=== PATIENT | male | born 1965 | race Caucasian/White ===

== ENCOUNTER 2017-02-02 11:46 | Inpatient (IN) | payer BC, OTHER ==
[~2017-02-02] VITALS: Ht 190.5 cm; Wt 84.3 kg
[2017-02-02] VITALS (7 sets, daily range): BP systolic 79–123; BP diastolic 61–79; PULSE 102–126; RESP 15–20; TEMP 99.3–100; O2SAT 92–99
[~2017-02-02 11:46] MED LIST: CYCL-36 PO; DICL75 PO; Z.0.NO CURRENT MEDS
[2017-02-02] MEDS ORDERED: ASPIRIN 325 MG TAB ONE (12:06)
[2017-02-02] MEDS ORDERED: SODIUM CHLOR 0.9% 1000 ML INJ 1,000 ML IV ONE (12:11)
[2017-02-02] MEDS ORDERED: HEPARIN SODIUM - IV 10,000 UNITS/10 ML VIAL IV STA (12:11)
[2017-02-02] MEDS ORDERED: NITROGLYCERIN 0.4 MG SL 25 TABS/BTL SL STA (12:11)
[2017-02-02] MEDS ORDERED: NITROGLYCERIN-DEXTROSE INJ 250 ML IV SCH (12:15)
[2017-02-02] MEDS ORDERED: SODIUM CHLORIDE 0.9% FLUSH 10 ML FLUSH IVF PRN (12:15)
--- NOTE | 2017-02-02 12:23 | PD ---
HPI Chief Complaint: STEMI Alert Time Seen by Provider: 11:50 Travel History International Travel<30 days: No Contact w/Intl Traveler<30days: No Traveled to known affect area: No History of Present Illness HPI This is a 51-year-old gentleman with a history of hyperlipidemia and diabetes mellitus that his gone untreated, who presents today with complaints of chest pain and chest pressure on and off 2 weeks. Patient was also reported shortness of breath for that timeframe. The patient reports that at 1:00 this morning he woke up with severe pain. He rates the pain as a 3 out of 10 on the pain scale. It is substernal with no radiation to his shoulder. The patient reports shortness of breath that is worse when lying flat. He states when he leans forward it is much improved. The patient does not take aspirin or occasions for his cholesterol or blood sugar. PFSH Past Medical History Arthritis: Yes Asthma: No Autoimmune Disease: No Blood Disorders: No Anxiety: No Depression: No Heart Rhythm Problems: No Cancer: No Cardiovascular Problems: No High Cholesterol: No Chemotherapy: No Chest Pain: No Congestive Heart Failure: No COPD: No Cerebrovascular Accident: No Diabetes: No Diminished Hearing: No Endocrine: No GERD: Yes Glaucoma: No Genitourinary: No Headaches: Yes Hepatitis: No Hiatal Hernia: No Hypertension: No Immune Disorder: No Kidney Stones: No Musculoskeletal: Yes Neurologic: Yes Psychiatric: No Reproductive: No Respiratory: No Migraines: No Myocardial Infarction: Yes Radiation Therapy: No Renal Failure: No Seizures: No Sickle Cell Disease: No Sleep Apnea: No Thyroid Disease: No Ulcer: No ?: Not Past Surgical History AICD: No Appendectomy: No Arteriovenous Shunt: No Cholecystectomy: No Insulin Pump: No Joint Replacement: No Oral Surgery: Yes (LEFT ELBOW) Pacemaker: No Other Surgery: Yes (STENTS) Social History Alcohol Use: Yes (OCCASSIONAL) Tobacco Use: Yes (1 PPD) Substance Use: No Allergies-Medications (Allergen,Severity, Reaction): Coded Allergies: Archiedec (Verified Allergy, Severe, UNKNOWN, 01/30/13) Reported Meds & Prescriptions Reported Meds & Active Scripts Active Diclofenac Sodium 75 Mg Tab 75 Mg PO BID 10 Days Flexeril (Cyclobenzaprine HCl) 10 Mg Tab 10 Mg PO Q8HPRN Reported No Current Meds (Miscellaneous Medication) Misc Review of Systems Except as stated in HPI: all other systems reviewed are Neg General / Constitutional: No: Fever, Chills HENT: No: Headaches, Lightheadedness Cardiovascular: Positive: Chest Pain or Discomfort, No: Palpitations, Irregular Rhythm Respiratory: Positive: Shortness of Breath, No: Cough Gastrointestinal: Positive: Nausea, No: Vomiting, Abdominal Pain Musculoskeletal: No: Myalgias, Edema, Pain Neurologic: No: Weakness, Dizziness, Syncope Physical Exam Narrative GENERAL: Well-developed well-nourished male in mild respiratory distress. SKIN: Focused skin assessment warm/dry. HEAD: Atraumatic. Normocephalic. EYES: No scleral icterus. No injection or drainage. ENT: No nasal bleeding or discharge. Mucous membranes pink and moist. NECK: Trachea midline. No JVD. Supple CARDIOVASCULAR: Tachycardic rate in the 120s. No murmurs appreciated. RESPIRATORY: No accessory muscle use. Fine Rales heard at the bilateral bases. GASTROINTESTINAL: Abdomen soft, non-tender, nondistended. MUSCULOSKELETAL: No obvious deformities. No clubbing. No cyanosis. No edema. NEUROLOGICAL: Awake and alert. No obvious cranial nerve deficits. Motor grossly within normal limits. Normal speech. Data Data Last Documented VS Vital Signs Date Time Temp Pulse Resp B/P Pulse Ox O2 Delivery O2 Flow Rate FiO2 02/02/17 12:13 126 20 112/61 96 Orders Aspirin (Aspirin) (02/02/17 12:06) Troponin I (02/02/17 12:11) Ckmb (Isoenzyme) Profile (02/02/17 12:11) Complete Blood Count With Diff (02/02/17 12:11) I-Stat Profile (02/02/17 12:11) I-Stat Creatinine (02/02/17 12:11) Calcium (02/02/17 12:11) Magnesium (Mg) (02/02/17 12:11) Prothrombin Time / Inr (Pt) (02/02/17 12:11) Act Partial Throm Time (Ptt) (02/02/17 12:11) B-Type Natriuretic Peptide (02/02/17 12:11) Chest, Single Ap (02/02/17 12:11) Electrocardiogram (02/02/17 12:11) Oxygen Administration (02/02/17 12:11) Iv Access Insert/Monitor (02/02/17 12:11) Oximetry (02/02/17 12:11) Sodium Chlor 0.9% 1000 Ml Inj (Ns 1000 M (02/02/17 12:11) Sodium Chloride 0.9% Flush (Ns Flush) (02/02/17 12:15) Nitroglycerin Sl (Nitrostat Sl) (02/02/17 12:11) Nitroglycerin-Dextrose Inj (Nitroglyceri (02/02/17 12:15) Heparin Inj (Heparin Inj) (02/02/17 12:11) MDM Medical Decision Making Medical Screen Exam Complete: Yes Emergency Medical Condition: Yes Differential Diagnosis ACS versus CHF versus musculoskeletal pain Narrative Course 51-year-old male history of hyperlipidemia, hyperglycemia, who presents with two -week history of intermittent chest pain. The patient woke up this morning at 1 AM with chest pain. He reports that as a 3 out of 10 on the pain scale. EKG shows ST elevations in the anterior septal leads. The previous EKG that did not show the anterior elevation that is markedly today. Case was discussed with Dr. August Pozo as the patient was made a STEMI alert. He will take the patient emergently to the [facility]. Cardiac enzymes are pending at this time. He has been given an aspirin. Orders for STEMI alert initiated including heparin. Diagnosis Primary Impression: Acute ST elevation myocardial infarction Additional Impressions: History of hyperlipidemia History of hyperglycemia Admitting Information Admitting Physician Requests: Admit José Luis Hernandez MD Feb 02, 2017 12:23
[2017-02-02 12:27] LABS: AUTOMATED NEUTROPHIL # 16.2 TH/MM3 (1.8-7.7); BASOPHIL # 0.1 TH/MM3 (0-0.2); BASOPHIL % 0.5 % (0.0-2.0); EOSINOPHIL % 0.2 % (0.0-4.0); HEMATOCRIT 37.2 % (39.0-51.0); HEMO FLAGS DIFF FINAL; LYMPH % 6.8 % (9.0-44.0); LYMPHOCYTE # 1.3 TH/MM3 (1.0-4.8); MEAN CELL VOLUME 82.3 FL (80.0-100.0); MEAN CORPUSCULAR HEMOGLOBIN 28.6 PG (27.0-34.0); MEAN CORPUSCULAR HGB CONC 34.7 % (32.0-36.0); MONO % 6.5 % (0.0-8.0); PLATELET COUNT 326 TH/MM3 (150-450); RED BLOOD COUNT 4.52 MIL/MM3 (4.50-5.90); RED CELL DISTRIBUTION WIDTH 13.7 % (11.6-17.2); WHITE BLOOD COUNT 18.8 TH/MM3 (4.0-11.0)
[2017-02-02] MEDS ORDERED: IOHEXOL 350 MG/ML 50 ML BTL (for Cath Lab) OTHER ONE (12:30)
[2017-02-02] MEDS ORDERED: IOHEXOL 350 MG/ML 100 ML BTL (for Cath Lab) OTHER ONE (12:30)
[2017-02-02 12:31] LABS: I-STAT POTASSIUM 4.2 MMOL/L (3.5-4.9)
--- NOTE | 2017-02-02 12:33 | RADRPT ---
EXAM DATE/TIME: 02/02/2017 12:08 [facility] COMPARISON: No previous studies available for comparison. INDICATIONS : Stemi alert. MEDICAL HISTORY : None. SURGICAL HISTORY : None. ENCOUNTER: Initial ACUITY: 1 day PAIN SCORE: 10/10 LOCATION: Left upper chest FINDINGS: The right A/C joint is by 2.4 cm. Slight bibasilar atelectasis and/or infiltrate is seen. T here is slight cardiomegaly and perivascular pulmonary edema. Focal consolidation is not seen. CONCLUSION: 1. Slight CHF and bibasilar atelectasis and/or infiltrate. 2. Grade III A/C joint separation on the right. Renea Chacko MD on February 02, 2017 at 12:30 Board Certified Radiologist. This report was verified electronically.
[2017-02-02 12:37] LABS: APTT (PATIENT) 28.6 SEC (24.3-30.1); INTERNATIONAL NORMALIZED RATIO 1.1 RATIO; PROTHROMBIN TIME - PATIENT 11.8 SEC (9.8-11.6)
[2017-02-02] MEDS ORDERED: HEPARIN-NS/PF INJ 500 ML ONE (12:39)
[2017-02-02] MEDS ORDERED: HEPARIN SODIUM - IV 10,000 UNITS/10 ML VIAL ONE (12:39)
[2017-02-02] MEDS ORDERED: TIROFIBAN INFUSION INJ 250 ML IV ONE (12:40)
[2017-02-02] MEDS ORDERED: NITROGLYCERIN INJ 5 ML ONE (12:43)
[2017-02-02] MEDS ORDERED: MIDAZOLAM HCL 2 MG/2 ML VIAL ONE (12:43)
[2017-02-02 12:46] LABS: MAGNESIUM 1.8 MG/DL (1.5-2.5)
[2017-02-02] MEDS ORDERED: HEPARIN-D5W INJ 250 ML ONE (13:02)
[2017-02-02] MEDS ORDERED: MORPHINE SULFATE 8 MG/ML INJ ONE (13:03)
[2017-02-02] MEDS: SODIUM CHLOR 0.9% 1000 ML INJ 1,000 ML IV SCH ×2 (13:13→23:13)
[2017-02-02] MEDS ORDERED: SODIUM CHLORIDE 0.9% FLUSH 5 ML FLUSH IVF PRN (13:15)
--- NOTE | 2017-02-02 13:18 | MB ---
cc: SUZAN MIKE M.D. DATE OF CONSULTATION: 02/02/2017 DATE OF : 1965 REASON FOR CONSULTATION: Acute ST-elevation myocardial infarction. HISTORY OF PRESENT ILLNESS The patient is a 51-year-old white male with a history of diabetes, coronary artery disease status post stent x2 (Cypher) of the proximal LAD by Dr. Sue Oliver 2007, who was in his usual state of health up until about 2 weeks ago when he began to experience intermittent episodes of substernal chest discomfort associated with shortness of breath and occasionally slight nausea. Usually the chest discomfort, described as "sharp," would last a few minutes. However, he awoke this morning at 01:00 a.m. with severe substernal chest pain which has persisted until now (11 hours later). He denies pleurisy, dizziness, syncope, near-syncope, palpitations, pedal edema, paroxysmal nocturnal dyspnea. The patient has been noncompliant with followup. PAST MEDICAL HISTORY 1. Diabetes. 2. Coronary artery disease, status post stent x2 of the the proximal LAD . CARDIAC MEDICATIONS AT HOME: None. ALLERGIES RONDE FAMILY HISTORY Noncontributory. SOCIAL HISTORY The patient smokes about a pack of cigarettes per day. He denies alcohol abuse. REVIEW OF SYSTEMS As in the history of present illness otherwise negative or noncontributory. He also denies headache, abdominal pain, melena, dyspepsia, bright red blood per rectum, fevers. PHYSICAL EXAMINATION: VITAL SIGNS: On physical examination his blood pressure 112/60 with a pulse of 120, respirations 20. IN GENERAL: He is a well-developed, well-nourished white male in no acute distress. HEAD, EYES, EARS, NOSE, AND THROAT: Jugular venous pressure is 10 cm of water. Carotid pulses are 2+ bilaterally and without bruits. CHEST: Examination of the chest reveals few bibasilar crackles CARDIOVASCULAR SYSTEM: On cardiac examination he has a tachycardiac regular rhythm without definite S3- S4 or murmur. ABDOMEN: On abdominal examination he has a soft, nontender abdomen. Bowel sounds are present. There is no definite hepatosplenomegaly. EXTREMITIES: Examination of the extremities reveals no clubbing, cyanosis or edema. Peripheral pulses are normal throughout. LABORATORY DATA: Laboratory data pending. RADIOLOGIC: EKG shows sinus tachycardia, anterior and anteroseptal ST elevation, consider acute injury pattern. IMPRESSION: Probable anterior ST elevation myocardial infarction, congestive heart failure in this 51-year-old white male with a history of diabetes, coronary artery disease status post percutaneous coronary intervention of the LAD 8 years ago. At this time he continues to have ongoing chest pains. His EKG does show new ST-segment elevation in the anteroseptal leads. Because of the instability of his symptoms and the abnormal EKG he has been recommended emergency cardiac catheterization with possible percutaneous coronary intervention, the risks of which have explained him including but not limited to , myocardial infarction, stroke, arrhythmia, bleeding, infection, renal failure. He agrees to proceed. RECOMMENDATIONS: 1. Emergency cardiac catheterization. 2. Eventually start beta yadira and KEISHA inhibitor therapy as blood pressures tolerate. 3. Check a fasting lipid profile and initiate statin therapy. MD DEWAYNE Bryant/clementine /12:24 PM /12:44 PM GEOVANNA
[2017-02-02] MEDS ORDERED: FUROSEMIDE 40 MG/4 ML VIAL IV PUSH ONE (13:30)
--- NOTE | 2017-02-02 13:42 | MA ---
cc: SUZAN MIKE M.D. DATE 02/02/17 PROCEDURE Emergency left heart catheterization, selective coronary angiography, left ventriculography, intra-aortic balloon pump placement. PROCEDURE NOTE The patient was brought to the cardiac catheterization laboratory in a fasting state after having signed informed consent. The right groin was prepped and draped as per policy and anesthetized with 1% lidocaine. Arterial access was obtained via the right femoral artery and a 6-Beninese sheath placed. Coronary arteriography was performed using 6-Beninese Sen, left 4.0 and right progressive catheters. Left ventriculography was done using an angled pigtail catheter. Intraaortic balloon pump placement was done as described below. There were no apparent immediate complications. HEMODYNAMIC RESULTS Left ventricle 92 with an end-diastolic pressure of 30. Aorta 92/60 with a mean of 73. There was no significant transvalvular aortic gradient on pullback of the pigtail catheter. CORONARY ARTERIOGRAPHY The left main is a very large vessel with diffuse disease. Most evident on the GUATEMALAN cranial view the distal left main has up to 30% stenosis. The left anterior descending demonstrates two overlapping stents proximally. There is severe diffuse re-stenosis of the stents resulting in up to 99% severity. There is DAVID grade 1 flow in this vessel. The LAD appears to gives rise to a very small branching diagonal which is subtotally occluded at its origin. There is a large ramus intermedius which has diffuse ostial to proximal disease resulting in up to 40% stenosis. The left circumflex is totally occluded in its midportion. Faint late filling is seen of the distal left circumflex and of a relatively small caliber obtuse marginal which has minimal luminal irregularities. The right coronary artery is also diffusely diseased. There is up to 80% stenosis in the distal third of the proximal portion and then total occlusion of the vessel distally. No definite [id number] collaterals are seen. What functionally serves as the posterior descending artery arises from the mid right coronary and this vessel overall appears to have mild diffuse luminal irregularities with up to 20% stenosis near its origin. LEFT VENTRICULOGRAPHY Contrast injection of the left ventricle reveals a large area of mid to distal anterior and apical akinesis. The apex may also be slightly dyskinetic. Estimated ejection fraction is 25%. INTRA-AORTIC BALLOON PUMP PLACEMENT: Due to the patient's ongoing chest discomforts, his severe coronary artery disease, the DAVID grade 1 flow in the LAD, it was decided to place an intra-aortic balloon pump. The proximal LAD disease does not appear to be readily amendable to percutaneous intervention. The 6-Beninese sheath was exchanged for a balloon pump sheath. Through this sheath a Datascope intraaortic balloon pump was introduced and its tip positioned in the aortic knob where good diastolic augmentation was demonstrated. The balloon pump was secured into place using 2-0 silk ties down to the thigh skin tissue. CONCLUSION 1. Severe three-vessel coronary artery disease. 2. Right dominant system. 3. Severely reduced left ventricular systolic function with ejection fraction estimated at 25%. 4. Status post placement of an intra-aortic balloon pump. DISCUSSION The patient will be referred for bypass surgery. Bypass grafts could be placed to the LAD, posterior descending artery, possibly an obtuse marginal. Suzan Mike MD GHOc/ISI /1:09 PM /1:26 PM MTDD
[2017-02-02] MEDS ORDERED: ACETAMINOPHEN 325 MG TAB PO PRN (14:45)
[2017-02-02] MEDS ORDERED: MISCELLANEOUS NURSING INFORMATION XX SCH (14:45)
[2017-02-02] MEDS ORDERED: DEXTROSE 50% IN WATER 50 ML VIAL(D50) IV PUSH PRN (14:45)
[2017-02-02] MEDS ORDERED: GLUCAGON 1 MG/ML VIAL OTHER PRN (14:45)
[2017-02-02] MEDS ORDERED: CHLORHEXIDINE GLUCONATE 2 % 1 PACK (2 CLOTHS) TOP PRN (14:45)
[2017-02-02] MEDS ORDERED: SENNOSIDES 8.6 MG TAB PO PRN (14:45)
[2017-02-02] MEDS ORDERED: SODIUM CHLORIDE 0.9% FLUSH 10 ML FLUSH IV FLUSH PRN (14:45)
[2017-02-02] MEDS ORDERED: RESP: ALBUTEROL 2.5 MG/IPRATROPIUM 0.5 MG NEB (PRN) INH (14:45)
[2017-02-02] MEDS ORDERED: ONDANSETRON HCL 4 MG/2 ML VIAL IV PRN (14:45)
[2017-02-02] MEDS ORDERED: MORPHINE SULFATE 4 MG/ML INJ IV PRN (14:45)
--- NOTE | 2017-02-02 14:45 | HHI.HP ---
[facility] Service Critical Care Medicine Primary Care Physician No Primary Care Physician Admission Diagnosis Acute STEMI, hyperlipidemia, hyperglycemia Diagnosis: (1) Acute ST elevation myocardial infarction Diagnosis: Principal (2) History of hyperlipidemia Diagnosis: Principal (3) Hyperglycemia Diagnosis: Principal (4) Coronary artery disease Diagnosis: Principal (5) Leukocytosis Diagnosis: Principal (6) Anemia Diagnosis: Principal (7) Elevated troponin Diagnosis: Principal (8) Hyponatremia Diagnosis: Principal Chief Complaint: Chest pain Travel History International Travel<30 Days: No Contact w/Intl Traveler <30 Da: No Traveled to Known Affected Are: No History of Present Illness 51-year-old male. Date of admission . We are asked to admit by cardiology for chest pain. He has a past medical history including hyperlipidemia and diabetes mellitus 1 year currently on no medication. He has known history of coronary disease with's stents 2 placed in the LAD by Dr. Perea in 2007. He presented to [place] ED with complaints of chest pain and chest pressure on and off 2 weeks. Associated with shortness of breath/ excursion. At 1 AM this morning he awoke up with severe nonradiating pain. with orthopnea. Upon presentation ED, patient was noted to have ST elevation in the anterior/lateral leads. He was given aspirin 325 mg by mouth 1 started heparin drip and nitroglycerin. Today patient back to heart catheter lab results have three-vessel coronary disease. Left main 30%. LAD re in-stent stenosis 99%, 40% ostial stenosis. RCA 80% stenosis of the distal third and the left circumflex 100% occlusion. Ejection fraction was 25%. An intra-aortic pump was placed 1:1 augmentation around 100. Agent appears intact. CT surgery is been consulted. Chest pain currently 1 out of 10. Review of Systems Constitutional: COMPLAINS OF: Fatigue, DENIES: Fever, Weight gain, Weight loss Endocrine: DENIES: Polyuria, Polyphagia Eyes: DENIES: Blurred vision, Double Vision Ears, nose, mouth, throat: DENIES: Tinnitus, Odynophagia Respiratory: DENIES: Apneas Cardiovascular: COMPLAINS OF: Chest pain, Orthopnea, DENIES: Lower Extremity Edema, Claudication Gastrointestinal: DENIES: Abdominal pain, Nausea, Vomiting Genitourinary: DENIES: Urgency Musculoskeletal: DENIES: Joint pain, Back pain Integumentary: DENIES: Abnormal pigmentation Hematologic/lymphatic: DENIES: Bruising Immunologic/allergic: DENIES: Eczema Neurologic: DENIES: Abnormal gait Psychiatric: DENIES: Anxiety, Confusion Past Family Social History Allergies: Coded Allergies: Rondec (Verified Allergy, Severe, UNKNOWN, 02/02/17) Past Medical History Coronary artery disease - three-vessel currently. Prior LAD stent 2 Osteoarthritis Diabetes mellitus Dyslipidemia Osteoarthritis Ongoing tobaccoism Past Surgical History Left elbow Reported Medications None Active Ordered Medications Reviewed in EMR Family History Noncontributory Social History 1 pack per day tobacco. No significant EtOH or IV drug use Physical Exam Vital Signs Vital Signs Date Time Temp Pulse Resp B/P Pulse Ox O2 Delivery O2 Flow Rate FiO2 02/02/17 12:37 126 18 112/61 99 Nasal Cannula 2 02/02/17 12:17 99 Nasal Cannula 2 02/02/17 12:17 124 20 99 Nasal Cannula 2 02/02/17 12:13 126 20 112/61 96 Physical Exam GENERAL: 51 year old male, currently resting in bed on nasal cannula SKIN: Warm and dry. No rash HEAD: Atraumatic. Normocephalic. EYES: Pupils equal and round. No scleral icterus. No injection or drainage. ENT: No nasal bleeding or discharge. Mucous membranes pink and moist. NECK: Trachea midline. No JVD. CARDIOVASCULAR: Distant. Pulsation of intra-aortic balloon pump appreciated. RESPIRATORY: Few crackles patient bases bilateral. No wheezing. Breath sounds equal bilaterally. GASTROINTESTINAL: Abdomen soft, non-tender, nondistended. Hepatic and splenic margins not palpable. MUSCULOSKELETAL: Extremities without significant peripheral edema. No obvious deformities. NEUROLOGICAL: Awake and alert. No obvious cranial nerve deficits. Motor grossly within normal limits. Five out of 5 muscle strength in the arms and legs. Normal speech. PSYCHIATRIC: Appropriate mood and affect; insight and judgment normal. Laboratory Laboratory Tests Test 02/02/17 11:20 White Blood Count 18.8 Red Blood Count 4.52 Hemoglobin 12.9 Bedside Hemoglobin 12.9 Hematocrit 37.2 Bedside Hematocrit 38.0 Mean Corpuscular Volume 82.3 Mean Corpuscular Hemoglobin 28.6 Mean Corpuscular Hemoglobin 34.7 Concent Red Cell Distribution Width 13.7 Platelet Count 326 Mean Platelet Volume 7.5 Neutrophils (%) (Auto) 86.0 Lymphocytes (%) (Auto) 6.8 Monocytes (%) (Auto) 6.5 Eosinophils (%) (Auto) 0.2 Basophils (%) (Auto) 0.5 Neutrophils # (Auto) 16.2 Lymphocytes # (Auto) 1.3 Monocytes # (Auto) 1.2 Eosinophils # (Auto) 0.0 Basophils # (Auto) 0.1 CBC Comment DIFF FINAL Differential Comment Prothrombin Time 11.8 Prothromb Time International 1.1 Ratio Activated Partial 28.6 Thromboplast Time Bedside Sodium 136 Bedside Potassium 4.2 Bedside Chloride 100 Bedside Blood Urea Nitrogen 15 Bedside Creatinine 0.8 Bedside Glucose 314 Calcium Level 9.1 Magnesium Level 1.8 Total Creatine Kinase 92 Troponin I 1.16 B-Type Natriuretic Peptide 329 Result Diagram: 02/02/17 1120 Imaging Last Impressions Chest X-Ray 02/02/17 1211 Signed Impressions: Service Date/Time: Saturday, February 02, 2017 12:08 - CONCLUSION: 1. Slight CHF and bibasilar atelectasis and/or infiltrate. 2. Grade III A/C joint separation on the right. Renea Chacko MD Assessment and Plan Assessment and Plan Neuro/Psych: Acetaminophen for fever [place]/morphine for pain management CV: STEMI Three-vessel coronary disease History of LAD stenting [address] Perea Hypertension Dyslipidemia EKG admission revealed ST elevation anterior/lateral leads Heart catheterization - left main 30%, LAD with re in stent stenosis 98%, ostial 40%, RCA 80% distal, left circumflex 100% percent occlusion. EF 25% Echocardiogram 2007 revealed EF 50%. Mild apical hypokinesis Currently in aspirin 325 daily, Lipitor 40 mg daily and heparin drip @ 1000 units an hour. Cardiothoracic surgery evaluation pending for possible CABG Resp: Ongoing tobaccoism Nasal cannula to maintain saturations greater than equal to 92% Incentive spirometry while awake As needed bronchodilator therapy every 2 hours Tobacco sensation will be encouraged GI: Gastroesophageal reflux disease Currently on ADA diet Protonix for GI prophylaxis Colace/as needed Senokot for bowel regimen : Patel will be placed for accurate I's and O's in a critically ill patient Endo: Diabetes mellitus Check hemoglobin A1c/lipid panel KEISHA inhibitor when indicated Sliding-scale insulin with Accu-Cheks to maintain euglycemia/low regimen Renal: Accurate I's and O's Monitor urine output Creatinine currently within normal limits. Repeat BMP in a.m. Heme: Leukocytosis Normocytic anemia Monitor CBC daily. Follow trends. ID: Monitor for infection MSK: Right grade 3 AC joint separation OT evaluate and treat FEN: Hyponatremia Follow BMP in a.m. Access - Utilize peripheral IV. Central line if indicated Prophylaxis - GI - Protonix - DVT - heparin drip Critical Care: The total critical care time was 65 minutes. Time to perform other separately billable procedures was not included in the critical care time. Code Status Full code Discussed Condition With Patient. RN. Care plan discussed and all questions answered. Problem Qualifiers (1) Acute ST elevation myocardial infarction: Qualified Code: I21.3 - Acute ST elevation myocardial infarction (STEMI), unspecified artery (2) Coronary artery disease: Qualified Code: I25.110 - Coronary artery disease involving [place] coronary artery of [place] heart with unstable angina pectoris (3) Leukocytosis: Qualified Code: D72.829 - Leukocytosis, unspecified type (4) Anemia: Qualified Code: D64.9 - Anemia, unspecified type Michael Clancy MD Feb 02, 2017 14:45
--- NOTE | 2017-02-02 14:51 | PD.CONS ---
History of Present Illness Service CT Surgery Consult Requested By Dr. Goncalves Reason for Consult STEMI, multivessel CAD Primary Care Physician No Primary Care Physician Diagnoses: (1) Acute ST elevation myocardial infarction (2) Coronary artery disease Review of Systems Constitutional: COMPLAINS OF: Diaphoretic episodes, Fatigue, DENIES: Fever, Weight gain, Weight loss, Chills, Dizziness, Change in appetite, Night Sweats Endocrine: DENIES: Heat/cold intolerance, Polydipsia, Polyuria, Polyphagia Eyes: DENIES: Blurred vision, Diplopia, Eye inflammation, Eye pain, Vision loss , Photosensitivity, Double Vision Ears, nose, mouth, throat: DENIES: Tinnitus, Hearing loss, Vertigo, Nasal discharge, Oral lesions, Throat pain, Hoarseness, Ear Pain, Running Nose, Epistaxis, Sinus Pain, Toothache, Odynophagia Respiratory: DENIES: Apneas, Cough, Snoring, Wheezing, Hemoptysis, Sputum production, Shortness of breath Cardiovascular: COMPLAINS OF: Chest pain, DENIES: Palpitations, Syncope, Dyspnea on Exertion, PND, Lower Extremity Edema, Orthopnea, Claudication Gastrointestinal: DENIES: Abdominal pain, Black stools, Bloody stools, Constipation, Diarrhea, Nausea, Vomiting, Difficulty Swallowing, Anorexia Genitourinary: DENIES: Sexual dysfunction, Urinary frequency, Urinary incontinence, Urgency, Hematuria, Dysuria, Nocturia, Penile Discharge, Testicular Pain, Testicular Swelling Musculoskeletal: DENIES: Joint pain, Muscle aches, Stiffness, Joint Swelling, Back pain, Neck pain Integumentary: DENIES: Abnormal pigmentation, Nail changes, Pruritus, Rash Hematologic/lymphatic: DENIES: Bruising, Lymphadenopathy Immunologic/allergic: DENIES: Eczema, Urticaria Neurologic: DENIES: Abnormal gait, Headache, Localized weakness, Paresthesias, Seizures, Speech Problems, Tremor, Poor Balance Psychiatric: COMPLAINS OF: Anxiety, DENIES: Confusion, Mood changes, Depression, Hallucinations, Agitation, Suicidal Ideation, Homicidal Ideation, Delusions Except as stated in HPI: all other systems reviewed are Neg Past Family Social History Allergies: Coded Allergies: Rondec (Verified Allergy, Severe, UNKNOWN, 02/02/17) Past Medical History Diabetes Mellitus HTN Hyperlipidemia Ongoing tobacco abuse s/p PCI stent placement 2007 Reported Medications none Active Ordered Medications Current Medications Medications (Trade) Dose Ordered Sig/Leif Route Start Time Stop Time Status Last Admin Nitroglycerin/ Dextrose 250 ml @ 0 mls/hr TITRATE IV 02/02/17 12:15 (NS 1000 ml Inj) 1,000 ml @ 100 mls/hr Q10H IV 02/02/17 13:13 02/03/17 01:12 (Restoril) 15 mg HS PRN PO 02/02/17 13:15 (Aspirin) 325 mg DAILY PO 02/03/17 09:00 (Lipitor) 40 mg HS PO 02/02/17 21:00 (Heparin Inj) 5,000 units UNSCH PRN IV 02/02/17 19:15 Heparin Sodium (Porcine) 2500 units 2,500 units UNSCH PRN IV 02/02/17 19:15 (Heparin-D5W Inj) 250 ml @ 0 mls/hr TITRATE IV 02/02/17 13:15 (NS Flush) 2 ml UNSCH PRN IV FLUSH 02/02/17 14:45 (NS Flush) 2 ml BID IV FLUSH 02/02/17 21:00 UNV (Tylenol) 650 mg Q6H PRN PO 02/02/17 14:45 UNV ([place] 5-325 Mg) 1 tab Q4H PRN PO 02/02/17 14:45 UNV (Morphine Inj) 2 mg Q2H PRN IV 02/02/17 14:45 UNV (Protonix Inj) 40 mg DAILY IV 02/03/17 09:00 UNV (Zofran Inj) 4 mg Q6H PRN IV 02/02/17 14:45 UNV (Colace) 100 mg BID PO 02/02/17 21:00 UNV (Senokot) 17.2 mg Q12H PRN PO 02/02/17 14:45 UNV Miscellaneous Information 1 Q361D XX 02/02/17 14:45 UNV (Chlorhexidine 2% Cloth) 3 pack Taper DAILY@04 TOP 02/03/17 04:00 01/30/18 03:59 UNV (Chlorhexidine 2% Cloth) 3 pack UNSCH PRN TOP 02/02/17 14:45 UNV (D50w (Vial) Inj) 25 ml UNSCH PRN IV PUSH 02/02/17 14:45 UNV (Glucagon Inj) 1 mg UNSCH PRN OTHER 4/15/17 14:45 UNV Family History Denies heart disease Social History 1 ppd cigarettes for ~35 yrs Denies ETOH Physical Exam Vital Signs Vital Signs Date Time Temp Pulse Resp B/P Pulse Ox O2 Delivery O2 Flow Rate FiO2 02/02/17 12:37 126 18 112/61 99 Nasal Cannula 2 02/02/17 12:17 99 Nasal Cannula 2 02/02/17 12:17 124 20 99 Nasal Cannula 2 02/02/17 12:13 126 20 112/61 96 Physical Exam GENERAL: This is a well-nourished, well-developed patient, in no apparent distress. SKIN: No rashes, ecchymoses or lesions. Cool and dry. HEAD: Atraumatic. Normocephalic. No temporal or scalp tenderness. EYES: Pupils equal round and reactive. Extraocular motions intact. No scleral icterus. No injection or drainage. ENT: Nose without bleeding, purulent drainage or septal hematoma. Throat without erythema, tonsillar hypertrophy or exudate. Uvula midline. Airway patent. NECK: Trachea midline. No JVD or lymphadenopathy. Supple, nontender, no meningeal signs. CARDIOVASCULAR: Regular rate and rhythm without murmurs, gallops, or rubs. RESPIRATORY: Clear to auscultation. Breath sounds equal bilaterally. No wheezes , rales, or rhonchi. GASTROINTESTINAL: Abdomen soft, non-tender, nondistended. No hepato-splenomegaly , or palpable masses. No guarding. MUSCULOSKELETAL: Extremities without clubbing, cyanosis, or edema. No joint tenderness, effusion, or edema noted. No calf tenderness. Negative Homans sign bilaterally. NEUROLOGICAL: Awake and alert. Cranial nerves II through XII intact. Motor and sensory grossly within normal limits. Five out of 5 muscle strength in all muscle groups. Normal speech. Laboratory Laboratory Tests Test 02/02/17 11:20 White Blood Count 18.8 Red Blood Count 4.52 Hemoglobin 12.9 Bedside Hemoglobin 12.9 Hematocrit 37.2 Bedside Hematocrit 38.0 Mean Corpuscular Volume 82.3 Mean Corpuscular Hemoglobin 28.6 Mean Corpuscular Hemoglobin 34.7 Concent Red Cell Distribution Width 13.7 Platelet Count 326 Mean Platelet Volume 7.5 Neutrophils (%) (Auto) 86.0 Lymphocytes (%) (Auto) 6.8 Monocytes (%) (Auto) 6.5 Eosinophils (%) (Auto) 0.2 Basophils (%) (Auto) 0.5 Neutrophils # (Auto) 16.2 Lymphocytes # (Auto) 1.3 Monocytes # (Auto) 1.2 Eosinophils # (Auto) 0.0 Basophils # (Auto) 0.1 CBC Comment DIFF FINAL Differential Comment Prothrombin Time 11.8 Prothromb Time International 1.1 Ratio Activated Partial 28.6 Thromboplast Time Bedside Sodium 136 Bedside Potassium 4.2 Bedside Chloride 100 Bedside Blood Urea Nitrogen 15 Bedside Creatinine 0.8 Bedside Glucose 314 Calcium Level 9.1 Magnesium Level 1.8 Total Creatine Kinase 92 Troponin I 1.16 B-Type Natriuretic Peptide 329 Result Diagram: 02/02/17 1120 Imaging Last Impressions Chest X-Ray 02/02/17 1211 Signed Impressions: Service Date/Time: Thursday, February 02, 2017 12:08 - CONCLUSION: 1. Slight CHF and bibasilar atelectasis and/or infiltrate. 2. Grade III A/C joint separation on the right. KRory Chacko MD Course STEMI alert patient s/p emergent LHC and IABP placement. EF ~25% on V gram with LVEDP ~30mmHg Assessment and Plan Problem List: (1) Acute ST elevation myocardial infarction Status: Acute (2) Coronary artery disease Status: Acute (3) Combined systolic and diastolic heart failure, acute Status: Acute Assessment and Plan 51y/o male presents with STEMI and acute systolic and diastolic heart failure. He has numerous risk factors for CAD and continues to use tobacco. He has multivessel CAD and would benefit from CABG. Risk of surgery is very high emergently. Recommend: ECHO stat. Hopefully, he will stabilize with anticoagulation, IV NTG, and the IABP support. He had chest pain for 11 hours prior to presenting to the ED and would not likely benefit from immediate revascularization. Will follow and determine timing for CABG based on his clinical status. Problem Qualifiers (1) Acute ST elevation myocardial infarction: Qualified Code: I21.3 - Acute ST elevation myocardial infarction (STEMI), unspecified artery (2) Coronary artery disease: Qualified Code: I25.110 - Coronary artery disease involving telida coronary artery of telida heart with unstable angina pectoris Lexy Quintero MD Feb 02, 2017 14:51
--- NOTE | 2017-02-02 16:33 | EC ---
Study Study Date:02/02/2017 STUDY CONCLUSIONS SUMMARY - Left ventricle: The cavity size was mildly dilated. Wall thickness was normal. Systolic function was severely reduced. The estimated ejection fraction was in the range of 20% to 25%. Diffuse hypokinesis. Akinesis of the apical myocardium. - Aortic valve: Valve area: 3.31cm^2(VTI). Valve area: 3.08cm^2 (Vmax). - Mitral valve: Moderate regurgitation. - Pulmonary arteries: Systolic pressure was mildly increased. PA peak pressure: 48mm Hg (S). If LV function is below 40, please consider prescribing an ACEI or ARB or document rationale for non-use. PROCEDURE DATA STUDY STATUS: Elective. Procedure: Transthoracic echocardiography. Image quality was good. Scanning was performed from the parasternal, apical, and subcostal acoustic windows. Study completion: The patient tolerated the procedure well. Transthoracic echocardiography. M-mode, complete 2D, complete spectral Doppler, and color Doppler. Height: Height: 75in. Weight: Weight: 195.6lb. Body mass index: BMI: 24.5kg/m^2. Body surface area: BSA: 2.18m^2. Patient status: Inpatient. CARDIAC ANATOMY LEFT VENTRICLE: The cavity size was mildly dilated. Wall thickness was normal. Systolic function was severely reduced. The estimated ejection fraction was in the range of 20% to 25%. Diffuse hypokinesis. Regional wall motion abnormalities: Akinesis of the apical myocardium. AORTIC VALVE: Trileaflet; normal thickness leaflets. Doppler: Transvalvular velocity was within the normal range. There was no stenosis. No regurgitation. Valve area: 3.31cm^2(VTI). Indexed valve area: 1.52cm^2/m^2 (VTI). Valve area: 3.08cm^2 (Vmax). Indexed valve area: 1.41cm^2/m^2 (Vmax). Mean gradient: 3mm Hg (S). AORTA: Aortic root: The aortic root was normal in size. MITRAL VALVE: Structurally normal valve. Doppler: Transvalvular velocity was within the normal range. There was no evidence for stenosis. Moderate regurgitation. Peak gradient: 2mm Hg (D). LEFT ATRIUM: The atrium was normal in size. RIGHT VENTRICLE: The cavity size was normal. Wall thickness was normal. PULMONIC VALVE: Doppler: Transvalvular velocity was within the normal range. There was no evidence for stenosis. No regurgitation. TRICUSPID VALVE: Structurally normal valve. Doppler: Transvalvular velocity was within the normal range. Trace regurgitation. PULMONARY ARTERY: The main pulmonary artery was normal-sized. Systolic pressure was mildly increased. RIGHT ATRIUM: The atrium was normal in size. PERICARDIUM: There was no pericardial effusion. SYSTEMIC VEINS: Inferior vena cava: The vessel was normal in size. Patient weight: 195.6lb _Ejection fraction:_ 65-75% _Fractional shortening:_ 32% up to 5Kg 5-11.5Kg 11.6-22.9Kg 23-45Kg 45-57Kg Aortic Root 7-13 <17 13-22 17-27 17-27 LA diam 6-13 <23 24-38 33-47 37-40 RVID 10-17 7-15 7-15 7-18 8-17 LVIDd 12-22 <32 24-38 33-47 37-40 LVPW 2-4 3-6 5-7 6-8 7-8 IVS 2-4 3-6 5-7 6-8 7-8 BASIC MEASUREMENTS ADULT NORMAL Left ventricle LV internal dimension, ED, chordal *64.4 mm 43-52 level, PLAX LV internal dimension, ES, chordal *60.9 mm 23-38 level, PLAX Fractional shortening, chordal level, *5 % >29 PLAX LV posterior wall thickness, ED 8.85 mm IVS/LVPW ratio, ED 0.94 <1.3 Ventricular septum Septal thickness, ED 8.3 mm Aortic valve Leaflet separation 20 mm 15-26 Aorta Root diameter, ED 30 mm BASIC MEASUREMENTS ADULT NORMAL Aortic valve Leaflet separation 20 mm 15-26 DOPPLER MEASUREMENTS ADULT NORMAL Main pulmonary artery Pressure, S *48 mm Hg =30 Aortic valve Peak velocity, S 110 cm/s Mean velocity, S 72.1 cm/s VTI, S 11.9 cm Mean gradient, S 3 mm Hg Valve area, VTI 3.31 cm^2 Valve area index, VTI 1.52 cm^2/m^2 Valve area, Vmax 3.08 cm^2 Valve area index, Vmax 1.41 cm^2/m^2 Mitral valve Peak E-wave velocity 74.5 cm/s Peak A-wave velocity 99.2 cm/s Deceleration time *53 ms 150-230 Peak gradient, D 2 mm Hg Peak E/A ratio 0.8 Tricuspid valve Regurgitant peak velocity 292 cm/s Peak RV-RA gradient, S 34 mm Hg Maximal regurgitant velocity 292 cm/s Right ventricle RV pressure, S *49 mm Hg <30 Pulmonic valve Peak velocity, S 51.1 cm/s LEGEND: Mean values are shown as u=mean value. Asterisk (*) veras values outside specified normal range. Prepared and signed by Phil Nice [id number]
[2017-02-02] MEDS: INSULIN NovoLIN REGULAR SUPPLEMENTAL SCALE SQ SCH ×2 (17:09→20:08)
[2017-02-02] MEDS ORDERED: HEPARIN SODIUM - IV 10,000 UNITS/10 ML VIAL IV PRN (19:15)
[2017-02-02] MEDS: SODIUM CHLORIDE 0.9% FLUSH 10 ML FLUSH IV FLUSH SCH (20:08)
[2017-02-02] MEDS: HEPARIN SODIUM - IV 10,000 UNITS/10 ML VIAL IV PRN (20:08)
[2017-02-02] MEDS: DOCUSATE SODIUM 100 MG CAP PO SCH (20:08)
[2017-02-02] MEDS ORDERED: ATORVASTATIN 40 MG TAB PO SCH (21:00)
[2017-02-02] MEDS ORDERED: SODIUM CHLORIDE 0.9% FLUSH 5 ML FLUSH IVF SCH (21:00)
[2017-02-03] VITALS (12 sets, daily range): BP systolic 87–138; BP diastolic 59–86; PULSE 89–103; RESP 15–18; TEMP 98.2–99.8; O2SAT 90–97
[2017-02-03 03:00] LABS: AUTOMATED NEUTROPHIL # 12.7 TH/MM3 (1.8-7.7); BASOPHIL # 0.1 TH/MM3 (0-0.2); BASOPHIL % 0.4 % (0.0-2.0); EOSINOPHIL # 0.1 TH/MM3 (0-0.4); EOSINOPHIL % 0.4 % (0.0-4.0); HEMATOCRIT 35.3 % (39.0-51.0); HEMO FLAGS DIFF FINAL; LYMPH % 14.7 % (9.0-44.0); LYMPHOCYTE # 2.5 TH/MM3 (1.0-4.8); MEAN CELL VOLUME 83.4 FL (80.0-100.0); MEAN CORPUSCULAR HEMOGLOBIN 27.9 PG (27.0-34.0); MEAN CORPUSCULAR HGB CONC 33.4 % (32.0-36.0); MONO % 8.8 % (0.0-8.0); NEUT % 75.7 % (16.0-70.0); PLATELET COUNT 226 TH/MM3 (150-450); RED BLOOD COUNT 4.23 MIL/MM3 (4.50-5.90); RED CELL DISTRIBUTION WIDTH 13.5 % (11.6-17.2); WHITE BLOOD COUNT 16.8 TH/MM3 (4.0-11.0)
[2017-02-03 03:04] LABS: APTT (PATIENT) 32.5 SEC (24.3-30.1)
[2017-02-03] MEDS: HEPARIN SODIUM - IV 10,000 UNITS/10 ML VIAL IV PRN ×2 (03:10→20:17)
[2017-02-03 03:13] LABS: ANION GAP 9 MEQ/L (5-15); BICARBONATE 25.4 MEQ/L (21.0-32.0); BLOOD UREA NITROGEN 17 MG/DL (7-18); CHLORIDE 102 MEQ/L (98-107); GLOMERULAR FILTRATION RATE 73 ML/MIN (>89); MAGNESIUM 1.7 MG/DL (1.5-2.5); POTASSIUM 3.7 MEQ/L (3.5-5.1); SODIUM (NA) 136 MEQ/L (136-145)
[2017-02-03 03:23] LABS: CREATINE KINASE 53 U/L (39-308); HDL CHOLESTEROL 34.7 MG/DL (40.0-60.0); LDL CHOLESTEROL 166 MG/DL (0-99)
[2017-02-03] MEDS: CHLORHEXIDINE GLUCONATE 2 % 1 PACK (2 CLOTHS) TOP SCH (04:00)
[2017-02-03] MEDS: INSULIN NovoLIN REGULAR SUPPLEMENTAL SCALE SQ SCH ×4 (05:57→20:16)
[2017-02-03] MEDS ORDERED: POTASSIUM CHLORIDE 20 MEQ CONTROLLED RELEASE TAB PO ONE (06:30)
--- NOTE | 2017-02-03 06:38 | HHI.CCPN ---
Subjective Remarks/Hospital Course 51-year-old male. Date of admission . We are asked to admit by cardiology for chest pain. He has a past medical history including hyperlipidemia and diabetes mellitus 1 year currently on no medication. He has known history of coronary disease with's stents 2 placed in the LAD by Dr. Perea in 2007. He presented to [facility] ED with complaints of chest pain and chest pressure on and off 2 weeks. Associated with shortness of breath/ excursion. At 1 AM this morning he awoke up with severe nonradiating pain. 3/ 10 with orthopnea. Upon presentation ED, patient was noted to have ST elevation in the anterior/lateral leads. He was given aspirin 325 mg by mouth 1 started heparin drip and nitroglycerin. Today patient back to heart catheter lab results have three-vessel coronary disease. Left main 30%. LAD re in-stent stenosis 99%, 40% ostial stenosis. RCA 80% stenosis of the distal third and the left circumflex 100% occlusion. Ejection fraction was 25%. An intra-aortic pump was placed 1:1 augmentation around 100. Agent appears intact. CT surgery is been consulted. Chest pain currently 1 out of 10. Subjective 02/03: Oxygen requirements currently elevated overnight currently a nonrebreather. Complains of chest pain only with deep inspiration is less pruritic. Afebrile. No bowel movement. Objective Vital Signs Date Time Temp Pulse Resp B/P Pulse Ox O2 Delivery O2 Flow Rate FiO2 02/03/17 06:13 92/61 02/03/17 04:00 95 Non-Rebreather 02/03/17 03:04 101 02/03/17 03:04 99.0 15 02/02/17 23:00 8.00 Result Diagram: 02/03/17 0243 02/03/17 0243 Imaging Last Impressions Chest X-Ray 02/02/17 1211 Signed Impressions: Service Date/Time: Thursday, February 02, 2017 12:08 - CONCLUSION: 1. Slight CHF and bibasilar atelectasis and/or infiltrate. 2. Grade III A/C joint separation on the right. Renea Chacko MD Objective Remarks GENERAL: 51-year-old male currently resting in bed in no acute distress SKIN: Warm and dry. No rash HEAD: Atraumatic. Normocephalic. EYES: Pupils equal and round. No scleral icterus. No injection or drainage. ENT: No nasal bleeding or discharge. Mucous membranes pink and moist. NECK: Trachea midline. No JVD. CARDIOVASCULAR: Counter pulsation of intracerebral pump appreciated RESPIRATORY: Crackles bilaterally. Breath sounds equal bilaterally. GASTROINTESTINAL: Abdomen soft, non-tender, nondistended. MUSCULOSKELETAL: Extremities without clubbing, cyanosis, or edema. No obvious deformities. NEUROLOGICAL: Awake and alert. No obvious cranial nerve deficits. Motor grossly within normal limits. Five out of 5 muscle strength in the arms and legs. Normal speech. A/P Assessment and Plan Neuro/Psych: Acetaminophen for fever [place]/morphine for pain management Restoril 15 mill grams at night when necessary for insomnia CV: STEMI Three-vessel coronary disease History of LAD stenting [address] Perea Hypertension Dyslipidemia EKG admission revealed ST elevation anterior/lateral leads Heart catheterization - left main 30%, LAD with re in stent stenosis 98%, ostial 40%, RCA 80% distal, left circumflex 100% percent occlusion. EF 25% Echocardiogram 2007 revealed EF 50%. Mild apical hypokinesis Echocardiogram revealed EF 20=25%. Akinesis of the apical myocardium. Moderate MR. JOSSE 48 mmHg Currently in aspirin 325 daily, Lipitor 40 mg daily and heparin drip @ 1200 units an hour. Nitroglycerin drip currently off Cardiothoracic surgery evaluation with Dr. Quintero for possible CABG Recommending medical management with IV nitroglycerin/heparin and intraaortic balloon pump with possible CABG early next week Noted cholesterol 221. LDL elevated 166. HDL low at 34. Resp: Ongoing tobaccoism Nasal cannula to maintain saturations greater than equal to 92% Currently a nonrebreather Incentive spirometry while awake Scheduled bronchodilator therapies every 4 hours with every 2 hours subdural for breakthrough Tobacco sensation will be encouraged Heme chest x-ray/ABG pending GI: Gastroesophageal reflux disease Currently on ADA diet Protonix for GI prophylaxis Colace/as needed Senokot for bowel regimen : Patel will be placed for accurate I's and O's in a critically ill patient Endo: Diabetes mellitus Check hemoglobin A1c pending KEISHA inhibitor when indicated Sliding-scale insulin with Accu-Cheks to maintain euglycemia/low regimen. 9 units sliding scale past 24 hours Renal: Accurate I's and O's Monitor urine output Creatinine currently within normal limits. Repeat BMP in a.m. Heme: Leukocytosis Normocytic anemia Monitor CBC daily. Follow trends. ID: Monitor for infection MSK: Right grade 3 AC joint separation OT evaluate and treat FEN: Hyponatremia Follow BMP in a.m. Received 2 g mag sulfate IV and 20 mEq potassium chloride by mouth 1 now. Recheck labs in a.m. Access - Utilize peripheral IV. Central line if indicated Prophylaxis - GI - Protonix - DVT - heparin drip Critical Care: The total critical care time was 35 minutes. Time to perform other separately billable procedures was not included in the critical care time. Michael Clancy MD Feb 03, 2017 06:38
[2017-02-03] MEDS ORDERED: RESP: ALBUTEROL 2.5 MG/3 ML NEB (PRN) NEB (06:45)
[2017-02-03 06:58] LABS: BLOOD GAS BASE EXCESS -1.4 mmol/L (-2-2); BLOOD GAS HCO3 22 mmol/L (22-26); BLOOD GAS METHEMOGLOBIN 1.1 % (0-2); BLOOD GAS O2 HGB SATURATION 90 % (90-100); BLOOD GAS OXYGEN CONTENT 15.2 Vol % (12.0-20.0); BLOOD GAS PCO2 31 mmHg (38-42); BLOOD GAS PO2 64 mmHg (61-120); CRITICAL VALUE NO; TEMP CORR TO 98.6
[2017-02-03 06:59] LABS: DRAW SITE RT RADIAL; FIO2 100 %; LITER FLOW 15 L/M; NUMBER OF ARTERIAL PUNCTURES 1; STAT NO; ULNAR PULSE PRESENT
[2017-02-03] MEDS ORDERED: FUROSEMIDE 20 MG/2 ML VIAL IV PUSH ONE ×2 (07:00→07:15)
--- NOTE | 2017-02-03 07:11 | RADRPT ---
EXAM DATE/TIME: 02/03/2017 06:43 [facility] COMPARISON: CHEST SINGLE AP, February 02, 2017, 12:08. INDICATIONS : Shortness of breath; Evaluate for congestive heart failure. MEDICAL HISTORY : None. SURGICAL HISTORY : None. ENCOUNTER: Subsequent ACUITY: 2 days PAIN SCORE: 0/10 LOCATION: Bilateral chest FINDINGS: There is worsening pulmonary edema since the prior examination. Pneumonia is difficult to exclude par ticularly in the lung bases. CONCLUSION: Worsening pulmonary edema. Renea Chacko MD on February 03, 2017 at 7:09 Board Certified Radiologist. This report was verified electronically.
[2017-02-03] MEDS ORDERED: POTASSIUM CHLORIDE 25 MEQ EFFERVESCENT TAB PO PRN (07:15)
[2017-02-03] MEDS ORDERED: POTASSIUM PHOSPHATE MONOBASIC 500 MG TAB PO/TUBE PRN (07:15)
[2017-02-03] MEDS ORDERED: MAGNESIUM OXIDE 400 MG TAB PO PRN (07:15)
[2017-02-03] MEDS ORDERED: SODIUM PHOSPHATE INJ 30 MMOL in SODIUM CHLOR 0.9% 250 ML INJ 240 ML IV PRN (07:15)
[2017-02-03] MEDS ORDERED: POTASSIUM PHOSPHATE INJ 30 MMOL in SODIUM CHLOR 0.9% 250 ML INJ 250 ML IV PRN (07:15)
[2017-02-03] MEDS ORDERED: POTASSIUM CHLOR 20 MEQ PREMIX 100 ML IV PRN ×2 (07:15)
[2017-02-03] MEDS ORDERED: MAGNESIUM SULFATE INJ 4 GM in SODIUM CHLORIDE 0.9% INJ 92 ML IV PRN (07:15)
[2017-02-03] MEDS ORDERED: POTASSIUM CHLOR 40 MEQ PREMIX 100 ML IV PRN ×2 (07:15)
[2017-02-03] MEDS ORDERED: MAGNESIUM SULFATE INJ 2 GM in SODIUM CHLORIDE 0.9% INJ 96 ML IV PRN (07:15)
[2017-02-03] MEDS ORDERED: POTASSIUM PHOSPHATE MONOBASIC 500 MG TAB PO PRN (07:15)
[2017-02-03] MEDS: MAGNESIUM SULFATE 1 GM PREMIX 100 ML IV SCH ×2 (07:32→07:33)
[2017-02-03] MEDS: RESP: ALBUTEROL 2.5 MG/IPRATROPIUM 0.5 MG NEB (SCH) INH ×4 (08:29→19:54)
[2017-02-03] MEDS: ASPIRIN 325 MG TAB PO SCH (09:15)
[2017-02-03] MEDS: SODIUM CHLORIDE 0.9% FLUSH 10 ML FLUSH IV FLUSH SCH ×2 (09:15→20:16)
[2017-02-03] MEDS: PANTOPRAZOLE SODIUM 40 MG VIAL IV SCH (09:15)
[2017-02-03] MEDS: DOCUSATE SODIUM 100 MG CAP PO SCH ×2 (09:15→20:16)
--- NOTE | 2017-02-03 09:31 | PD.CAR.PN ---
CVT Progress Note Subjective/Hospital Course: Denies chest pain. hemodynamically stable with IABP 1:1 Objective: Vital Signs Date Time Temp Pulse Resp B/P Pulse Ox O2 Delivery O2 Flow Rate FiO2 02/03/17 09:13 97/68 02/03/17 08:15 94 High Flow Nasal Cannula 40.00 100 02/03/17 08:00 92 Non-Rebreather 15.00 100 02/03/17 08:00 90/61 02/03/17 07:00 93 100 02/03/17 07:00 97/65 02/03/17 07:00 102 02/03/17 07:00 99.7 102 18 136/86 95 97/65 02/03/17 06:13 92/61 02/03/17 05:02 94 Non-Rebreather 15.00 100 02/03/17 05:00 90/66 02/03/17 04:00 89/63 02/03/17 04:00 95 Non-Rebreather 02/03/17 03:04 101 02/03/17 03:04 99.0 98 15 127/80 92 87/59 02/03/17 03:04 87/59 02/03/17 02:00 83/58 02/03/17 01:00 80/57 02/03/17 00:00 83/62 02/02/17 23:14 99.3 102 15 96/63 92 82/63 02/02/17 23:14 102 02/02/17 23:00 82/63 02/02/17 23:00 93 Simple Mask 8.00 02/02/17 22:00 84/61 02/02/17 21:46 92 Nasal Cannula 6.00 02/02/17 21:00 82/63 02/02/17 20:00 80/60 02/02/17 19:15 100.0 105 16 116/77 93 79/62 Arterial Line 02/02/17 19:00 93 Nasal Cannula 5.00 02/02/17 19:00 103 02/02/17 19:00 79/62 02/02/17 16:00 86/66 02/02/17 16:00 112 02/02/17 16:00 99.8 112 16 123/79 98 02/02/17 12:37 126 18 112/61 99 Nasal Cannula 2 02/02/17 12:17 99 Nasal Cannula 2 02/02/17 12:17 124 20 99 Nasal Cannula 2 02/02/17 12:13 126 20 112/61 96 Labs: Laboratory Tests Test 02/03/17 02/03/17 02:43 06:48 White Blood Count 16.8 TH/MM3 (4.0-11.0) Red Blood Count 4.23 MIL/MM3 (4.50-5.90) Hemoglobin 11.8 GM/DL (13.0-17.0) Hematocrit 35.3 % (39.0-51.0) Mean Corpuscular Volume 83.4 FL (80.0-100.0) Mean Corpuscular Hemoglobin 27.9 PG (27.0-34.0) Mean Corpuscular Hemoglobin 33.4 % Concent (32.0-36.0) Red Cell Distribution Width 13.5 % (11.6-17.2) Platelet Count 226 TH/MM3 (150-450) Mean Platelet Volume 7.5 FL (7.0-11.0) Neutrophils (%) (Auto) 75.7 % (16.0-70.0) Lymphocytes (%) (Auto) 14.7 % (9.0-44.0) Monocytes (%) (Auto) 8.8 % (0.0-8.0) Eosinophils (%) (Auto) 0.4 % (0.0-4.0) Basophils (%) (Auto) 0.4 % (0.0-2.0) Neutrophils # (Auto) 12.7 TH/MM3 (1.8-7.7) Lymphocytes # (Auto) 2.5 TH/MM3 (1.0-4.8) Monocytes # (Auto) 1.5 TH/MM3 (0-0.9) Eosinophils # (Auto) 0.1 TH/MM3 (0-0.4) Basophils # (Auto) 0.1 TH/MM3 (0-0.2) CBC Comment DIFF FINAL Differential Comment Activated Partial 32.5 SEC Thromboplast Time (24.3-30.1) Sodium Level 136 MEQ/L (136-145) Potassium Level 3.7 MEQ/L (3.5-5.1) Chloride Level 102 MEQ/L (98-107) Carbon Dioxide Level 25.4 MEQ/L (21.0-32.0) Anion Gap 9 MEQ/L (5-15) Blood Urea Nitrogen 17 MG/DL (7-18) Creatinine 1.07 MG/DL (0.60-1.30) Estimat Glomerular Filtration 73 ML/MIN (>89) Rate Random Glucose 196 MG/DL (74-106) Calcium Level 8.3 MG/DL (8.5-10.1) Phosphorus Level 3.1 MG/DL (2.5-4.9) Magnesium Level 1.7 MG/DL (1.5-2.5) Total Creatine Kinase 53 U/L (39-308) Triglycerides Level 101 MG/DL (42-150) Cholesterol Level 221 MG/DL (120-200) LDL Cholesterol 166 MG/DL (0-99) HDL Cholesterol 34.7 MG/DL (40.0-60.0) Cholesterol/HDL Ratio 6.36 RATIO Thyroid Stimulating Hormone 2.150 uIU/ML 3rd Gen (0.358-3.740) Blood Gas Puncture Site RT RADIAL Blood Gas Patient Temperature 98.6 Blood Gas HCO3 22 mmol/L (22-26) Blood Gas Base Excess -1.4 mmol/L (-2-2) Blood Gas Oxygen Saturation 90 % (90-100) Arterial Blood pH 7.46 (7.380-7.420) Arterial Blood Partial 31 mmHg (38-42) Pressure CO2 Arterial Blood Partial 64 mmHg Pressure O2 (61-120) Arterial Blood Oxygen Content 15.2 Vol % (12.0-20.0) Arterial Blood 2.0 % (0-4) Carboxyhemoglobin Arterial Blood Methemoglobin 1.1 % (0-2) Blood Gas Hemoglobin 12.0 G/DL (12.0-16.0) Oxygen Delivery Device Non-Rebreathing Mask Blood Gas Liter Flow 15 L/M Blood Gas Inspired Oxygen 100 % Result Diagram: 02/03/17 0243 02/03/17 0243 EKG: Acute anteroseptal HI Imaging: Last Impressions Chest X-Ray 02/03/17 0000 Signed Impressions: Service Date/Time: Friday, February 03, 2017 06:43 - CONCLUSION: Worsening pulmonary edema. Renea Chacko MD Cardiovascular: RRR, tachy Telemetry: ST Pulmonary: bilat crackles GI/: NABS, NT Plan: ECHO reviewed. EF ~20-25%, moderate MR, apical akinesis. Will order preop studies, but he remains in pulmonary edema with high oxygen requirements. Plan CABG as soon as this week. Lexy Quintero MD Feb 03, 2017 09:31
[2017-02-03] MEDS ORDERED: PAPAVERINE INJ 60 MG, NITROGLYCERIN INJ 100 MCG, DILTIAZEM INJ 100 MG in SODIUM CHLORID... IRRIGATION SCH (09:45)
[2017-02-03] MEDS ORDERED: CEFAZOLIN INJ 500 MG in SODIUM CHLORIDE 0.9% IRR BTL 500 ML IRRIGATION SCH (09:45)
[2017-02-03] MEDS ORDERED: INSULIN REGULAR (IV INFUSION) 100 UNITS in SODIUM CHLORIDE 0.9% INJ 100 ML IV SCH (09:45)
[2017-02-03] MEDS ORDERED: ceFAZolin 2 GM PREMIX 50 ML IV SCH (09:45)
[2017-02-03] MEDS ORDERED: CHLORHEXIDINE GLUCONATE 4% SOLN 120 ML BTL TOPICAL SCH (09:45)
--- NOTE | 2017-02-03 09:58 | PD.CARD.PN ---
Subjective Subjective Remarks Very minimal CP and only with deep inspiration. Dyspneic. No dizziness, palpitations, PND. Slept sporadically. Objective Medications Item Value Date Time Aspirin 325 mg 02/03/17 0900 (Aspirin) DAILY/PO 02/03/1715 Atorvastatin 40 mg 02/02/17 2100 Calcium HS/PO 02/02/172007 (Lipitor) Heparin Sodium/ 250 ml @ 0 mls/hr 02/02/17 1315 Dextrose TITRATE/IV Nitroglycerin/ 250 ml @ 0 mls/hr 02/02/17 1215 Dextrose TITRATE/IV Vital Signs / I&O Vital Signs Date Time Temp Pulse Resp B/P Pulse Ox O2 Delivery O2 Flow Rate FiO2 02/03/17 09:13 97/68 02/03/17 08:15 94 High Flow Nasal Cannula 40.00 100 02/03/17 08:00 92 Non-Rebreather 15.00 100 02/03/17 08:00 90/61 02/03/17 07:00 93 100 02/03/17 07:00 97/65 02/03/17 07:00 102 02/03/17 07:00 99.7 102 18 136/86 95 97/65 02/03/17 06:13 92/61 02/03/17 05:02 94 Non-Rebreather 15.00 100 02/03/17 05:00 90/66 02/03/17 04:00 89/63 02/03/17 04:00 95 Non-Rebreather 02/03/17 03:04 101 02/03/17 03:04 99.0 98 15 127/80 92 87/59 02/03/17 03:04 87/59 02/03/17 02:00 83/58 02/03/17 01:00 80/57 02/03/17 00:00 83/62 02/02/17 23:14 99.3 102 15 96/63 92 82/63 02/02/17 23:14 102 02/02/17 23:00 82/63 02/02/17 23:00 93 Simple Mask 8.00 02/02/17 22:00 84/61 02/02/17 21:46 92 Nasal Cannula 6.00 02/02/17 21:00 82/63 02/02/17 20:00 80/60 02/02/17 19:15 100.0 105 16 116/77 93 79/62 Arterial Line 02/02/17 19:00 93 Nasal Cannula 5.00 02/02/17 19:00 103 02/02/17 19:00 79/62 02/02/17 16:00 86/66 02/02/17 16:00 112 02/02/17 16:00 99.8 112 16 123/79 98 02/02/17 12:37 126 18 112/61 99 Nasal Cannula 2 02/02/17 12:17 99 Nasal Cannula 2 02/02/17 12:17 124 20 99 Nasal Cannula 2 02/02/17 12:13 126 20 112/61 96 I/O 02/02/17 02/02/17 02/02/17 02/03/17 02/03/17 02/03/17 07:00 15:00 23:00 07:00 15:00 23:00 Intake Total 1652 ml Output Total 1500 ml Balance 152 ml Intake Oral 480 ml IV Total 1172 ml Output Urine Total 1500 ml # Bowel Movements 0 Physical Exam GENERAL: Well developed, well nourished. No acute distress. HEENT: Jugular venous pressure is normal. CHEST: Lungs clear to auscultation anteriorly. CARDIAC: Regular rate and rhythm without S3, S4, or murmur. ABDOMEN: Soft, nontender, no hepatosplenomegaly. Bowel sounds present. EXTREMITIES: No clubbing, cyanosis, or edema. Right groin nontender, no hematoma. Good distal pulses. Laboratory Laboratory Tests Test 02/02/17 02/02/17 02/03/17 02/03/17 11:20 19:08 02:43 06:48 White Blood Count 18.8 TH/MM3 16.8 TH/MM3 Red Blood Count 4.52 MIL/MM3 4.23 MIL/MM3 Hemoglobin 12.9 GM/DL 11.8 GM/DL Bedside Hemoglobin 12.9 G/DL Hematocrit 37.2 % 35.3 % Bedside Hematocrit 38.0 % Mean Corpuscular Volume 82.3 FL 83.4 FL Mean Corpuscular Hemoglobin 28.6 PG 27.9 PG Mean Corpuscular Hemoglobin 34.7 % 33.4 % Concent Red Cell Distribution Width 13.7 % 13.5 % Platelet Count 326 TH/MM3 226 TH/MM3 Mean Platelet Volume 7.5 FL 7.5 FL Neutrophils (%) (Auto) 86.0 % 75.7 % Lymphocytes (%) (Auto) 6.8 % 14.7 % Monocytes (%) (Auto) 6.5 % 8.8 % Eosinophils (%) (Auto) 0.2 % 0.4 % Basophils (%) (Auto) 0.5 % 0.4 % Neutrophils # (Auto) 16.2 TH/MM3 12.7 TH/MM3 Lymphocytes # (Auto) 1.3 TH/MM3 2.5 TH/MM3 Monocytes # (Auto) 1.2 TH/MM3 1.5 TH/MM3 Eosinophils # (Auto) 0.0 TH/MM3 0.1 TH/MM3 Basophils # (Auto) 0.1 TH/MM3 0.1 TH/MM3 CBC Comment DIFF FINAL DIFF FINAL Differential Comment Prothrombin Time 11.8 SEC Prothromb Time International 1.1 RATIO Ratio Activated Partial 28.6 SEC 35.0 SEC 32.5 SEC Thromboplast Time Bedside Sodium 136 MMOL/L Bedside Potassium 4.2 MMOL/L Bedside Chloride 100 MMOL/L Bedside Blood Urea Nitrogen 15 MG/DL Bedside Creatinine 0.8 MG/DL Bedside Glucose 314 MG/DL Calcium Level 9.1 MG/DL 8.3 MG/DL Magnesium Level 1.8 MG/DL 1.7 MG/DL Total Creatine Kinase 92 U/L 53 U/L Troponin I 1.16 NG/ML B-Type Natriuretic Peptide 329 PG/ML Sodium Level 136 MEQ/L Potassium Level 3.7 MEQ/L Chloride Level 102 MEQ/L Carbon Dioxide Level 25.4 MEQ/L Anion Gap 9 MEQ/L Blood Urea Nitrogen 17 MG/DL Creatinine 1.07 MG/DL Estimat Glomerular Filtration 73 ML/MIN Rate Random Glucose 196 MG/DL Phosphorus Level 3.1 MG/DL Triglycerides Level 101 MG/DL Cholesterol Level 221 MG/DL LDL Cholesterol 166 MG/DL HDL Cholesterol 34.7 MG/DL Cholesterol/HDL Ratio 6.36 RATIO Thyroid Stimulating Hormone 2.150 uIU/ML 3rd Gen Blood Gas Puncture Site RT RADIAL Blood Gas Patient Temperature 98.6 Blood Gas HCO3 22 mmol/L Blood Gas Base Excess -1.4 mmol/L Blood Gas Oxygen Saturation 90 % Arterial Blood pH 7.46 Arterial Blood Partial 31 mmHg Pressure CO2 Arterial Blood Partial 64 mmHg Pressure O2 Arterial Blood Oxygen Content 15.2 Vol % Arterial Blood 2.0 % Carboxyhemoglobin Arterial Blood Methemoglobin 1.1 % Blood Gas Hemoglobin 12.0 G/DL Oxygen Delivery Device Non-Rebreathing Mask Blood Gas Liter Flow 15 L/M Blood Gas Inspired Oxygen 100 % Imaging Last 48 hours Impressions Chest X-Ray 02/03/17 0000 Signed Impressions: Service Date/Time: Friday, February 03, 2017 06:43 - CONCLUSION: Worsening pulmonary edema. Renea Chacko MD Chest X-Ray 02/02/17 1211 Signed Impressions: Service Date/Time: Thursday, February 02, 2017 12:08 - CONCLUSION: 1. Slight CHF and bibasilar atelectasis and/or infiltrate. 2. Grade III A/C joint separation on the right. Renea Chacko MD Assessment and Plan Problem List: (1) Coronary artery disease Assessment and Plan: Clinically, hemodynamically stable overnight. Remains on IABP support at 1:1 assist. Groin stable. No further angina. Await CABG later this week. BP's too low for beta yadira, KEISHA-I. Cont daily aspirin. (2) Congestive heart failure (CHF) Assessment and Plan: Worsening CXR findings. Increasing dyspnea. EF also 20- 25% by echo. Large area of apical akinesis. Rec intensify diuresis management. BP too low for KEISHA-I, beta yadira. (3) Hyperlipidemia Assessment and Plan: Very suboptimal lipid profile. Rec increase atorvastatin to 80 mg qd. Code Status full code Discussed Condition With patient and Problem Qualifiers (1) Coronary artery disease: Qualified Code: I25.110 - Coronary artery disease involving [place] coronary artery of [place] heart with unstable angina pectoris (2) Hyperlipidemia: Qualified Code: E78.2 - Mixed hyperlipidemia August Goncalves MD Feb 03, 2017 09:58
[2017-02-03] MEDS: MUPIROCIN 2% OINT 1 APPLIC/GM SYR EACH NARE SCH ×2 (10:34→20:16)
[2017-02-03 10:49] LABS: HEMOGLOBIN A1b 2.2 %; HEMOGLOBIN P3 4.6 %
[2017-02-03 11:28] LABS: APTT (PATIENT) 38.3 SEC (24.3-30.1)
[2017-02-03 13:03] LABS: HEMOGLOBIN A1a 2.2 %; HEMOGLOBIN Ao 78.3 %; HEMOGLOBIN LA1C 2.3 %
[2017-02-03] MEDS: ACETAMINOPHEN/HYDROcodone 325 MG/5 MG TAB PO PRN (14:26)
--- NOTE | 2017-02-03 15:31 | OTSOAPIP ---
TIME SESSION COMPLETED: 1500 TREATMENT TIME: 5 MINS. CHART REVIEWED. S: PAIN: NO COMPLAINTS OF PAIN. RN REPORTS OCCUPATIONAL THERAPY REQUESTED TO REVIEWED CARDIAC PRECAUTIONS PRIOR TO SURGERY. O: PATIENT HAS COMPANY IN ROOM. HE PLEASANTLY ASKED IF OCCUPATIONAL THERAPY COULD RETURN TOMORROW. A: PATIENT RESPONSE TO TREATMENT: ASSESSMENT NOT COMPLETED P: WILL REATTEMPT 02/04/17. RN REPORTS CORONARY ARTERY BYPASS GRAFT POSSIBLY SATURDAY OR SATURDAY. _X_ PT WAS INSTRUCTED TO NOT GET OUT OF BED OR CHAIR WITHOUT ASSISTANCE. CALL REYNOSO WAS LEFT WITHIN REACH. Therapist: Kristina Morin OTR/L Signature on file
--- NOTE | 2017-02-03 16:28 | EKG ---
Date Performed: 02/02/2017 Time Performed: 11:59:45 PTAGE: 51 years EKG: SINUS TACHYCARDIA ANTEROSEPTAL MYOCARDIAL INFARCTION-indeterminate age ACUTE NM Atria l abnormality. When compared to PREVIOUS TRACING , the previously seen slight ST Elevation in leads I and AVL with T wave invertion has resolved. The patient demonstrated anteroseptal myocardial infarction on The previous tracing and no acute changes can be discerned from This tracing when compared to previous, however t here is some General ST elevation in lead V1 through V3, which may be related To the previous myocard ial infarction. Clinical coorolation is suggested. PREVIOUS TRACIN04/26/2008 05.25 DOCTOR: Paddy Ramirez Interpretating Date/Time 02/03/2017 16:27:03
[2017-02-03 17:08] LABS: BLOOD, URINE NEG (NEG); COMMENT (UR) CULT NOT INDICATED; CULTURE IF INDICATED CULT NOT INDICATED; GLUCOSE,URINE 70 mg/dL (NEG); HYALINE CAST, URINE 1 /lpf (RARE); KETONE, URINE NEG (NEG); MUCUS URINE FEW /lpf (OCC); NITRITE,URINE NEG (NEG); PH, URINE 5.5 (5.0-8.5); URINE COLOR YELLOW (YELLW/STRAW)
[2017-02-03] MEDS ORDERED: FUROSEMIDE 40 MG/4 ML VIAL IV PUSH SCH (18:00)
[2017-02-03 19:43] LABS: APTT (PATIENT) 30.1 SEC (24.3-30.1)
[2017-02-03 19:47] LABS: BICARBONATE 23.2 MEQ/L (21.0-32.0); MAGNESIUM 2.3 MG/DL (1.5-2.5); POTASSIUM 3.7 MEQ/L (3.5-5.1)
[2017-02-03] MEDS: ATORVASTATIN 80 MG TAB PO SCH (20:16)
--- NOTE | 2017-02-03 21:55 | RADRPT ---
EXAM DATE/TIME: 02/03/2017 16:01 [facility] COMPARISON: No previous studies available for comparison. INDICATIONS : Preop cardiac surgery. MEDICAL HISTORY : Gastroesophageal reflux disease. Myocardial infarction. Hyperlipidemia. Diabetic. Coronary artery di sease. SURGICAL HISTORY : Coronary artery stent. ENCOUNTER: Initial ACUITY: 1 day PAIN SCORE: 6/10 LOCATION: Bilateral leg. TECHNIQUE: Venous ultrasound of the left and right leg was performed from the inguinal ligament to the proximal calf. Real-time, color Doppler and spectral tracing, compression and augmentation techniques were us ed. FINDINGS: RIGHT LEG: There is normal compressibility of the deep venous system from the inguinal region to the proximal ca lf. No echogenic clot is seen in the lumen of the common femoral, femoral, popliteal, and posterior tibial veins. There is a normal response of the venous system to proximal and distal augmentation an d respiration. LEFT LEG: There is normal compressibility of the deep venous system from the inguinal region to the proximal ca lf. No echogenic clot is seen in the lumen of the common femoral, femoral, popliteal, and posterior tibial veins. There is a normal response of the venous system to proximal and distal augmentation an d respiration. CONCLUSION: 1. Negative for deep venous thrombosis. Ramon Vences MD on February 03, 2017 at 21:52 Board Certified Radiologist. This report was verified electronically.
--- NOTE | 2017-02-03 21:56 | RADRPT ---
EXAM DATE/TIME: 02/03/2017 16:24 [facility] COMPARISON: No previous studies available for comparison. INDICATIONS : Preop cardiac surgery. MEDICAL HISTORY : Gastroesophageal reflux disease. Myocardial infarction. Hyperlipidemia. Diabetic. Coronary artery d isease. SURGICAL HISTORY : Coronary artery stent. ENCOUNTER: Initial ACUITY: 1 day PAIN SCORE: 6/10 LOCATION: Bilateral leg. GREATER SAPHENOUS VEIN THIGH: PROXIMAL: Right 2 mm Left 3 mm MID: Right 2 mm Left 2 mm DISTAL: Right 2 mm Left 1 mm CALF: PROXIMAL: Right 1 mm Left 1 mm MID: Right Non-visualized Left 1 mm DISTAL: Right Non-visualized Left Non-visualized FINDINGS: The venous system of the lower extremities are patent by color Doppler imaging. Measurements of the leg veins (in mm) are listed above. CONCLUSION: 1. Measurements of the lower extremity veins as above. Ramon Vences MD on February 03, 2017 at 21:54 Board Certified Radiologist. This report was verified electronically.
--- NOTE | 2017-02-03 21:59 | RADRPT ---
EXAM DATE/TIME: 02/03/2017 17:01 [facility] COMPARISON: No previous studies available for comparison. INDICATIONS : Preop cardiac surgery. MEDICAL HISTORY : Gastroesophageal reflux disease. Myocardial infarction. Hyperlipidemia. Diabetic. Coronary artery disease. SURGICAL HISTORY : Coronary artery stent. ENCOUNTER: Initial ACUITY: 1 day PAIN SCORE: 6/10 LOCATION: Bilateral neck PEAK SYSTOLIC VELOCITIES (cm/sec): ICA/CCA RATIO: Right: 1.0 Left: 1.4 ICA: Right: 68 Left: 91 CCA: Right: 71 Left: 65 ECA: Right: 168 Left: 62 VERTEBRAL: Right: 46 antegrade Left: 59 antegrade Elevated flow velocities and ICA/CCA ratios have been found to correlate with increased degrees of vessel stenosis, calculated as percentage of diameter relative to a normal segment of distal ICA/CCA FINDINGS: RIGHT CAROTID: No significant stenosis is visualized. The waveforms are within normal limits. LEFT CAROTID: No significant stenosis is visualized. The waveforms are within normal limits. VERTEBRAL ARTERIES: Antegrade flow is seen in both vertebral arteries. MISCELLANEOUS: None. CONCLUSION: 1. Mild visible plaque present predominantly around carotid bifurcations without hemodynamically sign ificant stenosis. Vertebral artery flow antegrade. Ramon Vences MD on February 03, 2017 at 21:55 Board Certified Radiologist. This report was verified electronically.
[2017-02-04] VITALS (12 sets, daily range): BP systolic 88–149; BP diastolic 57–93; PULSE 81–101; RESP 15–20; TEMP 98.1–98.6; O2SAT 93–98
[2017-02-04] MEDS: RESP: ALBUTEROL 2.5 MG/IPRATROPIUM 0.5 MG NEB (SCH) INH ×6 (00:22→22:05)
[2017-02-04] MEDS: HEPARIN-D5W INJ 250 ML IV SCH ×2 (01:40→15:00)
[2017-02-04 02:27] LABS: BASOPHIL # 0.1 TH/MM3 (0-0.2); BASOPHIL % 0.9 % (0.0-2.0); EOSINOPHIL # 0.1 TH/MM3 (0-0.4); EOSINOPHIL % 0.3 % (0.0-4.0); HEMATOCRIT 34.4 % (39.0-51.0); HEMO FLAGS DIFF FINAL; LYMPH % 13.3 % (9.0-44.0); MEAN CELL VOLUME 82.3 FL (80.0-100.0); MEAN CORPUSCULAR HEMOGLOBIN 28.1 PG (27.0-34.0); MEAN CORPUSCULAR HGB CONC 34.1 % (32.0-36.0); MONO % 7.3 % (0.0-8.0); NEUT % 78.2 % (16.0-70.0); PLATELET COUNT 188 TH/MM3 (150-450); RED BLOOD COUNT 4.17 MIL/MM3 (4.50-5.90); RED CELL DISTRIBUTION WIDTH 12.9 % (11.6-17.2); WHITE BLOOD COUNT 15.4 TH/MM3 (4.0-11.0)
[2017-02-04 02:42] LABS: APTT (PATIENT) 39.2 SEC (24.3-30.1)
[2017-02-04 02:48] LABS: ALT (GPT) 14 U/L (12-78); ANION GAP 13 MEQ/L (5-15); AST (GOT) 12 U/L (15-37); BICARBONATE 22.2 MEQ/L (21.0-32.0); BLOOD UREA NITROGEN 21 MG/DL (7-18); CHLORIDE 99 MEQ/L (98-107); GLOMERULAR FILTRATION RATE 67 ML/MIN (>89); MAGNESIUM 2.1 MG/DL (1.5-2.5); POTASSIUM 3.4 MEQ/L (3.5-5.1); SODIUM (NA) 134 MEQ/L (136-145)
[2017-02-04 02:50] LABS: ALKALINE PHOSPHATASE 111 U/L (45-117)
[2017-02-04] MEDS: HEPARIN SODIUM - IV 10,000 UNITS/10 ML VIAL IV PRN ×2 (02:54→20:14)
[2017-02-04] MEDS ORDERED: FUROSEMIDE 40 MG/4 ML VIAL IV PUSH ONE (03:00)
[2017-02-04] MEDS: CHLORHEXIDINE GLUCONATE 2 % 1 PACK (2 CLOTHS) TOP SCH (04:00)
[2017-02-04] MEDS: INSULIN NovoLIN REGULAR SUPPLEMENTAL SCALE SQ SCH ×5 (06:15→20:13)
[2017-02-04] MEDS: ACETAMINOPHEN/HYDROcodone 325 MG/5 MG TAB PO PRN ×3 (06:19→21:59)
--- NOTE | 2017-02-04 06:46 | RADRPT ---
EXAM DATE/TIME: 02/04/2017 04:27 [facility] COMPARISON: CHEST SINGLE AP, February 03, 2017, 6:43. INDICATIONS : Shortness of breath. possible pulmonary disease. MEDICAL HISTORY : None. SURGICAL HISTORY : None. ENCOUNTER: Subsequent ACUITY: 3 days PAIN SCORE: 0/10 LOCATION: Bilateral chest FINDINGS: A single view of the chest demonstrates stable bilateral perihilar vascular congestion with slight ca rdiomegaly. Better aeration at the left lung base than previously seen. Osseous structures are int act. CONCLUSION: Persistent pulmonary hilar vascular congestion with better aeration of the left lung base. Zachariah Guardado MD on February 04, 2017 at 6:44 Board Certified Radiologist. This report was verified electronically.
--- NOTE | 2017-02-04 06:53 | HHI.CCPN ---
Subjective Remarks/Hospital Course 51-year-old male. Date of admission . We are asked to admit by cardiology for chest pain. He has a past medical history including hyperlipidemia and diabetes mellitus 1 year currently on no medication. He has known history of coronary disease with's stents 2 placed in the LAD by Dr. Perea in 2007. He presented to [place] [facility] with complaints of chest pain and chest pressure on and off 2 weeks. Associated with shortness of breath/ excursion. At 1 AM this morning he awoke up with severe nonradiating pain. 10 with orthopnea. Upon presentation ED, patient was noted to have ST elevation in the anterior/lateral leads. He was given aspirin 325 mg by mouth 1 started heparin drip and nitroglycerin. Today patient back to heart catheter lab results have three-vessel coronary disease. Left main 30%. LAD re in-stent stenosis 99%, 40% ostial stenosis. RCA 80% stenosis of the distal third and the left circumflex 100% occlusion. Ejection fraction was 25%. An intra-aortic pump was placed 1:1 augmentation around 100. Agent appears intact. CT surgery is been consulted. Chest pain currently 1 out of 10. 02/03: Oxygen requirements currently elevated overnight currently a nonrebreather. Complains of chest pain only with deep inspiration is less pruritic. Afebrile. No bowel movement. Subjective 02/04: Afebrile. Diuresing with Lasix. Currently on high flow nasal cannula 40 L at 90%. Received additional 40 mg IV Lasix overnight. Appears comfortable. Objective Vital Signs Date Time Temp Pulse Resp B/P Pulse Ox O2 Delivery O2 Flow Rate FiO2 02/04/17 06:33 92/63 02/04/17 03:22 81 02/04/17 03:22 98.2 15 98 02/04/17 03:22 90 02/04/17 02:30 High Flow Nasal Cannula 40.00 Intake and Output 02/03/17 02/03/17 02/04/17 08:00 16:00 00:00 Intake Total 1652 ml 1140 ml Output Total 1500 ml 1450 ml Balance 152 ml -310 ml Result Diagram: 02/04/17 0217 02/04/17 0217 Imaging Last Impressions Lower Extremity Ultrasound 02/03/17 0000 Signed Impressions: Service Date/Time: Friday, February 03, 2017 16:24 - CONCLUSION: 1. Measurements of the lower extremity veins as above. Ramon Vences MD Chest X-Ray 02/03/17 0000 Signed Impressions: Service Date/Time: Friday, February 03, 2017 06:43 - CONCLUSION: Worsening pulmonary edema. Renea Chacko MD Carotid Artery Ultrasound 02/03/17 0000 Signed Impressions: Service Date/Time: Friday, February 03, 2017 17:01 - CONCLUSION: 1. Mild visible plaque present predominantly around carotid bifurcations without hemodynamically significant stenosis. Vertebral artery flow antegrade. Ramon Vences MD Objective Remarks GENERAL: 51 year old male, currently resting in bed on high flow nasal cannula SKIN: Warm and dry. No rash HEAD: Atraumatic. Normocephalic. EYES: Pupils equal and round. No scleral icterus. No injection or drainage. ENT: No nasal bleeding or discharge. Mucous membranes pink and moist. NECK: Trachea midline. No JVD. CARDIOVASCULAR: Distant. Pulsation of intra-aortic balloon pump appreciated. RESPIRATORY: Crackles appreciated throughout bilateral lung azul. No wheezing. Breath sounds equal bilaterally with symmetrical excursion. GASTROINTESTINAL: Abdomen soft, non-tender, nondistended. Hepatic and splenic margins not palpable. MUSCULOSKELETAL: Extremities with trace lower extremity edema. No obvious deformities. NEUROLOGICAL: Awake and alert. No obvious cranial nerve deficits. Motor grossly within normal limits. Five out of 5 muscle strength in the arms and legs. Normal speech. PSYCHIATRIC: Appropriate mood and affect; insight and judgment normal. A/P Assessment and Plan Neuro/Psych: Acetaminophen for fever [place]/morphine for pain management Restoril 15 milligrams at night when necessary for insomnia CV: STEMI Three-vessel coronary disease History of LAD stenting [address] Perea Hypertension Dyslipidemia EKG admission revealed ST elevation anterior/lateral leads Heart catheterization - left main 30%, LAD with re in stent stenosis 98%, ostial 40%, RCA 80% distal, left circumflex 100% percent occlusion. EF 25% Echocardiogram 2007 revealed EF 50%. Mild apical hypokinesis Echocardiogram revealed EF 20=25%. Akinesis of the apical myocardium. Moderate MR. JOSSE 48 mmHg Currently in aspirin 325 daily, Lipitor 80 mg daily and heparin drip On Lasix 60 mg IV twice a day for pulmonary edema Nitroglycerin drip currently off Cardiothoracic surgery evaluation with Dr. Quintero for possible CABG Recommended medical management with IV nitroglycerin/heparin and intraaortic balloon pump with possible CABG early next week Carotid Doppler showed no hemodynamically significant stenosis. Lower Dopplers negative Noted cholesterol 221. LDL elevated 166. HDL low at 34. Resp: Acute respiratory failure secondary to pulmonary edema Ongoing tobaccoism Nasal cannula to maintain saturations greater than equal to 92% Currently on high flow nasal cannula 40L at 90% Incentive spirometry while awake Scheduled bronchodilator therapies every 4 hours with every 2 hours albuterol for breakthrough Tobacco sensation will be encouraged Chest x-ray this a.m. reveals pulmonary edema GI: Gastroesophageal reflux disease Currently on ADA diet Protonix for GI prophylaxis Colace/as needed Senokot for bowel regimen : Patel will be placed for accurate I's and O's in a critically ill patient Endo: Diabetes mellitus Hemoglobin A1c 10.2 KEISHA inhibitor when indicated Sliding-scale insulin with Accu-Cheks to maintain euglycemia/moderate regimen. 10 units sliding scale past 24 hours Renal: Accurate I's and O's Monitor urine output Creatinine currently within normal limits. Repeat BMP in a.m. Heme: Leukocytosis Normocytic anemia Monitor CBC daily. Follow trends. ID: Monitor for infection MSK: Right grade 3 AC joint separation OT evaluate and treat FEN: Hypokalemia Follow BMP in a.m. Received 40 mEq potassium chloride by mouth 1 now. Recheck labs in a.m. and at 1800 today Access - Utilize peripheral IV. Central line if indicated Prophylaxis - GI - Protonix - DVT - heparin drip Critical Care: The total critical care time was 35 minutes. Time to perform other separately billable procedures was not included in the critical care time. Michael Clancy MD Feb 04, 2017 06:53
[2017-02-04] MEDS ORDERED: GLUCAGON 1 MG/ML VIAL OTHER PRN (07:00)
[2017-02-04] MEDS ORDERED: DEXTROSE 50% IN WATER 50 ML VIAL(D50) IV PUSH PRN (07:00)
[2017-02-04] MEDS: SODIUM CHLORIDE 0.9% FLUSH 10 ML FLUSH IV FLUSH SCH ×2 (08:52→20:14)
[2017-02-04] MEDS: POTASSIUM CHLORIDE 20 MEQ CONTROLLED RELEASE TAB PO SCH ×2 (08:53→20:13)
[2017-02-04] MEDS: DOCUSATE SODIUM 100 MG CAP PO SCH ×2 (08:53→20:13)
[2017-02-04] MEDS: ASPIRIN 325 MG TAB PO SCH (08:53)
[2017-02-04] MEDS: PANTOPRAZOLE SODIUM 40 MG VIAL IV SCH (08:53)
[2017-02-04] MEDS: FUROSEMIDE 40 MG/4 ML VIAL IV PUSH SCH ×2 (08:53→17:51)
[2017-02-04] MEDS: MUPIROCIN 2% OINT 1 APPLIC/GM SYR EACH NARE SCH ×2 (08:53→20:13)
--- NOTE | 2017-02-04 09:47 | PD.CARD.PN ---
Subjective Subjective Remarks Denies angina, dyspnea, dizziness, palpitations, groin pain. Objective Medications Item Value Date Time Furosemide 60 mg 02/04/17 0900 (Lasix Inj) BID@09,18/IV PUSH 02/04/17 0853 Potassium Chloride 20 meq 02/04/17 0900 (KCl) Q12HR/PO 02/04/17 0853 Atorvastatin 80 mg 02/03/17 2100 Calcium HS/PO 02/03/172015 (Lipitor) Aspirin 325 mg 02/03/17 0900 (Aspirin) DAILY/PO 02/04/17 0853 Atorvastatin 40 mg 02/02/17 2100 Calcium HS/PO 02/02/172007 (Lipitor) Heparin Sodium/ 250 ml @ 0 mls/hr 02/02/17 1315 Dextrose TITRATE/IV 02/04/17 0140 Vital Signs / I&O Vital Signs Date Time Temp Pulse Resp B/P Pulse Ox O2 Delivery O2 Flow Rate FiO2 02/04/17 09:01 02/04/17 08:39 02/04/17 07:42 98.2 99 20 110/72 96 90/62 02/04/17 07:39 90 02/04/17 07:38 96 76 02/04/17 07:32 02/04/17 07:14 97 High Flow Nasal Cannula 40.00 76 02/04/17 06:33 92/63 02/04/17 05:32 93/64 02/04/17 04:15 92/61 02/04/17 03:22 81 02/04/17 03:22 98.2 98 15 122/76 98 90/63 02/04/17 03:22 98 90 02/04/17 03:22 90/63 02/04/17 02:30 94 High Flow Nasal Cannula 40.00 90 02/04/17 02:00 95/64 02/04/17 01:00 93/65 02/04/17 00:00 89/58 02/03/17 23:04 95 70 02/03/17 23:04 96/68 02/03/17 23:04 95 02/03/17 23:04 98.2 96 15 129/81 95 96/68 02/03/17 22:03 94/62 02/03/17 21:00 103/67 02/03/17 20:00 99/63 02/03/17 19:54 94 High Flow Nasal Cannula 40.00 70 02/03/17 19:35 93 70 02/03/17 19:21 98.3 103 17 138/85 90 98/67 02/03/17 19:21 90 60 02/03/17 19:00 98/67 02/03/17 19:00 101 02/03/17 17:48 92/65 02/03/17 16:00 88/58 02/03/17 15:00 90/61 02/03/17 15:00 99.1 89 16 137/78 97 90/61 02/03/17 15:00 89 02/03/17 15:00 95 70 02/03/17 14:09 89/67 02/03/17 13:43 97 High Flow Nasal Cannula 40.00 70 02/03/17 13:00 93/60 02/03/17 12:00 90/58 02/03/17 11:00 99.8 98 15 119/74 97 87/02/03/17 11:00 95 70 02/03/17 11:00 87/66 02/03/17 11:00 97 02/03/17 10:00 84/58 I/O 02/03/17 02/03/17 02/03/17 02/04/17 02/04/17 02/04/17 07:00 15:00 23:00 07:00 15:00 23:00 Intake Total 1652 ml 1140 ml 854 ml Output Total 1500 ml 1450 ml 1800 ml Balance 152 ml -310 ml -946 ml Intake Oral 480 ml 850 ml 480 ml IV Total 1172 ml 374 ml TPN/PPN 290 ml Output Urine Total 1500 ml 1450 ml 1800 ml Stool Total 0 ml # Bowel Movements 0 0 Physical Exam GENERAL: Well developed, well nourished. No acute distress. HEENT: Jugular venous pressure is normal. CHEST: Lungs clear to auscultation anteriorly. CARDIAC: Regular rate and rhythm without S3, S4. II/ systolic murmur LLSB and apex. ABDOMEN: Soft, nontender, no hepatosplenomegaly. Bowel sounds present. EXTREMITIES: No clubbing, cyanosis, or edema. Good distal pulses. Laboratory Laboratory Tests Test 4/16/17 4/16/17 4/16/17 4/16/17 10:00 11:06 13:30 19:12 Nasal Screen MRSA (PCR) POSITIVE Activated Partial 38.3 SEC 30.1 SEC Thromboplast Time Urine Color YELLOW Urine Turbidity CLEAR Urine pH 5.5 Urine Specific Dickinson 1.011 Urine Protein NEG mg/dL Urine Glucose (UA) 70 mg/dL Urine Ketones NEG mg/dL Urine Occult Blood NEG Urine Nitrite NEG Urine Bilirubin NEG Urine Urobilinogen LESS THAN 2.0 MG/DL Urine Leukocyte Esterase NEG Urine RBC 1 /hpf Urine WBC 1 /hpf Urine Hyaline Casts 1 /lpf Urine Mucus FEW /lpf Microscopic Urinalysis Comment CULT NOT INDICATED Sodium Level 133 MEQ/L Potassium Level 3.7 MEQ/L Chloride Level 99 MEQ/L Carbon Dioxide Level 23.2 MEQ/L Anion Gap 11 MEQ/L Blood Urea Nitrogen 21 MG/DL Creatinine 1.36 MG/DL Estimat Glomerular Filtration 55 ML/MIN Rate Random Glucose 181 MG/DL Calcium Level 9.1 MG/DL Magnesium Level 2.3 MG/DL Test 02/04/17 02:17 White Blood Count 15.4 TH/MM3 Red Blood Count 4.17 MIL/MM3 Hemoglobin 11.7 GM/DL Hematocrit 34.4 % Mean Corpuscular Volume 82.3 FL Mean Corpuscular Hemoglobin 28.1 PG Mean Corpuscular Hemoglobin 34.1 % Concent Red Cell Distribution Width 12.9 % Platelet Count 188 TH/MM3 Mean Platelet Volume 7.4 FL Neutrophils (%) (Auto) 78.2 % Lymphocytes (%) (Auto) 13.3 % Monocytes (%) (Auto) 7.3 % Eosinophils (%) (Auto) 0.3 % Basophils (%) (Auto) 0.9 % Neutrophils # (Auto) 12.0 TH/MM3 Lymphocytes # (Auto) 2.0 TH/MM3 Monocytes # (Auto) 1.1 TH/MM3 Eosinophils # (Auto) 0.1 TH/MM3 Basophils # (Auto) 0.1 TH/MM3 CBC Comment DIFF FINAL Differential Comment Activated Partial 39.2 SEC Thromboplast Time Sodium Level 134 MEQ/L Potassium Level 3.4 MEQ/L Chloride Level 99 MEQ/L Carbon Dioxide Level 22.2 MEQ/L Anion Gap 13 MEQ/L Blood Urea Nitrogen 21 MG/DL Creatinine 1.15 MG/DL Estimat Glomerular Filtration 67 ML/MIN Rate Random Glucose 200 MG/DL Calcium Level 8.6 MG/DL Phosphorus Level 3.1 MG/DL Magnesium Level 2.1 MG/DL Total Bilirubin 1.0 MG/DL Aspartate Amino Transf 12 U/L (AST/SGOT) Alanine Aminotransferase 14 U/L (ALT/SGPT) Alkaline Phosphatase 111 U/L Total Protein 6.9 GM/DL Albumin 2.9 GM/DL Imaging Last 48 hours Impressions Chest X-Ray 02/04/17 0600 Signed Impressions: Service Date/Time: Saturday, February 04, 2017 04:27 - CONCLUSION: Persistent pulmonary hilar vascular congestion with better aeration of the left lung base. Zachariah Guardado MD Lower Extremity Ultrasound 02/03/17 0000 Signed Impressions: Service Date/Time: Friday, February 03, 2017 16:24 - CONCLUSION: 1. Measurements of the lower extremity veins as above. Ramon Vences MD Lower Extremity Ultrasound 02/03/17 0000 Signed Impressions: Service Date/Time: Friday, February 03, 2017 16:01 - CONCLUSION: 1. Negative for deep venous thrombosis. Ramon Vences MD Chest X-Ray 02/03/17 0000 Signed Impressions: Service Date/Time: Friday, February 03, 2017 06:43 - CONCLUSION: Worsening pulmonary edema. Renea Chacko MD Carotid Artery Ultrasound 02/03/17 0000 Signed Impressions: Service Date/Time: Friday, February 03, 2017 17:01 - CONCLUSION: 1. Mild visible plaque present predominantly around carotid bifurcations without hemodynamically significant stenosis. Vertebral artery flow antegrade. Ramon Vences MD Chest X-Ray 02/02/17 1211 Signed Impressions: Service Date/Time: Thursday, February 02, 2017 12:08 - CONCLUSION: 1. Slight CHF and bibasilar atelectasis and/or infiltrate. 2. Grade III A/C joint separation on the right. Renea Chacko MD Assessment and Plan Problem List: (1) Coronary artery disease Assessment and Plan: Clinically, hemodynamically stable overnight. Remains on IABP support at 1:1 assist. Groin stable. No further angina. Await CABG later this week. BP's still too low for beta yadira, KEISHA-I. Cont daily aspirin. (2) Congestive heart failure (CHF) Assessment and Plan: CXR today improved. EF also 20-25% by echo. Continue diuresis. BP still too low for KEISHA-I, beta yadira. (3) Hyperlipidemia Assessment and Plan: Very suboptimal lipid profile. Continue atorvastatin 80 mg qd. Code Status full code Discussed Condition With patient Problem Qualifiers (1) Coronary artery disease: Qualified Code: I25.110 - Coronary artery disease involving [place] coronary artery of [place] heart with unstable angina pectoris (2) Congestive heart failure (CHF): Qualified Code: I50.21 - Acute systolic congestive heart failure (3) Hyperlipidemia: Qualified Code: E78.2 - Mixed hyperlipidemia August Goncalves MD Feb 04, 2017 09:47
--- NOTE | 2017-02-04 11:51 | PD.CAR.PN ---
CVT Progress Note Subjective/Hospital Course: 51-year-old male. He presented to [facility] ED with complaints of chest pain and chest pressure on and off 2 weeks. Associated with shortness of breath/excursion. Presented with nonradiating pain. , patient was noted to have ST elevation in the anterior/lateral leads. He was given aspirin 325 mg by mouth 1 started heparin drip and nitroglycerin. Cath revealed : three-vessel coronary disease. Left main 30%. LAD re in- stent stenosis 99%, 40% ostial stenosis. RCA 80% stenosis of the distal third and the left circumflex 100% occlusion. Ejection fraction was 25%. An intra-aortic pump was placed 1:1 augmentation around 100. PMH : hyperlipidemia and diabetes mellitus 1 year currently on no medication., CAD known history of coronary disease with's stents 2 placed in the LAD by Dr. Perea in 2007. 02/04 pt remains on IABP 1:1 / 5&6 ICS Left sternal border on CXR + right DP, PT on 76% F102, 40liters 02 / down from 100% CXR still showing evidence of pulm edema, but some improvement pain free, on Heparin gtt Objective: GENERAL: SKIN: Warm and dry. HEAD: Normocephalic. EYES: No scleral icterus. No injection or drainage. NECK: Supple, trachea midline. No JVD or lymphadenopathy. CARDIOVASCULAR: Regular rate and rhythm without murmurs, gallops, or rubs. IABP right groin 1:1 augmentation RESPIRATORY: few crackles in bases Breath sounds equal bilaterally. No accessory muscle use. GASTROINTESTINAL: Abdomen soft, non-tender, nondistended. MUSCULOSKELETAL: No cyanosis, or edema. BACK: Nontender without obvious deformity. No CVA tenderness. Vital Signs Date Time Temp Pulse Resp B/P Pulse Ox O2 Delivery O2 Flow Rate FiO2 02/04/17 11:03 98.1 94 17 96 90/57 02/04/17 11:02 02/04/17 11:02 94 02/04/17 11:01 96 Nasal Cannula 65 02/04/17 10:36 02/04/17 09:01 02/04/17 08:39 02/04/17 07:42 98.2 99 20 110/72 96 90/62 02/04/17 07:39 90 02/04/17 07:38 96 76 02/04/17 07:32 02/04/17 07:14 97 High Flow Nasal Cannula 40.00 76 02/04/17 06:33 92/63 02/04/17 05:32 93/64 02/04/17 04:15 92/61 02/04/17 03:22 81 02/04/17 03:22 98.2 98 15 122/76 98 90/63 02/04/17 03:22 98 90 02/04/17 03:22 90/63 02/04/17 02:30 94 High Flow Nasal Cannula 40.00 90 02/04/17 02:00 95/64 02/04/17 01:00 93/65 02/04/17 00:00 89/58 02/03/17 23:04 95 70 02/03/17 23:04 96/68 02/03/17 23:04 95 02/03/17 23:04 98.2 96 15 129/81 95 96/68 02/03/17 22:03 94/62 02/03/17 21:00 103/67 02/03/17 20:00 99/63 02/03/17 19:54 94 High Flow Nasal Cannula 40.00 70 02/03/17 19:35 93 70 02/03/17 19:21 98.3 103 17 138/85 90 98/67 02/03/17 19:21 90 60 02/03/17 19:00 98/67 02/03/17 19:00 101 02/03/17 17:48 92/65 02/03/17 16:00 88/58 02/03/17 15:00 90/02/03/17 15:00 99.1 89 16 137/78 97 90/61 02/03/17 15:00 89 02/03/17 15:00 95 70 02/03/17 14:09 89/67 02/03/17 13:43 97 High Flow Nasal Cannula 40.00 70 02/03/17 13:00 93/60 02/03/17 12:00 90/58 Labs: Laboratory Tests Test 02/04/17 02/04/17 02:17 11:03 White Blood Count 15.4 TH/MM3 (4.0-11.0) Red Blood Count 4.17 MIL/MM3 (4.50-5.90) Hemoglobin 11.7 GM/DL (13.0-17.0) Hematocrit 34.4 % (39.0-51.0) Mean Corpuscular Volume 82.3 FL (80.0-100.0) Mean Corpuscular Hemoglobin 28.1 PG (27.0-34.0) Mean Corpuscular Hemoglobin 34.1 % Concent (32.0-36.0) Red Cell Distribution Width 12.9 % (11.6-17.2) Platelet Count 188 TH/MM3 (150-450) Mean Platelet Volume 7.4 FL (7.0-11.0) Neutrophils (%) (Auto) 78.2 % (16.0-70.0) Lymphocytes (%) (Auto) 13.3 % (9.0-44.0) Monocytes (%) (Auto) 7.3 % (0.0-8.0) Eosinophils (%) (Auto) 0.3 % (0.0-4.0) Basophils (%) (Auto) 0.9 % (0.0-2.0) Neutrophils # (Auto) 12.0 TH/MM3 (1.8-7.7) Lymphocytes # (Auto) 2.0 TH/MM3 (1.0-4.8) Monocytes # (Auto) 1.1 TH/MM3 (0-0.9) Eosinophils # (Auto) 0.1 TH/MM3 (0-0.4) Basophils # (Auto) 0.1 TH/MM3 (0-0.2) CBC Comment DIFF FINAL Differential Comment Activated Partial 39.2 SEC 35.0 SEC Thromboplast Time (24.3-30.1) (24.3-30.1) Sodium Level 134 MEQ/L (136-145) Potassium Level 3.4 MEQ/L (3.5-5.1) Chloride Level 99 MEQ/L (98-107) Carbon Dioxide Level 22.2 MEQ/L (21.0-32.0) Anion Gap 13 MEQ/L (5-15) Blood Urea Nitrogen 21 MG/DL (7-18) Creatinine 1.15 MG/DL (0.60-1.30) Estimat Glomerular Filtration 67 ML/MIN (>89) Rate Random Glucose 200 MG/DL (74-106) Calcium Level 8.6 MG/DL (8.5-10.1) Phosphorus Level 3.1 MG/DL (2.5-4.9) Magnesium Level 2.1 MG/DL (1.5-2.5) Total Bilirubin 1.0 MG/DL (0.2-1.0) Aspartate Amino Transf 12 U/L (15-37) (AST/SGOT) Alanine Aminotransferase 14 U/L (12-78) (ALT/SGPT) Alkaline Phosphatase 111 U/L (45-117) Total Protein 6.9 GM/DL (6.4-8.2) Albumin 2.9 GM/DL (3.4-5.0) Result Diagram: 02/04/1721602/04/17216 (1) Coronary artery disease Plan: Clinically, hemodynamically stable overnight. Remains on IABP support at 1:1 assist. Groin stable. No further angina. EVAL for CABG SAT vs Saturday depending on 02 requirement BP's still too low for beta yadira, KEISHA-I. Cont daily aspirin., on Heparin gtt (2) Congestive heart failure (CHF) Plan: CXR today improved EF also 20-25% by echo. Continue diuresis. BP still too low for KEISHA-I, beta yadira. (3) Hyperlipidemia Plan: Very suboptimal lipid profile. Continue atorvastatin 80 mg qd. Problem Qualifiers (1) Coronary artery disease: Qualified Code: I25.110 - Coronary artery disease involving [place] coronary artery of [place] heart with unstable angina pectoris (2) Congestive heart failure (CHF): Qualified Code: I50.21 - Acute systolic congestive heart failure (3) Hyperlipidemia: Qualified Code: E78.2 - Mixed hyperlipidemia Clemencia Rizo Feb 04, 2017 11:51
[2017-02-04 19:14] LABS: APTT (PATIENT) 34.7 SEC (24.3-30.1)
[2017-02-04 19:21] LABS: BICARBONATE 29.7 MEQ/L (21.0-32.0); POTASSIUM 4.1 MEQ/L (3.5-5.1)
[2017-02-04] MEDS: ATORVASTATIN 80 MG TAB PO SCH (20:13)
[2017-02-04] MEDS: TEMAZEPAM 15 MG CAP PO PRN (21:58)
[2017-02-05] VITALS (13 sets, daily range): BP systolic 90–145; BP diastolic 55–94; PULSE 80–97; RESP 15–20; TEMP 98–99.3; O2SAT 94–98
[2017-02-05] MEDS: RESP: ALBUTEROL 2.5 MG/IPRATROPIUM 0.5 MG NEB (SCH) INH ×6 (00:48→22:04)
[2017-02-05 01:41] LABS: HEMATOCRIT 35.5 % (39.0-51.0); MEAN CELL VOLUME 81.9 FL (80.0-100.0); MEAN CORPUSCULAR HGB CONC 34.2 % (32.0-36.0); PLATELET COUNT 189 TH/MM3 (150-450); RED BLOOD COUNT 4.33 MIL/MM3 (4.50-5.90); RED CELL DISTRIBUTION WIDTH 13.3 % (11.6-17.2); REVIEW FLAG FINAL; WHITE BLOOD COUNT 13.3 TH/MM3 (4.0-11.0)
[2017-02-05 02:01] LABS: BICARBONATE 28.5 MEQ/L (21.0-32.0); MAGNESIUM 2.1 MG/DL (1.5-2.5); POTASSIUM 3.7 MEQ/L (3.5-5.1)
[2017-02-05] MEDS: HEPARIN SODIUM - IV 10,000 UNITS/10 ML VIAL IV PRN ×2 (03:13→19:02)
[2017-02-05] MEDS: CHLORHEXIDINE GLUCONATE 2 % 1 PACK (2 CLOTHS) TOP SCH (04:00)
[2017-02-05] MEDS: HEPARIN-D5W INJ 250 ML IV SCH ×2 (04:04→22:02)
[2017-02-05] MEDS: INSULIN NovoLIN REGULAR SUPPLEMENTAL SCALE SQ SCH ×4 (05:46→20:26)
--- NOTE | 2017-02-05 06:08 | RADRPT ---
EXAM DATE/TIME: 02/05/2017 04:45 [facility] COMPARISON: CHEST SINGLE AP, February 04, 2017, 4:27. INDICATIONS : Shortness of breath. MEDICAL HISTORY : None. SURGICAL HISTORY : None. ENCOUNTER: Subsequent ACUITY: 4 - 6 days PAIN SCORE: Non-responsive. LOCATION: Bilateral chest FINDINGS: A single view of the chest demonstrates bilateral perihilar vascular congestion with pleural effusion s left greater than right. The cardiomediastinal contours are unremarkable. Osseous structures are i ntact. CONCLUSION: Persistent pulmonary vascular congestion with pleural effusions left greater than right Zachariah Guardado MD on February 05, 2017 at 6:06 Board Certified Radiologist. This report was verified electronically.
--- NOTE | 2017-02-05 08:08 | PD.CARD.PN ---
Subjective Subjective Remarks Denies dyspnea, angina, palpitations, dizziness. Minimal groin pain with cough. No leg, back pain. Objective Medications Item Value Date Time Furosemide 60 mg 02/04/17 0900 (Lasix Inj) BID@,18/IV PUSH 02/04/17 1751 Potassium Chloride 20 meq 02/04/17 0900 (KCl) Q12HR/PO 02/04/172012 Atorvastatin 80 mg 02/03/17 2100 Calcium HS/PO 02/04/172012 (Lipitor) Aspirin 325 mg 02/03/17 0900 (Aspirin) DAILY/PO 02/04/17 0853 Heparin Sodium/ 250 ml @ 0 mls/hr 02/02/17 1315 Dextrose TITRATE/IV 02/05/17 0404 Vital Signs / I&O Vital Signs Date Time Temp Pulse Resp B/P Pulse Ox O2 Delivery O2 Flow Rate FiO2 02/05/17 07:55 02/05/17 07:54 97 Nasal Cannula 6.00 02/05/17 07:47 94 Simple Mask 10.00 02/05/17 07:47 99.3 91 18 127/55 94 02/05/17 07:23 94 High Flow Nasal Cannula 40.00 40 02/05/17 07:14 91 02/05/17 06:04 90/62 02/05/17 05:11 95/67 02/05/17 04:00 93/60 02/05/17 03:19 98.6 88 15 136/83 97 90/61 02/05/17 03:19 80 02/05/17 03:19 97 45 02/05/17 03:00 90/61 02/05/17 02:00 92/65 02/05/17 01:00 88/64 02/05/17 00:00 88/65 02/04/17 23:19 88/62 02/04/17 23:19 86 02/04/17 23:19 93 50 02/04/17 23:19 98.2 88 15 88/62 93 02/04/17 22:17 94/65 02/04/17 21:20 96 High Flow Nasal Cannula 40.00 50 02/04/17 21:00 104/66 02/04/17 20:00 98/62 02/04/17 19:15 94 50 02/04/17 19:15 98.6 89 17 149/93 94 96/58 02/04/17 19:00 96/58 02/04/17 19:00 101 02/04/17 18:05 02/04/17 17:03 02/04/17 17:01 02/04/17 16:01 02/04/17 15:05 89 02/04/17 15:05 98.5 90 17 96 100/69 02/04/17 15:04 96 Nasal Cannula 50 02/04/17 15:02 02/04/17 14:01 02/04/17 13:18 02/04/17 12:02 02/04/17 11:03 98.1 94 17 96 90/57 02/04/17 11:02 02/04/17 11:02 94 02/04/17 11:01 96 Nasal Cannula 65 02/04/17 10:36 02/04/17 09:01 02/04/17 08:39 I/O 02/04/17 02/04/17 02/04/17 02/05/17 02/05/17 02/05/17 07:00 15:00 23:00 07:00 15:00 23:00 Intake Total 854 ml 1175 ml 688 ml Output Total 1800 ml 2200 ml 800 ml Balance -946 ml -1025 ml -112 ml Intake Oral 480 ml 1000 ml 480 ml IV Total 374 ml 175 ml 208 ml Output Urine Total 1800 ml 2200 ml 800 ml # Voids 3 # Bowel Movements 0 0 8 Physical Exam GENERAL: Well developed, well nourished. No acute distress. HEENT: Jugular venous pressure is normal. CHEST: Lungs clear to auscultation anteriorly. CARDIAC: Regular rate and rhythm without S3, S4. I/ systolic murmur LLSB and apex. ABDOMEN: Soft, nontender, no hepatosplenomegaly. Bowel sounds present. EXTREMITIES: No clubbing, cyanosis, or edema. Good distal pulses. Laboratory Laboratory Tests Test 02/04/17 02/04/17 02/05/17 11:03 18:10 01:20 Activated Partial 35.0 SEC 34.7 SEC 38.0 SEC Thromboplast Time Sodium Level 132 MEQ/L 135 MEQ/L Potassium Level 4.1 MEQ/L 3.7 MEQ/L Chloride Level 95 MEQ/L 98 MEQ/L Carbon Dioxide Level 29.7 MEQ/L 28.5 MEQ/L Anion Gap 7 MEQ/L 9 MEQ/L Blood Urea Nitrogen 27 MG/DL 24 MG/DL Creatinine 1.30 MG/DL 1.29 MG/DL Estimat Glomerular Filtration 58 ML/MIN 59 ML/MIN Rate Random Glucose 275 MG/DL 206 MG/DL Calcium Level 9.1 MG/DL 8.8 MG/DL White Blood Count 13.3 TH/MM3 Red Blood Count 4.33 MIL/MM3 Hemoglobin 12.1 GM/DL Hematocrit 35.5 % Mean Corpuscular Volume 81.9 FL Mean Corpuscular Hemoglobin 28.0 PG Mean Corpuscular Hemoglobin 34.2 % Concent Red Cell Distribution Width 13.3 % Platelet Count 189 TH/MM3 Mean Platelet Volume 7.7 FL Phosphorus Level 3.6 MG/DL Magnesium Level 2.1 MG/DL Assessment and Plan Problem List: (1) Coronary artery disease Assessment and Plan: Doing well. Asymptomatic. Remains on IABP support at 1: 1 assist. Await CABG, possibly tomorrow. Will f/u PRN. (2) Congestive heart failure (CHF) Assessment and Plan: CXR largely unchanged from yesterday. EF 20-25% by echo. Continue diuresis. BP's overall still too low for KEISHA-I, beta yadira. (3) Hyperlipidemia Assessment and Plan: Very suboptimal lipid profile. Continue atorvastatin 80 mg qd. Code Status full code Discussed Condition With patient Problem Qualifiers (1) Coronary artery disease: Qualified Code: I25.110 - Coronary artery disease involving [place] coronary artery of [place] heart with unstable angina pectoris (2) Congestive heart failure (CHF): Qualified Code: I50.21 - Acute systolic congestive heart failure (3) Hyperlipidemia: Qualified Code: E78.2 - Mixed hyperlipidemia August Goncalves MD Feb 05, 2017 08:08
[2017-02-05] MEDS: POTASSIUM CHLORIDE 20 MEQ CONTROLLED RELEASE TAB PO SCH ×2 (08:38→20:25)
[2017-02-05] MEDS: DOCUSATE SODIUM 100 MG CAP PO SCH ×2 (08:38→20:25)
[2017-02-05] MEDS: FUROSEMIDE 40 MG/4 ML VIAL IV PUSH SCH ×2 (08:38→19:03)
[2017-02-05] MEDS: SODIUM CHLORIDE 0.9% FLUSH 10 ML FLUSH IV FLUSH SCH ×2 (08:39→20:25)
[2017-02-05] MEDS: ASPIRIN 325 MG TAB PO SCH (08:39)
[2017-02-05] MEDS: MUPIROCIN 2% OINT 1 APPLIC/GM SYR EACH NARE SCH ×4 (08:39→20:25)
[2017-02-05] MEDS: PANTOPRAZOLE SODIUM 40 MG VIAL IV SCH (08:39)
[2017-02-05] MEDS ORDERED: POTASSIUM CHLORIDE 10 MEQ CONTROLLED RELEASE TAB PO ONE (09:00)
--- NOTE | 2017-02-05 09:03 | HHI.CCPN ---
Subjective Remarks/Hospital Course 51-year-old male. Date of admission . We are asked to admit by cardiology for chest pain. He has a past medical history including hyperlipidemia and diabetes mellitus 1 year currently on no medication. He has known history of coronary disease with's stents 2 placed in the LAD by Dr. Perea in 2007. He presented to [place] ED with complaints of chest pain and chest pressure on and off 2 weeks. Associated with shortness of breath/ excursion. At 1 AM this morning he awoke up with severe nonradiating pain. 10 with orthopnea. Upon presentation ED, patient was noted to have ST elevation in the anterior/lateral leads. He was given aspirin 325 mg by mouth 1 started heparin drip and nitroglycerin. Today patient back to heart catheter lab results have three-vessel coronary disease. Left main 30%. LAD re in-stent stenosis 99%, 40% ostial stenosis. RCA 80% stenosis of the distal third and the left circumflex 100% occlusion. Ejection fraction was 25%. An intra-aortic pump was placed 1:1 augmentation around 100. Agent appears intact. CT surgery is been consulted. Chest pain currently 1 out of 10. 02/03: Oxygen requirements currently elevated overnight currently a nonrebreather. Complains of chest pain only with deep inspiration is less pruritic. Afebrile. No bowel movement. 02/04: Afebrile. Diuresing with Lasix. Currently on high flow nasal cannula 40 L at 90%. Received additional 40 mg IV Lasix overnight. Appears comfortable. Subjective 02/05: Tmax 99.3. Diuresing adequately with Lasix. FiO2 down to 45%. Appears comfortable. No excessive muscle use. Positive BM. Objective Vital Signs Date Time Temp Pulse Resp B/P Pulse Ox O2 Delivery O2 Flow Rate FiO2 02/05/17 08:13 02/05/17 07:54 97 Nasal Cannula 6.00 02/05/17 07:47 99.3 91 18 02/05/17 07:23 40 Intake and Output 02/04/17 02/04/17 02/05/17 08:00 16:00 00:00 Intake Total 854 ml 1175 ml Output Total 1800 ml 2200 ml Balance -946 ml -1025 ml Result Diagram: 02/05/17 0120 02/05/17 0120 Imaging Last Impressions Chest X-Ray 02/05/17 0600 Signed Impressions: Service Date/Time: Sunday, February 05, 2017 04:45 - CONCLUSION: Persistent pulmonary vascular congestion with pleural effusions left greater than right Zachariah Guardado MD Lower Extremity Ultrasound 02/03/17 0000 Signed Impressions: Service Date/Time: Friday, February 03, 2017 16:24 - CONCLUSION: 1. Measurements of the lower extremity veins as above. Ramon Vences MD Carotid Artery Ultrasound 02/03/17 0000 Signed Impressions: Service Date/Time: Friday, February 03, 2017 17:01 - CONCLUSION: 1. Mild visible plaque present predominantly around carotid bifurcations without hemodynamically significant stenosis. Vertebral artery flow antegrade. Ramon Vences MD Objective Remarks GENERAL: 51 year old male, currently resting in bed on high flow nasal cannula SKIN: Warm and dry. No rash HEAD: Atraumatic. Normocephalic. EYES: Pupils equal and round. No scleral icterus. No injection or drainage. ENT: No nasal bleeding or discharge. Mucous membranes pink and moist. NECK: Trachea midline. No JVD. CARDIOVASCULAR: Distant. Pulsation of intra-aortic balloon pump appreciated. Noted femoral sheaths from IABP right groin clean and dry and intact RESPIRATORY: Crackles appreciated throughout bilateral lung azul. No wheezing. Breath sounds equal bilaterally with symmetrical excursion. GASTROINTESTINAL: Abdomen soft, non-tender, nondistended. Hepatic and splenic margins not palpable. MUSCULOSKELETAL: Extremities with trace lower extremity edema. No obvious deformities. NEUROLOGICAL: Awake and alert. No obvious cranial nerve deficits. Motor grossly within normal limits. Five out of 5 muscle strength in the arms and legs. Normal speech. PSYCHIATRIC: Appropriate mood and affect; insight and judgment normal. A/P Assessment and Plan Neuro/Psych: Acetaminophen for fever [place]/morphine for pain management Restoril 15 milligrams at night when necessary for insomnia CV: STEMI Three-vessel coronary disease History of LAD stenting [address] Perea Hypertension Dyslipidemia EKG admission revealed ST elevation anterior/lateral leads Heart catheterization - left main 30%, LAD with re in stent stenosis 98%, ostial 40%, RCA 80% distal, left circumflex 100% percent occlusion. EF 25% Echocardiogram 2007 revealed EF 50%. Mild apical hypokinesis Echocardiogram revealed EF 20=25%. Akinesis of the apical myocardium. Moderate MR. JOSSE 48 mmHg Currently in aspirin 325 daily, Lipitor 80 mg daily and heparin drip On Lasix 60 mg IV twice a day for pulmonary edema Nitroglycerin drip currently off Cardiothoracic surgery evaluation with Dr. Quintero for possible CABG Recommended medical management with IV nitroglycerin/heparin and intraaortic balloon pump with possible CABG Saturday and Carotid Doppler showed no hemodynamically significant stenosis. Lower Dopplers negative Noted cholesterol 221. LDL elevated 166. HDL low at 34. Resp: Acute respiratory failure secondary to pulmonary edema Ongoing tobaccoism Nasal cannula to maintain saturations greater than equal to 92% Currently on high flow nasal cannula 40L at 45% Incentive spirometry while awake Scheduled bronchodilator therapies every 4 hours with every 2 hours albuterol for breakthrough Tobacco sensation will be encouraged Chest x-ray this a.m. reveals stable to slightly improved pulmonary edema laterally GI: Gastroesophageal reflux disease Currently on ADA diet Protonix for GI prophylaxis Colace/as needed Senokot for bowel regimen per positive BM : Patel will be placed for accurate I's and O's in a critically ill patient/on diuretics Endo: Diabetes mellitus Hemoglobin A1c 10.2 KEISHA inhibitor when indicated Start Levemir 8 units subcutaneous twice a day. Sliding-scale insulin with Accu-Cheks to maintain euglycemia/moderate regimen. 22 units sliding scale past 24 hours Renal: Accurate I's and O's Monitor urine output Creatinine currently within normal limits. Repeat BMP in a.m. Heme: Leukocytosis Normocytic anemia Monitor CBC daily. Follow trends. ID: Monitor for infection MSK: Right grade 3 AC joint separation OT evaluate and treat FEN: Hypokalemia Follow BMP in a.m. Received 30 mEq potassium chloride by mouth 1 now. Schedule 20 mEq twice a day Access - Utilize peripheral IV. Central line if indicated Prophylaxis - GI - Protonix - DVT - heparin drip Critical Care: The total critical care time was 35 minutes. Time to perform other separately billable procedures was not included in the critical care time. Michael Clancy MD Feb 05, 2017 09:03
[2017-02-05] MEDS ORDERED: ALPRAZolam 0.25 MG TAB PO PRN (09:45)
[2017-02-05] MEDS: INSULIN DETEMIR 100 UNITS/ML VIAL SQ SCH ×2 (10:14→20:26)
--- NOTE | 2017-02-05 17:20 | PD.CAR.PN ---
CVT Progress Note Subjective/Hospital Course: 51-year-old male. He presented to [place] ED with complaints of chest pain and chest pressure on and off 2 weeks. Associated with shortness of breath/excursion. Presented with nonradiating pain. , patient was noted to have ST elevation in the anterior/lateral leads. He was given aspirin 325 mg by mouth 1 started heparin drip and nitroglycerin. Cath revealed : three-vessel coronary disease. Left main 30%. LAD re in- stent stenosis 99%, 40% ostial stenosis. RCA 80% stenosis of the distal third and the left circumflex 100% occlusion. Ejection fraction was 25%. An intra-aortic pump was placed 1:1 augmentation around 100. PMH : hyperlipidemia and diabetes mellitus 1 year currently on no medication., CAD known history of coronary disease with's stents 2 placed in the LAD by Dr. Perea in 2007. 02/04 pt remains on IABP 1:1 / 5&6 ICS Left sternal border on CXR + right DP, PT on 76% F102, 40liters 02 / down from 100% CXR still showing evidence of pulm edema, but some improvement pain free, on Heparin gtt 02/05 remains pain free, now on 6 l nasal cannula IABP 1:1 scheduled for surgery in am Objective: GENERAL: SKIN: Warm and dry. HEAD: Normocephalic. EYES: No scleral icterus. No injection or drainage. NECK: Supple, trachea midline. No JVD or lymphadenopathy. CARDIOVASCULAR: Regular rate and rhythm without murmurs, gallops, or rubs. IABP left groin 1:1 augmenting well RESPIRATORY: Breath sounds equal bilaterally. No accessory muscle use. GASTROINTESTINAL: Abdomen soft, non-tender, nondistended. MUSCULOSKELETAL: No cyanosis, or edema. BACK: Nontender without obvious deformity. No CVA tenderness. Vital Signs Date Time Temp Pulse Resp B/P Pulse Ox O2 Delivery O2 Flow Rate FiO2 02/05/17 17:01 02/05/17 16:00 02/05/17 15:01 98 Nasal Cannula 6.00 02/05/17 15:01 98.0 95 20 145/94 98 02/05/17 15:01 02/05/17 15:00 90 02/05/17 14:05 02/05/17 13:00 02/05/17 12:11 02/05/17 11:22 02/05/17 11:22 94 Nasal Cannula 6.00 02/05/17 11:22 98.9 88 18 137/85 94 02/05/17 11:00 88 02/05/17 10:00 02/05/17 09:17 02/05/17 08:13 02/05/17 07:55 02/05/17 07:54 97 Nasal Cannula 6.00 02/05/17 07:47 94 Simple Mask 10.00 02/05/17 07:47 99.3 91 18 127/55 94 02/05/17 07:35 95 Nasal Cannula 6.00 02/05/17 07:23 94 High Flow Nasal Cannula 40.00 40 02/05/17 07:14 91 02/05/17 06:04 90/62 02/05/17 05:11 95/67 02/05/17 04:00 93/60 02/05/17 03:19 98.6 88 15 136/83 97 90/61 02/05/17 03:19 80 02/05/17 03:19 97 45 02/05/17 03:00 90/61 02/05/17 02:00 92/65 02/05/17 01:00 88/64 02/05/17 00:00 88/65 02/04/17 23:19 88/62 02/04/17 23:19 86 02/04/17 23:19 93 50 02/04/17 23:19 98.2 88 15 88/62 93 02/04/17 22:17 94/65 02/04/17 21:20 96 High Flow Nasal Cannula 40.00 50 02/04/17 21:00 104/66 02/04/17 20:00 98/62 02/04/17 19:15 94 50 02/04/17 19:15 98.6 89 17 149/93 94 96/58 02/04/17 19:00 96/58 02/04/17 19:00 101 02/04/17 18:05 Labs: Laboratory Tests Test 02/05/17 02/05/17 02/05/17 10:27 11:20 13:32 Activated Partial 38.0 SEC Thromboplast Time (24.3-30.1) Blood Type B POSITIVE B POSITIVE Antibody Screen NEGATIVE Crossmatch Leukocyte-Reduced Red Blood Cells Blood Bank Comment Result Diagram: 02/05/17 0120 02/05/17 0120 (1) Coronary artery disease Plan: Doing well. Asymptomatic. Remains on IABP support at 1:1 assist. Await CABG, (2) Congestive heart failure (CHF) Plan: CXR largely unchanged from yesterday. EF 20-25% by echo. Continue diuresis. BP's overall still too low for KEISHA-I, beta yadira. (3) Hyperlipidemia Plan: Very suboptimal lipid profile. Continue atorvastatin 80 mg qd. Problem Qualifiers (1) Coronary artery disease: Qualified Code: I25.110 - Coronary artery disease involving [place] coronary artery of [place] heart with unstable angina pectoris (2) Congestive heart failure (CHF): Qualified Code: I50.21 - Acute systolic congestive heart failure (3) Hyperlipidemia: Qualified Code: E78.2 - Mixed hyperlipidemia Clemencia Rizo Feb 05, 2017 17:20
[2017-02-05 18:53] LABS: APTT (PATIENT) 39.1 SEC (24.3-30.1)
[2017-02-05] MEDS: ATORVASTATIN 80 MG TAB PO SCH (20:25)
[2017-02-05] MEDS: TEMAZEPAM 15 MG CAP PO PRN (22:24)
[2017-02-05] MEDS: ACETAMINOPHEN/HYDROcodone 325 MG/5 MG TAB PO PRN (22:24)
[2017-02-06] VITALS (17 sets, daily range): BP systolic 88–100; BP diastolic 53–68; PULSE 80–103; RESP 15–18; TEMP 97.7–98.5; O2SAT 91–98
[2017-02-06 01:32] LABS: HEMATOCRIT 36.3 % (39.0-51.0); MEAN CELL VOLUME 81.3 FL (80.0-100.0); MEAN CORPUSCULAR HEMOGLOBIN 28.1 PG (27.0-34.0); MEAN CORPUSCULAR HGB CONC 34.6 % (32.0-36.0); PLATELET COUNT 202 TH/MM3 (150-450); RED BLOOD COUNT 4.46 MIL/MM3 (4.50-5.90); RED CELL DISTRIBUTION WIDTH 13.1 % (11.6-17.2); REVIEW FLAG FINAL; WHITE BLOOD COUNT 11.5 TH/MM3 (4.0-11.0)
[2017-02-06] MEDS: RESP: ALBUTEROL 2.5 MG/IPRATROPIUM 0.5 MG NEB (SCH) INH ×5 (01:41→15:17)
[2017-02-06 01:45] LABS: APTT (PATIENT) 43.4 SEC (24.3-30.1)
[2017-02-06 01:57] LABS: BICARBONATE 29.5 MEQ/L (21.0-32.0); POTASSIUM 3.9 MEQ/L (3.5-5.1)
[2017-02-06] MEDS: CHLORHEXIDINE GLUCONATE 2 % 1 PACK (2 CLOTHS) TOP SCH (04:00)
[2017-02-06] MEDS ORDERED: PROTAMINE SULFATE 250 MG/25 ML VIAL IV ONE (05:00)
[2017-02-06] MEDS ORDERED: DEXMEDETOMIDINE INJ 50 ML IV ONE (05:00)
[2017-02-06] MEDS ORDERED: FUROSEMIDE 100 MG/10 ML VIAL IV PUSH ONE (05:00)
[2017-02-06] MEDS ORDERED: HEPARIN SODIUM - SQ 10,000 UNITS/ML VIAL SQ ONE (05:00)
[2017-02-06] MEDS ORDERED: ceFAZolin INJ 1,000 MG VIAL IV ONE ×2 (05:00→16:46)
[2017-02-06] MEDS ORDERED: EPINEPHrine HCL (1:1000) 30 MG/30 ML VIAL IV ONE (05:00)
[2017-02-06] MEDS ORDERED: CALCIUM CHLORIDE 10% SOLN 1 GRAM/10 ML SYR IV ONE (05:00)
[2017-02-06] MEDS ORDERED: MAGNESIUM SULFATE 1000 MG/2 ML VIAL (PED) IV ONE (05:00)
[2017-02-06] MEDS ORDERED: PHENYLEPHRINE HCL 10 MG/ML VIAL IV ONE (05:00)
[2017-02-06] MEDS ORDERED: DOPamine INJ PREMIX 500 ML IV ONE (05:00)
[2017-02-06] MEDS ORDERED: VECURONIUM BROMIDE 10 MG VIAL IV ONE (05:00)
[2017-02-06] MEDS ORDERED: AMINOCAPROIC ACID INJ 250 MG/ML 20 ML VIAL IV ONE ×2 (05:00→07:31)
[2017-02-06] MEDS: INSULIN NovoLIN REGULAR SUPPLEMENTAL SCALE SQ SCH ×2 (05:21→11:16)
--- NOTE | 2017-02-06 06:13 | RADRPT ---
EXAM DATE/TIME: 02/06/2017 04:42 [facility] COMPARISON: CHEST SINGLE AP, February 05, 2017, 4:45. CHEST SINGLE AP, February 04, 2017, 4:27. INDICATIONS : Shortness of breath. MEDICAL HISTORY : Gastroesophageal reflux disease. Myocardial infarction. Hyperlipidemia. Diabetic, CAD SURGICAL HISTORY : Coronary artery stent ENCOUNTER: Subsequent ACUITY: 1 week PAIN SCORE: Non-responsive. LOCATION: Bilateral chest FINDINGS: A single view of the chest demonstrates a small left pleural effusion. Mild atelectasis left lung bas e. The cardiomediastinal contours are unremarkable. Osseous structures are intact. CONCLUSION: Small left pleural effusion with consolidation left lung base unchanged. Zachariah Guardado MD on February 06, 2017 at 6:11 Board Certified Radiologist. This report was verified electronically.
[2017-02-06] MEDS ORDERED: SODIUM CHLOR 0.9% 250 ML INJ 250 ML IV ONE (07:27)
[2017-02-06] MEDS ORDERED: LACTATED RINGER'S 1000 ML INJ 1,000 ML IV ONE (07:27)
[2017-02-06] MEDS ORDERED: SODIUM CHLOR 0.9% 1000 ML INJ 1,000 ML IV ONE (07:29)
[2017-02-06] MEDS ORDERED: SODIUM CHLORID 0.9% 500 ML INJ 500 ML IV ONE (07:29)
[2017-02-06] MEDS ORDERED: NORMOSOL R INJ 1,000 ML IV ONE (07:30)
[2017-02-06] MEDS: INSULIN DETEMIR 100 UNITS/ML VIAL SQ SCH (08:45)
[2017-02-06] MEDS: SODIUM CHLORIDE 0.9% FLUSH 10 ML FLUSH IV FLUSH SCH ×2 (08:46→23:13)
[2017-02-06] MEDS: DOCUSATE SODIUM 100 MG CAP PO SCH ×2 (08:46→23:12)
[2017-02-06] MEDS: MUPIROCIN 2% OINT 1 APPLIC/GM SYR EACH NARE SCH ×2 (08:46→08:47)
[2017-02-06] MEDS: POTASSIUM CHLORIDE 20 MEQ CONTROLLED RELEASE TAB PO SCH (08:46)
[2017-02-06] MEDS: ASPIRIN 325 MG TAB PO SCH (08:46)
[2017-02-06] MEDS: FUROSEMIDE 40 MG/4 ML VIAL IV PUSH SCH (08:46)
[2017-02-06] MEDS: PANTOPRAZOLE SODIUM 40 MG VIAL IV SCH (08:47)
--- NOTE | 2017-02-06 09:10 | PD.CAR.PN ---
CVT Progress Note Subjective/Hospital Course: 51-year-old male. He presented to [place] ED with complaints of chest pain and chest pressure on and off 2 weeks. Associated with shortness of breath/excursion. Presented with nonradiating pain. , patient was noted to have ST elevation in the anterior/lateral leads. He was given aspirin 325 mg by mouth 1 started heparin drip and nitroglycerin. Cath revealed : three-vessel coronary disease. Left main 30%. LAD re in- stent stenosis 99%, 40% ostial stenosis. RCA 80% stenosis of the distal third and the left circumflex 100% occlusion. Ejection fraction was 25%. An intra-aortic pump was placed 1:1 augmentation around 100. PMH : hyperlipidemia and diabetes mellitus 1 year currently on no medication., CAD known history of coronary disease with's stents 2 placed in the LAD by Dr. Perea in 2007. 02/04 pt remains on IABP 1:1 / 5&6 ICS Left sternal border on CXR + right DP, PT on 76% F102, 40liters 02 / down from 100% CXR still showing evidence of pulm edema, but some improvement pain free, on Heparin gtt 02/05 remains pain free, now on 6 l nasal cannula IABP 1:1 scheduled for surgery in am 02/06 pt for surgery today low BB given preop Objective: GENERAL: SKIN: Warm and dry. HEAD: Normocephalic. EYES: No scleral icterus. No injection or drainage. NECK: Supple, trachea midline. No JVD or lymphadenopathy. CARDIOVASCULAR: Regular rate and rhythm without murmurs, gallops, or rubs. IABP left groin + distal pulses RESPIRATORY: Breath sounds equal bilaterally. No accessory muscle use. GASTROINTESTINAL: Abdomen soft, non-tender, nondistended. MUSCULOSKELETAL: No cyanosis, or edema. BACK: Nontender without obvious deformity. No CVA tenderness. Vital Signs Date Time Temp Pulse Resp B/P Pulse Ox O2 Delivery O2 Flow Rate FiO2 02/06/17 07:36 98 Nasal Cannula 5.00 02/06/17 07:24 97 Nasal Cannula 6.00 02/06/17 07:21 98.3 80 18 100/67 97 02/06/17 07:00 83 02/06/17 07:00 100/67 02/06/17 06:05 99/63 02/06/17 05:00 87/68 02/06/17 04:00 95/64 02/06/17 03:28 96 Nasal Cannula 6.00 02/06/17 03:28 88/62 02/06/17 03:28 98.2 80 15 88/65 96 02/06/17 03:28 81 02/06/17 02:00 93/02/06/17 01:00 93/02/06/17 00:00 88/58 02/05/17 23:23 96 Nasal Cannula 6.00 02/05/17 23:23 95/65 02/05/17 23:23 90 02/05/17 23:23 98.0 89 15 95/65 96 02/05/17 22:00 99/02/05/17 21:30 97 Nasal Cannula 6.00 02/05/17 21:00 98/67 02/05/17 20:00 106/70 02/05/17 19:42 97 Nasal Cannula 6.00 Humidified 02/05/17 19:42 98.1 97 18 133/85 97 108/75 02/05/17 19:00 95 02/05/17 19:00 108/75 02/05/17 18:00 02/05/17 17:01 02/05/17 16:00 02/05/17 15:01 98 Nasal Cannula 6.00 02/05/17 15:01 98.0 95 20 145/94 98 02/05/17 15:01 02/05/17 15:00 90 02/05/17 14:05 02/05/17 13:00 02/05/17 12:11 02/05/17 11:22 02/05/17 11:22 94 Nasal Cannula 6.00 02/05/17 11:22 98.9 88 18 137/85 94 02/05/17 11:00 88 02/05/17 10:00 02/05/17 09:17 Labs: Laboratory Tests Test 02/06/17 01:18 White Blood Count 11.5 TH/MM3 (4.0-11.0) Red Blood Count 4.46 MIL/MM3 (4.50-5.90) Hemoglobin 12.6 GM/DL (13.0-17.0) Hematocrit 36.3 % (39.0-51.0) Mean Corpuscular Volume 81.3 FL (80.0-100.0) Mean Corpuscular Hemoglobin 28.1 PG (27.0-34.0) Mean Corpuscular Hemoglobin 34.6 % Concent (32.0-36.0) Red Cell Distribution Width 13.1 % (11.6-17.2) Platelet Count 202 TH/MM3 (150-450) Mean Platelet Volume 7.7 FL (7.0-11.0) Activated Partial 43.4 SEC Thromboplast Time (24.3-30.1) Sodium Level 134 MEQ/L (136-145) Potassium Level 3.9 MEQ/L (3.5-5.1) Chloride Level 96 MEQ/L (98-107) Carbon Dioxide Level 29.5 MEQ/L (21.0-32.0) Anion Gap 9 MEQ/L (5-15) Blood Urea Nitrogen 28 MG/DL (7-18) Creatinine 1.20 MG/DL (0.60-1.30) Estimat Glomerular Filtration 64 ML/MIN (>89) Rate Random Glucose 192 MG/DL (74-106) Calcium Level 9.4 MG/DL (8.5-10.1) Result Diagram: 02/06/1711702/06/17117 (1) Coronary artery disease Plan: Doing well. Asymptomatic. Remains on IABP support at 1:1 assist. CABG today (2) Congestive heart failure (CHF) Plan: CXR largely unchanged from yesterday. EF 20-25% by echo. Continue diuresis. BP's overall still too low for KEISHA-I, beta yadira. (3) Hyperlipidemia Plan: Very suboptimal lipid profile. Continue atorvastatin 80 mg qd. Problem Qualifiers (1) Coronary artery disease: Qualified Code: I25.110 - Coronary artery disease involving [place] coronary artery of [place] heart with unstable angina pectoris (2) Congestive heart failure (CHF): Qualified Code: I50.21 - Acute systolic congestive heart failure (3) Hyperlipidemia: Qualified Code: E78.2 - Mixed hyperlipidemia Clemencia Rizo Feb 06, 2017 09:10
[2017-02-06] MEDS ORDERED: METOPROLOL TARTRATE 25 MG TAB PO ONE (09:15)
--- NOTE | 2017-02-06 10:11 | HHI.CCPN ---
Subjective Remarks/Hospital Course 51-year-old male. Date of admission . We are asked to admit by cardiology for chest pain. He has a past medical history including hyperlipidemia and diabetes mellitus 1 year currently on no medication. He has known history of coronary disease with's stents 2 placed in the LAD by Dr. Perea in 2007. He presented to [place] ED with complaints of chest pain and chest pressure on and off 2 weeks. Associated with shortness of breath/ excursion. At 1 AM this morning he awoke up with severe nonradiating pain. with orthopnea. Upon presentation ED, patient was noted to have ST elevation in the anterior/lateral leads. He was given aspirin 325 mg by mouth 1 started heparin drip and nitroglycerin. Today patient back to heart catheter lab results have three-vessel coronary disease. Left main 30%. LAD re in-stent stenosis 99%, 40% ostial stenosis. RCA 80% stenosis of the distal third and the left circumflex 100% occlusion. Ejection fraction was 25%. An intra-aortic pump was placed 1:1 augmentation around 100. Agent appears intact. CT surgery is been consulted. Chest pain currently 1 out of 10. 02/03: Oxygen requirements currently elevated overnight currently a nonrebreather. Complains of chest pain only with deep inspiration is less pruritic. Afebrile. No bowel movement. 02/04: Afebrile. Diuresing with Lasix. Currently on high flow nasal cannula 40 L at 90%. Received additional 40 mg IV Lasix overnight. Appears comfortable. 02/05: Tmax 99.3. Diuresing adequately with Lasix. FiO2 down to 45%. Appears comfortable. No excessive muscle use. Positive BM. Subjective 02/06: Currently on 4 L nasal cannula. Saturations 99%. Resting comfortably in bed. Denies chest pain or shortness of breath. Plan for OR @ noon today Objective Vital Signs Date Time Temp Pulse Resp B/P Pulse Ox O2 Delivery O2 Flow Rate FiO2 02/06/17 07:36 98 Nasal Cannula 5.00 02/06/17 07:21 98.3 80 18 100/67 02/05/17 07:23 40 Intake and Output 02/05/17 02/05/17 02/06/17 08:00 16:00 00:00 Intake Total 688 ml 1164 ml Output Total 800 ml 2025 ml Balance -112 ml -861 ml Result Diagram: 02/06/17 0118 02/06/17 0118 Imaging Last Impressions Chest X-Ray 02/06/17 0600 Signed Impressions: Service Date/Time: Monday, February 06, 2017 04:42 - CONCLUSION: Small left pleural effusion with consolidation left lung base unchanged. Zachariah Guardado MD Lower Extremity Ultrasound 02/03/17 0000 Signed Impressions: Service Date/Time: Friday, February 03, 2017 16:24 - CONCLUSION: 1. Measurements of the lower extremity veins as above. Ramon Vences MD Carotid Artery Ultrasound 02/03/17 0000 Signed Impressions: Service Date/Time: Friday, February 03, 2017 17:01 - CONCLUSION: 1. Mild visible plaque present predominantly around carotid bifurcations without hemodynamically significant stenosis. Vertebral artery flow antegrade. Ramon Vences MD Objective Remarks GENERAL: 51 year old male, currently resting in bed on nasal cannula SKIN: Warm and dry. No rash HEAD: Atraumatic. Normocephalic. EYES: Pupils equal and round. No scleral icterus. No injection or drainage. ENT: No nasal bleeding or discharge. Mucous membranes pink and moist. NECK: Trachea midline. No JVD. CARDIOVASCULAR: Distant. Pulsation of intra-aortic balloon pump appreciated. Noted femoral sheaths from IABP right groin clean and dry and intact RESPIRATORY: Crackles appreciated throughout bilateral lung azul. No wheezing. Breath sounds equal bilaterally with symmetrical excursion. GASTROINTESTINAL: Abdomen soft, non-tender, nondistended. Hepatic and splenic margins not palpable. MUSCULOSKELETAL: Extremities with trace lower extremity edema. No obvious deformities. NEUROLOGICAL: Awake and alert. No obvious cranial nerve deficits. Motor grossly within normal limits. Five out of 5 muscle strength in the arms and legs. Normal speech. PSYCHIATRIC: Appropriate mood and affect; insight and judgment normal. A/P Assessment and Plan Neuro/Psych: Acetaminophen for fever [place]/morphine for pain management Restoril 15 milligrams at night when necessary for insomnia Xanax 0.25 3 times a day when necessary anxiety CV: STEMI Three-vessel coronary disease History of LAD stenting [address] Perea Hypertension Dyslipidemia EKG admission revealed ST elevation anterior/lateral leads Heart catheterization - left main 30%, LAD with re in stent stenosis 98%, ostial 40%, RCA 80% distal, left circumflex 100% percent occlusion. EF 25% Echocardiogram 2007 revealed EF 50%. Mild apical hypokinesis Echocardiogram revealed EF 20=25%. Akinesis of the apical myocardium. Moderate MR. JOSSE 48 mmHg Currently in aspirin 325 daily, Lipitor 80 mg daily and heparin drip On Lasix 20 mg IV twice a day for pulmonary edema Nitroglycerin drip currently off Cardiothoracic surgery evaluation with Dr. Quintero for possible CABG Recommended medical management with IV nitroglycerin/heparin and intraaortic balloon pump with possible CABG Saturday and Carotid Doppler showed no hemodynamically significant stenosis. Lower Dopplers negative Noted cholesterol 221. LDL elevated 166. HDL low at 34. Resp: Acute respiratory failure secondary to pulmonary edema Ongoing tobaccoism Nasal cannula to maintain saturations greater than equal to 92% Currently on nasal cannula 4 L satting 97%. Incentive spirometry while awake Scheduled bronchodilator therapies every 4 hours with every 2 hours albuterol for breakthrough Tobacco sensation will be encouraged Chest x-ray this a.m. reveals stable to slightly improved pulmonary edema bilaterally GI: Gastroesophageal reflux disease Nothing by mouth. Previously on ADA diet Protonix for GI prophylaxis Colace/as needed Senokot for bowel regimen per positive BM : Patel if clinically indicated for accurate I's and O's in a critically ill patient/on diuretics. Currently without Patel Endo: Diabetes mellitus Hemoglobin A1c 10.2 KEISHA inhibitor when indicated Continue Levemir 8 units subcutaneous twice a day. Sliding-scale insulin with Accu-Cheks to maintain euglycemia/moderate regimen. 26 units sliding scale past 24 hours Renal: Accurate I's and O's Monitor urine output Creatinine currently within normal limits. Repeat BMP in a.m. Heme: Leukocytosis Normocytic anemia Monitor CBC daily. Follow trends. ID: Monitor for infection MSK: Right grade 3 AC joint separation OT evaluate and treat FEN: Hypokalemia resolved Follow BMP in a.m. While on diuretics, Schedule 20 mEq KCl daily Access - Utilize peripheral IV. Central line if indicated Prophylaxis - GI - Protonix - DVT - heparin drip Critical Care: The total critical care time was 35 minutes. Time to perform other separately billable procedures was not included in the critical care time. Michael Clancy MD Feb 06, 2017 10:11 Michael Clancy MD Feb 06, 2017 10:11
[2017-02-06] MEDS ORDERED: ceFAZolin 2 GM PREMIX 50 ML ONE (11:51)
[2017-02-06] MEDS ORDERED: HEPARIN SODIUM - SQ 10,000 UNITS/ML VIAL ONE (11:51)
[2017-02-06] MEDS ORDERED: methylPREDNISolone SOD SUCC 125 MG/2 ML VIAL ONE (11:51)
[2017-02-06] MEDS ORDERED: VANCOMYCIN HCL 1000 MG VIAL ONE ×2 (11:51→13:38)
[2017-02-06] MEDS ORDERED: VASOPRESSIN INJ 20 UNITS/ML VIAL ONE (12:09)
[2017-02-06] MEDS ORDERED: CARDIOPLEGIC IRR 1,000 ML ONE (12:45)
[2017-02-06] MEDS ORDERED: POTASSIUM CHLORIDE 40 MEQ/20 ML VIAL ONE ×4 (12:46)
[2017-02-06] MEDS ORDERED: SODIUM BICARBONATE 8.4% INJ 50 ML ONE (12:47)
[2017-02-06] MEDS ORDERED: MANNITOL INJ 50 ML ONE (12:47)
[2017-02-06] MEDS ORDERED: HEPARIN SODIUM - IV 10,000 UNITS/10 ML VIAL ONE (12:47)
[2017-02-06] MEDS ORDERED: ALBUMIN HUMAN 25% 12.5 GM/50 ML BAGP IV ONE (12:48)
[2017-02-06] MEDS ORDERED: LACTATED RINGER'S 1000 ML INJ 500 ML IV PRN (17:47)
[2017-02-06] MEDS ORDERED: CLEVIDIPINE INJ 50 ML IV SCH (18:00)
[2017-02-06] MEDS ORDERED: ACETAMINOPHEN 325 MG TAB PO PRN (18:00)
[2017-02-06] MEDS ORDERED: MAGNESIUM SULFATE INJ 2 GM in SODIUM CHLORIDE 0.9% INJ 100 ML IV PRN ×4 (18:00)
[2017-02-06] MEDS ORDERED: INSULIN REGULAR (IV INFUSION) 100 UNITS in SODIUM CHLORIDE 0.9% INJ 99 ML IV SCH (18:00)
[2017-02-06] MEDS ORDERED: FUROSEMIDE 20 MG/2 ML VIAL IV PUSH SCH (18:00)
[2017-02-06] MEDS ORDERED: DEXTROSE 50% IN WATER 50 ML VIAL(D50) IV PUSH PRN (18:00)
[2017-02-06] MEDS ORDERED: hydrALAZINE HCL 20 MG/ML VIAL IV PRN (18:00)
[2017-02-06] MEDS ORDERED: CALCIUM CHLORIDE INJ 1 GM in SODIUM CHLORIDE 0.9% INJ 100 ML IV PRN (18:00)
[2017-02-06] MEDS ORDERED: Post-op Orders (for Pharmacy) MISC OTHER ONE (18:00)
[2017-02-06] MEDS ORDERED: METOPROLOL TARTRATE 5 MG/5 ML VIAL IV PUSH PRN (18:00)
[2017-02-06] MEDS ORDERED: ONDANSETRON HCL 4 MG/2 ML VIAL IV PUSH PRN (18:00)
[2017-02-06] MEDS ORDERED: DOPamine INJ PREMIX 500 ML IV SCH (18:00)
[2017-02-06] MEDS ORDERED: EPINEPHrine (1:1000) INJ 4 MG in DEXTROSE 5% IN WATER INJ 246 ML IV SCH ×2 (18:00)
[2017-02-06] MEDS ORDERED: ACETAMINOPHEN 650 MG SUPP RECTAL PRN (18:00)
--- NOTE | 2017-02-06 18:06 | PD.OP ---
cc: Sue Oliver MD; Lexy Quintero MD; August Goncalves MD Operative Report Date of Surgery: Feb 06, 2017 Preoperative Diagnosis: (1) Acute ST elevation myocardial infarction (2) Coronary artery disease (3) Combined systolic and diastolic heart failure, acute Postoperative Diagnosis: same Procedure: Urgent CABG x 3 GUALLPA to LAD SVG to OM SVG to RCA EVH MARISABEL Anesthesia: Dr. Huitron Surgeon: Lexy Quintero Tire Changer(s): KM Azevedo Operation and Findings: The risks, benefits, complications, treatment options, and expected outcomes were discussed with the patient. The possibilities of reaction to medication, pulmonary aspiration, perforation of viscus, bleeding, recurrent infection, the need for additional procedures, failure to diagnose a condition, and creating a complication requiring transfusion or operation were discussed with the patient. The patient concurred with the proposed plan, giving informed consent. The site of surgery properly noted/marked. The patient was taken to Operating Room, identified as Tam Maxim and the procedure verified as CABG, EVH, MARISABEL. A Time Out was held and the above information confirmed. Standard monitoring lines and Patel catheter were placed. The patient had a balloon pump in place. General anesthesia was induced. The patient was prepped and draped in a sterile fashion. A median sternotomy was performed and electrocautery was used to obtain hemostasis. The left internal mammary artery was procured as a pedicle from the 7th rib to the 1st rib in the usual manner. Simultaneously left greater saphenous vein was procured from the left leg using a minimally invasive endoscopic technique. The vein was prepared for anastomosis and the leg wound was irrigated and closed in 2 layers. The pericardium was opened and a pericardial sling was created using interrupted 0 silk sutures. The patient was heparinized for cardiopulmonary bypass and the distal mammary pedicle was instrumented for anastomosis. The heart appeared to be diffusely edematous and with petechiae. The heart was instrumented for cardiopulmonary bypass in the usual manner. Antegrade and retrograde blood cardioplegia was employed. The patient was placed on cardiopulmonary bypass. An aortic cross-clamp was applied and the heart was arrested using cold blood cardioplegia. Antegrade cardioplegia was administered after each anastomosis as was retrograde. After adequate arrest, the distal right coronary circulation was investigated and the distal RCA was opened with a Sandoval blade and found to be a 1.5 millimeter good target. Saphenous vein was approximated to the RCA artery using a running 7 0 Prolene suture. The graft was measured for length and orientation and the proximal anastomosis was constructed to the ascending aorta using a running 5 0 Prolene suture after creating an aortotomy with a 5 millimeter punch. The 1st circumflex marginal artery was then opened with a Sandoval blade and found to be a 1.5 millimeter good target. The OM1 artery was intramyocardial. Saphenous vein was approximated to the OM1 artery using a running 7 0 Prolene suture. The graft was measured for length and orientation and was suspended from the pericardium. The LAD was intramyocardial and located by epicardial ultrasound. The distal LAD was opened with a Sandoval blade and found to be a 1 millimeter poor target. The left internal mammary artery was approximated to the LAD using a running 7 0 Prolene suture. The pedicle was attached to the epicardium using interrupted 5 0 silk suture. The patient was systemically rewarmed and received a hotshot dose of warm blood cardioplegia. The aorta was vented and the proximal anastomosis to the OM1 graft was accomplished using a running 5 0 Prolene suture after creating an aortotomy was a 5 millimeter punch. The cross-clamp was removed and all proximal and distal anastomoses were examined for hemostasis. The patient was weaned from cardiopulmonary bypass with the IABP set 1:1. Protamine was given. There was no adverse reaction. Decannulation was carried out without incident. Wound was checked for hemostasis which was obtained using electrocautery. A 36 [place] mediastinal and 32 [place] left pleural chest was were placed and secured to the skin with 0 silk suture. The sternum was closed with stainless steel wire. The fascia was closed with 1. PDS. The subcutaneous tissue was closed using a running 2-0 Vicryl suture. The skin was closed with 4-0 Monocryl. Sterile dressings were placed. At the end of the operation, all sponge, instruments, and needle counts were correct. The patient was transferred to the CVICU in stable condition. Findings: LVEF ~15% initially. ~25-30% after revascularization. The LAD target was poor in quality. The heart was diffusely edematous with petechiae consistent with his recent AR. XC: 121 min CPB: 141 min Drains: mediastinal x 1 pleural x 1 Complications: none Disposition: to CVICU in stable, but guarded condition Lexy Quintero MD Feb 06, 2017 18:06
[2017-02-06] MEDS ORDERED: RESP: RACEPINEPHRINE 2.25% 0.5 ML NEB NEB PRN (18:45)
[2017-02-06] MEDS ORDERED: RESP: ALBUTEROL 2.5 MG/IPRATROPIUM 0.5 MG NEB (PRN) NEB (18:45)
[2017-02-06] MEDS ORDERED: fentaNYL CITRATE 1000 MCG/20 ML VIAL ONE (18:53)
[2017-02-06] MEDS ORDERED: MIDAZOLAM HCL 5 MG/5 ML VIAL ONE (18:53)
--- NOTE | 2017-02-06 19:07 | RADRPT ---
EXAM DATE/TIME: 02/06/2017 18:21 [facility] COMPARISON: CHEST SINGLE AP, February 06, 2017, 4:42. INDICATIONS : Post op CABG. MEDICAL HISTORY : Gastroesophageal reflux disease. Myocardial infarction. Hyperlipidemia. Diabetic. CAD. SURGICAL HISTORY : Coronary artery stent. ENCOUNTER: Initial ACUITY: 1 day PAIN SCORE: Non-responsive. LOCATION: chest FINDINGS: A single portable frontal view of the chest shows interval median sternotomy. Tip of the endotracheal tube is 5 cm cephalad to the laurel. A right internal jugular vein central venous line with the tip at the cavoatrial junction. Nasogastric tube tip courses off the inferior margin of the film. Left th oracostomy tube enters via a subxiphoid approach and projects laterally. No pneumothorax. Mild bibasi lar atelectasis. Tiny left effusion. Heart is mildly enlarged. CONCLUSION: Interval median sternotomy with life-support lines as detailed above. Bibasilar atelectasis with tiny left effusion. Pablo Norwood Jr., MD on February 06, 2017 at 19:04 Board Certified Radiologist. This report was verified electronically.
[2017-02-06] MEDS: ACETAMINOPHEN 1000 MG/100 ML VIAL IV SCH (19:56)
[2017-02-06] MEDS: RESP: ALBUTEROL 2.5 MG/IPRATROPIUM 0.5 MG NEB (SCH) NEB (20:39)
[2017-02-06] MEDS: AMIODARONE 200 MG TAB PO SCH (23:12)
[2017-02-06] MEDS: ATORVASTATIN 80 MG TAB PO SCH (23:12)
[2017-02-07] VITALS (12 sets, daily range): BP systolic 93–129; BP diastolic 51–71; PULSE 90–103; RESP 16–20; TEMP 98.5–100.4; O2SAT 92–99
[2017-02-07] MEDS: ACETAMINOPHEN 1000 MG/100 ML VIAL IV SCH ×3 (02:29→13:12)
[2017-02-07] MEDS: RESP: ALBUTEROL 2.5 MG/IPRATROPIUM 0.5 MG NEB (SCH) NEB ×3 (03:43→20:53)
[2017-02-07] MEDS: CHLORHEXIDINE GLUCONATE 2 % 1 PACK (2 CLOTHS) TOP SCH (04:00)
[2017-02-07 04:47] LABS: HEMATOCRIT 31.8 % (39.0-51.0); MEAN CELL VOLUME 82.4 FL (80.0-100.0); MEAN CORPUSCULAR HEMOGLOBIN 27.7 PG (27.0-34.0); MEAN CORPUSCULAR HGB CONC 33.5 % (32.0-36.0); PLATELET COUNT 189 TH/MM3 (150-450); RED BLOOD COUNT 3.86 MIL/MM3 (4.50-5.90); RED CELL DISTRIBUTION WIDTH 13.3 % (11.6-17.2); REVIEW FLAG FINAL; WHITE BLOOD COUNT 20.5 TH/MM3 (4.0-11.0)
[2017-02-07 05:09] LABS: BICARBONATE 24.9 MEQ/L (21.0-32.0); MAGNESIUM 2.7 MG/DL (1.5-2.5)
--- NOTE | 2017-02-07 05:14 | RADRPT ---
EXAM DATE/TIME: 02/07/2017 03:52 [facility] COMPARISON: CHEST SINGLE AP, February 06, 2017, 18:21. INDICATIONS : Shortness of breath, possible pulmonary disease. MEDICAL HISTORY : Gastroesophageal reflux disease. Myocardial infarction. Diabetes mellitus type II. SURGICAL HISTORY : Coronary artery stent. CABG. ENCOUNTER: Subsequent ACUITY: 4 - 6 days PAIN SCORE: Non-responsive. LOCATION: Bilateral chest FINDINGS: A single view of the chest demonstrates a bilateral lower lobe increased density particularly with ai r bronchograms left lung base likely atelectasis. Right IJ central venous catheter in good position. Left chest tube in good position. No evidence of pneumothorax. The cardiomediastinal contours are unr emarkable. Osseous structures are intact. CONCLUSION: Worse consolidation both lung bases left greater than right likely atelectasis. Chest tube in good po sition Zachariah Guardado MD on February 07, 2017 at 5:11 Board Certified Radiologist. This report was verified electronically.
[2017-02-07] MEDS: PANTOPRAZOLE SOD 40 MG DELAYED RELEASE TAB PO SCH (06:12)
--- NOTE | 2017-02-07 07:18 | HHI.CCPN ---
Subjective Remarks/Hospital Course 51-year-old male. Date of admission . We are asked to admit by cardiology for chest pain. He has a past medical history including hyperlipidemia and diabetes mellitus 1 year currently on no medication. He has known history of coronary disease with's stents 2 placed in the LAD by Dr. Perea in 2007. He presented to [facility] ED with complaints of chest pain and chest pressure on and off 2 weeks. Associated with shortness of breath/ excursion. At 1 AM this morning he awoke up with severe nonradiating pain. with orthopnea. Upon presentation ED, patient was noted to have ST elevation in the anterior/lateral leads. He was given aspirin 325 mg by mouth 1 started heparin drip and nitroglycerin. Today patient back to heart catheter lab results have three-vessel coronary disease. Left main 30%. LAD re in-stent stenosis 99%, 40% ostial stenosis. RCA 80% stenosis of the distal third and the left circumflex 100% occlusion. Ejection fraction was 25%. An intra-aortic pump was placed 1:1 augmentation around 100. Agent appears intact. CT surgery is been consulted. Chest pain currently 1 out of 10. 02/03: Oxygen requirements currently elevated overnight currently a nonrebreather. Complains of chest pain only with deep inspiration is less pruritic. Afebrile. No bowel movement. 02/04: Afebrile. Diuresing with Lasix. Currently on high flow nasal cannula 40 L at 90%. Received additional 40 mg IV Lasix overnight. Appears comfortable. 02/05: Tmax 99.3. Diuresing adequately with Lasix. FiO2 down to 45%. Appears comfortable. No excessive muscle use. Positive BM. Subjective 02/06: Currently on 4 L nasal cannula. Saturations 99%. Resting comfortably in bed. Denies chest pain or shortness of breath. Plan for OR @ noon today 02/07: s/p Urgent CABG x 3, GUALLPA to LAD, SVG to OM, SVG to RCA on 02/06/17. Extubated postop. IABP in place with one-to-one, good augmentation. Breathing comfortably UO adequate Objective Vital Signs Date Time Temp Pulse Resp B/P Pulse Ox O2 Delivery O2 Flow Rate FiO2 02/07/17 04:00 101 02/07/17 04:00 92 Nasal Cannula 6.00 02/07/17 04:00 99.1 16 93/69 106/51 02/06/17 21:10 40 Intake and Output 02/06/17 02/06/17 02/07/17 08:00 16:00 00:00 Intake Total 948 ml Output Total 1650 ml Balance -702 ml Result Diagram: 02/07/17 0420 02/07/17 0420 Imaging Last Impressions Chest X-Ray 02/06/17 0600 Signed Impressions: Service Date/Time: Monday, February 06, 2017 04:42 - CONCLUSION: Small left pleural effusion with consolidation left lung base unchanged. Zachariah Guardado MD Lower Extremity Ultrasound 02/03/17 0000 Signed Impressions: Service Date/Time: Friday, February 03, 2017 16:24 - CONCLUSION: 1. Measurements of the lower extremity veins as above. Ramon Vences MD Carotid Artery Ultrasound 02/03/17 0000 Signed Impressions: Service Date/Time: Friday, February 03, 2017 17:01 - CONCLUSION: 1. Mild visible plaque present predominantly around carotid bifurcations without hemodynamically significant stenosis. Vertebral artery flow antegrade. Ramon Vences MD Objective Remarks GENERAL: 51 year old male, currently resting in bed on nasal cannula SKIN: Warm and dry. No rash HEAD: Atraumatic. Normocephalic. EYES: Pupils equal and round. No scleral icterus. No injection or drainage. ENT: No nasal bleeding or discharge. Mucous membranes pink and moist. NECK: Trachea midline. No JVD. CARDIOVASCULAR: Distant. Pulsation of intra-aortic balloon pump appreciated. Noted femoral sheaths from IABP right groin clean and dry and intact RESPIRATORY: Few Crackles appreciated throughout bilateral lung azul. No wheezing. Breath sounds equal bilaterally with symmetrical excursion. GASTROINTESTINAL: Abdomen soft, non-tender, nondistended. Hepatic and splenic margins not palpable. MUSCULOSKELETAL: Extremities with trace lower extremity edema. No obvious deformities. NEUROLOGICAL: Awake and alert. No obvious cranial nerve deficits. Motor grossly within normal limits. Five out of 5 muscle strength in the arms and legs. Normal speech. A/P Assessment and Plan Neuro/Psych: Acetaminophen for fever. [place]/morphine for pain management Restoril 15 milligrams at night when necessary for insomnia Xanax 0.25 3 times a day when necessary anxiety CV: STEMI Three-vessel coronary disease History of LAD stenting [address] Perea Hypertension Dyslipidemia EKG admission revealed ST elevation anterior/lateral leads Heart catheterization - left main 30%, LAD with re in stent stenosis 98%, ostial 40%, RCA 80% distal, left circumflex 100% percent occlusion. EF 25% Echocardiogram 2007 revealed EF 50%. Mild apical hypokinesis Echocardiogram revealed EF 20-25%. Akinesis of the apical myocardium. Moderate MR. JOSSE 48 mmHg Urgent CABG x 3, GUALLPA to LAD, SVG to OM, SVG to RCA on 02/06 aspirin 325 daily, Lipitor 80 mg daily and OFF heparin drip On Lasix 20 mg IV twice a day for pulmonary edema intraaortic balloon pump per CTS Carotid Doppler showed no hemodynamically significant stenosis. Lower Dopplers negative Noted cholesterol 221. LDL elevated 166. HDL low at 34. Resp: CHF/pulmonary edema Ongoing tobaccoism Nasal cannula to maintain saturations greater than equal to 92% Currently on nasal cannula 4 L satting 97%. Incentive spirometry while awake, EzPAP q6 Scheduled bronchodilator therapies every 4 hours with every 2 hours albuterol for breakthrough Tobacco cessation will be encouraged Chest x-ray this a.m. reveals improved pulmonary edema bilaterally, but with bilateral atelectasis GI: Gastroesophageal reflux disease Diet per CTS Protonix for GI prophylaxis Colace/as needed Senokot for bowel regimen per positive BM : Monitor UO Endo: Diabetes mellitus Hemoglobin A1c 10.2 KEISHA inhibitor when indicated Continue insulin infusion Renal: Accurate I's and O's Monitor urine output Creatinine currently within normal limits. Repeat BMP in a.m. Heme: Leukocytosis Normocytic anemia Monitor CBC daily. Follow trends. ID: Monitor for infection MSK: Right grade 3 AC joint separation OT evaluate and treat FEN: Hypokalemia resolved Follow BMP in a.m. While on diuretics, Schedule 20 mEq KCl daily Prophylaxis - GI - Protonix - DVT - sq heparin when cleared by CTS Critical Care: Critical care time was 30 minutes. Zafar Carpio MD Feb 07, 2017 07:18
[2017-02-07] MEDS: POTASSIUM CHLORIDE 20 MEQ CONTROLLED RELEASE TAB PO SCH (09:00)
[2017-02-07] MEDS: SODIUM CHLORIDE 0.9% FLUSH 10 ML FLUSH IV FLUSH SCH ×2 (09:00→22:53)
[2017-02-07] MEDS: ASPIRIN 81 MG CHEW TAB PO SCH (09:36)
[2017-02-07] MEDS: PANTOPRAZOLE SODIUM 40 MG VIAL IV SCH (09:36)
[2017-02-07] MEDS: DOCUSATE SODIUM 100 MG CAP PO SCH ×2 (09:36→20:06)
[2017-02-07] MEDS: AMIODARONE 200 MG TAB PO SCH ×2 (09:37→20:05)
--- NOTE | 2017-02-07 10:11 | RSPPFT ---
DATE OF PROCEDURE: 02/05/17 COMMENTS: The forced vital capacity shows a severe reduction. The FEV1 and FEF 25-75 are both markedly reduced. The FEV1/FVC ratio is also markedly reduced. IMPRESSION: This is compatible with severe, large and small airways obstructive and restrictive lung disease. A total lung capacity would be helpful.
[2017-02-07] MEDS ORDERED: GLUCAGON 1 MG/ML VIAL OTHER PRN (10:15)
[2017-02-07] MEDS ORDERED: SOD PHOSPHATE/SOD BIPHOSPHATE (ADULT) ENEMA 133ML RECTAL PRN (10:15)
[2017-02-07] MEDS ORDERED: BISACODYL 10 MG SUPP RECTAL PRN (10:15)
[2017-02-07] MEDS ORDERED: DEXTROSE 50% IN WATER 50 ML VIAL(D50) IV PRN (10:15)
[2017-02-07] MEDS: MAGNESIUM HYDROXIDE SUSP 30 ML CUP PO SCH (10:15)
[2017-02-07] MEDS ORDERED: FUROSEMIDE 40 MG/4 ML VIAL IV PUSH ONE (10:30)
[2017-02-07] MEDS: CARVEDILOL 3.125 MG TAB PO SCH ×2 (13:11→20:04)
[2017-02-07] MEDS: ACETAMINOPHEN/HYDROcodone 325 MG/5 MG TAB PO PRN ×2 (13:11→18:24)
--- NOTE | 2017-02-07 13:50 | EKG ---
Date Performed: 02/07/2017 Time Performed: 05:11:52 PTAGE: 51 years EKG: Sinus rhythm Possible septal infarct - age undetermined Diffuse ST segment elevation is noted. This is new when compared to the prior tracing. It may reflect pericarditis. Abnormal ECGPREVIOUS TRACING : 11.59 DOCTOR: Ty Daniels Interpretating Date/Time 02/07/2017 13:47:52
[2017-02-07] MEDS: INSULIN ASPART SUPPLEMENTAL SCALE SQ SCH ×3 (14:05→21:48)
--- NOTE | 2017-02-07 15:57 | PD.CAR.PN ---
CVT Progress Note CVT: POD #: 1 Subjective/Hospital Course: 51-year-old male. He presented to [facility] ED with complaints of chest pain and chest pressure on and off 2 weeks. Associated with shortness of breath/excursion. Presented with nonradiating pain. , patient was noted to have ST elevation in the anterior/lateral leads. He was given aspirin 325 mg by mouth 1 started heparin drip and nitroglycerin. Cath revealed : three-vessel coronary disease. Left main 30%. LAD re in- stent stenosis 99%, 40% ostial stenosis. RCA 80% stenosis of the distal third and the left circumflex 100% occlusion. Ejection fraction was 25%. An intra-aortic pump was placed 1:1 augmentation around 100. PMH : hyperlipidemia and diabetes mellitus 1 year currently on no medication., CAD known history of coronary disease with's stents 2 placed in the LAD by Dr. Perea in 2007. 02/04 pt remains on IABP 1:1 / 5&6 ICS Left sternal border on CXR + right DP, PT on 76% F102, 40liters 02 / down from 100% CXR still showing evidence of pulm edema, but some improvement pain free, on Heparin gtt 02/05 remains pain free, now on 6 l nasal cannula IABP 1:1 scheduled for surgery in am 02/06 pt for surgery today low BB given preop 02/07 surgery: Urgent CABG x 3, GUALLPA to LAD, SVG to OM, SVG to RCA, EVH 4000cc crystalloid , 10units PLT extubated post surgery EF 15% > 25-30 post op 02/08 No pressors / pt tolerated IABP at 1:2 right fem IABP without difficulty, small amount of blood 10 -15 allowed drain then pressure held for hemostasis/ with continuous monitoring / for 15min/ then RN continued to hold pressure until complete hemostasis obtained bedrest x 4 hours weaned off insulin gtt will keep in CVICU tonight will need to eval for LifeVest placement prior to surgery Objective: GENERAL: SKIN: Warm and dry.prevena to chest HEAD: Normocephalic. EYES: No scleral icterus. No injection or drainage. NECK: Supple, trachea midline. No JVD or lymphadenopathy. CARDIOVASCULAR: Regular rate and rhythm without murmurs, gallops, or rubs. IABP removed right groin, + distal pulses RESPIRATORY: Breath sounds equal bilaterally. No accessory muscle use. chest tube to wall suction, no air leak drained 330cc/ 12 hrs GASTROINTESTINAL: Abdomen soft, non-tender, nondistended. MUSCULOSKELETAL: No cyanosis, or edema. BACK: Nontender without obvious deformity. No CVA tenderness. Vital Signs Date Time Temp Pulse Resp B/P Pulse Ox O2 Delivery O2 Flow Rate FiO2 02/07/17 15:34 92 02/07/17 15:26 95 Nasal Cannula 6.00 Humidified 02/07/17 15:16 98.8 94 18 101/53 94 Arterial Line 02/07/17 13:46 92 Simple Mask 10.00 02/07/17 12:03 95 Nasal Cannula 5.00 Humidified 02/07/17 11:22 94 02/07/17 11:22 99 Nasal Cannula 6.00 Humidified 02/07/17 11:22 98.8 96 18 97/67 99 129/71 02/07/17 08:17 85/51 02/07/17 08:17 99.5 94 16 109/65 97 127/54 02/07/17 08:17 97 Nasal Cannula 6.00 Humidified 02/07/17 07:47 95 Nasal Cannula 6.00 02/07/17 07:00 90 02/07/17 04:00 101 02/07/17 04:00 92 Nasal Cannula 6.00 02/07/17 04:00 99.1 103 16 93/69 92 106/51 02/07/17 04:00 80/54 02/07/17 03:40 16 02/07/17 03:00 16 02/07/17 00:00 98.5 94 16 102/65 96 105/51 02/07/17 00:00 93 02/07/17 00:00 75/52 02/06/17 23:33 96 Nasal Cannula 6.00 02/06/17 21:41 94 Nasal Cannula 6.00 02/06/17 21:40 94 Nasal Cannula 6 02/06/17 21:40 93 Nasal Cannula 6.00 02/06/17 21:10 94 40 02/06/17 20:34 94 50 02/06/17 20:30 97.7 02/06/17 20:10 95 50 02/06/17 20:00 97.7 92 16 94/68 94 98/53 02/06/17 19:25 93 60 02/06/17 19:00 94 Mechanical Ventilator 60 02/06/17 19:00 99/56 02/06/17 19:00 94 Mechanical Ventilator 60 02/06/17 19:00 103 02/06/17 18:41 95 60 02/06/17 18:30 91 50 Labs: Laboratory Tests Test 02/07/17 04:20 White Blood Count 20.5 TH/MM3 (4.0-11.0) Red Blood Count 3.86 MIL/MM3 (4.50-5.90) Hemoglobin 10.7 GM/DL (13.0-17.0) Hematocrit 31.8 % (39.0-51.0) Mean Corpuscular Volume 82.4 FL (80.0-100.0) Mean Corpuscular Hemoglobin 27.7 PG (27.0-34.0) Mean Corpuscular Hemoglobin 33.5 % Concent (32.0-36.0) Red Cell Distribution Width 13.3 % (11.6-17.2) Platelet Count 189 TH/MM3 (150-450) Mean Platelet Volume 7.8 FL (7.0-11.0) Sodium Level 136 MEQ/L (136-145) Potassium Level 5.0 MEQ/L (3.5-5.1) Chloride Level 102 MEQ/L (98-107) Carbon Dioxide Level 24.9 MEQ/L (21.0-32.0) Anion Gap 9 MEQ/L (5-15) Blood Urea Nitrogen 31 MG/DL (7-18) Creatinine 1.02 MG/DL (0.60-1.30) Estimat Glomerular Filtration 77 ML/MIN (>89) Rate Random Glucose 219 MG/DL (74-106) Calcium Level 8.7 MG/DL (8.5-10.1) Magnesium Level 2.7 MG/DL (1.5-2.5) Result Diagram: 02/07/1741902/07/17419 Telemetry: NSR (1) Coronary artery disease Plan: IABP DC on low dose coreg, gentle diuresis on amiodarone ASA, statin OOB this pm pulm toileting (2) Congestive heart failure (CHF) Plan: BP's overall still too low for KEISHA-I, beta yadira. may need LifeVest at discharge (3) Hyperlipidemia Plan: Very suboptimal lipid profile. Continue atorvastatin 80 mg qd. 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
--- NOTE | 2017-02-07 16:00 | HHI.FF ---
Face to Face Verification Diagnosis: (1) Acute ST elevation myocardial infarction (2) Hyperglycemia (3) History of hyperlipidemia (4) Combined systolic and diastolic heart failure, acute (5) Diabetes mellitus (6) S/P CABG x 3 Home Health Nursing Order: Signs/symptoms of disease process Diabetic education CHF education Wound care and dressing changes Nursing assessment with vital signs Instructions: Heart and Vascular Surgery patients *Special attention to sternal dressing Mandatory frequency Assess and evaluation, 4 days in a row The next week 3X week 2 times a week for 4 weeks 1 time a week for 5 weeks Schedule Heart and Vascular patients for full 60 day certification period Initial visit Review Open Heart Surgery Discharge Instructions (Sternal precautions, Activity, Elastic hose, Incision care, Driving, Incentive spirometry, Smoking, Snead, Work and other) Need Betadine to paint incision Medication reconciliation Importance of follow up care/ check on appointments Make calendar record temperature daily When to call [facility] nurse, review instructions, phone list Incentive Spirometry, demonstration Visit 1- Begin discharge instruction for patient family and/ or caregiver using teach back method- Signs and symptoms of infection Disease characteristics Medicines and side effects Foods and nutrition/ appetite Infection control/ hand washing/ hygiene Visit 2- Continue teaching Discharge instructions- include additional information on smoking cessation , sternal dressing (sternal vac) Visit 3- Continue teaching- Cough and deep breathing, incision monitoring. Choose my plate Visit 4- Continue teaching- Discuss limitations Discuss how they are feeling Discuss progress toward goals Remaining visits- continue teaching and monitoring Incentive spirometry Q1 hr x 10, while awake, also use acapella device hourly whole awake Sternal Breast Bone Precautions: NO pushing or pulling, ( pt must use sternal pillow to support chest with all activities and with coughing ( takes up to 3 months breast bone to heal ) Daily incision care: ok to shower daily, no tub bath. Wash all incisions with liquid dial soap, clean wash cloth to each site, rinse and pat dry. Observe for any signs of infection, such as drainage which is dark yellow, christine, green or foul smelling. Immediately report to the surgeon any drainage from the chest incision, or legs, and for any abnormal drainage from the chest tube sites. Notify surgeon if any temp >101.5 degrees F. When specialty dressing removed/ or if you do not have one, continue to shower daily as above, then rinse and pat incision dry and paint with betadine daily x 5 days. Allow steri strips to fall off if you have any. Avoid lotions, creams, salves, oils, etc. for the first month Please see attached forms for additional instructions regarding post Open Heart specialty wound vacuum dressings. LINN or Prevena , Dressing to be removed by Nursing staff on __02/13/[address] Quintero patients , please obtain CBC, BMP, PA & Lat CXR in 2 weeks, results to Dr. Quintero ( prescription will be given) ( ) (Tele: [phone]) , F/U appointment: as per OR instructions: PCP in 2 weeks, CV surgeon 4 weeks, Fishing Manager 3-4 weeks For any questions regarding incisions/ dressing / meds / post op care or above Symptoms, Saturday 8am-5pm Heart & Vascular Surgery Office ( Dr. Bravo & Dr. Quintero), After Hours / Nights (5pm -8am) Weekends and Holidays Please call [facility] ([facility]) Charge Nurse I have seen patient Tam Pan on 02/07/17. My clinical findings support the need for the requested home health care services because: Patient has SOB I certify that my clinical findings support that this patient is homebound because: Post-op weakness Clemencia Rizo Feb 07, 2017 16:00
[2017-02-07] MEDS: ATORVASTATIN 80 MG TAB PO SCH (20:04)
[2017-02-07] MEDS: SENNOSIDES 8.6 MG TAB PO SCH (20:05)
[2017-02-07] MEDS: ZOLPIDEM TARTRATE 5 MG TAB PO PRN (20:52)
[2017-02-07] MEDS ORDERED: INSULIN DETEMIR 100 UNITS/ML VIAL SQ SCH (21:00)
[2017-02-08] VITALS (16 sets, daily range): BP systolic 97–116; BP diastolic 58–75; PULSE 80–102; RESP 16–18; TEMP 97.4–99.1; O2SAT 92–97
[2017-02-08] MEDS: INSULIN ASPART SUPPLEMENTAL SCALE SQ SCH ×5 (02:00→20:16)
[2017-02-08] MEDS: ACETAMINOPHEN/HYDROcodone 325 MG/5 MG TAB PO PRN ×4 (03:42→20:07)
[2017-02-08 05:29] LABS: AUTOMATED NEUTROPHIL # 12.8 TH/MM3 (1.8-7.7); BASOPHIL # 0.1 TH/MM3 (0-0.2); BASOPHIL % 0.5 % (0.0-2.0); EOSINOPHIL # 0.2 TH/MM3 (0-0.4); EOSINOPHIL % 0.9 % (0.0-4.0); HEMATOCRIT 27.6 % (39.0-51.0); HEMO FLAGS DIFF FINAL; LYMPH % 14.9 % (9.0-44.0); LYMPHOCYTE # 2.6 TH/MM3 (1.0-4.8); MEAN CELL VOLUME 82.6 FL (80.0-100.0); MEAN CORPUSCULAR HEMOGLOBIN 27.5 PG (27.0-34.0); MEAN CORPUSCULAR HGB CONC 33.3 % (32.0-36.0); MONO % 11.4 % (0.0-8.0); NEUT % 72.3 % (16.0-70.0); PLATELET COUNT 181 TH/MM3 (150-450); RED BLOOD COUNT 3.34 MIL/MM3 (4.50-5.90); RED CELL DISTRIBUTION WIDTH 13.4 % (11.6-17.2); WHITE BLOOD COUNT 17.7 TH/MM3 (4.0-11.0)
[2017-02-08 05:45] LABS: BICARBONATE 29.5 MEQ/L (21.0-32.0); MAGNESIUM 2.2 MG/DL (1.5-2.5); POTASSIUM 4.3 MEQ/L (3.5-5.1)
[2017-02-08] MEDS: PANTOPRAZOLE SOD 40 MG DELAYED RELEASE TAB PO SCH (06:19)
[2017-02-08] MEDS: POLYETHYLENE GLYCOL 17 GM PKG PO SCH (08:50)
[2017-02-08] MEDS: MULTIVITAMINS/MINERALS THERAPEUTIC TAB PO SCH (08:50)
[2017-02-08] MEDS: DOCUSATE SODIUM 100 MG CAP PO SCH ×2 (08:50→20:07)
[2017-02-08] MEDS: AMIODARONE 200 MG TAB PO SCH ×2 (08:50→20:06)
[2017-02-08] MEDS: MAGNESIUM HYDROXIDE SUSP 30 ML CUP PO SCH ×2 (08:50→08:54)
[2017-02-08] MEDS: POTASSIUM CHLORIDE 20 MEQ CONTROLLED RELEASE TAB PO SCH (08:50)
[2017-02-08] MEDS: ASPIRIN 81 MG CHEW TAB PO SCH (08:51)
[2017-02-08] MEDS: CARVEDILOL 3.125 MG TAB PO SCH ×2 (08:51→20:07)
[2017-02-08] MEDS: SODIUM CHLORIDE 0.9% FLUSH 10 ML FLUSH IV FLUSH SCH ×2 (08:52→20:07)
[2017-02-08] MEDS: INSULIN DETEMIR 100 UNITS/ML VIAL SQ SCH ×2 (09:00→20:16)
[2017-02-08] MEDS: RESP: ALBUTEROL 2.5 MG/IPRATROPIUM 0.5 MG NEB (SCH) NEB ×3 (09:09→22:04)
[2017-02-08] MEDS: FUROSEMIDE 20 MG TAB PO SCH (10:01)
[2017-02-08] MEDS: POTASSIUM CHLORIDE 10 MEQ CONTROLLED RELEASE TAB PO SCH (10:02)
[2017-02-08 11:10] LABS: BACTERIA, URINE RARE /hpf; BLOOD, URINE MOD (NEG); GLUCOSE,URINE TRACE mg/dL (NEG); HYALINE CAST, URINE 2 /lpf (RARE); KETONE, URINE NEG (NEG); MUCUS URINE FEW /lpf (OCC); NITRITE,URINE NEG (NEG); SQUAMOUS EPITHELIAL CELL URINE 1 /hpf (0-5); URINE COLOR YELLOW (YELLW/STRAW)
[2017-02-08 11:12] LABS: COMMENT (UR) CATH-CULTURE IND; CULTURE IF INDICATED CATH CULTURE IND
--- NOTE | 2017-02-08 12:06 | HHI.PR ---
Subjective Remarks The patient is seen in the chair, he denies having any chest pain at this time. Says mainly chest pain is with certain movements and with cough. Is not coughing a lot, he doesn't have any sputum production. He denies having any fever or chills. He is able to ambulate with physical therapy and says he is doing well. He is eating well, no nausea or vomiting no diarrhea or constipation. Chest tubes are still in place plan to remove murmurs cardio thoracic surgeon today. Objective Vitals Vital Signs Date Time Temp Pulse Resp B/P Pulse Ox O2 Delivery O2 Flow Rate FiO2 02/08/17 09:22 97 Nasal Cannula 2.00 02/08/17 07:40 91 02/08/17 07:40 Nasal Cannula 2.00 92 02/08/17 07:40 98.6 91 18 100/68 92 02/08/17 03:00 97.4 91 18 97/58 97 02/08/17 03:00 88 02/08/17 03:00 97 Nasal Cannula 2.00 02/07/17 23:00 96 Nasal Cannula 2.00 02/07/17 23:00 94 02/07/17 23:00 99.1 94 19 104/70 97 02/07/17 23:00 100.4 93 20 110/64 96 02/07/17 23:00 97 Nasal Cannula 4.00 02/07/17 21:00 96 Nasal Cannula 2.00 02/07/17 20:53 96 Nasal Cannula 3.00 02/07/17 19:30 97 Nasal Cannula 3.00 02/07/17 19:00 92 02/07/17 19:00 99.1 94 19 104/70 97 02/07/17 19:00 97 Nasal Cannula 4.00 02/07/17 15:34 92 02/07/17 15:26 95 Nasal Cannula 6.00 Humidified 02/07/17 15:16 98.8 94 18 101/53 94 Arterial Line 02/07/17 13:46 92 Simple Mask 10.00 02/07/17 12:03 95 Nasal Cannula 5.00 Humidified I/O 02/07/17 02/07/17 02/07/17 02/08/17 02/08/17 02/08/17 07:00 15:00 23:00 07:00 15:00 23:00 Intake Total 3190 ml 1260 ml 1060 ml Output Total 1665 ml 1790 ml 630 ml Balance 1525 ml -530 ml 430 ml Intake Oral 860 ml 960 ml 960 ml IV Total 2300 ml 300 ml 100 ml Tube Irrigant 30 ml Output Urine Total 1235 ml 1650 ml 600 ml Gastric Drainage Total 100 ml Chest Tube Drainage Total 330 ml 140 ml 30 ml # Bowel Movements 0 0 0 Result Diagram: 02/08/17 0506 02/08/17 0506 Imaging Last Impressions Chest X-Ray 02/07/17 0500 Signed Impressions: Service Date/Time: January 03:52 - CONCLUSION: Worse consolidation both lung bases left greater than right likely atelectasis. Chest tube in good position Zachariah Guardado MD Lower Extremity Ultrasound 02/03/17 0000 Signed Impressions: Service Date/Time: Friday, February 03, 2017 16:24 - CONCLUSION: 1. Measurements of the lower extremity veins as above. Ramon Vences MD Carotid Artery Ultrasound 02/03/17 0000 Signed Impressions: Service Date/Time: Friday, February 03, 2017 17:01 - CONCLUSION: 1. Mild visible plaque present predominantly around carotid bifurcations without hemodynamically significant stenosis. Vertebral artery flow antegrade. Ramon Vences MD Objective Remarks GENERAL: Pleasant 51 year old male, appears in nad. In the chair, on nasal anula, satting well. SKIN: Warm and dry. No rash HEAD: Atraumatic. Normocephalic. EYES: Pupils equal and round. No scleral icterus. No injection or drainage. ENT: No nasal bleeding or discharge. Mucous membranes pink and moist. NECK: Trachea midline. No JVD. CARDIOVASCULAR: Distant. Pulsation of intra-aortic balloon pump appreciated. Noted femoral sheaths from IABP right groin clean and dry and intact RESPIRATORY: Few Crackles appreciated throughout bilateral lung azul. No wheezing. Breath sounds equal bilaterally with symmetrical excursion. GASTROINTESTINAL: Abdomen soft, non-tender, nondistended. Hepatic and splenic margins not palpable. MUSCULOSKELETAL: Extremities with trace lower extremity edema. No obvious deformities. NEUROLOGICAL: Awake and alert. No obvious cranial nerve deficits. Motor grossly within normal limits. Five out of 5 muscle strength in the arms and legs. Normal speech. A/P Problem List: (1) Acute ST elevation myocardial infarction ICD Code: I21.3 Status: Acute (2) History of hyperlipidemia ICD Code: Z86.39 Status: Acute (3) Hyperglycemia ICD Code: R73.9 Status: Acute (4) Coronary artery disease ICD Code: I25.10 Status: Acute (5) Leukocytosis ICD Code: D72.829 Status: Acute (6) Anemia ICD Code: D64.9 Status: Acute (7) Elevated troponin ICD Code: R74.8 Status: Acute (8) Hyponatremia ICD Code: E87.1 Status: Acute Assessment and Plan CV: STEMI Three-vessel coronary disease History of LAD stenting [address] Perea Hypertension Dyslipidemia EKG admission revealed ST elevation anterior/lateral leads Heart catheterization - left main 30%, LAD with re in stent stenosis 98%, ostial 40%, RCA 80% distal, left circumflex 100% percent occlusion. EF 25% Echocardiogram 2007 revealed EF 50%. Mild apical hypokinesis Echocardiogram revealed EF 20-25%. Akinesis of the apical myocardium. Moderate MR. JOSSE 48 mmHg Urgent CABG x 3, GUALLPA to LAD, SVG to OM, SVG to RCA on 02/06 aspirin 325 daily, Lipitor 80 mg daily and OFF heparin drip On Lasix 20 mg IV twice a day for pulmonary edema intraaortic balloon pump per CTS Carotid Doppler showed no hemodynamically significant stenosis. Lower Dopplers negative Noted cholesterol 221. LDL elevated 166. HDL low at 34. Continue statin Plan to remove chest tube 02/08 per CTS Resp: CHF/pulmonary edema Ongoing tobaccoism Nasal cannula to maintain saturations greater than equal to 92% Currently on nasal cannula 4 L satting 97%. Incentive spirometry while awake, EzPAP q6 Scheduled bronchodilator therapies every 4 hours with every 2 hours albuterol for breakthrough Tobacco cessation will be encouraged Chest x-ray this a.m. reveals improved pulmonary edema bilaterally, but with bilateral atelectasis GI: Gastroesophageal reflux disease Diet per CTS Protonix for GI prophylaxis Colace/as needed Senokot for bowel regimen per positive BM : Monitor UO Endo: Diabetes mellitus, uncontrolled A1c 10.2 Hemoglobin A1c 10.2 KEISHA inhibitor when indicated Continue insulin infusion Renal: Accurate I's and O's Monitor urine output Creatinine currently within normal limits. Repeat BMP in a.m. Heme: Leukocytosis Normocytic anemia Monitor CBC daily. Follow trends. ID: Monitor for infection MSK: Right grade 3 AC joint separation OT evaluate and treat FEN: Hypokalemia resolved Follow BMP in a.m. While on diuretics, Schedule 20 mEq KCl daily Neuro/Psych: Acetaminophen for fever. Horton/morphine for pain management Restoril 15 milligrams at night when necessary for insomnia Xanax 0.25 3 times a day when necessary anxiety Prophylaxis - GI - Protonix - DVT - sq heparin when cleared by CTS Discussed with the patient,. nurse, CTS service Problem Qualifiers (1) Acute ST elevation myocardial infarction: Qualified Code: I21.3 - Acute ST elevation myocardial infarction (STEMI), unspecified artery (2) Coronary artery disease: Qualified Code: I25.110 - Coronary artery disease involving [place] coronary artery of [place] heart with unstable angina pectoris (3) Leukocytosis: Qualified Code: D72.829 - Leukocytosis, unspecified type (4) Anemia: Qualified Code: D64.9 - Anemia, unspecified type Brittany Rankin MD Feb 08, 2017 12:06
--- NOTE | 2017-02-08 14:46 | PD.CAR.PN ---
CVT Progress Note CVT: POD #: 2 Subjective/Hospital Course: 51-year-old male. He presented to [place] ED with complaints of chest pain and chest pressure on and off 2 weeks. Associated with shortness of breath/excursion. Presented with nonradiating pain. , patient was noted to have ST elevation in the anterior/lateral leads. He was given aspirin 325 mg by mouth 1 started heparin drip and nitroglycerin. Cath revealed : three-vessel coronary disease. Left main 30%. LAD re in- stent stenosis 99%, 40% ostial stenosis. RCA 80% stenosis of the distal third and the left circumflex 100% occlusion. Ejection fraction was 25%. An intra-aortic pump was placed 1:1 augmentation around 100. PMH : hyperlipidemia and diabetes mellitus 1 year currently on no medication., CAD known history of coronary disease with's stents 2 placed in the LAD by Dr. Perea in 2007. 02/04 pt remains on IABP 1:1 / 5&6 ICS Left sternal border on CXR + right DP, PT on 76% F102, 40liters 02 / down from 100% CXR still showing evidence of pulm edema, but some improvement pain free, on Heparin gtt 02/05 remains pain free, now on 6 l nasal cannula IABP 1:1 scheduled for surgery in am 02/06 pt for surgery today low BB given preop 02/07 surgery: Urgent CABG x 3, GUALLPA to LAD, SVG to OM, SVG to RCA, EVH 4000cc crystalloid , 10units PLT extubated post surgery EF 15% > 25-30 post op 02/08 No pressors / pt tolerated IABP at 1:2 right fem IABP without difficulty, small amount of blood 10 -15 allowed drain then pressure held for hemostasis/ with continuous monitoring / for 15min/ then RN continued to hold pressure until complete hemostasis obtained bedrest x 4 hours weaned off insulin gtt will keep in CVICU tonight will need to eval for LifeVest placement prior to surgery 02/08 doing well, chest tube removed without difficulty levemir increased will need home glucose monitor continue amiodarone x 14 days after discharge BP too low to start KEISHA Objective: GENERAL: SKIN: Warm and dry.prevena dressing to chest / incision intact to leg HEAD: Normocephalic. EYES: No scleral icterus. No injection or drainage. NECK: Supple, trachea midline. No JVD or lymphadenopathy. CARDIOVASCULAR: Regular rate and rhythm without murmurs, gallops, or rubs. RESPIRATORY: Breath sounds equal bilaterally. No accessory muscle use. GASTROINTESTINAL: Abdomen soft, non-tender, nondistended. MUSCULOSKELETAL: No cyanosis, or edema. BACK: Nontender without obvious deformity. No CVA tenderness. Vital Signs Date Time Temp Pulse Resp B/P Pulse Ox O2 Delivery O2 Flow Rate FiO2 02/08/17 12:58 Nasal Cannula 2.00 95 02/08/17 12:58 88 02/08/17 12:58 98.1 88 16 103/68 95 02/08/17 09:22 97 Nasal Cannula 2.00 02/08/17 07:40 91 02/08/17 07:40 Nasal Cannula 2.00 92 02/08/17 07:40 98.6 91 18 100/68 92 02/08/17 03:00 97.4 91 18 97/58 97 02/08/17 03:00 88 02/08/17 03:00 97 Nasal Cannula 2.00 02/07/17 23:00 96 Nasal Cannula 2.00 02/07/17 23:00 94 02/07/17 23:00 99.1 94 19 104/70 97 02/07/17 23:00 100.4 93 20 110/64 96 02/07/17 23:00 97 Nasal Cannula 4.00 02/07/17 21:00 96 Nasal Cannula 2.00 02/07/17 20:53 96 Nasal Cannula 3.00 02/07/17 19:30 97 Nasal Cannula 3.00 02/07/17 19:00 92 02/07/17 19:00 99.1 94 19 104/70 97 02/07/17 19:00 97 Nasal Cannula 4.00 02/07/17 15:34 92 02/07/17 15:26 95 Nasal Cannula 6.00 Humidified 02/07/17 15:16 98.8 94 18 101/53 94 Arterial Line Labs: Laboratory Tests Test 02/08/17 02/08/17 05:06 10:05 White Blood Count 17.7 TH/MM3 (4.0-11.0) Red Blood Count 3.34 MIL/MM3 (4.50-5.90) Hemoglobin 9.2 GM/DL (13.0-17.0) Hematocrit 27.6 % (39.0-51.0) Mean Corpuscular Volume 82.6 FL (80.0-100.0) Mean Corpuscular Hemoglobin 27.5 PG (27.0-34.0) Mean Corpuscular Hemoglobin 33.3 % Concent (32.0-36.0) Red Cell Distribution Width 13.4 % (11.6-17.2) Platelet Count 181 TH/MM3 (150-450) Mean Platelet Volume 7.9 FL (7.0-11.0) Neutrophils (%) (Auto) 72.3 % (16.0-70.0) Lymphocytes (%) (Auto) 14.9 % (9.0-44.0) Monocytes (%) (Auto) 11.4 % (0.0-8.0) Eosinophils (%) (Auto) 0.9 % (0.0-4.0) Basophils (%) (Auto) 0.5 % (0.0-2.0) Neutrophils # (Auto) 12.8 TH/MM3 (1.8-7.7) Lymphocytes # (Auto) 2.6 TH/MM3 (1.0-4.8) Monocytes # (Auto) 2.0 TH/MM3 (0-0.9) Eosinophils # (Auto) 0.2 TH/MM3 (0-0.4) Basophils # (Auto) 0.1 TH/MM3 (0-0.2) CBC Comment DIFF FINAL Differential Comment Sodium Level 134 MEQ/L (136-145) Potassium Level 4.3 MEQ/L (3.5-5.1) Chloride Level 98 MEQ/L (98-107) Carbon Dioxide Level 29.5 MEQ/L (21.0-32.0) Anion Gap 7 MEQ/L (5-15) Blood Urea Nitrogen 29 MG/DL (7-18) Creatinine 0.90 MG/DL (0.60-1.30) Estimat Glomerular Filtration 89 ML/MIN (>89) Rate Random Glucose 167 MG/DL (74-106) Calcium Level 8.7 MG/DL (8.5-10.1) Magnesium Level 2.2 MG/DL (1.5-2.5) Urine Color YELLOW (YELLW/STRAW) Urine Turbidity CLOUDY (CLEAR) Urine pH 6.0 (5.0-8.5) Urine Specific [place] 1.034 (1.002-1.035) Urine Protein 30 mg/dL (NEG-TRACE) Urine Glucose (UA) TRACE mg/dL (NEG) Urine Ketones NEG mg/dL (NEG) Urine Occult Blood MOD (NEG) Urine Nitrite NEG (NEG) Urine Bilirubin NEG (NEG) Urine Urobilinogen 2.0 MG/DL (LESS THAN 2.0) Urine Leukocyte Esterase SMALL (NEG) Urine RBC 60 /hpf (0-3) Urine WBC 10 /hpf (0-5) Urine Squamous Epithelial 1 /hpf (0-5) Cells Urine Bacteria RARE /hpf (NONE) Urine Hyaline Casts 2 /lpf (RARE) Urine Mucus FEW /lpf (OCC) Microscopic Urinalysis Comment CATH-CULTURE IND Result Diagram: 02/08/176 02/08/17 0506 Telemetry: NSR (1) Coronary artery disease Plan: on low dose coreg, on amiodarone ASA, statin chest tube dc OOB this pm pulm toileting (2) Congestive heart failure (CHF) Plan: BP's overall still too low for KEISHA-I, beta yadira. may need LifeVest at discharge (3) Hyperlipidemia Plan: Very suboptimal lipid profile. Continue atorvastatin 80 mg qd. 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
[2017-02-08] MEDS: SENNOSIDES 8.6 MG TAB PO SCH (20:06)
[2017-02-08] MEDS: ATORVASTATIN 80 MG TAB PO SCH (20:06)
[2017-02-09] VITALS (27 sets, daily range): BP systolic 107–117; BP diastolic 65–75; PULSE 80–98; RESP 18–24; TEMP 98.1–99; O2SAT 95–97
[2017-02-09] MEDS: ZOLPIDEM TARTRATE 5 MG TAB PO PRN ×2 (00:19→21:19)
[2017-02-09 05:37] LABS: AUTOMATED NEUTROPHIL # 10.7 TH/MM3 (1.8-7.7); BASOPHIL # 0.1 TH/MM3 (0-0.2); BASOPHIL % 0.7 % (0.0-2.0); EOSINOPHIL # 0.2 TH/MM3 (0-0.4); EOSINOPHIL % 1.4 % (0.0-4.0); HEMATOCRIT 28.7 % (39.0-51.0); HEMO FLAGS DIFF FINAL; LYMPH % 16.6 % (9.0-44.0); LYMPHOCYTE # 2.5 TH/MM3 (1.0-4.8); MEAN CELL VOLUME 83.3 FL (80.0-100.0); MEAN CORPUSCULAR HEMOGLOBIN 27.4 PG (27.0-34.0); MEAN CORPUSCULAR HGB CONC 32.8 % (32.0-36.0); MONO % 11.5 % (0.0-8.0); NEUT % 69.8 % (16.0-70.0); PLATELET COUNT 211 TH/MM3 (150-450); RED BLOOD COUNT 3.44 MIL/MM3 (4.50-5.90); RED CELL DISTRIBUTION WIDTH 13.2 % (11.6-17.2); WHITE BLOOD COUNT 15.3 TH/MM3 (4.0-11.0)
[2017-02-09 05:57] LABS: POTASSIUM 4.1 MEQ/L (3.5-5.1)
[2017-02-09] MEDS: INSULIN ASPART SUPPLEMENTAL SCALE SQ SCH ×4 (06:12→21:18)
[2017-02-09] MEDS: PANTOPRAZOLE SOD 40 MG DELAYED RELEASE TAB PO SCH (06:12)
--- NOTE | 2017-02-09 07:12 | RADRPT ---
EXAM DATE/TIME: 02/09/2017 06:20 [facility] COMPARISON: CHEST SINGLE AP, February 07, 2017, 3:52. INDICATIONS : Shortness of breath, possible pulmonary disease. MEDICAL HISTORY : Gastroesophageal reflux disease. Myocardial infarction. Diabetes mellitus type II. SURGICAL HISTORY : Coronary artery stent. CABG. ENCOUNTER: Subsequent ACUITY: 1 week PAIN SCORE: 4/10 LOCATION: Bilateral chest FINDINGS: The patient is status post sternotomy. The heart size is upper limits of normal for size. There is mi ld increased density at the lung bases. The mid and upper lungs are clear. The left chest tube and ri ght internal jugular central line have been removed. A pneumothorax is not seen. There does appear to be a mild left pleural effusion. CONCLUSION: 1. Bibasilar areas of suspected atelectasis or consolidation. Overall, the aeration of the lungs does appear to be improving. 2. Mild left pleural effusion. Balaji Brownlee MD on February 09, 2017 at 7:04 Board Certified Radiologist. This report was verified electronically.
[2017-02-09] MEDS: RESP: ALBUTEROL 2.5 MG/IPRATROPIUM 0.5 MG NEB (SCH) NEB (08:01)
[2017-02-09] MEDS: MULTIVITAMINS/MINERALS THERAPEUTIC TAB PO SCH (09:00)
[2017-02-09] MEDS: SODIUM CHLORIDE 0.9% FLUSH 10 ML FLUSH IV FLUSH SCH ×2 (09:00→21:20)
[2017-02-09] MEDS: POLYETHYLENE GLYCOL 17 GM PKG PO SCH (09:39)
[2017-02-09] MEDS: DOCUSATE SODIUM 100 MG CAP PO SCH ×2 (09:39→21:00)
[2017-02-09] MEDS: MAGNESIUM HYDROXIDE SUSP 30 ML CUP PO SCH (09:39)
[2017-02-09] MEDS: FUROSEMIDE 20 MG TAB PO SCH (09:40)
[2017-02-09] MEDS: ASPIRIN 81 MG CHEW TAB PO SCH (09:40)
[2017-02-09] MEDS: CARVEDILOL 3.125 MG TAB PO SCH ×2 (09:40→21:19)
[2017-02-09] MEDS: AMIODARONE 200 MG TAB PO SCH ×2 (09:40→21:19)
[2017-02-09] MEDS: INSULIN DETEMIR 100 UNITS/ML VIAL SQ SCH ×2 (09:41→21:18)
[2017-02-09] MEDS: POTASSIUM CHLORIDE 10 MEQ CONTROLLED RELEASE TAB PO SCH (09:41)
--- NOTE | 2017-02-09 10:32 | PD.CAR.PN ---
CVT Progress Note Subjective/Hospital Course: 51-year-old male. He presented to [place] ED with complaints of chest pain and chest pressure on and off 2 weeks. Associated with shortness of breath/excursion. Presented with nonradiating pain. , patient was noted to have ST elevation in the anterior/lateral leads. He was given aspirin 325 mg by mouth 1 started heparin drip and nitroglycerin. Cath revealed : three-vessel coronary disease. Left main 30%. LAD re in- stent stenosis 99%, 40% ostial stenosis. RCA 80% stenosis of the distal third and the left circumflex 100% occlusion. Ejection fraction was 25%. An intra-aortic pump was placed 1:1 augmentation around 100. PMH : hyperlipidemia and diabetes mellitus 1 year currently on no medication., CAD known history of coronary disease with's stents 2 placed in the LAD by Dr. Perea in 2007. 02/04 pt remains on IABP 1:1 / 5&6 ICS Left sternal border on CXR + right DP, PT on 76% F102, 40liters 02 / down from 100% CXR still showing evidence of pulm edema, but some improvement pain free, on Heparin gtt 02/05 remains pain free, now on 6 l nasal cannula IABP 1:1 scheduled for surgery in am 02/06 pt for surgery today low BB given preop 02/07 surgery: Urgent CABG x 3, GUALLPA to LAD, SVG to OM, SVG to RCA, EVH 4000cc crystalloid , 10units PLT extubated post surgery EF 15% > 25-30 post op 02/08 No pressors / pt tolerated IABP at 1:2 right fem IABP without difficulty, small amount of blood 10 -15 allowed drain then pressure held for hemostasis/ with continuous monitoring / for 15min/ then RN continued to hold pressure until complete hemostasis obtained bedrest x 4 hours weaned off insulin gtt will keep in CVICU tonight will need to eval for LifeVest placement prior to surgery 02/08 doing well, chest tube removed without difficulty levemir increased will need home glucose monitor continue amiodarone x 14 days after discharge BP too low to start KEISHA 02/09 Doing well Discharge in am Objective: Vital Signs Date Time Temp Pulse Resp B/P Pulse Ox O2 Delivery O2 Flow Rate FiO2 02/09/17 10:00 90 02/09/17 09:00 88 02/09/17 08:00 80 02/09/17 07:03 87 02/09/17 07:00 95 Room Air 02/09/17 07:00 98.1 80 18 107/65 95 02/09/17 06:00 88 02/09/17 05:00 82 02/09/17 04:00 84 02/09/17 03:00 85 02/09/17 03:00 98.9 86 22 108/74 97 02/09/17 03:00 97 Nasal Cannula 2.00 02/09/17 02:00 84 02/09/17 01:00 83 02/09/17 00:00 83 02/08/17 23:00 99.1 84 18 102/68 93 02/08/17 23:00 93 Nasal Cannula 2.00 02/08/17 23:00 80 02/08/17 22:04 93 21 02/08/17 22:00 86 02/08/17 21:00 88 02/08/17 20:00 92 02/08/17 19:00 95 Room Air 02/08/17 19:00 98.5 91 18 108/74 95 02/08/17 19:00 99 02/08/17 18:01 90 02/08/17 17:00 88 02/08/17 16:00 102 02/08/17 15:37 98.2 90 16 116/75 97 02/08/17 15:37 Nasal Cannula 2.00 02/08/17 15:00 88 02/08/17 14:00 90 02/08/17 12:58 Nasal Cannula 2.00 95 02/08/17 12:58 88 02/08/17 12:58 98.1 88 16 103/68 95 Labs: Laboratory Tests Test 02/09/17 03:45 White Blood Count 15.3 TH/MM3 (4.0-11.0) Red Blood Count 3.44 MIL/MM3 (4.50-5.90) Hemoglobin 9.4 GM/DL (13.0-17.0) Hematocrit 28.7 % (39.0-51.0) Mean Corpuscular Volume 83.3 FL (80.0-100.0) Mean Corpuscular Hemoglobin 27.4 PG (27.0-34.0) Mean Corpuscular Hemoglobin 32.8 % Concent (32.0-36.0) Red Cell Distribution Width 13.2 % (11.6-17.2) Platelet Count 211 TH/MM3 (150-450) Mean Platelet Volume 8.3 FL (7.0-11.0) Neutrophils (%) (Auto) 69.8 % (16.0-70.0) Lymphocytes (%) (Auto) 16.6 % (9.0-44.0) Monocytes (%) (Auto) 11.5 % (0.0-8.0) Eosinophils (%) (Auto) 1.4 % (0.0-4.0) Basophils (%) (Auto) 0.7 % (0.0-2.0) Neutrophils # (Auto) 10.7 TH/MM3 (1.8-7.7) Lymphocytes # (Auto) 2.5 TH/MM3 (1.0-4.8) Monocytes # (Auto) 1.8 TH/MM3 (0-0.9) Eosinophils # (Auto) 0.2 TH/MM3 (0-0.4) Basophils # (Auto) 0.1 TH/MM3 (0-0.2) CBC Comment DIFF FINAL Differential Comment Sodium Level 136 MEQ/L (136-145) Potassium Level 4.1 MEQ/L (3.5-5.1) Chloride Level 99 MEQ/L (98-107) Carbon Dioxide Level 30.0 MEQ/L (21.0-32.0) Anion Gap 7 MEQ/L (5-15) Blood Urea Nitrogen 23 MG/DL (7-18) Creatinine 0.82 MG/DL (0.60-1.30) Estimat Glomerular Filtration 99 ML/MIN (>89) Rate Random Glucose 69 MG/DL (74-106) Calcium Level 8.5 MG/DL (8.5-10.1) Result Diagram: 02/09/17 0345 02/09/17 0345 (1) Coronary artery disease Plan: on low dose coreg, on amiodarone ASA, statin chest tube dc OOB this pm pulm toileting (2) Congestive heart failure (CHF) Plan: BP's overall still too low for KEISHA-I, beta yadira. may need LifeVest at discharge (3) Hyperlipidemia Plan: Very suboptimal lipid profile. Continue atorvastatin 80 mg qd. 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
[2017-02-09] MEDS ORDERED: FURO20TA PO (10:35)
[2017-02-09] MEDS ORDERED: ATOR1TAB18 PO (10:35)
[2017-02-09] MEDS ORDERED: POTA-243 PO (10:35)
[2017-02-09] MEDS ORDERED: Aspirin Chew PO (10:35)
[2017-02-09] MEDS ORDERED: CARV3.125 PO (10:35)
[2017-02-09] MEDS ORDERED: AMIO200T PO (10:35)
--- NOTE | 2017-02-09 12:44 | HHI.PR ---
Subjective Remarks Patient is in nad. In the chair, feels good today. Patel removed and is able to urinate without problems. has a good UOP. Had a BM today Denies chest pain or sob. No n/v/d/c. No diaphoresis. Says she will learn how to self administer insulin today. Says his knows how to administer insulin also. Hopes to go home today or tomorrow. Objective Vitals Vital Signs Date Time Temp Pulse Resp B/P Pulse Ox O2 Delivery O2 Flow Rate FiO2 02/09/17 11:37 97 Room Air 02/09/17 11:37 90 02/09/17 11:37 98.3 94 18 117/75 97 02/09/17 10:00 90 02/09/17 09:00 88 02/09/17 08:00 96 02/09/17 08:00 80 02/09/17 07:03 87 02/09/17 07:00 95 Room Air 02/09/17 07:00 98.1 80 18 107/65 95 02/09/17 06:00 88 02/09/17 05:00 82 02/09/17 04:00 84 02/09/17 03:00 85 02/09/17 03:00 98.9 86 22 108/74 97 02/09/17 03:00 97 Nasal Cannula 2.00 02/09/17 02:00 84 02/09/17 01:00 83 02/09/17 00:00 83 02/08/17 23:00 99.1 84 18 102/68 93 02/08/17 23:00 93 Nasal Cannula 2.00 02/08/17 23:00 80 02/08/17 22:04 93 21 02/08/17 22:00 86 02/08/17 21:00 88 02/08/17 20:00 92 02/08/17 19:00 95 Room Air 02/08/17 19:00 98.5 91 18 108/74 95 02/08/17 19:00 99 02/08/17 18:01 90 02/08/17 17:00 88 02/08/17 16:00 102 02/08/17 15:37 98.2 90 16 116/75 97 02/08/17 15:37 Nasal Cannula 2.00 02/08/17 15:00 88 02/08/17 14:00 90 02/08/17 12:58 Nasal Cannula 2.00 95 02/08/17 12:58 88 02/08/17 12:58 98.1 88 16 103/68 95 I/O 02/08/17 02/08/17 02/08/17 02/09/17 02/09/17 02/09/17 07:00 15:00 23:00 07:00 15:00 23:00 Intake Total 1060 ml 480 ml 640 ml Output Total 630 ml 450 ml 480 ml Balance 430 ml 30 ml 160 ml Intake Oral 960 ml 480 ml 640 ml IV Total 100 ml 0 ml Output Urine Total 600 ml 450 ml 480 ml Chest Tube Drainage Total 30 ml # Voids 1 # Bowel Movements 0 0 0 Result Diagram: 02/09/175 02/09/17 034 Imaging Last Impressions Chest X-Ray 02/09/17 0600 Signed Impressions: Service Date/Time: Thursday, February 09, 2017 06:20 - CONCLUSION: 1. Bibasilar areas of suspected atelectasis or consolidation. Overall, the aeration of the lungs does appear to be improving. 2. Mild left pleural effusion. Balaji Brownlee MD Lower Extremity Ultrasound 02/03/17 0000 Signed Impressions: Service Date/Time: Friday, February 03, 2017 16:24 - CONCLUSION: 1. Measurements of the lower extremity veins as above. Ramon Vences MD Carotid Artery Ultrasound 02/03/17 0000 Signed Impressions: Service Date/Time: Friday, February 03, 2017 17:01 - CONCLUSION: 1. Mild visible plaque present predominantly around carotid bifurcations without hemodynamically significant stenosis. Vertebral artery flow antegrade. Ramon Vences MD Objective Remarks GENERAL: Pleasant 51 year old male, appears in nad. In the chair, on nasal anula, satting well. SKIN: Warm and dry. No rash HEAD: Atraumatic. Normocephalic. EYES: Pupils equal and round. No scleral icterus. No injection or drainage. ENT: No nasal bleeding or discharge. Mucous membranes pink and moist. NECK: Trachea midline. No JVD. CARDIOVASCULAR: Distant. Pulsation of intra-aortic balloon pump appreciated. Noted femoral sheaths from IABP right groin clean and dry and intact RESPIRATORY: Few Crackles appreciated throughout bilateral lung azul. No wheezing. Breath sounds equal bilaterally with symmetrical excursion. GASTROINTESTINAL: Abdomen soft, non-tender, nondistended. Hepatic and splenic margins not palpable. MUSCULOSKELETAL: Extremities with trace lower extremity edema. No obvious deformities. NEUROLOGICAL: Awake and alert. No obvious cranial nerve deficits. Motor grossly within normal limits. Five out of 5 muscle strength in the arms and legs. Normal speech. A/P Problem List: (1) Acute ST elevation myocardial infarction ICD Code: I21.3 Status: Acute (2) History of hyperlipidemia ICD Code: Z86.39 Status: Acute (3) Hyperglycemia ICD Code: R73.9 Status: Acute (4) Coronary artery disease ICD Code: I25.10 Status: Acute (5) Leukocytosis ICD Code: D72.829 Status: Acute (6) Anemia ICD Code: D64.9 Status: Acute (7) Elevated troponin ICD Code: R74.8 Status: Acute (8) Hyponatremia ICD Code: E87.1 Status: Acute Assessment and Plan CV: STEMI Three-vessel coronary disease History of LAD stenting [address] Perea Hypertension Dyslipidemia EKG admission revealed ST elevation anterior/lateral leads Heart catheterization - left main 30%, LAD with re in stent stenosis 98%, ostial 40%, RCA 80% distal, left circumflex 100% percent occlusion. EF 25% Echocardiogram 2007 revealed EF 50%. Mild apical hypokinesis Echocardiogram revealed EF 20-25%. Akinesis of the apical myocardium. Moderate MR. JOSSE 48 mmHg Urgent CABG x 3, GUALLPA to LAD, SVG to OM, SVG to RCA on 02/06 aspirin 325 daily, Lipitor 80 mg daily and OFF heparin drip On Lasix 20 mg IV twice a day for pulmonary edema intraaortic balloon pump per CTS Carotid Doppler showed no hemodynamically significant stenosis. Lower Dopplers negative Noted cholesterol 221. LDL elevated 166. HDL low at 34. Continue statin Chest tubes removed 02/08 per CTS Patel removed 02/08. has a good UOP Had a BM 02/09. Resp: CHF/pulmonary edema Ongoing tobaccoism Nasal cannula to maintain saturations greater than equal to 92% Currently on nasal cannula 4 L satting 97%. Incentive spirometry while awake, EzPAP q6 Scheduled bronchodilator therapies every 4 hours with every 2 hours albuterol for breakthrough Tobacco cessation will be encouraged Chest x-ray this a.m. reveals improved pulmonary edema bilaterally, but with bilateral atelectasis GI: Gastroesophageal reflux disease Diet per CTS Protonix for GI prophylaxis Colace/as needed Senokot for bowel regimen per positive BM : Monitor UO Endo: Diabetes mellitus, uncontrolled A1c 10.2 Hemoglobin A1c 10.2 KEISHA inhibitor when indicated Insulin Sliding scale Patient will learn how to self administer insulin, discussed with the patient and nurse. Renal: Accurate I's and O's Monitor urine output Creatinine currently within normal limits. Repeat BMP in a.m. Heme: Leukocytosis Normocytic anemia Monitor CBC daily. Follow trends. ID: Monitor for infection MSK: Right grade 3 AC joint separation OT evaluate and treat FEN: Hypokalemia resolved Follow BMP in a.m. While on diuretics, Schedule 20 mEq KCl daily Neuro/Psych: Acetaminophen for fever. [place]/morphine for pain management Restoril 15 milligrams at night when necessary for insomnia Xanax 0.25 3 times a day when necessary anxiety Prophylaxis - GI - Protonix - DVT - sq heparin when cleared by CTS Discussed with the patient,. nurse improving. Cleared by hospitalist for dC Problem Qualifiers (1) Acute ST elevation myocardial infarction: Qualified Code: I21.3 - Acute ST elevation myocardial infarction (STEMI), unspecified artery (2) Coronary artery disease: Qualified Code: I25.110 - Coronary artery disease involving [place] coronary artery of [place] heart with unstable angina pectoris (3) Leukocytosis: Qualified Code: D72.829 - Leukocytosis, unspecified type (4) Anemia: Qualified Code: D64.9 - Anemia, unspecified type Brittany Rankin MD Feb 09, 2017 12:44
[2017-02-09] MEDS ORDERED: NOVOLOGP2 SQ (12:46)
[2017-02-09] MEDS ORDERED: BIOM30MI (12:46)
[2017-02-09] MEDS ORDERED: INSU1MIS15 (12:46)
[2017-02-09] MEDS ORDERED: LANCETS1 MI1 (12:46)
[2017-02-09] MEDS ORDERED: GLUCTES12 (12:46)
[2017-02-09] MEDS ORDERED: GLUCKIT15 (12:46)
[2017-02-09] MEDS: SENNOSIDES 8.6 MG TAB PO SCH (21:00)
[2017-02-09] MEDS: ATORVASTATIN 80 MG TAB PO SCH (21:19)
[2017-02-10] VITALS (23 sets, daily range): BP systolic 102–112; BP diastolic 56–69; PULSE 80–97; RESP 18; TEMP 98.1–99.7; O2SAT 94–97
[2017-02-10] MEDS: INSULIN ASPART SUPPLEMENTAL SCALE SQ SCH ×4 (06:07→21:17)
[2017-02-10] MEDS: PANTOPRAZOLE SOD 40 MG DELAYED RELEASE TAB PO SCH (06:07)
--- NOTE | 2017-02-10 07:18 | HHI.PR ---
Subjective Remarks In the chair. Feels much better and wants to go home. Awaiting for life vest. Says he will try to self administer insuloin today. No had a BM yesterday. Eating well. Has chest pain with cough. No sob, palpitations. No n/v/d/c. Objective Vitals Vital Signs Date Time Temp Pulse Resp B/P Pulse Ox O2 Delivery O2 Flow Rate FiO2 02/10/17 06:00 84 02/10/17 05:00 85 02/10/17 04:00 84 02/10/17 03:10 83 02/10/17 03:00 98.7 86 18 102/69 94 02/10/17 03:00 94 Room Air 02/10/17 02:00 83 02/10/17 01:00 82 02/10/17 00:00 88 02/09/17 23:05 89 02/09/17 23:00 98.8 88 20 115/71 97 02/09/17 23:00 97 Room Air 02/09/17 22:23 97 21 02/09/17 22:00 86 02/09/17 21:00 90 02/09/17 20:00 92 02/09/17 19:00 91 02/09/17 19:00 99.0 89 24 114/69 96 02/09/17 19:00 96 Room Air 02/09/17 18:00 92 02/09/17 17:00 97 02/09/17 16:00 91 02/09/17 15:00 97 Room Air 02/09/17 15:00 98.8 90 18 116/74 97 02/09/17 15:00 90 02/09/17 14:00 93 02/09/17 13:00 92 02/09/17 12:00 98 02/09/17 11:37 97 Room Air 02/09/17 11:37 90 02/09/17 11:37 98.3 94 18 117/75 97 02/09/17 10:00 90 02/09/17 09:00 88 02/09/17 08:00 96 02/09/17 08:00 80 I/O 02/09/17 02/09/17 02/09/17 02/10/17 02/10/17 02/10/17 07:00 15:00 23:00 07:00 15:00 23:00 Intake Total 640 ml 1440 ml 1080 ml Output Total 480 ml 600 ml 1325 ml Balance 160 ml 840 ml -245 ml Intake Oral 640 ml 1440 ml 1080 ml IV Total 0 ml Output Urine Total 480 ml 600 ml 1325 ml # Voids 4 2 # Bowel Movements 0 1 Result Diagram: 02/09/17 0345 02/09/17 0345 Imaging Last Impressions Chest X-Ray 02/09/17 0600 Signed Impressions: Service Date/Time: Thursday, February 09, 2017 06:20 - CONCLUSION: 1. Bibasilar areas of suspected atelectasis or consolidation. Overall, the aeration of the lungs does appear to be improving. 2. Mild left pleural effusion. Balaji Brownlee MD Lower Extremity Ultrasound 02/03/17 0000 Signed Impressions: Service Date/Time: Friday, February 03, 2017 16:24 - CONCLUSION: 1. Measurements of the lower extremity veins as above. Ramon Vences MD Carotid Artery Ultrasound 02/03/17 0000 Signed Impressions: Service Date/Time: Friday, February 03, 2017 17:01 - CONCLUSION: 1. Mild visible plaque present predominantly around carotid bifurcations without hemodynamically significant stenosis. Vertebral artery flow antegrade. Ramon Vences MD Objective Remarks GENERAL: Pleasant 51 year old male, appears in nad. In the chair, on nasal anula, satting well. SKIN: Warm and dry. No rash HEAD: Atraumatic. Normocephalic. EYES: Pupils equal and round. No scleral icterus. No injection or drainage. ENT: No nasal bleeding or discharge. Mucous membranes pink and moist. NECK: Trachea midline. No JVD. CARDIOVASCULAR: Distant. Pulsation of intra-aortic balloon pump appreciated. Noted femoral sheaths from IABP right groin clean and dry and intact RESPIRATORY: Few Crackles appreciated throughout bilateral lung azul. No wheezing. Breath sounds equal bilaterally with symmetrical excursion. GASTROINTESTINAL: Abdomen soft, non-tender, nondistended. Hepatic and splenic margins not palpable. MUSCULOSKELETAL: Extremities with trace lower extremity edema. No obvious deformities. NEUROLOGICAL: Awake and alert. No obvious cranial nerve deficits. Motor grossly within normal limits. Five out of 5 muscle strength in the arms and legs. Normal speech. A/P Problem List: (1) Acute ST elevation myocardial infarction ICD Code: I21.3 Status: Acute (2) History of hyperlipidemia ICD Code: Z86.39 Status: Acute (3) Hyperglycemia ICD Code: R73.9 Status: Acute (4) Coronary artery disease ICD Code: I25.10 Status: Acute (5) Leukocytosis ICD Code: D72.829 Status: Acute (6) Anemia ICD Code: D64.9 Status: Acute (7) Elevated troponin ICD Code: R74.8 Status: Acute (8) Hyponatremia ICD Code: E87.1 Status: Acute Assessment and Plan CV: STEMI Three-vessel coronary disease History of LAD stenting [address] Perea Hypertension Dyslipidemia EKG admission revealed ST elevation anterior/lateral leads Heart catheterization - left main 30%, LAD with re in stent stenosis 98%, ostial 40%, RCA 80% distal, left circumflex 100% percent occlusion. EF 25% Echocardiogram 2007 revealed EF 50%. Mild apical hypokinesis Echocardiogram revealed EF 20-25%. Akinesis of the apical myocardium. Moderate MR. JOSSE 48 mmHg Urgent CABG x 3, GUALLPA to LAD, SVG to OM, SVG to RCA on 02/06 aspirin 325 daily, Lipitor 80 mg daily and OFF heparin drip On Lasix 20 mg IV twice a day for pulmonary edema intraaortic balloon pump per CTS Carotid Doppler showed no hemodynamically significant stenosis. Lower Dopplers negative Noted cholesterol 221. LDL elevated 166. HDL low at 34. Continue statin Chest tubes removed 02/08 per CTS Patel removed 02/08. has a good UOP Had a BM 02/09. Resp: CHF/pulmonary edema Ongoing tobaccoism Nasal cannula to maintain saturations greater than equal to 92% Currently on nasal cannula 4 L satting 97%. Incentive spirometry while awake, EzPAP q6 Scheduled bronchodilator therapies every 4 hours with every 2 hours albuterol for breakthrough Tobacco cessation will be encouraged Chest x-ray this a.m. reveals improved pulmonary edema bilaterally, but with bilateral atelectasis GI: Gastroesophageal reflux disease Diet per CTS Protonix for GI prophylaxis Colace/as needed Senokot for bowel regimen per positive BM : Monitor UO Endo: Diabetes mellitus, uncontrolled A1c 10.2 Hemoglobin A1c 10.2 KEISHA inhibitor when indicated Insulin Sliding scale Patient will learn how to self administer insulin, discussed with the patient and nurse. Renal: Accurate I's and O's Monitor urine output Creatinine currently within normal limits. Repeat BMP in a.m. Heme: Leukocytosis Normocytic anemia Monitor CBC daily. Follow trends. ID: Monitor for infection MSK: Right grade 3 AC joint separation OT evaluate and treat FEN: Hypokalemia resolved Follow BMP in a.m. While on diuretics, Schedule 20 mEq KCl daily Neuro/Psych: Acetaminophen for fever. [place]/morphine for pain management Restoril 15 milligrams at night when necessary for insomnia Xanax 0.25 3 times a day when necessary anxiety Prophylaxis - GI - Protonix - DVT - sq heparin when cleared by CTS Discussed with the patient,. nurse Improving. Cleared by hospitalist for DC Problem Qualifiers (1) Acute ST elevation myocardial infarction: Qualified Code: I21.3 - Acute ST elevation myocardial infarction (STEMI), unspecified artery (2) Coronary artery disease: Qualified Code: I25.110 - Coronary artery disease involving [place] coronary artery of [place] heart with unstable angina pectoris (3) Leukocytosis: Qualified Code: D72.829 - Leukocytosis, unspecified type (4) Anemia: Qualified Code: D64.9 - Anemia, unspecified type Brittany Rankin MD Feb 10, 2017 07:18
--- NOTE | 2017-02-10 07:51 | PD.CAR.PN ---
CVT Progress Note Subjective/Hospital Course: 51-year-old male. He presented to [facility] with complaints of chest pain and chest pressure on and off 2 weeks. Associated with shortness of breath/excursion. Presented with nonradiating pain. , patient was noted to have ST elevation in the anterior/lateral leads. He was given aspirin 325 mg by mouth 1 started heparin drip and nitroglycerin. Cath revealed : three-vessel coronary disease. Left main 30%. LAD re in- stent stenosis 99%, 40% ostial stenosis. RCA 80% stenosis of the distal third and the left circumflex 100% occlusion. Ejection fraction was 25%. An intra-aortic pump was placed 1:1 augmentation around 100. PMH : hyperlipidemia and diabetes mellitus 1 year currently on no medication., CAD known history of coronary disease with's stents 2 placed in the LAD by Dr. Perea in 2007. 02/04 pt remains on IABP 1:1 / 5&6 ICS Left sternal border on CXR + right DP, PT on 76% F102, 40liters 02 / down from 100% CXR still showing evidence of pulm edema, but some improvement pain free, on Heparin gtt 02/05 remains pain free, now on 6 l nasal cannula IABP 1:1 scheduled for surgery in am 02/06 pt for surgery today low BB given preop 02/07 surgery: Urgent CABG x 3, GUALLPA to LAD, SVG to OM, SVG to RCA, EVH 4000cc crystalloid , 10units PLT extubated post surgery EF 15% > 25-30 post op 02/08 No pressors / pt tolerated IABP at 1:2 right fem IABP without difficulty, small amount of blood 10 -15 allowed drain then pressure held for hemostasis/ with continuous monitoring / for 15min/ then RN continued to hold pressure until complete hemostasis obtained bedrest x 4 hours weaned off insulin gtt will keep in CVICU tonight will need to eval for LifeVest placement prior to surgery 02/08 doing well, chest tube removed without difficulty levemir increased will need home glucose monitor continue amiodarone x 14 days after discharge BP too low to start KEISHA 02/09 Doing well Discharge in am 02/10 Doing well Awaiting LifeVest placement Objective: Vital Signs Date Time Temp Pulse Resp B/P Pulse Ox O2 Delivery O2 Flow Rate FiO2 02/10/17 07:10 98.1 80 18 107/65 95 02/10/17 07:10 95 Room Air 02/10/17 06:00 84 02/10/17 05:00 85 02/10/17 04:00 84 02/10/17 03:10 83 02/10/17 03:00 98.7 86 18 102/69 94 02/10/17 03:00 94 Room Air 02/10/17 02:00 83 02/10/17 01:00 82 02/10/17 00:00 88 02/09/17 23:05 89 02/09/17 23:00 98.8 88 20 115/71 97 02/09/17 23:00 97 Room Air 02/09/17 22:23 97 21 02/09/17 22:00 86 02/09/17 21:00 90 02/09/17 20:00 92 02/09/17 19:00 91 02/09/17 19:00 99.0 89 24 114/69 96 02/09/17 19:00 96 Room Air 02/09/17 18:00 92 02/09/17 17:00 97 02/09/17 16:00 91 02/09/17 15:00 97 Room Air 02/09/17 15:00 98.8 90 18 116/74 97 02/09/17 15:00 90 02/09/17 14:00 93 02/09/17 13:00 92 02/09/17 12:00 98 02/09/17 11:37 97 Room Air 02/09/17 11:37 90 02/09/17 11:37 98.3 94 18 117/75 97 02/09/17 10:00 90 02/09/17 09:00 88 02/09/17 08:00 96 02/09/17 08:00 80 Result Diagram: 02/09/17 0345 02/09/17 0345 (1) Coronary artery disease Plan: on low dose coreg, on amiodarone ASA, statin chest tube dc OOB this pm pulm toileting (2) Congestive heart failure (CHF) Plan: BP's overall still too low for KEISHA-I, beta yadira. may need LifeVest at discharge (3) Hyperlipidemia Plan: Very suboptimal lipid profile. Continue atorvastatin 80 mg qd. 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
[2017-02-10] MEDS: FUROSEMIDE 20 MG TAB PO SCH (08:38)
[2017-02-10] MEDS: MULTIVITAMINS/MINERALS THERAPEUTIC TAB PO SCH (08:38)
[2017-02-10] MEDS: CARVEDILOL 3.125 MG TAB PO SCH ×2 (08:38→21:17)
[2017-02-10] MEDS: AMIODARONE 200 MG TAB PO SCH ×2 (08:38→21:17)
[2017-02-10] MEDS: DOCUSATE SODIUM 100 MG CAP PO SCH ×2 (08:39→21:17)
[2017-02-10] MEDS: MAGNESIUM HYDROXIDE SUSP 30 ML CUP PO SCH (08:39)
[2017-02-10] MEDS: POLYETHYLENE GLYCOL 17 GM PKG PO SCH (08:39)
[2017-02-10] MEDS: INSULIN DETEMIR 100 UNITS/ML VIAL SQ SCH ×2 (08:39→21:16)
[2017-02-10] MEDS: ASPIRIN 81 MG CHEW TAB PO SCH (08:39)
[2017-02-10] MEDS: POTASSIUM CHLORIDE 10 MEQ CONTROLLED RELEASE TAB PO SCH (08:39)
[2017-02-10] MEDS: SODIUM CHLORIDE 0.9% FLUSH 10 ML FLUSH IV FLUSH SCH ×2 (08:40→21:00)
[2017-02-10] MEDS: ATORVASTATIN 80 MG TAB PO SCH (21:17)
[2017-02-10] MEDS: SENNOSIDES 8.6 MG TAB PO SCH (21:17)
[2017-02-11] VITALS (22 sets, daily range): BP systolic 107–173; BP diastolic 62–68; PULSE 80–94; RESP 16–18; TEMP 98.2–99.5; O2SAT 92–99
[2017-02-11] MEDS: PANTOPRAZOLE SOD 40 MG DELAYED RELEASE TAB PO SCH (05:34)
[2017-02-11] MEDS: INSULIN ASPART SUPPLEMENTAL SCALE SQ SCH ×4 (06:48→21:00)
--- NOTE | 2017-02-11 07:10 | HHI.PR ---
Subjective Remarks In the chair. Awaiting for the life vest. No chest pain or sob. No diaphoreiss. He is ambulating with PT no chest pain, sob, palpitations. Wants to go home. Objective Vitals Vital Signs Date Time Temp Pulse Resp B/P Pulse Ox O2 Delivery O2 Flow Rate FiO2 02/11/17 04:00 98.2 84 18 108/63 94 02/11/17 00:00 99.0 94 18 107/62 92 02/11/17 00:00 92 Room Air 02/10/17 20:36 97 21 02/10/17 20:00 99.7 86 18 109/68 94 02/10/17 20:00 94 Room Air 02/10/17 18:00 86 02/10/17 17:00 82 02/10/17 16:00 82 02/10/17 15:00 98.8 97 18 112/56 96 02/10/17 15:00 96 Room Air 02/10/17 15:00 81 02/10/17 14:00 82 02/10/17 13:00 86 02/10/17 12:00 90 02/10/17 11:00 95 Room Air 02/10/17 11:00 83 02/10/17 11:00 98.7 83 18 103/64 94 02/10/17 10:04 84 02/10/17 09:00 88 02/10/17 08:00 86 02/10/17 07:10 98.1 80 18 107/65 95 02/10/17 07:10 95 Room Air I/O 02/10/17 02/10/17 02/10/17 02/11/17 02/11/17 02/11/17 07:00 15:00 23:00 07:00 15:00 23:00 Intake Total 1080 ml 960 ml Output Total 1325 ml Balance -245 ml 960 ml Intake Oral 1080 ml 960 ml IV Total 0 ml Output Urine Total 1325 ml # Voids 2 4 # Bowel Movements 2 Result Diagram: 02/09/17 0345 02/09/17 0345 Imaging Last Impressions Chest X-Ray 02/09/17 0600 Signed Impressions: Service Date/Time: Thursday, February 09, 2017 06:20 - CONCLUSION: 1. Bibasilar areas of suspected atelectasis or consolidation. Overall, the aeration of the lungs does appear to be improving. 2. Mild left pleural effusion. Balaji Brownlee MD Lower Extremity Ultrasound 02/03/17 0000 Signed Impressions: Service Date/Time: Friday, February 03, 2017 16:24 - CONCLUSION: 1. Measurements of the lower extremity veins as above. Ramon Vences MD Carotid Artery Ultrasound 02/03/17 0000 Signed Impressions: Service Date/Time: Friday, February 03, 2017 17:01 - CONCLUSION: 1. Mild visible plaque present predominantly around carotid bifurcations without hemodynamically significant stenosis. Vertebral artery flow antegrade. Ramon Vences MD Objective Remarks GENERAL: Pleasant 51 year old male, appears in nad. In the chair, satting well. SKIN: Warm and dry. No rash HEAD: Atraumatic. Normocephalic. EYES: Pupils equal and round. No scleral icterus. No injection or drainage. ENT: No nasal bleeding or discharge. Mucous membranes pink and moist. NECK: Trachea midline. No JVD. CARDIOVASCULAR: Mid chest surgical dressing c/d/i. Regular rate and rhythm. No murmurs, gallops. RESPIRATORY: CTA bilaterally. No wheezing. Breath sounds equal, good air entry. GASTROINTESTINAL: Abdomen soft, non-tender, nondistended. Hepatic and splenic margins not palpable. MUSCULOSKELETAL: Extremities with trace lower extremity edema. No obvious deformities. NEUROLOGICAL: Awake and alert. No obvious cranial nerve deficits. Motor grossly within normal limits. Five out of 5 muscle strength in the arms and legs. Normal speech. A/P Problem List: (1) Acute ST elevation myocardial infarction ICD Code: I21.3 Status: Acute (2) History of hyperlipidemia ICD Code: Z86.39 Status: Acute (3) Hyperglycemia ICD Code: R73.9 Status: Acute (4) Coronary artery disease ICD Code: I25.10 Status: Acute (5) Leukocytosis ICD Code: D72.829 Status: Acute (6) Anemia ICD Code: D64.9 Status: Acute (7) Elevated troponin ICD Code: R74.8 Status: Acute (8) Hyponatremia ICD Code: E87.1 Status: Acute Assessment and Plan CV: STEMI Three-vessel coronary disease History of LAD stenting [address] Perea Hypertension Dyslipidemia EKG admission revealed ST elevation anterior/lateral leads Heart catheterization - left main 30%, LAD with re in stent stenosis 98%, ostial 40%, RCA 80% distal, left circumflex 100% percent occlusion. EF 25% Echocardiogram 2007 revealed EF 50%. Mild apical hypokinesis Echocardiogram revealed EF 20-25%. Akinesis of the apical myocardium. Moderate MR. JOSSE 48 mmHg Urgent CABG x 3, GUALLPA to LAD, SVG to OM, SVG to RCA on 02/06 aspirin 325 daily, Lipitor 80 mg daily and OFF heparin drip On Lasix 20 mg IV twice a day for pulmonary edema intraaortic balloon pump per CTS Carotid Doppler showed no hemodynamically significant stenosis. Lower Dopplers negative Noted cholesterol 221. LDL elevated 166. HDL low at 34. Continue statin Chest tubes removed 02/08 per CTS Patel removed 02/08. has a good UOP Had a BM 02/09. Resp: CHF/pulmonary edema Ongoing tobaccoism Nasal cannula to maintain saturations greater than equal to 92% Currently on nasal cannula 4 L satting 97%. Incentive spirometry while awake, EzPAP q6 Scheduled bronchodilator therapies every 4 hours with every 2 hours albuterol for breakthrough Tobacco cessation will be encouraged Chest x-ray this a.m. reveals improved pulmonary edema bilaterally, but with bilateral atelectasis GI: Gastroesophageal reflux disease Diet per CTS Protonix for GI prophylaxis Colace/as needed Senokot for bowel regimen per positive BM : Monitor UO Endo: Diabetes mellitus, uncontrolled A1c 10.2 Hemoglobin A1c 10.2 KEISHA inhibitor when indicated Insulin Sliding scale Patient will learn how to self administer insulin, discussed with the patient and nurse. Renal: Accurate I's and O's Monitor urine output Creatinine currently within normal limits. Repeat BMP in a.m. Heme: Leukocytosis Normocytic anemia Monitor CBC daily. Follow trends. ID: Monitor for infection MSK: Right grade 3 AC joint separation OT evaluate and treat FEN: Hypokalemia resolved Follow BMP in a.m. While on diuretics, Schedule 20 mEq KCl daily Neuro/Psych: Acetaminophen for fever. [place]/morphine for pain management Restoril 15 milligrams at night when necessary for insomnia Xanax 0.25 3 times a day when necessary anxiety Prophylaxis - GI - Protonix - DVT - sq heparin when cleared by CTS Discussed with the patient,. nurse Improving. Plan to DC home with home health. Patient needs life vest. Case management is following for DC plan Problem Qualifiers (1) Acute ST elevation myocardial infarction: Qualified Code: I21.3 - Acute ST elevation myocardial infarction (STEMI), unspecified artery (2) Coronary artery disease: Qualified Code: I25.110 - Coronary artery disease involving [place] coronary artery of [place] heart with unstable angina pectoris (3) Leukocytosis: Qualified Code: D72.829 - Leukocytosis, unspecified type (4) Anemia: Qualified Code: D64.9 - Anemia, unspecified type Brittany Rankin MD Feb 11, 2017 07:10
[2017-02-11] MEDS: DOCUSATE SODIUM 100 MG CAP PO SCH ×2 (08:22→21:00)
[2017-02-11] MEDS: CARVEDILOL 3.125 MG TAB PO SCH ×2 (08:23→21:58)
[2017-02-11] MEDS: AMIODARONE 200 MG TAB PO SCH ×2 (08:23→21:59)
[2017-02-11] MEDS: FUROSEMIDE 20 MG TAB PO SCH (08:23)
[2017-02-11] MEDS: POTASSIUM CHLORIDE 10 MEQ CONTROLLED RELEASE TAB PO SCH (08:23)
[2017-02-11] MEDS: MULTIVITAMINS/MINERALS THERAPEUTIC TAB PO SCH (08:23)
[2017-02-11] MEDS: ASPIRIN 81 MG CHEW TAB PO SCH (08:23)
[2017-02-11] MEDS: INSULIN DETEMIR 100 UNITS/ML VIAL SQ SCH ×2 (08:26→21:58)
--- NOTE | 2017-02-11 08:32 | PD.CARD.PN ---
Subjective Subjective Remarks Feels "good". No pain, dyspnea, dizziness, nausea, palpitations. Objective Medications Item Value Date Time Furosemide 20 mg 02/08/17 1000 (Lasix) DAILY/PO 02/11/17 0823 Potassium Chloride 10 meq 02/08/17 1000 (KCl) DAILY/PO 02/11/17 0823 Carvedilol 3.125 mg 02/07/17 1030 (Coreg) Q12HR/PO 02/11/17 0823 Aspirin 81 mg 02/07/17 0900 (Aspirin Chew) DAILY/PO 02/11/17 0823 Amiodarone HCl 200 mg 02/06/17 2100 (Cordarone) Q12HR/PO 02/11/17 0823 Atorvastatin 80 mg 02/03/172099 Calcium HS/PO 02/10/172116 (Lipitor) Vital Signs / I&O Vital Signs Date Time Temp Pulse Resp B/P Pulse Ox O2 Delivery O2 Flow Rate FiO2 02/11/17 04:00 94 Room Air 02/11/17 04:00 98.2 84 18 108/63 94 02/11/17 00:00 99.0 94 18 107/62 92 02/11/17 00:00 92 Room Air 02/10/17 20:36 97 21 02/10/17 20:00 99.7 86 18 109/68 94 02/10/17 20:00 94 Room Air 02/10/17 18:00 86 02/10/17 17:00 82 02/10/17 16:00 82 02/10/17 15:00 98.8 97 18 112/56 96 02/10/17 15:00 96 Room Air 02/10/17 15:00 81 02/10/17 14:00 82 02/10/17 13:00 86 02/10/17 12:00 90 02/10/17 11:00 95 Room Air 02/10/17 11:00 83 02/10/17 11:00 98.7 83 18 103/64 94 02/10/17 10:04 84 02/10/17 09:00 88 I/O 02/10/17 02/10/17 02/10/17 02/11/17 02/11/17 02/11/17 07:00 15:00 23:00 07:00 15:00 23:00 Intake Total 1080 ml 960 ml Output Total 1325 ml 600 ml 850 ml Balance -245 ml 360 ml -850 ml Intake Oral 1080 ml 960 ml IV Total 0 ml Output Urine Total 1325 ml 600 ml 850 ml # Voids 2 4 # Bowel Movements 2 1 Physical Exam GENERAL: Well developed, well nourished. No acute distress. HEENT: Jugular venous pressure is normal. CHEST: Lungs clear to auscultation anteriorly. CARDIAC: Regular rate and rhythm without S3, S4, murmur. ABDOMEN: Soft, nontender, no hepatosplenomegaly. Bowel sounds present. EXTREMITIES: No clubbing, cyanosis, or edema. Good distal pulses. Assessment and Plan Problem List: (1) Coronary artery disease Assessment and Plan: Stable s/p 3 vessel CABG. No recurrent angina. No CHF, significant arrhythmias. OK for discharge from a cardiac standpoint after fitted for LifeVest. (2) Congestive heart failure (CHF) Assessment and Plan: Compensated. With low EF agree with LifeVest for 90 days , reassess EF at that time. Cont beta yadira, diuretic, add low dose KEISHA-I. (3) Hyperlipidemia Assessment and Plan: Very suboptimal lipid profile. Continue atorvastatin 80 mg qd. Code Status full code Discussed Condition With patient Problem Qualifiers (1) Coronary artery disease: Qualified Code: I25.110 - Coronary artery disease involving [place] coronary artery of [place] heart with unstable angina pectoris (2) Congestive heart failure (CHF): Qualified Code: I50.21 - Acute systolic congestive heart failure (3) Hyperlipidemia: Qualified Code: E78.2 - Mixed hyperlipidemia August Goncalves MD Feb 11, 2017 08:32
[2017-02-11] MEDS: MAGNESIUM HYDROXIDE SUSP 30 ML CUP PO SCH (09:00)
[2017-02-11] MEDS: POLYETHYLENE GLYCOL 17 GM PKG PO SCH (09:00)
--- NOTE | 2017-02-11 16:17 | PD.CAR.PN ---
CVT Progress Note CVT: POD #: 5 Subjective/Hospital Course: 51-year-old male. He presented to [place] ED with complaints of chest pain and chest pressure on and off 2 weeks. Associated with shortness of breath/excursion. Presented with nonradiating pain. , patient was noted to have ST elevation in the anterior/lateral leads. He was given aspirin 325 mg by mouth 1 started heparin drip and nitroglycerin. Cath revealed : three-vessel coronary disease. Left main 30%. LAD re in- stent stenosis 99%, 40% ostial stenosis. RCA 80% stenosis of the distal third and the left circumflex 100% occlusion. Ejection fraction was 25%. An intra-aortic pump was placed 1:1 augmentation around 100. PMH : hyperlipidemia and diabetes mellitus 1 year currently on no medication., CAD known history of coronary disease with's stents 2 placed in the LAD by Dr. Perea in 2007. 02/04 pt remains on IABP 1:1 / 5&6 ICS Left sternal border on CXR + right DP, PT on 76% F102, 40liters 02 / down from 100% CXR still showing evidence of pulm edema, but some improvement pain free, on Heparin gtt 02/05 remains pain free, now on 6 l nasal cannula IABP 1:1 scheduled for surgery in am 02/06 pt for surgery today low BB given preop 02/07 surgery: Urgent CABG x 3, GUALLPA to LAD, SVG to OM, SVG to RCA, EVH 4000cc crystalloid , 10units PLT extubated post surgery EF 15% > 25-30 post op 02/08 No pressors / pt tolerated IABP at 1:2 right fem IABP without difficulty, small amount of blood 10 -15 allowed drain then pressure held for hemostasis/ with continuous monitoring / for 15min/ then RN continued to hold pressure until complete hemostasis obtained bedrest x 4 hours weaned off insulin gtt will keep in CVICU tonight will need to eval for LifeVest placement prior to surgery 02/08 doing well, chest tube removed without difficulty levemir increased will need home glucose monitor continue amiodarone x 14 days after discharge BP too low to start KEISHA 02/09 Doing well Discharge in am 02/10 Doing well Awaiting LifeVest placement 02/11 on room air , doing well eval for Life vest today / ok to dc home from CVS standpoint Objective: GENERAL: SKIN: Warm and dry.prevena to chest HEAD: Normocephalic. EYES: No scleral icterus. No injection or drainage. NECK: Supple, trachea midline. No JVD or lymphadenopathy. CARDIOVASCULAR: Regular rate and rhythm without murmurs, gallops, or rubs. RESPIRATORY: Breath sounds equal bilaterally. No accessory muscle use. GASTROINTESTINAL: Abdomen soft, non-tender, nondistended. MUSCULOSKELETAL: No cyanosis, or edema. BACK: Nontender without obvious deformity. No CVA tenderness. Vital Signs Date Time Temp Pulse Resp B/P Pulse Ox O2 Delivery O2 Flow Rate FiO2 02/11/17 14:01 86 02/11/17 13:00 86 02/11/17 12:00 84 02/11/17 11:01 98.4 87 16 112/62 98 02/11/17 11:01 99 Room Air 02/11/17 11:00 80 02/11/17 10:00 84 02/11/17 09:00 88 02/11/17 08:01 99 Room Air 02/11/17 08:01 99.5 87 16 110/64 99 02/11/17 08:00 84 02/11/17 07:01 82 02/11/17 04:00 94 Room Air 02/11/17 04:00 98.2 84 18 108/63 94 02/11/17 00:00 99.0 94 18 107/62 92 02/11/17 00:00 92 Room Air 02/10/17 20:36 97 21 02/10/17 20:00 99.7 86 18 109/68 94 02/10/17 20:00 94 Room Air 02/10/17 18:00 86 02/10/17 17:00 82 Result Diagram: 02/09/17 0345 02/09/17 0345 (1) Coronary artery disease Plan: Stable s/p 3 vessel CABG. No recurrent angina. No CHF, significant arrhythmias. OK for discharge from a cardiac standpoint after fitted for LifeVest. (2) Congestive heart failure (CHF) Plan: Compensated. With low EF agree with LifeVest for 90 days, reassess EF at that time. Cont beta yadira, diuretic, add low dose KEISHA-I. (3) Hyperlipidemia Plan: Very suboptimal lipid profile. Continue atorvastatin 80 mg qd. Problem Qualifiers (1) Coronary artery disease: Qualified Code: I25.110 - Coronary artery disease involving [place] coronary artery of [place] heart with unstable angina pectoris (2) Congestive heart failure (CHF): Qualified Code: I50.21 - Acute systolic congestive heart failure (3) Hyperlipidemia: Qualified Code: E78.2 - Mixed hyperlipidemia Clemencia Rizo Feb 11, 2017 16:17
--- NOTE | 2017-02-11 19:03 | HHI.DS ---
Discharge Summary Admission Date Feb 02, 2017 at 12:26 Discharge Date: Feb 12, 2017 Admitting Diagnosis Acute STEMI, hyperlipidemia, hyperglycemia (1) Acute ST elevation myocardial infarction ICD Code: I21.3 Diagnosis: Principal (2) History of hyperlipidemia ICD Code: Z86.39 Diagnosis: Principal (3) Hyperglycemia ICD Code: R73.9 Diagnosis: Principal (4) Coronary artery disease ICD Code: I25.10 Diagnosis: Principal (5) Leukocytosis ICD Code: D72.829 Diagnosis: Principal (6) Anemia ICD Code: D64.9 Diagnosis: Principal (7) Elevated troponin ICD Code: R74.8 Diagnosis: Principal (8) Hyponatremia ICD Code: E87.1 Diagnosis: Principal Procedures Urgent CABG x 3, GUALLPA to LAD, SVG to OM, SVG to RCA on 02/06/[address] Quintero CTS Brief History - From Admission 51-year-old male. Date of admission . We are asked to admit by cardiology for chest pain. He has a past medical history including hyperlipidemia and diabetes mellitus 1 year currently on no medication. He has known history of coronary disease with's stents 2 placed in the LAD by Dr. Perea in 2007. He presented to [place] ED with complaints of chest pain and chest pressure on and off 2 weeks. Associated with shortness of breath/ excursion. At 1 AM this morning he awoke up with severe nonradiating pain. / 10 with orthopnea. Upon presentation ED, patient was noted to have ST elevation in the anterior/lateral leads. He was given aspirin 325 mg by mouth 1 started heparin drip and nitroglycerin. Today patient back to heart catheter lab results have three-vessel coronary disease. Left main 30%. LAD re in-stent stenosis 99%, 40% ostial stenosis. RCA 80% stenosis of the distal third and the left circumflex 100% occlusion. Ejection fraction was 25%. An intra-aortic pump was placed 1:1 augmentation around 100. Agent appears intact. CT surgery is been consulted. Chest pain currently 1 out of 10. CBC/BMP: 02/09/17 0345 02/09/17 0345 Significant Findings Laboratory Tests Test 02/09/17 03:45 White Blood Count 15.3 TH/MM3 (4.0-11.0) Red Blood Count 3.44 MIL/MM3 (4.50-5.90) Hemoglobin 9.4 GM/DL (13.0-17.0) Hematocrit 28.7 % (39.0-51.0) Monocytes (%) (Auto) 11.5 % (0.0-8.0) Neutrophils # (Auto) 10.7 TH/MM3 (1.8-7.7) Monocytes # (Auto) 1.8 TH/MM3 (0-0.9) Blood Urea Nitrogen 23 MG/DL (7-18) Random Glucose 69 MG/DL (74-106) Imaging Last Impressions Chest X-Ray 02/09/17 0600 Signed Impressions: Service Date/Time: Thursday, February 09, 2017 06:20 - CONCLUSION: 1. Bibasilar areas of suspected atelectasis or consolidation. Overall, the aeration of the lungs does appear to be improving. 2. Mild left pleural effusion. Balaji Brownlee MD Lower Extremity Ultrasound 02/03/17 0000 Signed Impressions: Service Date/Time: Friday, February 03, 2017 16:24 - CONCLUSION: 1. Measurements of the lower extremity veins as above. Ramon Vences MD Carotid Artery Ultrasound 02/03/17 0000 Signed Impressions: Service Date/Time: Friday, February 03, 2017 17:01 - CONCLUSION: 1. Mild visible plaque present predominantly around carotid bifurcations without hemodynamically significant stenosis. Vertebral artery flow antegrade. Ramon Vences MD PE at Discharge GENERAL: Pleasant 51 year old male, appears in nad. In the chair. SKIN: Warm and dry. No rash HEAD: Atraumatic. Normocephalic. EYES: Pupils equal and round. No scleral icterus. No injection or drainage. ENT: No nasal bleeding or discharge. Mucous membranes pink and moist. NECK: Trachea midline. No JVD. CARDIOVASCULAR: Mid chest surgical dressing c/d/i. Regular rate and rhythm. No murmurs, gallops. RESPIRATORY: Breath sounds equal bilaterally. No accessory muscle use. No wheezing. GASTROINTESTINAL: Abdomen soft, non-tender, nondistended. Hepatic and splenic margins not palpable. MUSCULOSKELETAL: Extremities with trace lower extremity edema. No obvious deformities. NEUROLOGICAL: Awake and alert. No obvious cranial nerve deficits. Motor grossly within normal limits. Five out of 5 muscle strength in the arms and legs. Normal speech. Hospital Course STEMI Three-vessel coronary disease History of LAD stenting [address] Perea Hypertension Dyslipidemia EKG admission revealed ST elevation anterior/lateral leads Heart catheterization - left main 30%, LAD with re in stent stenosis 98%, ostial 40%, RCA 80% distal, left circumflex 100% percent occlusion. EF 25% Echocardiogram 2007 revealed EF 50%. Mild apical hypokinesis Echocardiogram revealed EF 20-25%. Akinesis of the apical myocardium. Moderate MR. JOSSE 48 mmHg Urgent CABG x 3, GUALLPA to LAD, SVG to OM, SVG to RCA on 02/06 aspirin 325 daily, Lipitor 80 mg daily and OFF heparin drip On Lasix 20 mg IV twice a day for pulmonary edema intraaortic balloon pump per CTS Carotid Doppler showed no hemodynamically significant stenosis. Lower Dopplers negative Noted cholesterol 221. LDL elevated 166. HDL low at 34. Continue statin Chest tubes removed 02/08 per CTS Patel removed 02/08. has a good UOP Had a BM 02/09. Resp: CHF/pulmonary edema Ongoing tobaccoism Nasal cannula to maintain saturations greater than equal to 92% Currently on nasal cannula 4 L satting 97%. Incentive spirometry while awake, EzPAP q6 Scheduled bronchodilator therapies every 4 hours with every 2 hours albuterol for breakthrough Tobacco cessation will be encouraged Chest x-ray this a.m. reveals improved pulmonary edema bilaterally, but with bilateral atelectasis GI: Gastroesophageal reflux disease Diet per CTS Protonix for GI prophylaxis Colace/as needed Senokot for bowel regimen per positive BM : Monitor UO Endo: Diabetes mellitus, uncontrolled A1c 10.2 Hemoglobin A1c 10.2 KEISHA inhibitor when indicated Insulin Sliding scale Patient will learn how to self administer insulin, discussed with the patient and nurse. Renal: Accurate I's and O's Monitor urine output Creatinine currently within normal limits. Repeat BMP in a.m. Heme: Leukocytosis Normocytic anemia Monitor CBC daily. Follow trends. ID: Monitor for infection MSK: Right grade 3 AC joint separation OT evaluate and treat FEN: Hypokalemia resolved Follow BMP in a.m. While on diuretics, Schedule 20 mEq KCl daily Neuro/Psych: Acetaminophen for fever. [place]/morphine for pain management Restoril 15 milligrams at night when necessary for insomnia Xanax 0.25 3 times a day when necessary anxiety Prophylaxis - GI - Protonix - DVT - sq heparin when cleared by CTS Discussed with the patient,. nurse DC home with home health. Life vest at discharge. Patient improved, he was cleared for DC by consultants , to follow up as OP with PCP and consultants. Pt Condition on Discharge: Stable Discharge Disposition: Disch w/ Home Health Serv Discharge Time: > 30 minutes Discharge Instructions DIET: Follow Instructions for: Heart Healthy Diet, Diabetic Diet Activities you can perform: Regular-No Restrictions Follow up Referrals: Appointment for Follow Up Cardiology - 03/07/17 @ [facility] with August Goncalves MD Diabetic Education Surgical with Lexy Quintero MD New Medications: Blood Glucose Monitoring W/Device (Glucocom Blood Glucose Mo W/Device) 1 Kit Kit 1 KIT .ROUTE DIRECTED Blood Sugar Management #1 KIT Glucocom Test Strips (Glucocom Test Strips) 1 Marianne Marianne 1 EA .ROUTE DIRECTED Blood Sugar Management #60 BOX Insulin Aspart Inj (Novolog Inj) 1,000 Unit/10 Ml Vial 1-9 UNITS SQ ACHS Max dose at bedtime:( )units; sugars less than 70,(0)units; sugars 150-199,(1) unit; sugars 200-249,(3) units; sugars 250-299,(5) units; sugars 300-349,(7) units; sugars greater than 349,(9) units Blood Sugar Management #10 Ref 0 ML Insulin Syringe/U-100/31G X 5/16" 1 ml (Insulin Syringe/U-100/31G X 5/16" 1 ml) 1 Mis Mis 1 EA .ROUTE DIRECTED Blood Sugar Management #30 Ref 0 BOX Lancets (Lancets) 1 Mis Mis 1 EA .ROUTE DIRECTED Blood Sugar Management #60 Ref 0 BOX Parenteral Therapy Supplies (Sharpsafety Sharps Contai) 1 Mis Mis 1 EA .ROUTE DIRECTED #1 Ref 0 EA Amiodarone (Amiodarone) 200 Mg Tab 200 MG PO Q12HR z Days 14 TAB Atorvastatin (Atorvastatin) 80 Mg Tab 80 MG PO HS Cholesterol Management Days 90 TAB Carvedilol (Coreg) 3.125 Mg Tab 3.125 MG PO Q12HR z Days 90 TAB Furosemide (Furosemide) 20 Mg Tab 20 MG PO DAILY z Days 14 TAB Potassium Chloride ER (Klor-Con 10) 10 Meq Tab 10 MEQ PO DAILY z Days 14 TAB ([Aspirin Chew]) 81 MG CHEW 81 MG PO DAILY z Days 90 TAB.CHEW Brittany Rankin MD Feb 11, 2017 19:03
[2017-02-11] MEDS: SENNOSIDES 8.6 MG TAB PO SCH (21:00)
[2017-02-11] MEDS: SODIUM CHLORIDE 0.9% FLUSH 10 ML FLUSH IV FLUSH SCH (21:59)
[2017-02-11] MEDS: ATORVASTATIN 80 MG TAB PO SCH (21:59)
[2017-02-12] VITALS (18 sets, daily range): BP systolic 104–112; BP diastolic 63–68; PULSE 79–92; RESP 16–17; TEMP 98.7–99.3; O2SAT 93–100
[2017-02-12] MEDS: PANTOPRAZOLE SOD 40 MG DELAYED RELEASE TAB PO SCH (05:36)
[2017-02-12] MEDS: INSULIN ASPART SUPPLEMENTAL SCALE SQ SCH ×2 (06:25→11:47)
[2017-02-12 06:59] LABS: AUTOMATED NEUTROPHIL # 7.6 TH/MM3 (1.8-7.7); BASOPHIL # 0.1 TH/MM3 (0-0.2); BASOPHIL % 0.7 % (0.0-2.0); EOSINOPHIL # 0.3 TH/MM3 (0-0.4); EOSINOPHIL % 2.5 % (0.0-4.0); HEMATOCRIT 30.3 % (39.0-51.0); LYMPH % 19.9 % (9.0-44.0); LYMPHOCYTE # 2.4 TH/MM3 (1.0-4.8); MEAN CELL VOLUME 81.8 FL (80.0-100.0); MEAN CORPUSCULAR HEMOGLOBIN 27.3 PG (27.0-34.0); MEAN CORPUSCULAR HGB CONC 33.4 % (32.0-36.0); MONO % 12.6 % (0.0-8.0); NEUT % 64.3 % (16.0-70.0); PLATELET COUNT 463 TH/MM3 (150-450); RED BLOOD COUNT 3.71 MIL/MM3 (4.50-5.90); RED CELL DISTRIBUTION WIDTH 13.4 % (11.6-17.2); WHITE BLOOD COUNT 11.9 TH/MM3 (4.0-11.0)
[2017-02-12 07:06] LABS: HEMO FLAGS AUTO DIFF
[2017-02-12 07:44] LABS: BICARBONATE 29.3 MEQ/L (21.0-32.0); MAGNESIUM 2.3 MG/DL (1.5-2.5); POTASSIUM 4.3 MEQ/L (3.5-5.1)
[2017-02-12 08:06] LABS: PLATELET ESTIMATE SMEAR HIGH (NORMAL); PLATELET MORPHOLOGY NORMAL (NORMAL); SCAN/DIFF AUTO DIFF CONFIRMED
[2017-02-12] MEDS: POLYETHYLENE GLYCOL 17 GM PKG PO SCH (08:52)
[2017-02-12] MEDS: MAGNESIUM HYDROXIDE SUSP 30 ML CUP PO SCH (08:52)
[2017-02-12] MEDS: DOCUSATE SODIUM 100 MG CAP PO SCH (08:52)
[2017-02-12] MEDS: INSULIN DETEMIR 100 UNITS/ML VIAL SQ SCH (08:52)
[2017-02-12] MEDS: FUROSEMIDE 20 MG TAB PO SCH (08:53)
[2017-02-12] MEDS: AMIODARONE 200 MG TAB PO SCH (08:53)
[2017-02-12] MEDS: MULTIVITAMINS/MINERALS THERAPEUTIC TAB PO SCH (08:53)
[2017-02-12] MEDS: POTASSIUM CHLORIDE 10 MEQ CONTROLLED RELEASE TAB PO SCH (08:53)
[2017-02-12] MEDS: CARVEDILOL 3.125 MG TAB PO SCH (08:53)
[2017-02-12] MEDS: ASPIRIN 81 MG CHEW TAB PO SCH (08:53)
[2017-02-12] MEDS: SODIUM CHLORIDE 0.9% FLUSH 10 ML FLUSH IV FLUSH SCH (08:54)
--- NOTE | 2017-02-12 10:41 | PD.CAR.PN ---
CVT Progress Note Subjective/Hospital Course: 51-year-old male. He presented to [place] ED with complaints of chest pain and chest pressure on and off 2 weeks. Associated with shortness of breath/excursion. Presented with nonradiating pain. , patient was noted to have ST elevation in the anterior/lateral leads. He was given aspirin 325 mg by mouth 1 started heparin drip and nitroglycerin. Cath revealed : three-vessel coronary disease. Left main 30%. LAD re in- stent stenosis 99%, 40% ostial stenosis. RCA 80% stenosis of the distal third and the left circumflex 100% occlusion. Ejection fraction was 25%. An intra-aortic pump was placed 1:1 augmentation around 100. PMH : hyperlipidemia and diabetes mellitus 1 year currently on no medication., CAD known history of coronary disease with's stents 2 placed in the LAD by Dr. Perea in 2007. 02/04 pt remains on IABP 1:1 / 5&6 ICS Left sternal border on CXR + right DP, PT on 76% F102, 40liters 02 / down from 100% CXR still showing evidence of pulm edema, but some improvement pain free, on Heparin gtt 02/05 remains pain free, now on 6 l nasal cannula IABP 1:1 scheduled for surgery in am 02/06 pt for surgery today low BB given preop 02/07 surgery: Urgent CABG x 3, GUALLPA to LAD, SVG to OM, SVG to RCA, EVH 4000cc crystalloid , 10units PLT extubated post surgery EF 15% > 25-30 post op 02/08 No pressors / pt tolerated IABP at 1:2 right fem IABP without difficulty, small amount of blood 10 -15 allowed drain then pressure held for hemostasis/ with continuous monitoring / for 15min/ then RN continued to hold pressure until complete hemostasis obtained bedrest x 4 hours weaned off insulin gtt will keep in CVICU tonight will need to eval for LifeVest placement prior to surgery 02/08 doing well, chest tube removed without difficulty levemir increased will need home glucose monitor continue amiodarone x 14 days after discharge BP too low to start KEISHA 02/09 Doing well Discharge in am 02/10 Doing well Awaiting LifeVest placement 02/11 on room air , doing well eval for Life vest today / 02/12 waiting on life vest placement stable then for DC . ok to dc home from CVS standpoint Objective: GENERAL: SKIN: Warm and dry./ prevena to chest HEAD: Normocephalic. EYES: No scleral icterus. No injection or drainage. NECK: Supple, trachea midline. No JVD or lymphadenopathy. CARDIOVASCULAR: Regular rate and rhythm without murmurs, gallops, or rubs. RESPIRATORY: Breath sounds equal bilaterally. No accessory muscle use. GASTROINTESTINAL: Abdomen soft, non-tender, nondistended. MUSCULOSKELETAL: No cyanosis, or edema. BACK: Nontender without obvious deformity. No CVA tenderness. Vital Signs Date Time Temp Pulse Resp B/P Pulse Ox O2 Delivery O2 Flow Rate FiO2 02/12/17 06:00 86 02/12/17 05:00 79 02/12/17 04:09 84 02/12/17 03:15 93 Room Air 02/12/17 03:15 98.8 84 17 104/63 93 02/12/17 03:05 83 02/12/17 02:00 90 02/12/17 01:00 92 02/12/17 00:00 87 02/11/17 23:00 87 02/11/17 23:00 98.9 92 16 113/68 95 02/11/17 23:00 95 Room Air 02/11/17 22:00 92 02/11/17 21:00 86 02/11/17 20:00 86 02/11/17 19:10 86 02/11/17 19:00 96 Room Air 02/11/17 19:00 94 02/11/17 19:00 98.9 91 17 113/64 96 02/11/17 17:01 84 02/11/17 16:00 92 02/11/17 15:01 99.5 90 16 107/67 97 02/11/17 15:01 97 Room Air 02/11/17 15:00 84 02/11/17 14:01 86 02/11/17 13:00 86 02/11/17 12:00 84 02/11/17 11:01 98.4 87 16 112/62 98 02/11/17 11:01 99 Room Air 02/11/17 11:00 80 Labs: Laboratory Tests Test 02/12/17 05:52 White Blood Count 11.9 TH/MM3 (4.0-11.0) Red Blood Count 3.71 MIL/MM3 (4.50-5.90) Hemoglobin 10.1 GM/DL (13.0-17.0) Hematocrit 30.3 % (39.0-51.0) Mean Corpuscular Volume 81.8 FL (80.0-100.0) Mean Corpuscular Hemoglobin 27.3 PG (27.0-34.0) Mean Corpuscular Hemoglobin 33.4 % Concent (32.0-36.0) Red Cell Distribution Width 13.4 % (11.6-17.2) Platelet Count 463 TH/MM3 (150-450) Mean Platelet Volume 7.4 FL (7.0-11.0) Neutrophils (%) (Auto) 64.3 % (16.0-70.0) Lymphocytes (%) (Auto) 19.9 % (9.0-44.0) Monocytes (%) (Auto) 12.6 % (0.0-8.0) Eosinophils (%) (Auto) 2.5 % (0.0-4.0) Basophils (%) (Auto) 0.7 % (0.0-2.0) Neutrophils # (Auto) 7.6 TH/MM3 (1.8-7.7) Lymphocytes # (Auto) 2.4 TH/MM3 (1.0-4.8) Monocytes # (Auto) 1.5 TH/MM3 (0-0.9) Eosinophils # (Auto) 0.3 TH/MM3 (0-0.4) Basophils # (Auto) 0.1 TH/MM3 (0-0.2) CBC Comment AUTO DIFF Differential Comment AUTO DIFF CONFIRMED Platelet Estimate HIGH (NORMAL) Platelet Morphology Comment NORMAL (NORMAL) Sodium Level 138 MEQ/L (136-145) Potassium Level 4.3 MEQ/L (3.5-5.1) Chloride Level 103 MEQ/L (98-107) Carbon Dioxide Level 29.3 MEQ/L (21.0-32.0) Anion Gap 6 MEQ/L (5-15) Blood Urea Nitrogen 14 MG/DL (7-18) Creatinine 0.96 MG/DL (0.60-1.30) Estimat Glomerular Filtration 83 ML/MIN (>89) Rate Random Glucose 148 MG/DL (74-106) Calcium Level 9.5 MG/DL (8.5-10.1) Magnesium Level 2.3 MG/DL (1.5-2.5) Result Diagram: 02/12/17 0552 02/12/17 0552 Telemetry: NSR (1) Coronary artery disease Plan: Stable s/p 3 vessel CABG. No recurrent angina. No CHF, significant arrhythmias. OK for discharge from a cardiac standpoint after fitted for LifeVest. (2) Congestive heart failure (CHF) Plan: Compensated. With low EF agree with LifeVest for 90 days, reassess EF at that time. Cont beta yadira, diuretic, add low dose KEISHA-I. (3) Hyperlipidemia Plan: Very suboptimal lipid profile. Continue atorvastatin 80 mg qd. Problem Qualifiers (1) Coronary artery disease: Qualified Code: I25.110 - Coronary artery disease involving [place] coronary artery of [place] heart with unstable angina pectoris (2) Congestive heart failure (CHF): Qualified Code: I50.21 - Acute systolic congestive heart failure (3) Hyperlipidemia: Qualified Code: E78.2 - Mixed hyperlipidemia Clemencia Rizo Feb 12, 2017 10:41
[2017-02-12] MEDS: ENALAPRIL MALEATE 2.5 MG TAB PO SCH ×2 (11:47→11:48)
--- NOTE | 2017-02-12 12:09 | HHI.PR ---
Subjective Remarks Seen sort supervisor. Patient denies having any chest pain, he is in the chair. Says he did spoke yesterday regarding life vest and is awaiting for arrangements. No cough, no sob. Has some SOB with exertion but says he had improved since he came, he feels 80% better. Denies fevers or chills. Encouraged IS. Objective Vitals Vital Signs Date Time Temp Pulse Resp B/P Pulse Ox O2 Delivery O2 Flow Rate FiO2 02/12/17 06:00 86 02/12/17 05:00 79 02/12/17 04:09 84 02/12/17 03:15 93 Room Air 02/12/17 03:15 98.8 84 17 104/63 93 02/12/17 03:05 83 02/12/17 02:00 90 02/12/17 01:00 92 02/12/17 00:00 87 02/11/17 23:00 87 02/11/17 23:00 98.9 92 16 113/68 95 02/11/17 23:00 95 Room Air 02/11/17 22:00 92 02/11/17 21:00 86 02/11/17 20:00 86 02/11/17 19:10 86 02/11/17 19:00 96 Room Air 02/11/17 19:00 94 02/11/17 19:00 98.9 91 17 113/64 96 02/11/17 17:01 84 02/11/17 16:00 92 02/11/17 15:01 99.5 90 16 107/67 97 02/11/17 15:01 97 Room Air 02/11/17 15:00 84 02/11/17 14:01 86 02/11/17 13:00 86 I/O 02/11/17 02/11/17 02/11/17 02/12/17 02/12/17 02/12/17 07:00 15:00 23:00 07:00 15:00 23:00 Intake Total 960 ml 680 ml Output Total 850 ml 1000 ml 800 ml Balance -850 ml -40 ml -120 ml Intake Oral 960 ml 680 ml IV Total 0 ml Output Urine Total 850 ml 1000 ml 800 ml # Voids 5 # Bowel Movements 1 1 0 Result Diagram: 02/12/17 0552 02/12/17 0552 Imaging Last Impressions Chest X-Ray 02/09/17 0600 Signed Impressions: Service Date/Time: Thursday, February 09, 2017 06:20 - CONCLUSION: 1. Bibasilar areas of suspected atelectasis or consolidation. Overall, the aeration of the lungs does appear to be improving. 2. Mild left pleural effusion. Balaji Brownlee MD Lower Extremity Ultrasound 02/03/17 0000 Signed Impressions: Service Date/Time: Friday, February 03, 2017 16:24 - CONCLUSION: 1. Measurements of the lower extremity veins as above. Ramon Vences MD Carotid Artery Ultrasound 02/03/17 0000 Signed Impressions: Service Date/Time: Friday, February 03, 2017 17:01 - CONCLUSION: 1. Mild visible plaque present predominantly around carotid bifurcations without hemodynamically significant stenosis. Vertebral artery flow antegrade. Ramon Vences MD Objective Remarks GENERAL: Pleasant 51 year old male, appears in nad. In the chair, satting well. SKIN: Warm and dry. No rash HEAD: Atraumatic. Normocephalic. EYES: Pupils equal and round. No scleral icterus. No injection or drainage. ENT: No nasal bleeding or discharge. Mucous membranes pink and moist. NECK: Trachea midline. No JVD. CARDIOVASCULAR: Mid chest surgical dressing c/d/i. Regular rate and rhythm. No murmurs, gallops. RESPIRATORY: CTA bilaterally. No wheezing. Breath sounds equal, good air entry. GASTROINTESTINAL: Abdomen soft, non-tender, nondistended. Hepatic and splenic margins not palpable. MUSCULOSKELETAL: Extremities with trace lower extremity edema. No obvious deformities. NEUROLOGICAL: Awake and alert. No obvious cranial nerve deficits. Motor grossly within normal limits. Five out of 5 muscle strength in the arms and legs. Normal speech. A/P Problem List: (1) Acute ST elevation myocardial infarction ICD Code: I21.3 Status: Acute (2) History of hyperlipidemia ICD Code: Z86.39 Status: Acute (3) Hyperglycemia ICD Code: R73.9 Status: Acute (4) Coronary artery disease ICD Code: I25.10 Status: Acute (5) Leukocytosis ICD Code: D72.829 Status: Acute (6) Anemia ICD Code: D64.9 Status: Acute (7) Elevated troponin ICD Code: R74.8 Status: Acute (8) Hyponatremia ICD Code: E87.1 Status: Acute Assessment and Plan CV: STEMI Three-vessel coronary disease History of LAD stenting [address] Perea Hypertension Dyslipidemia EKG admission revealed ST elevation anterior/lateral leads Heart catheterization - left main 30%, LAD with re in stent stenosis 98%, ostial 40%, RCA 80% distal, left circumflex 100% percent occlusion. EF 25% Echocardiogram 2007 revealed EF 50%. Mild apical hypokinesis Echocardiogram revealed EF 20-25%. Akinesis of the apical myocardium. Moderate MR. JOSSE 48 mmHg Urgent CABG x 3, GUALLPA to LAD, SVG to OM, SVG to RCA on 02/06 aspirin 325 daily, Lipitor 80 mg daily and OFF heparin drip On Lasix 20 mg IV twice a day for pulmonary edema intraaortic balloon pump per CTS Carotid Doppler showed no hemodynamically significant stenosis. Lower Dopplers negative Noted cholesterol 221. LDL elevated 166. HDL low at 34. Continue statin Chest tubes removed 02/08 per CTS Patel removed 02/08. has a good UOP Had a BM 02/09. Resp: CHF/pulmonary edema Ongoing tobaccoism Nasal cannula to maintain saturations greater than equal to 92% Currently on nasal cannula 4 L satting 97%. Incentive spirometry while awake, EzPAP q6 Scheduled bronchodilator therapies every 4 hours with every 2 hours albuterol for breakthrough Tobacco cessation will be encouraged Chest x-ray this a.m. reveals improved pulmonary edema bilaterally, but with bilateral atelectasis GI: Gastroesophageal reflux disease Diet per CTS Protonix for GI prophylaxis Colace/as needed Senokot for bowel regimen per positive BM : Monitor UO Endo: Diabetes mellitus, uncontrolled A1c 10.2 Hemoglobin A1c 10.2 KEISHA inhibitor when indicated Insulin Sliding scale Patient will learn how to self administer insulin, discussed with the patient and nurse. Renal: Accurate I's and O's Monitor urine output Creatinine currently within normal limits. Repeat BMP in a.m. Heme: Leukocytosis Normocytic anemia Monitor CBC daily. Follow trends. ID: Monitor for infection MSK: Right grade 3 AC joint separation OT evaluate and treat FEN: Hypokalemia resolved Follow BMP in a.m. While on diuretics, Schedule 20 mEq KCl daily Neuro/Psych: Acetaminophen for fever. [place]/morphine for pain management Restoril 15 milligrams at night when necessary for insomnia Xanax 0.25 3 times a day when necessary anxiety Prophylaxis - GI - Protonix - DVT - sq heparin when cleared by CTS Discussed with the patient,. nurse Improving. Plan to DC home with home health. Awaiting for life vest arrangements. Case management is following for DC plan Problem Qualifiers (1) Acute ST elevation myocardial infarction: Qualified Code: I21.3 - Acute ST elevation myocardial infarction (STEMI), unspecified artery (2) Coronary artery disease: Qualified Code: I25.110 - Coronary artery disease involving seneca coronary artery of seneca heart with unstable angina pectoris (3) Leukocytosis: Qualified Code: D72.829 - Leukocytosis, unspecified type (4) Anemia: Qualified Code: D64.9 - Anemia, unspecified type Brittany Rankin MD Feb 12, 2017 12:09
== END 2017-02-12 16:30 | disposition home health service (06) | DRG 233 ==
LOC: NEPE 11:46 → NEDA 12:26 → HCVR 15:00 → HCIN 02-08 12:25
PROVIDERS: ADMIT Hospitalist; ATTEND Hospitalist
PROC: 4A023N7 Measurement of Cardiac Sampling and Pressure, Left Heart, Percutaneous Approach (ICD-10-PCS; 2017-02-02)
PROC: 5A02210 Assistance with Cardiac Output using Balloon Pump, Continuous (ICD-10-PCS; 2017-02-02)
PROC: B2111ZZ Fluoroscopy of Multiple Coronary Arteries using Low Osmolar Contrast (ICD-10-PCS; 2017-02-02)
PROC: B2151ZZ Fluoroscopy of Left Heart using Low Osmolar Contrast (ICD-10-PCS; 2017-02-02)
PROC: 02100Z9 Bypass Coronary Artery, One Artery from Left Internal Mammary, Open Approach (ICD-10-PCS; 2017-02-06)
PROC: 06BQ4ZZ Excision of Left Saphenous Vein, Percutaneous Endoscopic Approach (ICD-10-PCS; 2017-02-06)
PROC: 5A1221Z Performance of Cardiac Output, Continuous (ICD-10-PCS; 2017-02-06)
PROC: B246ZZ4 Ultrasonography of Right and Left Heart, Transesophageal (ICD-10-PCS; 2017-02-06)
PROC: 021109W Bypass Coronary Artery, Two Arteries from Aorta with Autologous Venous Tissue, Open Approach (ICD-10-PCS; principal; 2017-02-06 12:17)
DX: I21.09 ST elevation (STEMI) myocardial infarction involving other coronary artery of anterior wall (principal); I50.41 Acute combined systolic (congestive) and diastolic (congestive) heart failure; J96.00 Acute respiratory failure, unspecified whether with hypoxia or hypercapnia; I11.0 Hypertensive heart disease with heart failure; T82.855A Stenosis of coronary artery stent, initial encounter; D64.9 Anemia, unspecified; S43.101A Unspecified dislocation of right acromioclavicular joint, initial encounter; E87.1 Hypo-osmolality and hyponatremia; J98.11 Atelectasis; E11.65 Type 2 diabetes mellitus with hyperglycemia; E78.2 Mixed hyperlipidemia; K21.9 Gastro-esophageal reflux disease without esophagitis; I25.10 Atherosclerotic heart disease of native coronary artery without angina pectoris; I34.0 Nonrheumatic mitral (valve) insufficiency; E87.6 Hypokalemia; G47.00 Insomnia, unspecified; D72.829 Elevated white blood cell count, unspecified; M19.90 Unspecified osteoarthritis, unspecified site; F17.210 Nicotine dependence, cigarettes, uncomplicated; F41.9 Anxiety disorder, unspecified; Y83.1 Surgical operation with implant of artificial internal device as the cause of abnormal reaction of the patient, or of later complication, without mention of misadventure at the time of the procedure; Z22.322 Carrier or suspected carrier of Methicillin resistant Staphylococcus aureus; Z91.19 Patient's noncompliance with other medical treatment and regimen
CPT/HCPCS: 33967; 36430; 36600; 71010; 76937; 80048; 80053; 80061; 81001; 82310; 82435; 82550; 82565; 82805; 82947; 82948; 83036; 83735; 83880; 84100; 84132; 84295; 84443; 84484; 84520; 85002; 85014; 85025; 85027; 85610; 85730; 86850; 86900; 86901; 86920; 87086; 87641; 93005; 93306; 93318; 93458; 93880; 93970; 93998; 94002; 94010; 94150; 94640; 94664; 94667; 94668; C1769; C1893; C9113; C9399; J0131; J0171; J0690; J1250; J1265; J1644; J1815; J1817; J1940; J2150; J2250; J2270; J2370; J2440; J2720; J2930; J3010; J3246; J3370; J3475; J3480; J7030; J7040; J7050; J7120; P9016; P9035; P9047; Q9967

== ENCOUNTER → 2017-02-21 | Outpatient (CLI) | payer OTHER ==
[~2017-02-21] MED LIST changes: +AMIO200T PO; +ATOR1TAB18 PO; +Aspirin Chew PO; +BIOM30MI; +CARV3.125 PO; -CYCL-36 PO; -DICL75 PO; +FURO20TA PO; +GLUCKIT15; +GLUCTES12; +INSU1MIS15; +LANCETS1 MI1; +NOVOLOGP2 SQ; +POTA-243 PO; -Z.0.NO CURRENT MEDS
[2017-02-21 11:03] LABS: HEMATOCRIT 32.1 % (39.0-51.0); MEAN CELL VOLUME 79.8 FL (80.0-100.0); MEAN CORPUSCULAR HEMOGLOBIN 26.7 PG (27.0-34.0); MEAN CORPUSCULAR HGB CONC 33.4 % (32.0-36.0); PLATELET COUNT 561 TH/MM3 (150-450); RED BLOOD COUNT 4.02 MIL/MM3 (4.50-5.90); RED CELL DISTRIBUTION WIDTH 14.5 % (11.6-17.2); REVIEW FLAG FINAL; WHITE BLOOD COUNT 11.1 TH/MM3 (4.0-11.0)
[2017-02-21 11:20] LABS: BICARBONATE 28.6 MEQ/L (21.0-32.0); POTASSIUM 4.4 MEQ/L (3.5-5.1)
== END ==
LOC: CLAB 10:16
PROVIDERS: ATTEND Nurse Practitioner
DX: Z95.1 Presence of aortocoronary bypass graft (principal)
CPT/HCPCS: 36415; 80048; 85027

== ENCOUNTER 2017-05-09 18:28 | Inpatient (IN) | payer SELFPAY ==
[2017-05-09 18:32] VITALS: BP 124/90; PULSE 102; RESP 24; TEMP 97.7; O2SAT 100
--- NOTE | 2017-05-09 18:48 | PD ---
Physical Exam Time Seen by Provider: 18:45 Narrative 51 y/o male with SOB, PND for 2 weeks, worse over the past 3 days. Here with STEMI in January 2017. Also has hx of asthma. Vital signs reviewed. Seen at triage desk. Awaiting bed placement. Data Data Last Documented VS Vital Signs Date Time Temp Pulse Resp B/P Pulse Ox O2 Delivery O2 Flow Rate FiO2 05/09/17 18:32 97.7 102 24 124/90 100 Room Air [facility] Medical Record Reviewed: Yes Supervised Visit with AGUSTIN: Adeel Coronel May 09, 2017 18:48
[2017-05-09 19:00] VITALS: BP 132/69; PULSE 101; RESP 16; O2SAT 98
[2017-05-09] MEDS ORDERED: NOVORP2 SQ (19:03)
--- NOTE | 2017-05-09 19:21 | PD ---
HPI Chief Complaint: Respiratory Symptoms Time Seen by Provider: 19:20 Travel History International Travel<30 days: No Contact w/Intl Traveler<30days: No Traveled to known affect area: No History of Present Illness HPI 51-year-old male with history of CAD, CABG in January [address] Whyte, diabetes , presents to emergency department today for evaluation of worsening shortness of breath. Patient states he has had shortness of breath over the last 2-3 weeks but significantly worse over the last 2-3 days. Patient states he cannot walk short distances without becoming significantly short of breath. He states that he repeat feels short of breath while speaking. He is unable to sleep flat at night because he becomes short of breath. Patient denies any chest pain or tightness. Following all post CABG instructions. He was to have an echocardiogram done yesterday but was informed once he arrived at the office that his appointment was canceled. Patient states he has been unable to get in touch with his neurourologist for these symptoms. Denies any fever or chills. No recent illnesses. He has no other symptoms to report. PFSH Past Medical History Hx Anticoagulant Therapy: Yes (ASPIRIN) Arthritis: Yes Asthma: No Autoimmune Disease: No Blood Disorders: No Anxiety: No Depression: No Heart Rhythm Problems: No Cancer: No Cardiovascular Problems: Yes (CABG 01/2017 STEMI) High Cholesterol: No Chemotherapy: No Chest Pain: No Congestive Heart Failure: No COPD: No Cerebrovascular Accident: No Diabetes: Yes Patient Takes Glucophage: Yes Diminished Hearing: No Endocrine: No Gastrointestinal Disorders: No GERD: Yes Glaucoma: No Genitourinary: No Headaches: Yes Hepatitis: No Hiatal Hernia: No Heparin Induced Thrombocytopen: No Hypertension: No Immune Disorder: No Implanted Vascular Access Dvce: No Kidney Stones: No Musculoskeletal: Yes Neurologic: Yes Psychiatric: No Reproductive: No Respiratory: No Migraines: Yes Myocardial Infarction: Yes Radiation Therapy: No Renal Failure: No Seizures: No Sickle Cell Disease: No Sleep Apnea: No Thyroid Disease: No Ulcer: No Tetanus Vaccination: < 5 Years Influenza Vaccination: No Past Surgical History AICD: No Appendectomy: No Arteriovenous Shunt: No Cholecystectomy: No Coronary Artery Bypass Graft: Yes (TRIPLE 02-06-17) Insulin Pump: No Joint Replacement: No Oral Surgery: Yes (LEFT ELBOW) Pacemaker: No Other Surgery: Yes (STENTS ) Social History Alcohol Use: Yes (OCCASSIONAL) Tobacco Use: No (1 PPD) Substance Use: No Allergies-Medications (Allergen,Severity, Reaction): Coded Allergies: Rondec (Verified Allergy, Severe, UNKNOWN, 05/09/17) *MDRO Multi-Drug Resistant Organism (Verified Adverse Reaction, Unknown, ) MRSA PCR Screen POSITIVE - 02/03/2017 Reported Meds & Prescriptions Reported Meds & Active Scripts Active Glucocom Test Strips (Blood Glucose Test Strips) 1 Marianne Marianne 1 Ea .ROUTE DIRECTED Lancets 1 Mis Mis 1 Ea .ROUTE DIRECTED Insulin Syringe/U-100/31G X 5/16" 1 ml 1 Mis Mis 1 Ea .ROUTE DIRECTED Glucocom Blood Glucose Mo W/Device (Device) 1 Kit Kit 1 Kit .ROUTE DIRECTED Coreg (Carvedilol) 3.125 Mg Tab 3.125 Mg PO Q12HR 90 Days Atorvastatin (Atorvastatin Calcium) 80 Mg Tab 80 Mg PO HS 90 Days [Aspirin Chew] 81 MG Chew 81 Mg PO DAILY 90 Days Reported Novolin R Inj (Insulin Human Regular) 1,000 Unit/10 Ml Vial 0 SQ DIRECTED Sliding Scale As Directed. Review of Systems Except as stated in HPI: all other systems reviewed are Neg Physical Exam Narrative GENERAL: Well-nourished male patient, sitting up in bed, in no acute distress SKIN: Focused skin assessment warm/dry. HEAD: Atraumatic. Normocephalic. EYES: Pupils equal and round. No scleral icterus. No injection or drainage. ENT: No nasal bleeding or discharge. Mucous membranes pink and moist. NECK: Trachea midline. No JVD. CARDIOVASCULAR: Varying rate and rhythm. RESPIRATORY: No accessory muscle use. Clear to auscultation. Breath sounds equal bilaterally. Vertical anterior chest incision site scar GASTROINTESTINAL: Abdomen soft, non-tender, nondistended. Hepatic and splenic margins not palpable. MUSCULOSKELETAL: No obvious deformities. No clubbing. No cyanosis. No edema. NEUROLOGICAL: Awake and alert. No obvious cranial nerve deficits. Motor grossly within normal limits. Normal speech. PSYCHIATRIC: Appropriate mood and affect; insight and judgment normal. Data Data Last Documented VS Vital Signs Date Time Temp Pulse Resp B/P Pulse Ox O2 Delivery O2 Flow Rate FiO2 05/09/17 20:30 97 18 124/90 96 Nasal Cannula 2 05/09/17 18:32 97.7 Orders Electrocardiogram (7/20/17 19:) Basic Metabolic Panel (Bmp) (05/09/17 19:) B-Type Natriuretic Peptide (05/09/17:) Ckmb (Isoenzyme) Profile (05/09/17:) Complete Blood Count With Diff (05/09/17 19:27) Magnesium (Mg) (05/09/17:) Prothrombin Time / Inr (Pt) (05/09/17) Act Partial Throm Time (Ptt) (05/09/17) Troponin I (05/09/17) Chest, Single Ap (05/09/17) Ecg Monitoring (05/09/17:) Bilateral Bp Monitoring (05/09/17) Iv Access Insert/Monitor (05/09/17) Oximetry (05/09/17:) Oxygen Administration (05/09/17) Sodium Chloride 0.9% Flush (Ns Flush) (05/09/17 19:30) Labs Laboratory Tests Test 05/09/17 19:40 White Blood Count 10.8 TH/MM3 Red Blood Count 4.45 MIL/MM3 Hemoglobin 12.2 GM/DL Hematocrit 35.8 % Mean Corpuscular Volume 80.3 FL Mean Corpuscular Hemoglobin 27.5 PG Mean Corpuscular Hemoglobin 34.3 % Concent Red Cell Distribution Width 15.5 % Platelet Count 220 TH/MM3 Mean Platelet Volume 8.3 FL Neutrophils (%) (Auto) 51.1 % Lymphocytes (%) (Auto) 37.2 % Monocytes (%) (Auto) 7.4 % Eosinophils (%) (Auto) 2.9 % Basophils (%) (Auto) 1.4 % Neutrophils # (Auto) 5.5 TH/MM3 Lymphocytes # (Auto) 4.0 TH/MM3 Monocytes # (Auto) 0.8 TH/MM3 Eosinophils # (Auto) 0.3 TH/MM3 Basophils # (Auto) 0.2 TH/MM3 CBC Comment DIFF FINAL Differential Comment Prothrombin Time 12.2 SEC Prothromb Time International 1.1 RATIO Ratio Activated Partial 25.3 SEC Thromboplast Time Sodium Level 138 MEQ/L Potassium Level 4.0 MEQ/L Chloride Level 104 MEQ/L Carbon Dioxide Level 26.0 MEQ/L Anion Gap 8 MEQ/L Blood Urea Nitrogen 16 MG/DL Creatinine 1.03 MG/DL Estimat Glomerular Filtration 76 ML/MIN Rate Random Glucose 214 MG/DL Calcium Level 9.2 MG/DL Magnesium Level 2.1 MG/DL Total Creatine Kinase 68 U/L Troponin I 0.09 NG/ML B-Type Natriuretic Peptide 627 PG/ML MDM Medical Decision Making Medical Screen Exam Complete: Yes Emergency Medical Condition: Yes Medical Record Reviewed: Yes Differential Diagnosis CHF versus ACS versus pneumonia versus electrolyte abnormality versus neoplasm Narrative Course 51-year-old male presents to emergency department for evaluation of shortness of breath. Patient appears without distress. His vital signs are stable. Heart rate is very normal sinus rhythms tachycardic rate in the 110s. Patient' s oxygen saturation does while he is resting. He is essentially liters nasal cannula. Last Impressions Chest X-Ray 05/09/171926 Signed Impressions: Service Date/Time: , May 09, 2017 19:35 - CONCLUSION: Hazy opacity at the bases may be related to overlying soft tissues versus mild pulmonary vascular congestion. The heart is enlarged. Jani Carmona MD Laboratory Tests Test 05/09/17 19:40 White Blood Count 10.8 TH/MM3 Red Blood Count 4.45 MIL/MM3 Hemoglobin 12.2 GM/DL Hematocrit 35.8 % Mean Corpuscular Volume 80.3 FL Mean Corpuscular Hemoglobin 27.5 PG Mean Corpuscular Hemoglobin 34.3 % Concent Red Cell Distribution Width 15.5 % Platelet Count 220 TH/MM3 Mean Platelet Volume 8.3 FL Neutrophils (%) (Auto) 51.1 % Lymphocytes (%) (Auto) 37.2 % Monocytes (%) (Auto) 7.4 % Eosinophils (%) (Auto) 2.9 % Basophils (%) (Auto) 1.4 % Neutrophils # (Auto) 5.5 TH/MM3 Lymphocytes # (Auto) 4.0 TH/MM3 Monocytes # (Auto) 0.8 TH/MM3 Eosinophils # (Auto) 0.3 TH/MM3 Basophils # (Auto) 0.2 TH/MM3 CBC Comment DIFF FINAL Differential Comment Prothrombin Time 12.2 SEC Prothromb Time International 1.1 RATIO Ratio Activated Partial 25.3 SEC Thromboplast Time Sodium Level 138 MEQ/L Potassium Level 4.0 MEQ/L Chloride Level 104 MEQ/L Carbon Dioxide Level 26.0 MEQ/L Anion Gap 8 MEQ/L Blood Urea Nitrogen 16 MG/DL Creatinine 1.03 MG/DL Estimat Glomerular Filtration 76 ML/MIN Rate Random Glucose 214 MG/DL Calcium Level 9.2 MG/DL Magnesium Level 2.1 MG/DL Total Creatine Kinase 68 U/L Troponin I 0.09 NG/ML B-Type Natriuretic Peptide 627 PG/ML I discussed the patient with my attending physician who agrees the patient should be admitted for further evaluation. I discussed the patient with Dr. Koo. Patient will be admitted to the service Diagnosis Primary Impression: Elevated troponin Additional Impressions: Congestive heart failure (CHF) Qualified Code: I50.9 - Acute on chronic congestive heart failure, unspecified congestive heart failure type Hypoxia Admitting Information Admitting Physician Requests: Admit Condition: Stable Jeniffer Minor May 09, 2017 19:21
[2017-05-09] MEDS ORDERED: SODIUM CHLORIDE 0.9% FLUSH 10 ML FLUSH IVF PRN (19:30)
[2017-05-09 19:57] LABS: AUTOMATED NEUTROPHIL # 5.5 TH/MM3 (1.8-7.7); BASOPHIL # 0.2 TH/MM3 (0-0.2); BASOPHIL % 1.4 % (0.0-2.0); EOSINOPHIL # 0.3 TH/MM3 (0-0.4); EOSINOPHIL % 2.9 % (0.0-4.0); HEMATOCRIT 35.8 % (39.0-51.0); HEMO FLAGS DIFF FINAL; LYMPH % 37.2 % (9.0-44.0); MEAN CELL VOLUME 80.3 FL (80.0-100.0); MEAN CORPUSCULAR HEMOGLOBIN 27.5 PG (27.0-34.0); MEAN CORPUSCULAR HGB CONC 34.3 % (32.0-36.0); MONO % 7.4 % (0.0-8.0); NEUT % 51.1 % (16.0-70.0); PLATELET COUNT 220 TH/MM3 (150-450); RED BLOOD COUNT 4.45 MIL/MM3 (4.50-5.90); RED CELL DISTRIBUTION WIDTH 15.5 % (11.6-17.2); WHITE BLOOD COUNT 10.8 TH/MM3 (4.0-11.0)
--- NOTE | 2017-05-09 20:01 | RADRPT ---
EXAM DATE/TIME: 05/09/2017 19:35 [facility] COMPARISON: CHEST SINGLE AP, February 09, 2017, 6:20. INDICATIONS : Patient has been short of breath for two weeks. MEDICAL HISTORY : Diabetes mellitus type II. SURGICAL HISTORY : CABG. ENCOUNTER: Initial ACUITY: 2 weeks PAIN SCORE: 0/10 LOCATION: Bilateral chest FINDINGS: There is cardiomegaly and sternotomy wires are present. Hazy density at the bases likely related to o verlying soft tissues the mild pulmonary vascular congestion and have this appearance. CONCLUSION: Hazy opacity at the bases may be related to overlying soft tissues versus mild pulmonary vascular con gestion. The heart is enlarged. Jani Carmona MD on May 09, 2017 at 19:59 Board Certified Radiologist. This report was verified electronically.
[2017-05-09 20:07] LABS: MAGNESIUM 2.1 MG/DL (1.5-2.5)
[2017-05-09 20:20] VITALS: O2SAT 88
[2017-05-09 20:30] VITALS: BP 124/90; PULSE 97; RESP 18; O2SAT 96
[2017-05-09 20:34] LABS: APTT (PATIENT) 25.3 SEC (24.3-30.1); INTERNATIONAL NORMALIZED RATIO 1.1 RATIO; PROTHROMBIN TIME - PATIENT 12.2 SEC (9.8-11.6)
[2017-05-09] MEDS ORDERED: MAGNESIUM HYDROXIDE SUSP 30 ML CUP PO PRN (21:00)
[2017-05-09] MEDS ORDERED: SENNOSIDES 8.6 MG TAB PO PRN (21:00)
[2017-05-09] MEDS ORDERED: ACETAMINOPHEN/HYDROcodone 325 MG/5 MG TAB PO PRN (21:00)
[2017-05-09] MEDS ORDERED: BISACODYL 10 MG SUPP RECTAL PRN (21:00)
[2017-05-09] MEDS ORDERED: FUROSEMIDE 40 MG/4 ML VIAL IV PUSH ONE (21:00)
[2017-05-09] MEDS: DOCUSATE SODIUM 50 MG/SENNA 8.6 MG TAB PO SCH (21:00)
[2017-05-09] MEDS ORDERED: ONDANSETRON HCL 4 MG/2 ML VIAL IVP PRN (21:00)
[2017-05-09] MEDS ORDERED: LACTULOSE SYRUP 20 GM/30 ML CUP PO PRN (21:00)
[2017-05-09] MEDS ORDERED: ACETAMINOPHEN 325 MG TAB PO PRN (21:00)
[2017-05-09] MEDS ORDERED: MORPHINE SULFATE 4 MG/ML INJ IV PRN (21:00)
[2017-05-09] MEDS ORDERED: SODIUM CHLORIDE 0.9% FLUSH 10 ML FLUSH IV FLUSH PRN (21:00)
--- NOTE | 2017-05-09 21:10 | HHI.HP ---
HPI Service [facility] Primary Care Physician Non-Staff Admission Diagnosis dyspnea; elevated troponin; hypoxia Diagnoses: (1) CHF (congestive heart failure) Diagnosis: Principal (2) Hypoxia Diagnosis: Principal (3) Elevated troponin Diagnosis: Principal (4) Tobacco abuse Diagnosis: Principal (5) S/P CABG x 3 Diagnosis: Principal Travel History International Travel<30 Days: No Contact w/Intl Traveler <30 Da: No Traveled to Known Affected Are: No History of Present Illness This is a 51-year-old male with a PMH of HTN, CAD s/p CABG x3 on 02/07/[address] Quintero, DM, Hyperlipidemia and Tobacco Abuse who presented to the ER w/ complaints of SOB x2 wks. States symptoms have been ongoing, however has gotten progressively more severe over last 3 days, now w/ dyspnea upon minimal exertion or speech. Denies fever, chills, cough or chest pain. Following w/ Dr. Goncalves as outpatient, was scheduled to undergo outpatient Echo yesterday, however states appointment was cancelled by office, unsure why. On arrival, BP 124/90, HR 102, O2 sat 100% on RA, Afebrile. While in the ER, episode of hypoxia with O2 sat 88% on RA, currently O2 sat 94% on 2L NC. CBC essentially unremarkable. Chemistry unremarkable. BS 214. Troponin 0.09. BNP 627. INR 1.1. CXR with hazy opacity at bases, possibly overlying soft tissue versus mild pulmonary vascular congestion. Review of Systems Except as stated in HPI: all other systems reviewed are Neg ROS: 14 point review of systems otherwise negative. Past Family Social History Past Medical History PMH: HTN, CAD s/p CABG x3 on 02/07/[address] Quintero, DM, Hyperlipidemia and Tobacco Abuse Past Surgical History PAST SURGICAL HISTORY: CABG 02/07/17, Left Elbow Surgery, Cardiac Stent 2007. Allergies: Coded Allergies: Rondec (Verified Allergy, Severe, UNKNOWN, 05/09/17) *MDRO Multi-Drug Resistant Organism (Verified Adverse Reaction, Unknown, ) MRSA PCR Screen POSITIVE - 02/03/2017 Family History PAST FAMILY HISTORY: Reviewed. No h/o DM or CAD Social History PAST SOCIAL HISTORY: Occasional alcohol. Smokes 1ppd. Negative for drugs. Physical Exam Vital Signs Vital Signs Date Time Temp Pulse Resp B/P Pulse Ox O2 Delivery O2 Flow Rate FiO2 05/09/17 20:30 97 18 124/90 96 Nasal Cannula 2 05/09/17 20:23 95 Nasal Cannula 2 05/09/17 20:20 88 Room Air 05/09/17 19:00 101 16 132/69 98 Room Air 05/09/17 18:56 99 18 99 Room Air 05/09/17 18:32 97.7 102 24 124/90 100 Room Air Physical Exam PE: GENERAL: Middle-aged white male in no acute distress. at bedside. O2 sat 90% on 2L NC. HEENT: PERRLA, EOMI. No scleral icterus or conjunctival pallor. No lid lag or facial droop. CARDIOVASCULAR: Regular rate and rhythm. No obvious murmurs to auscultation. No chest tenderness to palpation. Surgical scar, well healed. RESPIRATORY: No obvious rhonchi or wheezing. Clear to auscultation. Breath sounds equal bilaterally. GASTROINTESTINAL: Abdomen soft, non-tender, nondistended. BS normal. MUSCULOSKELETAL: Extremities without clubbing, cyanosis, or edema. No obvious deformities. NEUROLOGICAL: Awake, alert and oriented x4. No focal neurologic deficits. Moving both upper and lower extremities spontaneously. Laboratory Laboratory Tests Test 05/09/17 19:40 White Blood Count 10.8 Red Blood Count 4.45 Hemoglobin 12.2 Hematocrit 35.8 Mean Corpuscular Volume 80.3 Mean Corpuscular Hemoglobin 27.5 Mean Corpuscular Hemoglobin 34.3 Concent Red Cell Distribution Width 15.5 Platelet Count 220 Mean Platelet Volume 8.3 Neutrophils (%) (Auto) 51.1 Lymphocytes (%) (Auto) 37.2 Monocytes (%) (Auto) 7.4 Eosinophils (%) (Auto) 2.9 Basophils (%) (Auto) 1.4 Neutrophils # (Auto) 5.5 Lymphocytes # (Auto) 4.0 Monocytes # (Auto) 0.8 Eosinophils # (Auto) 0.3 Basophils # (Auto) 0.2 CBC Comment DIFF FINAL Differential Comment Prothrombin Time 12.2 Prothromb Time International 1.1 Ratio Activated Partial 25.3 Thromboplast Time Sodium Level 138 Potassium Level 4.0 Chloride Level 104 Carbon Dioxide Level 26.0 Anion Gap 8 Blood Urea Nitrogen 16 Creatinine 1.03 Estimat Glomerular Filtration 76 Rate Random Glucose 214 Calcium Level 9.2 Magnesium Level 2.1 Total Creatine Kinase 68 Troponin I 0.09 B-Type Natriuretic Peptide 627 Result Diagram: 05/09/17193905/09/171939 Assessment and Plan Problem List: (1) CHF (congestive heart failure) ICD Code: I50.9 Status: Acute (2) Hypoxia ICD Code: R09.02 Status: Acute (3) Elevated troponin ICD Code: R74.8 Status: Acute (4) S/P CABG x 3 ICD Code: Z95.1 Status: Acute (5) Tobacco abuse ICD Code: Z72.0 Status: Acute Assessment and Plan A/P: 1. CHF: Acute on Chronic. Systolic. BNP 627. Echo 02/02/17 w/ EF 20-25% prior to CABG, scheduled for repeat Echo yesterday, however called by office and told appt canceled. Obtain repeat Echo. CXR w/ mild pulmonary vascular congestion, images reviewed by me. Lasix 40mg IV x1 now and bid. Monitor I/O. Follows w/ Dr. Goncalves, will consult for further recommendations. 2. Hypoxia: C/o SOB, progressively worse for 2wks, now having dyspnea w/ minimal exertion, O2 sat 100% on arrival, however O2 sat 88% on RA while in ER, currently O2 sat 94% on 2L NC. CXR w/ no obvious infiltrate. Diuresis as above. DuoNeb prn. 3. Elevated Trop: Trop 0.09, EKG w/ no acute ischemia. Likely secondary to acute CHF, no c/o chest pain. Will check cardiac enzymes for trend. Resume home ASA, Statin, Coreg 4. S/p CABG x3: Recent admit w/ 3-vessel disease s/p CABG 02/07/[address] Quintero. Resume home medications. 5. Tobacco Abuse: Pt counselled. Ativan prn if needed. No NicoDerm to avoid vasoconstriction. 6. DVT Prophylaxis: Heparin 7. Social work for d/c planning as needed. 8. Case discussed w/ ER physician at length. Physician Certification 2 Midnight Certification Type: Admission for Inpatient Services Order for Inpatient Services The services are ordered in accordance with Medicare regulations or non- Medicare payer requirements, as applicable. In the case of services not specified as inpatient-only, they are appropriately provided as inpatient services in accordance with the 2-midnight benchmark. Estimated LOS (days): 2 days is the estimated time the patient will need to remain in the hospital, assuming treatment plan goals are met and no additional complications. Post-Hospital Plan: Not yet determined Rina Koo MD May 09, 2017 21:10
[2017-05-09] MEDS ORDERED: RESP: ALBUTEROL 2.5 MG/IPRATROPIUM 0.5 MG NEB (PRN) NEB (21:15)
[2017-05-09 22:44] VITALS: BP 130/88; PULSE 98; RESP 18; O2SAT 94
[2017-05-09] MEDS: CARVEDILOL 3.125 MG TAB PO SCH (22:46)
[2017-05-09] MEDS: SODIUM CHLORIDE 0.9% FLUSH 10 ML FLUSH IV FLUSH SCH (22:46)
[2017-05-09] MEDS: ATORVASTATIN 80 MG TAB PO SCH (22:46)
[2017-05-10] VITALS (8 sets, daily range): BP systolic 96–126; BP diastolic 69–82; PULSE 74–88; RESP 14–33; TEMP 98.2–98.6; O2SAT 91–99
[2017-05-10 05:56] LABS: AUTOMATED NEUTROPHIL # 7.7 TH/MM3 (1.8-7.7); BASOPHIL # 0.1 TH/MM3 (0-0.2); BASOPHIL % 0.8 % (0.0-2.0); EOSINOPHIL # 0.3 TH/MM3 (0-0.4); EOSINOPHIL % 2.6 % (0.0-4.0); HEMATOCRIT 37.1 % (39.0-51.0); HEMO FLAGS DIFF FINAL; LYMPH % 20.3 % (9.0-44.0); LYMPHOCYTE # 2.3 TH/MM3 (1.0-4.8); MEAN CELL VOLUME 80.2 FL (80.0-100.0); MEAN CORPUSCULAR HGB CONC 33.6 % (32.0-36.0); MONO % 7.5 % (0.0-8.0); NEUT % 68.8 % (16.0-70.0); PLATELET COUNT 227 TH/MM3 (150-450); RED BLOOD COUNT 4.62 MIL/MM3 (4.50-5.90); RED CELL DISTRIBUTION WIDTH 15.2 % (11.6-17.2); WHITE BLOOD COUNT 11.1 TH/MM3 (4.0-11.0)
[2017-05-10 06:17] LABS: ALT (GPT) 22 U/L (12-78); ANION GAP 9 MEQ/L (5-15); AST (GOT) 8 U/L (15-37); BICARBONATE 25.9 MEQ/L (21.0-32.0); BLOOD UREA NITROGEN 15 MG/DL (7-18); CHLORIDE 103 MEQ/L (98-107); GLOMERULAR FILTRATION RATE 71 ML/MIN (>89); POTASSIUM 3.8 MEQ/L (3.5-5.1); SODIUM (NA) 138 MEQ/L (136-145)
[2017-05-10 06:22] LABS: ALKALINE PHOSPHATASE 124 U/L (45-117); TOTAL BILIRUBIN ADULT 1.2 MG/DL (0.2-1.0)
--- NOTE | 2017-05-10 08:47 | EKG ---
Date Performed: 05/09/2017 Time Performed: 20:35:19 PTAGE: 51 years EKG: Sinus rhythm WITH OCCASIONAL VENTRICULAR PREMATURE COMPLEXES POSSIBLE LEFT ATRIAL ENLARGEMENT MARKED LEFT AXIS DE VIATION ANTEROSEPTAL MYOCARDIAL INFARCTION ABNORMAL ECG PREVIOUS TRACING : 05/09/2017 19.36 Compared to prior tracing no significant change DOCTOR: Carlos Bedolla Interpretating Date/Time 05/10/2017 08:45:55
[2017-05-10] MEDS ORDERED: FUROSEMIDE 40 MG/4 ML VIAL IV PUSH SCH (09:00)
[2017-05-10] MEDS: SODIUM CHLORIDE 0.9% FLUSH 10 ML FLUSH IV FLUSH SCH ×2 (09:00→20:39)
[2017-05-10] MEDS: CARVEDILOL 3.125 MG TAB PO SCH ×2 (09:18→20:39)
[2017-05-10] MEDS: LISINOPRIL 5 MG TAB PO SCH (09:18)
[2017-05-10] MEDS: DOCUSATE SODIUM 50 MG/SENNA 8.6 MG TAB PO SCH ×2 (09:18→20:39)
[2017-05-10] MEDS: POTASSIUM CHLORIDE 20 MEQ CONTROLLED RELEASE TAB PO SCH ×2 (09:18→20:39)
[2017-05-10] MEDS: HEPARIN SODIUM - SQ 10,000 UNITS/ML VIAL SQ SCH ×2 (09:19→20:38)
[2017-05-10] MEDS: FUROSEMIDE 40 MG TAB PO SCH ×2 (09:19→17:17)
[2017-05-10] MEDS: ASPIRIN 81 MG CHEW TAB PO SCH (09:19)
--- NOTE | 2017-05-10 10:26 | MB ---
cc: DARRYL SIN MD DATE OF CONSULTATION 05/10/2017 REASON FOR CONSULTATION CHF HISTORY OF PRESENT ILLNESS Mr. Pan is a 51-year-old who does have a history of an ischemic cardiomyopathy. He apparently presented with ST elevation [place] in January and underwent a CABG x3 with a GUALLPA to LAD, SVG to OM and SVG to RCA. His EF at that time was 20-25%. The patient reports he was discharged home on 10 days of Lasix and has been off the Lasix since the spring. He has done well until recently. He has had progressive shortness of breath over the last month, but particularly so over the last three days thus precipitating his admission. He has not had any followup since. He has no other cardiac complaints and specifically denies any chest pain. PAST MEDICAL AND SURGICAL HISTORY Significant for: 1. Hypertension 2. Hyperlipidemia 3. Diabetes 4. Tobacco abuse REVIEW OF SYSTEMS Except as mentioned in the HPI all 12 systems are negative. FAMILY HISTORY Negative for CAD. SOCIAL HISTORY The patient does continue to smoke one pack per day. MEDICATIONS Outpatient medications include Coreg. PHYSICAL EXAM VITAL SIGNS: 87, 16, 126/82. GENERAL: He is a well-appearing man who is in no apparent distress. NECK: His neck is free from JVD. LUNGS: The lungs are bilaterally clear to auscultation. CARDIOVASCULAR: He has a normal S1 and S2. I did not appreciate any murmurs, rubs or gallops. ABDOMEN: The abdomen is soft. EXTREMITIES: The extremities are free from edema. LAB VALUES Show a glucose of 243, serial troponin's are 0.09/0.09/0.09 with BNP is 67/671. IMPRESSION Systolic heart failure - This is likely an acute on chronic presentation. 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 He has a known history of an ischemic cardiomyopathy with an EF of 20%. He did subsequently have CABG and has not had a followup echo. This has been requested. I did discuss reasonable fluid and sodium caps for this gentleman. He appears reasonably well compensated. Beta-blockade is indicated and will be started as well as probable need for deirdre inhibitor. Smoking - The patient was counseled to quit. Diabetes - This will be managed by the primary team. Ischemic cardiomyopathy - Echocardiogram is pending. The patient is currently quite noncompliant. He will have to establish compliance should he need an ICD. As well, this is not an emergent procedure. Should he need an ICD, this is reasonable to be considered as an outpatient. Debi Castillo/DJL /9:55 AM /10:19 AM
--- NOTE | 2017-05-10 11:33 | HHI.PR ---
Subjective Remarks Patient seen And examined this morning. Vitals are stable, and he is afebrile. Saturating 98% on 2 L. Patient denies CP or SOB. Ambulating without issues. Wants to go home. States he was not on lasix previously, but understands he does have significant heart failure. Did not know he was supposed to limit salt and fluid intake. Feels significantly better. Objective Vital Signs Date Time Temp Pulse Resp B/P Pulse Ox O2 Delivery O2 Flow Rate FiO2 05/10/17 04:00 87 16 126/82 98 Nasal Cannula 2 05/10/17 00:00 81 16 123/81 95 Nasal Cannula 2 05/09/17 22:44 98 18 130/88 94 Nasal Cannula 2 05/09/17 20:30 97 18 124/90 96 Nasal Cannula 2 05/09/17 20:23 95 Nasal Cannula 2 05/09/17 20:20 88 Room Air 05/09/17 19:00 101 16 132/69 98 Room Air 05/09/17 18:56 99 18 99 Room Air 05/09/17 18:32 97.7 102 24 124/90 100 Room Air I/O 05/09/17 05/09/17 05/09/17 05/10/17 05/10/17 05/10/17 07:00 15:00 23:00 07:00 15:00 23:00 Output Total 3500 ml Balance -3500 ml Output Urine Total 3500 ml Result Diagram: 05/10/17 0540 05/10/17 0540 Imaging Last Impressions Chest X-Ray 05/09/171926 Signed Impressions: Service Date/Time: April 19:35 - CONCLUSION: Hazy opacity at the bases may be related to overlying soft tissues versus mild pulmonary vascular congestion. The heart is enlarged. Jani Carmona MD Objective Remarks GENERAL: well appearing, nad SKIN: Warm and dry. HEAD: Normocephalic. EYES: No scleral icterus. No injection or drainage. NECK: Supple, trachea midline. No JVD or lymphadenopathy. CARDIOVASCULAR: Regular rate and rhythm without murmurs, gallops, or rubs. RESPIRATORY: Breath sounds equal bilaterally. No accessory muscle use. GASTROINTESTINAL: Abdomen soft, non-tender, nondistended. MUSCULOSKELETAL: No cyanosis, or edema. BACK: Nontender without obvious deformity. No CVA tenderness. A/P Problem List: (1) Congestive heart failure (CHF) ICD Code: I50.9 (2) Tobacco abuse ICD Code: Z72.0 (3) Hypoxia ICD Code: R09.02 (4) SOB (shortness of breath) ICD Code: R06.02 (5) Coronary artery disease ICD Code: I25.10 Assessment and Plan 51-year-old male patient with a medical history significant for hypertension, coronary artery disease status post CABG on January [address] Ramirez presented to the ER for shortness of breath 2 weeks. 1. CHF: Acute on Chronic. Systolic. BNP 627 on admission, repeat 671. Chest x-ray with mild pulmonary vascular congestion. - Echo 02/02/17 w/ EF 20-25% prior to CABG - Repeat echo ordered and pending - Cards consulted, Dr. Tavarez (known to Dr. Goncalves): Beta yadira and KEISHA inhibitor initiated. May need ICD as an outpatient. Continue medical management: Lasix 40 mg by mouth twice a day, potassium 20 me every twice a day , lisinopril 2.5 mg daily - Fluid restrict, strict I's and O's 2. Hypoxia: C/o SOB, progressively worse for 2wks, O2 sat 88% on RA while in ER, but has been stable since. Likely related to heart failure. CXR w/ no obvious infiltrate. Diuresis as above. DuoNeb prn. 3. Elevated Trop: Trop 0.09 x3, EKG w/ no acute ischemia. Likely secondary to acute CHF, no c/o chest pain. Continue home ASA, Statin, Coreg 4. S/p CABG x3: Recent admit w/ 3-vessel disease s/p CABG 02/07/[address] Quintero. Resume home medications. 5. Tobacco Abuse: Pt counselled. Ativan prn if needed. No NicoDerm to avoid vasoconstriction. 6. DVT Prophylaxis: Heparin Discharge Planning DC pending cardiac clearance. Echo performed report pending. Likely d/c tomorrow. Problem Qualifiers (1) Congestive heart failure (CHF): Qualified Code: I50.9 - Acute on chronic congestive heart failure, unspecified congestive heart failure type Saniya Yoo MD May 10, 2017 11:33
--- NOTE | 2017-05-10 12:02 | EKG ---
Date Performed: 05/09/2017 Time Performed: 19:36:15 PTAGE: 51 years EKG: Sinus rhythm WITH OCCASIONAL VENTRICULAR PREMATURE COMPLEXES POSSIBLE LEFT ATRIAL ENLARGEMENT ANTEROSEPTAL MYOCAR DIAL INFARCTION ABNORMAL ECG PREVIOUS TRACING : 02/07/2017 05.11 Compared to prior tracing no significant change DOCTOR: Carlos Bedolla Interpretating Date/Time 05/10/2017 12:00:48
--- NOTE | 2017-05-10 16:25 | ECHRPT ---
Indication: Cardiomyopathy, unspecified CONCLUSIONS Mildly dilated left ventricle. Wall thickness is normal. The left ventricular systolic function is severely reduced with an estimated ejection fraction in th e range of 25-30%. There is apical hypokinesis with distinct regional wall motion abnormalities. The left atrial size is mildly dilated. Moderate mitral valve regurgitation. There is mild tricuspid valve regurgitation. There is estimated mild pulmonary hypertension present ( 49 mmHg). BP: 126 / 82 HR: 87 Rhythm: Sinus MEASUREMENTS (Male / Female) Normal Values Technical Quality:Good 2D ECHO LV Diastolic Diameter PLAX 6.2 cm 4.2 - 5.9 / 3.9 - 5.3 cm LV Systolic Diameter PLAX 5.6 cm IVS Diastolic Thickness 1.1 cm 0.6 - 1.0 / 0.6 - 0.9 cm LVPW Diastolic Thickness 0.8 cm 0.6 - 1.0 / 0.6 - 0.9 cm LV Relative Wall Thickness 0.3 RV Internal Dim ED PLAX 2.2 cm LA Systolic Diameter LX 4.2 cm 3.0 - 4.0 / 2.7 - 3.8 cm M-MODE Aortic Root Diameter MM 3.1 cm AV Cusp Separation MM 2.0 cm DOPPLER MR Peak Velocity 451.0 cm/s MR Peak Gradient 81.4 mmHg TR Peak Velocity 332.0 cm/s TR Peak Gradient 44.1 mmHg FINDINGS LEFT VENTRICLE Mildly dilated left ventricle. Wall thickness is normal. The left ventricular systolic function is severely reduced with an estimated ejection fraction in th e range of 25-30%. There is apical hypokinesis with distinct regional wall motion abnormalities. RIGHT VENTRICLE Normal right ventricular size and systolic function. LEFT ATRIUM The left atrial size is mildly dilated. RIGHT ATRIUM The right atrial size is normal. ATRIAL SEPTUM Normal atrial septal thickness without atrial level shunting by limited color doppler interrogation. AORTA The aortic root and proximal ascending aorta are normal in size on limited imaging. MITRAL VALVE Moderate mitral valve regurgitation. AORTIC VALVE Trileaflet aortic valve. No aortic valve stenosis or regurgitation. TRICUSPID VALVE There is mild tricuspid valve regurgitation. There is estimated mild pulmonary hypertension present ( 49 mmHg). PULMONARY VALVE The pulmonary valve is not well visualized. VESSELS The inferior vena cava is normal in size. PERICARDIUM No pericardial effusion. Marco Fritz MD, FACC, FSCAI (Electronically Signed) Final Date:10 May 2017 16:24
[2017-05-10] MEDS: ATORVASTATIN 80 MG TAB PO SCH (20:39)
[2017-05-11] VITALS (10 sets, daily range): BP systolic 86–110; BP diastolic 54–70; PULSE 66–84; RESP 14–18; TEMP 97.9–98.2; O2SAT 95–98
[2017-05-11] MEDS ORDERED: SODIUM CHLORID 0.9% 500 ML INJ 500 ML IV ONE (01:30)
[2017-05-11 05:54] LABS: BICARBONATE 27.5 MEQ/L (21.0-32.0); POTASSIUM 3.7 MEQ/L (3.5-5.1)
[2017-05-11] MEDS: CARVEDILOL 3.125 MG TAB PO SCH (08:41)
[2017-05-11] MEDS: FUROSEMIDE 40 MG TAB PO SCH (08:41)
[2017-05-11] MEDS: LISINOPRIL 5 MG TAB PO SCH (08:41)
[2017-05-11] MEDS: DOCUSATE SODIUM 50 MG/SENNA 8.6 MG TAB PO SCH (08:42)
[2017-05-11] MEDS: ASPIRIN 81 MG CHEW TAB PO SCH (08:42)
[2017-05-11] MEDS: HEPARIN SODIUM - SQ 10,000 UNITS/ML VIAL SQ SCH (08:43)
[2017-05-11] MEDS: POTASSIUM CHLORIDE 20 MEQ CONTROLLED RELEASE TAB PO SCH (08:43)
[2017-05-11] MEDS: SODIUM CHLORIDE 0.9% FLUSH 10 ML FLUSH IV FLUSH SCH (08:43)
--- NOTE | 2017-05-11 09:09 | HHI.PR ---
Subjective Remarks Patient seen And examined this morning. Vitals are stable, and he is afebrile. Feels significantly better. Denies SOB or CP. Requesting to go home. Needs refills of all of his medication. Objective Vital Signs Date Time Temp Pulse Resp B/P Pulse Ox O2 Delivery O2 Flow Rate FiO2 05/11/17 07:33 78 05/11/17 06:37 72 05/11/17 06:14 98.2 84 14 102/65 95 05/11/17 05:00 66 05/11/17 04:00 70 05/11/17 03:42 75 14 100/65 95 05/11/17 03:00 72 05/11/17 02:10 97.9 79 14 103/69 96 05/11/17 00:00 97.9 69 14 86/54 98 05/10/17 23:00 84 14 96/69 91 05/10/17 21:00 98.6 88 33 119/80 97 05/10/17 15:00 98.3 74 22 107/70 97 05/10/17 13:19 79 05/10/17 13:00 79 05/10/17 12:00 98.2 84 26 111/72 99 I/O 05/10/17 05/10/17 05/10/17 05/11/17 05/11/17 05/11/17 06:59 14:59 22:59 06:59 14:59 22:59 Intake Total 560 ml 1160 ml 500 ml 0 ml Output Total 3500 ml 1750 ml 1400 ml Balance -3500 ml -1190 ml -240 ml 500 ml 0 ml Intake Oral 560 ml 1160 ml IV Total 500 ml 0 ml Output Urine Total 3500 ml 1750 ml 1400 ml # Voids 2 Result Diagram: 05/10/17 0540 05/11/17 0438 Imaging Last Impressions Chest X-Ray 05/09/171926 Signed Impressions: Service Date/Time: April 19:35 - CONCLUSION: Hazy opacity at the bases may be related to overlying soft tissues versus mild pulmonary vascular congestion. The heart is enlarged. Jani Carmona MD Objective Remarks GENERAL: well appearing, nad SKIN: Warm and dry. HEAD: Normocephalic. EYES: No scleral icterus. No injection or drainage. NECK: Supple, trachea midline. No JVD or lymphadenopathy. CARDIOVASCULAR: Regular rate and rhythm without murmurs, gallops, or rubs. RESPIRATORY: Breath sounds equal bilaterally. No accessory muscle use. GASTROINTESTINAL: Abdomen soft, non-tender, nondistended. MUSCULOSKELETAL: No cyanosis, or edema. BACK: Nontender without obvious deformity. No CVA tenderness. A/P Problem List: (1) Congestive heart failure (CHF) ICD Code: I50.9 (2) Tobacco abuse ICD Code: Z72.0 (3) Hypoxia ICD Code: R09.02 (4) SOB (shortness of breath) ICD Code: R06.02 (5) Coronary artery disease ICD Code: I25.10 Assessment and Plan 51-year-old male patient with a medical history significant for hypertension, coronary artery disease status post CABG on January [address] Ramirez presented to the ER for shortness of breath 2 weeks. 1. CHF: Acute on Chronic. Systolic. BNP 627 on admission, repeat 671. Chest x-ray with mild pulmonary vascular congestion. - Echo 02/02/17 w/ EF 20-25% prior to CABG - Repeat ECHO 05/10/17: Mildly dilated left ventricle, reduced systolic function with estimated ejection fraction of 25-30%. Apical hypokinesis, moderate mitral regurg, mitral tricuspid regurg. - Cards consulted, Dr. Tavarez (known to Dr. Goncalves): Beta yadira and KEISHA inhibitor initiated. May need ICD as an outpatient. Continue medical management: Lasix 40 mg by mouth twice a day (d/c home 40 mg daily x 10 days), potassium 20 meq BID (d/c home on KCl 20 meq daily x 10 days), lisinopril 2.5 mg daily - Fluid restrict, strict I's and O's - Diuresing well 2. Hypoxia: C/o SOB, progressively worse for 2wks, O2 sat 88% on RA while in ER, but has been stable since. Likely related to heart failure. CXR w/ no obvious infiltrate. Diuresis as above. DuoNeb prn. 3. Elevated Trop: Trop 0.09 x3, EKG w/ no acute ischemia. Likely secondary to acute CHF, no c/o chest pain. Continue home ASA, Statin, Coreg 4. S/p CABG x3: Recent admit w/ 3-vessel disease s/p CABG 02/07/[address] Quintero. Resume home medications. 5. Tobacco Abuse: Pt counselled. Ativan prn if needed. No NicoDerm to avoid vasoconstriction. 6. DVT Prophylaxis: Heparin Discharge Planning D/C home today. All meds refilled F/U with [facility] [employer] [facility] and PCP Problem Qualifiers (1) Congestive heart failure (CHF): Qualified Code: I50.9 - Acute on chronic congestive heart failure, unspecified congestive heart failure type Saniya Yoo MD May 11, 2017 09:09
[2017-05-11] MEDS ORDERED: LISI-519 PO (09:11)
--- NOTE | 2017-05-11 09:11 | HHI.DCPOC ---
Discharge Care Plan Diagnosis: (1) Congestive heart failure (CHF) (2) SOB (shortness of breath) Goals to Promote Your Health * To prevent worsening of your condition and complications * To maintain your health at the optimal level Directions to Meet Your Goals Take your medications as prescribed Follow your dietary instruction Follow activity as directed Keep your appointments as scheduled Take your immunizations and boosters as scheduled If your symptoms worsen call your PCP, if no PCP go to Urgent Care Center or Emergency Room Smoking is Dangerous to Your Health. Avoid second hand smoke Call the 24-hour hour crisis hotline for domestic abuse at Saniya Yoo MD May 11, 2017 09:11
[2017-05-11] MEDS ORDERED: METF500T PO (10:04)
[2017-05-11] MEDS ORDERED: CARV3.125 PO (10:05)
[2017-05-11] MEDS ORDERED: ATOR1TAB18 PO (10:05)
[2017-05-11] MEDS ORDERED: FURO40TA PO (10:09)
[2017-05-11] MEDS ORDERED: POTA20TA5 PO (10:12)
--- NOTE | 2017-05-11 10:49 | PD.CARD.PN ---
Subjective Subjective Remarks Pt without complaints Objective Medications Current Medications Medications (Trade) Dose Ordered Sig/Leif Route Start Time Stop Time Status Last Admin (NS Flush) 2 ml UNSCH PRN IV FLUSH 05/09/17 21:00 (NS Flush) 2 ml BID IV FLUSH 05/09/17 21:00 05/11/17 08:43 (Zofran Inj) 4 mg Q6H PRN IVP 05/09/17 21:00 (Tylenol) 650 mg Q6H PRN PO 05/09/17 21:00 (Rangely 5-325 Mg) 1 tab Q4H PRN PO 05/09/17 21:00 (Morphine Inj) 4 mg Q3H PRN IV 05/09/17 21:00 (Reanna-Colace) 1 tab BID PO 05/09/17 21:00 05/11/17 08:42 (Milk Of Magnesia Liq) 30 ml Q12H PRN PO 05/09/17 21:00 (Senokot) 17.2 mg Q12H PRN PO 05/09/17 21:00 (Dulcolax Supp) 10 mg DAILY PRN RECTAL 05/09/17 21:00 (Lactulose Liq) 30 ml DAILY PRN PO 05/09/17 21:00 (Heparin Inj) 5,000 units Q12HR SQ 05/10/17 09:00 05/11/17 08:43 (Lipitor) 80 mg HS PO 05/09/17 21:00 05/10/17 20:39 (Coreg) 3.125 mg Q12HR PO 05/09/17 21:00 05/11/17 08:41 (Aspirin Chew) 81 mg DAILY PO 05/10/17 09:00 05/11/17 08:42 (Lasix) 40 mg BID@09,18 PO 05/10/17 09:00 05/11/17 08:41 (KCl) 20 meq Q12HR PO 05/10/17 09:00 05/11/17 08:43 (Prinivil) 2.5 mg DAILY PO 05/10/17 09:00 05/11/17 08:41 Vital Signs / I&O Vital Signs Date Time Temp Pulse Resp B/P Pulse Ox O2 Delivery O2 Flow Rate FiO2 05/11/17 09:35 98.1 80 18 110/70 95 05/11/17 07:33 78 05/11/17 06:37 72 05/11/17 06:14 98.2 84 14 102/65 95 05/11/17 05:00 66 05/11/17 04:00 70 05/11/17 03:42 75 14 100/65 95 05/11/17 03:00 72 05/11/17 02:10 97.9 79 14 103/69 96 05/11/17 00:00 97.9 69 14 86/54 98 05/10/17 23:00 84 14 96/69 91 05/10/17 21:00 98.6 88 33 119/80 97 05/10/17 15:00 98.3 74 22 107/70 97 05/10/17 13:19 79 05/10/17 13:00 79 05/10/17 12:00 98.2 84 26 111/72 99 I/O 05/10/17 05/10/17 05/10/17 05/11/17 05/11/17 05/11/17 07:00 15:00 23:00 07:00 15:00 23:00 Intake Total 560 ml 1160 ml 500 ml 0 ml Output Total 3500 ml 1750 ml 1400 ml Balance -3500 ml -1190 ml -240 ml 500 ml 0 ml Intake Oral 560 ml 1160 ml IV Total 500 ml 0 ml Output Urine Total 3500 ml 1750 ml 1400 ml # Voids 2 Physical Exam GENERAL: Well developed, well nourished. No acute distress. HEENT: Jugular venous pressure is normal. CHEST: Lungs clear to auscultation bilaterally. Unlabored respiratory effort. CARDIAC: Regular rate and rhythm without S3, S4, or murmur. ABDOMEN: Soft, nontender, no hepatosplenomegaly. Bowel sounds present. EXTREMITIES: No clubbing, cyanosis, or edema. Laboratory Laboratory Tests Test 05/11/17 04:38 Sodium Level 138 MEQ/L Potassium Level 3.7 MEQ/L Chloride Level 102 MEQ/L Carbon Dioxide Level 27.5 MEQ/L Anion Gap 9 MEQ/L Blood Urea Nitrogen 15 MG/DL Creatinine 1.04 MG/DL Estimat Glomerular Filtration 76 ML/MIN Rate Random Glucose 207 MG/DL Calcium Level 9.0 MG/DL Assessment and Plan Assessment and Plan Systolic heart failure - This is likely an acute on chronic presentation. 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 He has a known history of an ischemic cardiomyopathy with an EF of 20%. He did subsequently have CABG and has not had a followup echo. 05/11- EF 25-30%; CHF resolved. -on deirdre and BB -high risk for sudden and need to compliance- ICD discussed, pt is aware and understands -fluid and sodium restrictions discussed Smoking - The patient was counseled to quit. Diabetes - This will be managed by the primary team. Ischemic cardiomyopathy - as above Dispo- ok for d/c Alexia Tavarez MD May 11, 2017 10:49
--- NOTE | 2017-05-13 14:01 | EKG ---
Date Performed: 05/10/2017 Time Performed: 01:35:53 PTAGE: 51 years EKG: Sinus rhythm LEFT ATRIAL ENLARGEMENT MARKED LEFT AXIS DEVIATION Consider ANTEROSEPTAL MYOCARDIAL INFARCTION - age indeterminate Left anterior fascicular block ABNORMAL ECG PREVIOUS TRACING : 05/09/2017 20.35 DOCTOR: Marco Fritz Interpretating Date/Time 05/13/2017 14:01:15
== END 2017-05-11 12:49 | disposition home or self-care (01) | DRG 293 ==
LOC: NEPC 18:28 → NEDA 21:04 → NEDH 05-10 01:04 → N03B 05-10 07:26 → HCIS 05-11 01:59
PROVIDERS: ADMIT Family Medicine; ATTEND Family Medicine
DX: I50.23 Acute on chronic systolic (congestive) heart failure (principal); I10 Essential (primary) hypertension; F17.210 Nicotine dependence, cigarettes, uncomplicated; J45.909 Unspecified asthma, uncomplicated; I25.10 Atherosclerotic heart disease of native coronary artery without angina pectoris; Z95.1 Presence of aortocoronary bypass graft; K21.9 Gastro-esophageal reflux disease without esophagitis; I25.2 Old myocardial infarction; Z79.82 Long term (current) use of aspirin; E11.9 Type 2 diabetes mellitus without complications; Z79.4 Long term (current) use of insulin; R09.02 Hypoxemia; I25.5 Ischemic cardiomyopathy; E78.5 Hyperlipidemia, unspecified; Z91.19 Patient's noncompliance with other medical treatment and regimen
CPT/HCPCS: 71010; 80048; 80053; 82550; 83735; 83880; 84484; 85025; 85610; 85730; 93005; 93306; 96374; J1644; J1940; J7040

== ENCOUNTER 2017-07-25 07:10 | Inpatient (IN) | payer SELFPAY ==
[2017-07-25] VITALS (13 sets, daily range): BP systolic 100–121; BP diastolic 71–82; PULSE 96–116; RESP 11–23; TEMP 97.7–98.6; O2SAT 96–100
[~2017-07-25] VITALS: Ht 190.5 cm; Wt 83.7 kg
[~2017-07-25 07:10] MED LIST changes: -AMIO200T PO; -BIOM30MI; -FURO20TA PO; +FURO40TA PO; +LISI-519 PO; +METF500T PO; -NOVOLOGP2 SQ; -POTA-243 PO; +POTA20TA5 PO
[2017-07-25] MEDS ORDERED: SODIUM CHLORIDE 0.9% FLUSH 10 ML FLUSH IVF PRN (08:00)
[2017-07-25 08:05] LABS: AUTOMATED NEUTROPHIL # 11.5 TH/MM3 (1.8-7.7); BASOPHIL # 0.1 TH/MM3 (0-0.2); BASOPHIL % 0.7 % (0.0-2.0); EOSINOPHIL # 0.1 TH/MM3 (0-0.4); EOSINOPHIL % 0.9 % (0.0-4.0); HEMATOCRIT 39.8 % (39.0-51.0); HEMO FLAGS DIFF FINAL; LYMPH % 18.7 % (9.0-44.0); LYMPHOCYTE # 2.9 TH/MM3 (1.0-4.8); MEAN CELL VOLUME 82.9 FL (80.0-100.0); MEAN CORPUSCULAR HEMOGLOBIN 28.1 PG (27.0-34.0); MEAN CORPUSCULAR HGB CONC 33.9 % (32.0-36.0); MONO % 5.3 % (0.0-8.0); NEUT % 74.4 % (16.0-70.0); PLATELET COUNT 261 TH/MM3 (150-450); RED CELL DISTRIBUTION WIDTH 17.9 % (11.6-17.2); WHITE BLOOD COUNT 15.4 TH/MM3 (4.0-11.0)
[2017-07-25 08:10] LABS: INTERNATIONAL NORMALIZED RATIO 1.2 RATIO; PROTHROMBIN TIME - PATIENT 13.6 SEC (9.8-11.6)
--- NOTE | 2017-07-25 08:10 | PD ---
HPI Chief Complaint: Respiratory Symptoms Time Seen by Provider: 07:21 Travel History International Travel<30 days: No Contact w/Intl Traveler<30days: No Traveled to known affect area: No History of Present Illness HPI 51-year-old male came to the emergency room with history of shortness of breath , exertional dyspnea and orthopnea has been going on for past 2 weeks and worse in the past 3 days. Patient has significant coronary artery disease history with history of recent CABG 6 months ago. Patient was also admitted for congestive heart failure 2 months ago. He's been aggressively diuresed. He has history of diabetes and is on metformin. Patient used to be 2 packs per day smoker for past 35 years but quit 6 months ago. Patient says he has lost 20 pounds in past 2 months. He has been getting occasional chest pain which she attributes mostly due to musculoskeletal. Pain is on the left side of his chest and nonradiating. No aggravating or relieving factors identified. Patient says that he's been unable to sleep well since the shortness of breath continues to wake him up in the middle of the night. History of fever or chills. No history of cough. Patient was tachycardic upon arrival. [facility] Past Medical History Narrative Medical List of his past medical, surgical, social and family history is reviewed from the nursing note. Hx Anticoagulant Therapy: Yes Arthritis: Yes Asthma: No Autoimmune Disease: No Blood Disorders: No Anxiety: No Depression: No Heart Rhythm Problems: No Cancer: No Cardiac Catheterization: Yes Cardiovascular Problems: Yes (CABG 01/2017 STEMI) High Cholesterol: No Chemotherapy: No Chest Pain: No Congestive Heart Failure: No COPD: No Cerebrovascular Accident: No Diabetes: Yes Patient Takes Glucophage: Yes Diminished Hearing: No Endocrine: No Gastrointestinal Disorders: No GERD: Yes Glaucoma: No Genitourinary: No Headaches: Yes Hepatitis: No Hiatal Hernia: No Heparin Induced Thrombocytopen: No Hypertension: No Immune Disorder: No Implanted Vascular Access Dvce: No Kidney Stones: No Musculoskeletal: Yes Neurologic: Yes Psychiatric: No Reproductive: No Respiratory: Yes Migraines: Yes Myocardial Infarction: Yes Radiation Therapy: No Renal Failure: No Seizures: No Sickle Cell Disease: No Sleep Apnea: No Thyroid Disease: No Ulcer: No Past Surgical History AICD: No Appendectomy: No Arteriovenous Shunt: No Cholecystectomy: No Coronary Artery Bypass Graft: Yes (TRIPLE 02-06-17) Insulin Pump: No Joint Replacement: No Oral Surgery: Yes (LEFT ELBOW) Pacemaker: No Other Surgery: Yes (STENTS ) Social History Alcohol Use: No Tobacco Use: No Substance Use: No Allergies-Medications (Allergen,Severity, Reaction): Coded Allergies: carbinoxamine (Unverified Allergy, Severe, UNKNOWN, 06/04/17) pseudoephedrine (Unverified Allergy, Severe, UNKNOWN, 06/04/17) *MDRO Multi-Drug Resistant Organism (Verified Adverse Reaction, Unknown, ) MRSA PCR Screen POSITIVE - 02/03/2017 Comments List of his allergies reviewed from the nursing note. Reported Meds & Prescriptions Reported Meds & Active Scripts Active Potassium Chloride Microencaps 20 Meq Tab 20 Meq PO DAILY Furosemide 40 Mg Tab 40 Mg PO DAILY Coreg (Carvedilol) 3.125 Mg Tab 3.125 Mg PO Q12HR Atorvastatin (Atorvastatin Calcium) 80 Mg Tab 80 Mg PO HS Metformin (Metformin HCl) 500 Mg Tab 500 Mg PO BIDPC With meals Lisinopril 5 Mg Tab 2.5 Mg PO DAILY Glucocom Test Strips (Blood Glucose Test Strips) 1 Marianne Marianne 1 Ea .ROUTE DIRECTED Lancets 1 Mis Mis 1 Ea .ROUTE DIRECTED Insulin Syringe/U-100/31G X 5/16" 1 ml 1 Mis Mis 1 Ea .ROUTE DIRECTED Glucocom Blood Glucose Mo W/Device (Device) 1 Kit Kit 1 Kit .ROUTE DIRECTED [Aspirin Chew] 81 MG Chew 81 Mg PO DAILY 90 Days Narrative Medication List of his home medications reviewed from the nursing note. Review of Systems Except as stated in HPI: all other systems reviewed are Neg Physical Exam Narrative GENERAL: Awake, alert, mild distress SKIN: Focused skin assessment warm/dry. Pallor HEAD: Atraumatic. Normocephalic. EYES: Pupils equal and round. No scleral icterus. No injection or drainage. ENT: No nasal bleeding or discharge. Dry mucous membrane NECK: Trachea midline. No JVD. CARDIOVASCULAR: Regular rate and rhythm. No murmur appreciated. RESPIRATORY: No accessory muscle use. Clear to auscultation. Breath sounds equal bilaterally. GASTROINTESTINAL: Abdomen soft, non-tender, nondistended. Hepatic and splenic margins not palpable. MUSCULOSKELETAL: No obvious deformities. No clubbing. No cyanosis. No edema. NEUROLOGICAL: Awake and alert. No obvious cranial nerve deficits. Motor grossly within normal limits. Normal speech. PSYCHIATRIC: Appropriate mood and affect; insight and judgment normal. Data Data Last Documented VS Vital Signs Date Time Temp Pulse Resp B/P (MAP) Pulse Ox O2 Delivery O2 Flow Rate FiO2 07/25/17 09:16 106 18 100/75 (83) 99 Room Air 07/25/17 07:13 97.7 Orders Orders Complete Blood Count With Diff (07/25/17 07:47) Comprehensive Metabolic Panel (07/25/17 07:47) B-Type Natriuretic Peptide (07/25/17 07:47) Prothrombin Time / Inr (Pt) (07/25/17 07:47) Magnesium (Mg) (07/25/17 07:47) Troponin I (07/25/17 07:47) Iv Access Insert/Monitor (07/25/17 07:47) Electrocardiogram (07/25/17 07:47) Ecg Monitoring (07/25/17 07:47) Oximetry (07/25/17 07:47) Oxygen Administration (07/25/17 07:47) Chest, Single Ap (07/25/17 07:47) Sodium Chloride 0.9% Flush (Ns Flush) (07/25/17 08:00) Heparin Infusion FLEX.Q1H (07/25/17 09:00) Heparin Inj (Heparin Inj) (07/25/17 09:00) Heparin Inj (Heparin Inj) (07/25/17 15:00) Heparin-D5w 96450/250 (For Ed) (Heparin- (07/25/17 09:00) Act Partial Throm Time (Ptt) (07/25/17 09:00) Cbc No Diff, Includes Plts (07/25/17 09:00) Cbc No Diff, Includes Plts (07/28/17 06:00) Occult Blood (Hemoccult) Stool (07/25/17 09:00) NPO (07/25/17 09:05) Sodium Chlor 0.9% 1000 Ml Inj (Ns 1000 M (07/25/17 09:15) Insulin Human Regular Inj (Novolin R Inj (07/25/17 09:15) Aspirin Chew (Aspirin Chew) (07/25/17 09:15) Admit Order (Ed Use Only) (07/25/17 09:37) Labs Laboratory Tests Test 07/25/17 07:50 White Blood Count 15.4 TH/MM3 Red Blood Count 4.80 MIL/MM3 Hemoglobin 13.5 GM/DL Hematocrit 39.8 % Mean Corpuscular Volume 82.9 FL Mean Corpuscular Hemoglobin 28.1 PG Mean Corpuscular Hemoglobin Concent 33.9 % Red Cell Distribution Width 17.9 % Platelet Count 261 TH/MM3 Mean Platelet Volume 9.2 FL Neutrophils (%) (Auto) 74.4 % Lymphocytes (%) (Auto) 18.7 % Monocytes (%) (Auto) 5.3 % Eosinophils (%) (Auto) 0.9 % Basophils (%) (Auto) 0.7 % Neutrophils # (Auto) 11.5 TH/MM3 Lymphocytes # (Auto) 2.9 TH/MM3 Monocytes # (Auto) 0.8 TH/MM3 Eosinophils # (Auto) 0.1 TH/MM3 Basophils # (Auto) 0.1 TH/MM3 CBC Comment DIFF FINAL Differential Comment Prothrombin Time 13.6 SEC Prothromb Time International Ratio 1.2 RATIO Activated Partial Thromboplast Time 22.3 SEC Blood Urea Nitrogen 26 MG/DL Creatinine 1.62 MG/DL Random Glucose 455 MG/DL Total Protein 8.1 GM/DL Albumin 4.2 GM/DL Calcium Level 11.3 MG/DL Magnesium Level 1.9 MG/DL Alkaline Phosphatase 144 U/L Aspartate Amino Transf (AST/SGOT) 32 U/L Alanine Aminotransferase (ALT/SGPT) 37 U/L Total Bilirubin 1.2 MG/DL Sodium Level 128 MEQ/L Potassium Level 3.3 MEQ/L Chloride Level 86 MEQ/L Carbon Dioxide Level 27.3 MEQ/L Anion Gap 15 MEQ/L Estimat Glomerular Filtration Rate 45 ML/MIN Troponin I 3.11 NG/ML B-Type Natriuretic Peptide 1547 PG/ML [facility] Medical Decision Making Medical Screen Exam Complete: Yes Emergency Medical Condition: Yes Medical Record Reviewed: Yes Interpretation(s) Twelve-lead EKG was reviewed by me. Normal sinus rhythm, normal axis, tachycardia, old anterior UT, lateral ST depressions and anterior ST elevation that looks more pronounced since April 2017. Rate of 109 bpm. Differential Diagnosis Congestive heart failure, pleural effusion, pneumonia, lung cancer, PE, symptomatic anemia Narrative Course 8:10 AM awaiting for the blood test result. I have ordered a CT pulmonary angiogram which would rule in or out both PE and lung cancer. 9:05 AM patient has a few abnormal blood test results including blood glucose that is 455, leukocytosis, some renal insufficiency and a marked elevation of the troponin. I started the patient on heparin bolus and drip. He will get 1 L of IV fluid bolus and insulin as well. 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 Goncalves wants to keep the patient nothing by mouth so that a heart catheter can be done today. I have let the patient no about these findings and I'll let him know about the catheterization as well. Patient will require to be admitted in CICU. Awaiting for the hospitalist to call back. Critical Care Narrative Aggregate critical care time was 45 minutes. Time to perform other separately billable procedures was not included in the critical care time. My time did not include minutes spent treating any other patients simultaneously or on activities that did not directly contribute to the patient's treatment. The services I provided to this patient were to treat and/or prevent clinically significant deterioration that could result in: Non-STEMI, hyperglycemia, heparin bolus and drip I provided critical care services requiring my management, as noted below: Chart data review, documentation time, medication orders and management, vital sign assessments/reviewing monitor data, ordering and reviewing lab tests, ordering and interpreting/reviewing x-rays and diagnostic studies, care of the patient and discussion of the patient with the admitting physicians. Procedures EKG Prior to Arrival: No Physician Communication Physician Communication Dr. Goncalves Diagnosis Primary Impression: Non-STEMI (non-ST elevated myocardial infarction) Additional Impressions: Hyperglycemia Dehydration Renal insufficiency Admitting Information Admitting Physician Requests: Oumar Romero MD Jul 25, 2017 08:10
[2017-07-25 08:32] LABS: ALKALINE PHOSPHATASE 144 U/L (45-117); ALT (GPT) 37 U/L (12-78); ANION GAP 15 MEQ/L (5-15); AST (GOT) 32 U/L (15-37); BICARBONATE 27.3 MEQ/L (21.0-32.0); BLOOD UREA NITROGEN 26 MG/DL (7-18); CHLORIDE 86 MEQ/L (98-107); GLOMERULAR FILTRATION RATE 45 ML/MIN (>89); MAGNESIUM 1.9 MG/DL (1.5-2.5); POTASSIUM 3.3 MEQ/L (3.5-5.1); SODIUM (NA) 128 MEQ/L (136-145); TOTAL BILIRUBIN ADULT 1.2 MG/DL (0.2-1.0)
--- NOTE | 2017-07-25 08:53 | RADRPT ---
EXAM DATE/TIME: 07/25/2017 08:20 [place] COMPARISON: CHEST SINGLE AP, May 09, 2017, 19:35. INDICATIONS : Shortness of breath. MEDICAL HISTORY : Diabetes mellitus type II. Gastroesophageal reflux disease. Myocardial infarction. Hyperlipidemia. Co ronary artery disease. SURGICAL HISTORY : CABG. ENCOUNTER: Initial ACUITY: 2 weeks PAIN SCORE: 0/10 LOCATION: Bilateral chest FINDINGS: A single view of the chest demonstrates the lungs to be symmetrically aerated without evidence of mas s, infiltrate or effusion. Cardiomegaly and previous median sternotomy. Pulmonary vascularity is nor mal. The cardiomediastinal contours are unremarkable. Osseous structures are intact. CONCLUSION: Cardiomegaly and previous median sternotomy.. Todd Chand MD on July 25, 2017 at 8:51 Board Certified Radiologist. This report was verified electronically.
[2017-07-25] MEDS ORDERED: HEPARIN SODIUM - IV 10,000 UNITS/10 ML VIAL IV ONE (09:00)
[2017-07-25] MEDS ORDERED: [UNRECOGNIZED DRUG - OTHER] IV ONE (09:00)
[2017-07-25] MEDS ORDERED: ASPIRIN 81 MG CHEW TAB CHEW ONE (09:15)
[2017-07-25] MEDS ORDERED: INSULIN HUMAN REGULAR 1,000 UNITS/10 ML VIAL SQ ONE (09:15)
[2017-07-25] MEDS ORDERED: SODIUM CHLOR 0.9% 1000 ML INJ 1,000 ML IV ONE (09:15)
[2017-07-25 09:24] LABS: APTT (PATIENT) 22.3 SEC (24.3-30.1)
[2017-07-25] MEDS ORDERED: SODIUM CHLOR 0.9% 1000 ML INJ 1,000 ML IV SCH ×2 (10:00→17:01)
[2017-07-25] MEDS ORDERED: DEXTROSE 50% IN WATER 50 ML VIAL(D50) IV PUSH PRN (10:00)
[2017-07-25] MEDS ORDERED: GLUCAGON 1 MG/ML VIAL OTHER PRN (10:00)
--- NOTE | 2017-07-25 10:05 | HHI.HP ---
[facility] Service [facility] Primary Care Physician Unknown Admission Diagnosis non-STEMI, hyperglycemia, renal insufficiency Diagnoses: (1) Non-STEMI (non-ST elevated myocardial infarction) Diagnosis: Principal Chief Complaint: sob Travel History International Travel<30 Days: No Contact w/Intl Traveler <30 Da: No Traveled to Known Affected Are: No History of Present Illness patient is a 51 y/o male with history of CAD- s/p stent and fairly recent CABG, hypertension, diabetes mellitus who presented to ER with shortness of breath. he says that his sob started three weeks ago but it started to get worse about two days ago. he denies any chest pain, fever, chills. he had mild occasional dry cough and dizziness. he says that he used to take insulin but he was switched to metformin recently.he's being followed up by . Review of Systems Constitutional: DENIES: Fever, Weight loss, Chills, Night Sweats Eyes: DENIES: Blurred vision, Diplopia, Vision loss, Double Vision Ears, nose, mouth, throat: DENIES: Tinnitus, Vertigo, Throat pain, Epistaxis Respiratory: COMPLAINS OF: Shortness of breath, DENIES: Apneas, Cough, Snoring , Wheezing, Hemoptysis, Sputum production Cardiovascular: DENIES: Chest pain, Palpitations, Syncope, Dyspnea on Exertion , PND, Lower Extremity Edema, Orthopnea, Claudication Gastrointestinal: DENIES: Abdominal pain, Black stools, Bloody stools, Constipation, Diarrhea, Nausea, Vomiting, Difficulty Swallowing, Anorexia Genitourinary: DENIES: Urinary frequency, Urgency, Hematuria, Dysuria Musculoskeletal: DENIES: Joint pain, Muscle aches, Stiffness, Joint Swelling Integumentary: DENIES: Rash Neurologic: DENIES: Abnormal gait, Headache, Localized weakness, Paresthesias, Seizures, Speech Problems, Tremor, Poor Balance Psychiatric: DENIES: Anxiety, Confusion, Mood changes, Depression, Hallucinations, Agitation, Suicidal Ideation, Homicidal Ideation, Delusions Past Family Social History Past Medical History CAD hypertension dyslipidemia diabetes mellitus Past Surgical History CABG stent placement Reported Medications Potassium Chloride Microencaps 20 Meq Tab 20 Meq PO DAILY Furosemide 40 Mg Tab 40 Mg PO DAILY Coreg (Carvedilol) 3.125 Mg Tab 3.125 Mg PO Q12HR Atorvastatin (Atorvastatin Calcium) 80 Mg Tab 80 Mg PO HS Metformin (Metformin HCl) 500 Mg Tab 500 Mg PO BIDPC With meals Lisinopril 5 Mg Tab 2.5 Mg PO DAILY Glucocom Test Strips (Blood Glucose Test Strips) 1 Marianne Marianne 1 Ea .ROUTE DIRECTED Lancets 1 Mis Mis 1 Ea .ROUTE DIRECTED Insulin Syringe/U-100/31G X 03/05" 1 ml 1 Mis Mis 1 Ea .ROUTE DIRECTED Glucocom Blood Glucose Mo W/Device (Device) 1 Kit Kit 1 Kit .ROUTE DIRECTED [Aspirin Chew] 81 MG Chew 81 Mg PO DAILY 90 Days Allergies: Coded Allergies: carbinoxamine (Unverified Allergy, Severe, UNKNOWN, 06/04/17) pseudoephedrine (Unverified Allergy, Severe, UNKNOWN, 06/04/17) *MDRO Multi-Drug Resistant Organism (Verified Adverse Reaction, Unknown, ) MRSA PCR Screen POSITIVE - 02/03/2017 Active Ordered Medications Current Medications Sodium Chloride (NS Flush) 2 ml UNSCH PRN IVF FLUSH AFTER USING IV ACCESS; Start 07/25/17 at 08:00 Heparin Sodium (Porcine) (Heparin Inj) 5,000 units ONCE ONCE IV Last administered on 07/25/17 09:14; Start 07/25/17 at 09:00; Stop 07/25/17 at 09:01 ; Status DC Heparin Sodium (Porcine) (Heparin Inj) 5,000 units UNSCH PRN IV APTT LESS THAN 25; Start 07/25/17 at 15:00 Heparin Sodium (Porcine) (Heparin Inj) 2,500 units UNSCH PRN IV APTT 25 TO 39; Start 07/25/17 at 15:00 Heparin Sodium/ Dextrose 250 ml @ 10 mls/hr TITRATE ONCE IV ; Start 07/25/17 at 09:00; Stop 07/26/17 at 09:59 Sodium Chloride 1,000 ml @ 999 mls/hr BOLUS ONCE IV Last administered on 07/25 09:14; Start 07/25/17 at 09:15; Stop 07/25/17 at 10:15 Insulin Human Regular (NovoLIN R INJ) 10 units ONCE ONCE SQ Last administered on 07/25/17 09:14; Start 07/25/17 at 09:15; Stop 07/25/17 at 09:16; Status DC Aspirin (Aspirin Chew) 324 mg ONCE ONCE CHEW Last administered on 07/25/17 09 :25; Start 07/25/17 at 09:15; Stop 07/25/17 at 09:16; Status DC Social History quit smoking few months ago- drinks occasionally. Physical Exam Vital Signs Vital Signs Date Time Temp Pulse Resp B/P (MAP) Pulse Ox O2 Delivery O2 Flow Rate FiO2 07/25/17 09:16 106 18 100/75 (83) 99 Room Air 07/25/17 08:47 96 Room Air 07/25/17 08:46 96 Room Air 07/25/17 07:21 20 100 Room Air 07/25/17 07:13 97.7 116 15 111/76 (88) 100 Physical Exam GENERAL: with mild sob SKIN: No rashes, ecchymoses or lesions. Cool and dry. HEAD: Atraumatic. Normocephalic. No temporal or scalp tenderness. EYES: Pupils equal round and reactive. Extraocular motions intact. No scleral icterus. No injection or drainage. ENT: Nose without bleeding, purulent drainage or septal hematoma. Throat without erythema, tonsillar hypertrophy or exudate. Uvula midline. Airway patent. NECK: Trachea midline. No JVD or lymphadenopathy. Supple, nontender, no meningeal signs. CARDIOVASCULAR: Regular rate and rhythm without murmurs, gallops, or rubs. RESPIRATORY: Clear to auscultation. Breath sounds equal bilaterally. No wheezes , rales, or rhonchi. GASTROINTESTINAL: Abdomen soft, non-tender, nondistended. No hepato-splenomegaly , or palpable masses. No guarding. MUSCULOSKELETAL: Extremities without clubbing, cyanosis, or edema. No joint tenderness, effusion, or edema noted. No calf tenderness. Negative Homans sign bilaterally. NEUROLOGICAL: Awake and alert. Cranial nerves II through XII intact. Motor and sensory grossly within normal limits. Five out of 5 muscle strength in all muscle groups. Normal speech. Laboratory Laboratory Tests Test 07/25/17 07:50 White Blood Count 15.4 Red Blood Count 4.80 Hemoglobin 13.5 Hematocrit 39.8 Mean Corpuscular Volume 82.9 Mean Corpuscular Hemoglobin 28.1 Mean Corpuscular Hemoglobin Concent 33.9 Red Cell Distribution Width 17.9 Platelet Count 261 Mean Platelet Volume 9.2 Neutrophils (%) (Auto) 74.4 Lymphocytes (%) (Auto) 18.7 Monocytes (%) (Auto) 5.3 Eosinophils (%) (Auto) 0.9 Basophils (%) (Auto) 0.7 Neutrophils # (Auto) 11.5 Lymphocytes # (Auto) 2.9 Monocytes # (Auto) 0.8 Eosinophils # (Auto) 0.1 Basophils # (Auto) 0.1 CBC Comment DIFF FINAL Differential Comment Prothrombin Time 13.6 Prothromb Time International Ratio 1.2 Activated Partial Thromboplast Time 22.3 Blood Urea Nitrogen 26 Creatinine 1.62 Random Glucose 455 Total Protein 8.1 Albumin 4.2 Calcium Level 11.3 Magnesium Level 1.9 Alkaline Phosphatase 144 Aspartate Amino Transf (AST/SGOT) 32 Alanine Aminotransferase (ALT/SGPT) 37 Total Bilirubin 1.2 Sodium Level 128 Potassium Level 3.3 Chloride Level 86 Carbon Dioxide Level 27.3 Anion Gap 15 Estimat Glomerular Filtration Rate 45 Troponin I 3.11 Result Diagram: 07/25/17 0750 07/25/17 075 Caprini VTE Risk Assessment Caprini VTE Risk Assessment: Mod/High Risk (score >= 2) Caprini Risk Assessment Model Point Value = 1 Point Value = 2 Point Value = 3 Point Value = 5 Age 41-60 Minor surgery BMI > 25 kg/m2 Swollen legs Varicose veins or History of unexplained or recurrent spontaneous Oral contraceptives or hormone replacement Sepsis (< 1 month) Serious lung disease, including pneumonia (< 1 month) Abnormal pulmonary function Acute myocardial infarction Congestive heart failure (< 1 month) History of inflammatory bowel disease Medical patient at bed rest Age 61-74 Arthroscopic surgery Major open surgery (> 45 min) Laparoscopic surgery (> 45 min) Malignancy Confined to bed (> 72 hours) Immobilizing plaster cast Central venous access Age >= 75 History of VTE Family history of VTE Factor V Leiden Prothrombin [id number] Lupus anticoagulant Anticardiolipin antibodies Elevated serum homocysteine Heparin-induced thrombocytopenia Other congenital or acquired thrombophilia Stroke (< 1 month) Elective arthroplasty Hip, pelvis, or leg fracture Acute spinal cord injury (< 1 month) Prophylaxis Regimen Total Risk Factor Score Risk Level Prophylaxis Regimen 0-1 Low Early ambulation 2 Moderate Order ONE of the following: *Sequential Compression Device (SCD) *Heparin 5000 units SQ BID 3-4 Higher Order ONE of the following medications: *Heparin 5000 units SQ TID *Enoxaparin/Lovenox 40 mg SQ daily (WT < 150 kg, CrCl > 30 mL/min) *Enoxaparin/Lovenox 30 mg SQ daily (WT < 150 kg, CrCl > 10-29 mL/min) *Enoxaparin/Lovenox 30 mg SQ BID (WT < 150 kg, CrCl > 30 mL/min) AND/OR *Sequential Compression Device (SCD) 5 or more Highest Order ONE of the following medications: *Heparin 5000 units SQ TID (Preferred with Epidurals) *Enoxaparin/Lovenox 40 mg SQ daily (WT < 150 kg, CrCl > 30 mL/min) *Enoxaparin/Lovenox 30 mg SQ daily (WT < 150 kg, CrCl > 10-29 mL/min) *Enoxaparin/Lovenox 30 mg SQ BID (WT < 150 kg, CrCl > 30 mL/min) AND *Sequential Compression Device (SCD) Assessment and Plan Assessment and Plan A/P - NSTEMI with history of CAD/ stent and CABG started on heparin drip- received aspirin- will trend the cardiac enzymes- cardiology consulted; plan for cardiac cath later today. -diabetes mellitus; uncontrolled start on accu-check with SSI and continue IV fluid- check A1c- will hold metformin- consider placing him back on long-acting insulin. -acute kidney injury; continue IV fluid- monitor the renal function- hold lasix for now -hyponatremia- due to hyperglycemia; will monitor -hypercalcemia; continue IV fluid- check the level tomorrow. -hypertension/ dyslipidemia/ ischemic cardiomyopathy; resume home meds. -DVT prophylaxis; on heparin drip. Discussed Condition With ER physician and the patient. Physician Certification 2 Midnight Certification Type: Admission for Inpatient Services Order for Inpatient Services The services are ordered in accordance with Medicare regulations or non- Medicare payer requirements, as applicable. In the case of services not specified as inpatient-only, they are appropriately provided as inpatient services in accordance with the 2-midnight benchmark. Estimated LOS (days): 2 days is the estimated time the patient will need to remain in the hospital, assuming treatment plan goals are met and no additional complications. Post-Hospital Plan: Home Physician Certification 2 Midnight Certification Type: Admission for Inpatient Services Order for Inpatient Services The services are ordered in accordance with Medicare regulations or non- Medicare payer requirements, as applicable. In the case of services not specified as inpatient-only, they are appropriately provided as inpatient services in accordance with the 2-midnight benchmark. Estimated LOS (days): 2 days is the estimated time the patient will need to remain in the hospital, assuming treatment plan goals are met and no additional complications. Post-Hospital Plan: Home Jaspreet Hayward MD Jul 25, 2017 10:05
[2017-07-25] MEDS ORDERED: PILL SPLITTER OTHER PRN (11:00)
[2017-07-25] MEDS: INSULIN ASPART SUPPLEMENTAL SCALE SQ SCH ×3 (12:05→20:19)
[2017-07-25 12:55] LABS: HEMATOCRIT 33.6 % (39.0-51.0); MEAN CELL VOLUME 81.1 FL (80.0-100.0); MEAN CORPUSCULAR HEMOGLOBIN 27.5 PG (27.0-34.0); MEAN CORPUSCULAR HGB CONC 33.9 % (32.0-36.0); PLATELET COUNT 238 TH/MM3 (150-450); RED BLOOD COUNT 4.14 MIL/MM3 (4.50-5.90); RED CELL DISTRIBUTION WIDTH 17.6 % (11.6-17.2); REVIEW FLAG FINAL; WHITE BLOOD COUNT 14.1 TH/MM3 (4.0-11.0)
[2017-07-25] MEDS ORDERED: diphenhydrAMINE HCL 50 MG CAP PO SCH (13:30)
[2017-07-25] MEDS ORDERED: ASPIRIN 325 MG TAB PO SCH (13:30)
[2017-07-25] MEDS ORDERED: DIAZEPAM 10 MG TAB PO SCH (14:00)
--- NOTE | 2017-07-25 14:32 | MB ---
cc: SUZAN MIKE M.D. DATE OF CONSULTATION: 07/25/2017 REASON FOR CONSULTATION Abnormal troponin level. HISTORY OF PRESENT ILLNESS The patient is a 51-year-old white male with a history of coronary artery disease, diabetes, hyperlipidemia, severe ischemic cardiomyopathy with ejection fraction of 25-30%, who presented to the hospital with progressively worsening shortness of breath, orthopnea, chest pain. For the past 3-4 days he has had intermittent episodes of left lower chest discomfort described as "pressure". Most of the episodes have lasted 20 minutes but he did have one episode lasting 4 hours a couple nights ago. In these last few weeks he has had considerable orthopnea and dyspnea with minimal exertion. He denies pleurisy, pedal edema, lightheadedness, syncope, near-syncope, palpitations. He reports compliance with his medications. PAST MEDICAL HISTORY 1. Coronary artery disease status post stent x 2 of the proximal LAD 04/25/2008, status post anterior ST elevation myocardial infarction 02/02/2017 with subsequent bypass surgery 02/06/2017 due to severe three-vessel coronary artery disease seen on heart catheterization. His bypass grafts included a left internal mammary artery to the LAD, vein graft to the obtuse marginal, vein graft to the right coronary artery. 2. Diabetes. 3. Hyperlipidemia. 4. Severe ischemic cardiomyopathy with ejection fraction of 25-30% by echo 05/10/2017. MEDICATIONS Cardiac medications at home: 1. Aspirin 81 mg daily. 2. Atorvastatin 80 mg q.h.s. 3. Carvedilol 3.125 mg b.i.d. 4. Furosemide 40 mg daily. 5. Lisinopril 5 mg daily. 6. Metolazone 5 mg daily. 7. Potassium chloride 20 meq once daily. ALLERGIES PSEUDOEPHEDRINE, CARBINOXAMINE. FAMILY HISTORY There is no significant family history of early myocardial infarction. SOCIAL HISTORY The patient is a former smoker. There is no history of alcohol abuse. REVIEW OF SYSTEMS As in the history of present illness, otherwise negative or noncontributory. He also denies abdominal pain, melena, dyspepsia, bright red blood per rectum, diarrhea. PHYSICAL EXAMINATION VITAL SIGNS: His blood pressure is 121/75 with a pulse of 105, respirations 18. GENERAL: He is a well-developed, well-nourished white male, in no acute distress. HEENT: Jugular venous pressure is 8 cm of water. Carotid pulses are 2+ bilaterally and without bruits. CHEST: Examination of the chest reveals clear lung azul. CARDIAC: On cardiac examination he has a tachycardic regular rhythm with a grade 2/6 systolic murmur heard at the apex. There may also be a S3 gallop. ABDOMEN: On abdominal examination he has a soft, nontender abdomen. Bowel sounds are present. There is no definite hepatosplenomegaly. EXTREMITIES: Examination of the extremities reveals no clubbing, cyanosis or edema. Peripheral pulses are normal throughout. EKG Shows sinus rhythm, left bundle-branch block, lateral ST depression, consider ischemia. LABORATORY DATA Laboratory data includes WBC 14.1, hemoglobin 11.4, platelets 238, potassium 3.3, BUN 26, creatinine 1.62, troponin 3.11. IMAGING STUDIES Chest x-ray shows no acute disease. IMPRESSION Gfa-GO-jciwlncfs myocardial infarction in this 51-year-old white male with a history of coronary artery disease status post bypass surgery earlier this year, history of diabetes, hyperlipidemia, severe ischemic cardiomyopathy with ejection fraction of 25-30%. At this time his fairly severe dyspnea on exertion does not appear to be due to pulmonary edema. His chest x-ray and lungs are clear. Troponin levels are consistent with acute myocardial infarction. He may have developed significant disease in the vein graft to the obtuse marginal. Also consider the possibility that he has developed severe mitral regurgitation. Because of his abnormal troponin levels and his recent chest pain symptoms which are most suggestive of unstable angina, I have recommended he undergo cardiac catheterization with possible percutaneous coronary or graft intervention, the risks of which have been explained to him including but not limited to , myocardial infarction, stroke, arrhythmia, bleeding, infection, renal failure. He agrees to proceed. RECOMMENDATIONS 1. Continue his usual home cardiac medications. 2. Cardiac catheterization today; will try to minimize the dye load and use a DyeVert device. 3. Check a 2-D echo to assess his valvular function. MD DEWAYNE Bryant/HERNAN /1:32 PM /2:10 PM [facility] SYSTEMAwilda
--- NOTE | 2017-07-25 14:51 | EKG ---
Date Performed: 07/25/2017 Time Performed: 07:34:29 PTAGE: 51 years EKG: SINUS TACHYCARDIA POSSIBLE LEFT ATRIAL ENLARGEMENT INDETERMINATE AXIS INTRAVENTRICULAR COND UCTION DELAY POSSIBLE ANTERIOR MYOCARDIAL INFARCTION ABNORMAL ECG PREVIOUS TRACING : 05/10/2017 01.35 Since prior tracing, anterolateral ST depressions are new, consider ischemia. DOCTOR: Phil Nice Interpretating Date/Time 07/25/2017 14:50:14
[2017-07-25] MEDS ORDERED: HEPARIN SODIUM - IV 10,000 UNITS/10 ML VIAL IV PRN ×2 (15:00)
--- NOTE | 2017-07-25 15:29 | ECHRPT ---
Indication: Cardiomyopathy, unspecified CONCLUSIONS The left ventricular systolic function is severely reduced with an estimated ejection fraction in th e range of 20-25%. Mild concentric left ventricular hypertrophy. Moderately dilated left ventricle. The left atrial size is mildly dilated. Moderate mitral valve regurgitation. There is moderate tricuspid regurgitation. The estimated pulmonary arterial pressure is 40.7 mmHg. BP: 121 / 75 HR: 105 Rhythm: Sinus MEASUREMENTS (Male / Female) Normal Values Technical Quality:Excellent 2D ECHO LV Diastolic Diameter PLAX 6.1 cm 4.2 - 5.9 / 3.9 - 5.3 cm LV Systolic Diameter PLAX 5.6 cm IVS Diastolic Thickness 1.2 cm 0.6 - 1.0 / 0.6 - 0.9 cm LVPW Diastolic Thickness 1.2 cm 0.6 - 1.0 / 0.6 - 0.9 cm LV Relative Wall Thickness 0.4 LVOT Diameter 2.1 cm M-MODE Aortic Root Diameter MM 3.1 cm LA Systolic Diameter MM 5.3 cm LA Ao Ratio MM 1.7 AV Cusp Separation MM 2.2 cm DOPPLER AV Peak Velocity 92.1 cm/s AV Peak Gradient 3.4 mmHg LVOT Peak Velocity 54.3 cm/s LVOT Peak Gradient 1.2 mmHg AV Area Cont Eq pk 2.0 cm MR Peak Velocity 382.0 cm/s MR Peak Gradient 58.4 mmHg LV E' Lateral Velocity 10.6 cm/s TR Peak Velocity 277.0 cm/s TR Peak Gradient 30.7 mmHg Right Atrial Pressure 10.0 mmHg Pulmonary Artery Systolic Pressu 40.7 mmHg Right Ventricular Systolic Press 40.7 mmHg PV Peak Velocity 54.3 cm/s PV Peak Gradient 1.2 mmHg FINDINGS LEFT VENTRICLE The left ventricular systolic function is severely reduced with an estimated ejection fraction in th e range of 20-25%. Mild concentric left ventricular hypertrophy. Moderately dilated left ventricle. RIGHT VENTRICLE Normal right ventricular size and systolic function. LEFT ATRIUM The left atrial size is mildly dilated. RIGHT ATRIUM The right atrial size is normal. ATRIAL SEPTUM Normal atrial septal thickness without atrial level shunting by limited color doppler interrogation. AORTA The aortic root and proximal ascending aorta are normal in size on limited imaging. MITRAL VALVE Moderate mitral valve regurgitation. AORTIC VALVE Trileaflet aortic valve. No aortic valve stenosis or regurgitation. TRICUSPID VALVE There is moderate tricuspid regurgitation. The estimated pulmonary arterial pressure is 40.7 mmHg. PULMONARY VALVE No pulmonary valve regurgitation or stenosis. VESSELS The inferior vena cava is normal in size. PERICARDIUM No pericardial effusion. Zachariah Koch MD, FACC (Electronically Signed) Final Date:25 July 2017 15:27
[2017-07-25] MEDS ORDERED: MIDAZOLAM HCL 2 MG/2 ML VIAL ONE (15:55)
[2017-07-25] MEDS ORDERED: HEPARIN-NS/PF INJ 1,000 ML ONE (15:55)
[2017-07-25 16:31] LABS: HEMOGLOBIN A1a 1.7 %; HEMOGLOBIN A1b 2.9 %; HEMOGLOBIN Ao 75.4 %; HEMOGLOBIN LA1C 4.2 %; HEMOGLOBIN P3 7.6 %
--- NOTE | 2017-07-25 17:09 | CATHPROC ---
[employer] HIS Report Study Information Study Number Admission Scheduled Start Study Start [id number] Jul 25 2017 9:38AM 07/25/2017 Jul 25 2017 3:27PM [place] Service Cardiac Catheterization Admit Source Facility Department Emergency department [facility] - Pool Manager Physician and Clinical Staff Initial August Araujo Circular Saw Filer Sonny Motta,BEAU Recorder Kostas Hernandes,JUNIOR PROGRAMMER ANALYST(BS) Scrub Teresita Rodríguez,RT(R) Procedures Performed Procedure Location (Site) Vessel Name Angiogram LV Aortic Coronary Angiograms LCA Left Coronary Coronary Angiograms RCA Right Coronary Coronary Angiograms GUALLPA-LAD Left Coronary Coronary Angiograms SVG-OM CIRC Coronary Angiograms SVG-RCA Right Coronary L Heart Cath Equipment Time Director Web Description Size Mfg Part Number Used/Scraped TRANSDUCER, TRUWAVE [id number] 16:03 NAYAK RAPHAEL * Used W/STOCKCOCK *[id number] 16:51 NSC MEDICAL VASCADE, FR6 CLOSURE SYSTEM FR 6\7 Used *[id number] [id number] *[id number] 534-620T *[id number] 534-672T *[id number] 534-642T *[id number] PIGTAIL ANG. 145 INFINITI 534-652S CATHETER *[id number] 534-650S *[id number] 16:03 [employer] PACK, CCL CUSTOM * Used *[id number] 16:03 [employer] PACER PEN, SKIN DUAL W/ RULER * Used *[id number] 16:03 [employer] SHEATH, FR6.5 PRELUDE 11CM FR 6.5 038ACT Used *[id number] 16:03 [employer] WIRE, 3MMJ .035 180CM 180CM Used *[id number] 16:03 NAMIC MANIFOLD, 4 PORT * Used *[id number] 16:03 [employer] OMNIPAQUE, 350 MG, 150ML 150ML [id number] Used [id number] 16:03 [place] MEDICAL BLANKET,WARM AIR CCL * Used *[id number] History: Current Medications Medication Dosage/Unit Route Frequency Last Date/Time Taken LISINOPRIL ASA CARVEDILOL Glucophage History: Allergies Allergy Reaction *MDRO Multi-Drug Resistant Organism Rondec UNKNOWN pseudoephedrine UNKNOWN carbinoxamine UNKNOWN History: Risk Factors Family History of Hypertension Dyslipidemia Previous [place] Previous Heart Failure Premature CAD No Yes No No No Prior Valve Prior PCI Prior PCIDate Prior CABG Prior CABGDate Surgery No Yes 04/25/2008 Yes 01/27/2017 Cerebrovascular Peripheral Artery Chronic Lung On Dialysis Diabetes Diabetes Therapy Disease Disease Disease No No No No Yes Oral History: Symptoms/Diagnosis Selection Items SOB History: Stress Tests Stress or Imaging Studies Performed No History: Other Disease Selection Items CAD History: Other Current Smoker Method Quit Packs a Day Years Used Pack Years No Cigarettes 1 Years Ago 4 1 4 Labs Hgb (g/dl) Hct (%) WBC (l/cumm) Platelets (thousands) 11.60-17.00 35.00-51.00 4.00-11.00 150.00-450.00 11.4 33.6 14.1 238 Glucose (mg/dl) BUN (mg/dl) Creatinine (mg/dl) BUN:Creatinine (1:x) 74.00-106.00 7.00-18.00 0.50-1.30 10.00-20.00 455 26 1.6 16.3 Na (meq/l) K (meq/l) 136.00-145.00 3.50-5.10 128 3.3 INR (PTT:PT) 0.90-1.10 1.2 Troponin I (ng/ml) CPK-MB (ng/ML) 0.02-0.05 0.50-3.60 2.88 Not Drawn Medication Medication Total Dose (Bolus/Oral) Medication Total Dosage/Unit 1% XYLOCAINE 20 mL VERSED 0.5 mg Medications (Bolus/Oral) Medication Time Given Dosage/Unit Administered By Reason VERSED 07/25/2017 4:19:00 PM 0.5 mg Sonny Motta 0.5 mg VERSED given in lab by Sonny Motta RN in Right Antecubital via Peripheral IV. Ordered by August Snow. 1% XYLOCAINE 07/25/2017 4:20:24 PM 20 mL August Goncalves 20 mL 1% XYLOCAINE given in lab by August Goncalves in Right Groin via Subcutaneous. Ordered by Nicholas Goncalvesn. Initial Case Assessment Cardiovascular HR Rhythm NIBP Chest Pain 108 SINUS TACH 118/83 0 Edema Present Skin color Skin None Normal Warm Dry Circulatory - Right Pulses Dorsalis Pedis Femoral 2 2 Scale (0,1,2,3,4,d) Circulatory - Left Pulses Dorsalis Pedis Femoral 2 2 Scale (0,1,2,3,4,d) Circulatory - Lower Extremities Color Lower Right Color Lower Left Normal Normal Neurological State Oriented to time-place- Alert Moves all extremities person Respiration - General Respiration Rate SpO2 (%) (B/min) 7 100 Final Case Assessment Cardiovascular HR Rhythm NIBP Chest Pain 108 SINUS TACH 118/83 0 Edema Present Skin color Skin None Normal Warm Dry Circulatory - Right Pulses Dorsalis Pedis Femoral 2 2 Scale (0,1,2,3,4,d) Circulatory - Left Pulses Dorsalis Pedis Femoral 2 2 Scale (0,1,2,3,4,d) Circulatory - Lower Extremities Color Lower Right Color Lower Left Normal Normal Neurological State Oriented to time-place- Alert Moves all extremities person Respiration - General Respiration Rate SpO2 (%) (B/min) 7 100 Chronological Log Time Study Chronological Log 15:49:25 Patient arrived via Bed. Vitals capture started with the following parameters, Patient=Adult, Interval=5 min, Initial Pr okdopd=552 mmHg, 15:54:22 Deflation Rate=5 mmHg, Cuff placed on Right Arm 15:54:52 Patient Name, D.O.B, / Armband Verified By R.N. 15:54:53 Consent signed by the physician and the patient and verified by the Pool Manager staff. 15:54:54 Pre-op and post- op instructions given; patient acknowledges understanding of instructions. 15:54:55 Verbal Stimulation=2 Physical Stimulation=1 Airway=2 Respiration=2 TOTAL=7. (0=absent, 1=li mited, 2=present) 15:54:57 HR=89 bpm, FCXK=126/83 mmhg, QcD6=228.0 %, Resp=4 B/min, Pain=0, Fredy=9, Dixon=2 15:54:59 Immediate Presedation assesment performed by physician. 15:55:04 Patient has been NPO for More than 6Hrs. 15:55:05 Skin Breakdown- 15:55:06 Patient Warmer Placed on the Table. 15:55:17 A # 20 IV was noted in the Antecubital (left). Grade = 0 15:55:18 A # 20 IV was noted in the Antecubital (right). Grade = 0 15:55:21 History and physical on the chart or being dictated. Assessment: Initial Case, QC=342 BPM, Rhythm=SINUS TACH, UXNL=014/83 mmhg, Chest Pain=0, Edema= None, Color=Normal, Skin = Warm, Dry Right Pulses: Maximiliano Ped=2, Femoral=2 Left Pulses: Maximiliano Ped=2, Femoral=2 15:55:21 Lower Right Extremities: Color=Normal Lower Left Extremities: Color=Normal Neurological: State=Alert, Ox3, SILVA Respiration: Resp=7 B/min, HwW0=909 % 15:58:35 Bilateral groins prepped with 2% chlorhexidine, and draped after a 3 minute waiting time. 15:59:50 CJ=823 bpm, CGSQ=297/85 mmhg, SpO2=99.0 %, Resp=8 B/min, Pain=0, Fredy=9, Dixon=2 16:01:46 Reference ECG taken 16:04:51 OG=620 bpm, DRRS=034/78 mmhg, FzE4=186.0 %, Resp=5 B/min 16:09:50 RQ=144 bpm, FXQE=910/78 mmhg, CvO0=860.0 %, Resp=2 B/min, Pain=0, Fredy=9, Dixon=2 16:14:49 PG=665 bpm, JGFN=093/76 mmhg, XpM1=169.0 %, Resp=1 B/min, Pain=0, Fredy=9, Dixon=2 16:15:00 MD arrived. Time Out. Correct patient, correct procedure, correct physician, power injector loaded, or not loaded with contrast with 16:17:16 surgical team present. Time Out Concurred by MD and individual staff in procedure. 16:17:18 Case Start 16:19:00 0.5 mg VERSED given in lab by Sonny Motta RN in Right Antecubital via Peripheral IV. Ord ered by August Goncalves. 16:19:53 RJ=373 bpm, FYZQ=314/80 mmhg, OdE4=265.0 %, Resp=4 B/min, Pain=0, Fredy=9, Dixon=2 16:20:22 Pressure channel 1 zeroed. 16:20:24 20 mL 1% XYLOCAINE given in lab by August Goncalves in Right Groin via Subcutaneous. Ordered by August Goncalves. 16:20:33 Access site was Right Femoral Artery. 16:20:41 A SHEATH, FR6.5 PRELUDE 11CM FR 6.5 was advanced into the Fem Art (right) using the Percuta neous technique. A JL 4.0 INFINITI CATHETER FR 6 was advanced over a wire. OMNIPAQUE, 350 MG, 150ML 150ML was us ed for 16:20:50 injections. 16:24:50 HY=910 bpm, IZVW=711/81 mmhg, SpO2=99.0 %, Resp=22 B/min, Pain=0, Fredy=9, Dixon=2 16:25:21 The LCA was injected and visualized at various angles. OMNIPAQUE, 350 MG, 150ML 150ML used . 16:25:35 Catheter was removed A 3DRC INFINITI CATHETER FR 6 was advanced over a wire. OMNIPAQUE, 350 MG, 150ML 150ML was used for 16:25:36 injections. Recorded Pressure: Ao, HR=99, Condition=Condition 1 16:27:01 (Aorta) Ao 89/69/79 16:27:13 The RCA was injected and visualized at various angles. OMNIPAQUE, 350 MG, 150ML 150ML used . 16:28:00 The SVG-RCA was injected and visualized at various angles. OMNIPAQUE, 350 MG, 150ML 150ML u sed. 16:29:37 The GUALLPA-LAD was injected and visualized at various angles. OMNIPAQUE, 350 MG, 150ML 150ML used. 16:29:51 GR=389 bpm, XWQD=503/74 mmhg, VbS3=767.0 %, Resp=8 B/min, Pain=0, Fredy=9, Dixon=2 After removing the current catheter a MPA-2 INFINITI CATHETER FR 6 was advanced over a WIRE, 3M MJ .035 180CM 16:32:09 180CM. After removing the current catheter a LCB INFINITI CATHETER FR 6 was advanced over a WIRE, 3MMJ .035 180CM 16:34:20 180CM. 16:34:30 The SVG-OM was injected and visualized at various angles. OMNIPAQUE, 350 MG, 150ML 150ML us ed. 16:34:50 EM=452 bpm, HJXN=726/77 mmhg, SpO2=99.0 %, Resp=20 B/min, Pain=0, Fredy=9, Dixon=2 16:36:34 Catheter was removed A PIGTAIL ANG. 145 INFINITI CATHETER FR 6 was advanced over a wire. OMNIPAQUE, 350 MG, 150ML 15 0ML was 16:36:37 used for injections. Recorded Pressure: LV, CZ=634, Condition=Condition 1 16:38:03 (Left Ventricle) LV 89/18/32 Recorded Pressure: LV, Ao, XP=808, Condition=Condition 1 16:38:16 (Left Ventricle) LV 89/20/37, (Aorta) Ao 93/72/82 16:39:22 The Aortic was injected at 20 cc/sec for a total of 40. OMNIPAQUE, 350 MG, 150ML 150ML use d. 16:39:51 AC=736 bpm, NBEU=304/79 mmhg, BxE5=012.0 %, Resp=6 B/min, Pain=0, Fredy=9, Dixon=2 16:44:48 RF=203 bpm, NPMO=836/72 mmhg, AyI0=053.0 %, Resp=1 B/min, Pain=0, Fredy=9, Dixon=2 16:48:33 Catheter was removed 16:48:36 An injection in the Fem Art (right) was made through the SHEATH, FR6.5 PRELUDE 11CM FR 6.5 . Assessment: Final Case, NQ=421 BPM, Rhythm=SINUS TACH, LMYZ=389/83 mmhg, Chest Pain=0, Edema=N one, Color=Normal, Skin = Warm, Dry Right Pulses: Maximiliano Ped=2, Femoral=2 Left Pulses: Maximiliano Ped=2, Femoral=2 16:49:00 Lower Right Extremities: Color=Normal Lower Left Extremities: Color=Normal Neurological: State=Alert, Ox3, SILVA Respiration: Resp=7 B/min, WiT9=085 % 16:49:49 KF=240 bpm, FSZY=644/83 mmhg, SpO2=99.0 %, Resp=3 B/min, Pain=0, Fredy=9, Dixon=2 16:49:58 Case End 16:50:33 VASCADE, FR6 CLOSURE SYSTEM FR 6\7 placement in the Fem Art (right) 16:50:53 Sterile dressing applied to site 16:50:54 No case complications noted. 16:50:55 Cine recording checked. 16:50:58 Bedside Report will be given. 16:51:01 Contrast Scanned 16:51:06 A Left Heart Cath was performed. 16:51:08 Patient moved to stretcher 16:54:54 IN=253 bpm, SLHU=597/78 mmhg, SpO2=99.0 %, Resp=0 B/min, Pain=0, Fredy=9, Dixon=2 16:59:55 FA=959 bpm, ABDE=748/74 mmhg, SpO2=99.0 %, Resp=20 B/min, Pain=0, Fredy=9, Dixon=2 17:05:00 Vitals capture stopped. End Study - Contrast Media Used In Study Contrast Total Opened (mL) Total Used (mL) Total Wasted (mL) Omnipaque 70 70 0 End Study - Maximum Contrast Load Max Contrast Load (mL) 2507.1 End Study - Radiation Exposure Fluoro Time (minutes) 7.8 End Study - Patient Disposition Complications Transferred To Telemetry Bed
[2017-07-25] MEDS ORDERED: ATROPINE SULFATE 1 MG/ML VIAL IV PRN (17:15)
[2017-07-25] MEDS ORDERED: MISC INFORMATION XX ONE (17:15)
[2017-07-25] MEDS ORDERED: SODIUM CHLOR 0.9% 250 ML INJ 250 ML IV PRN (17:15)
[2017-07-25] MEDS ORDERED: IOHEXOL 350 MG/ML 100 ML BTL (for Cath Lab) OTHER ONE (17:28)
--- NOTE | 2017-07-25 20:00 | MA ---
cc: SUZAN MIKE M.D. DATE 07/25/17 PROCEDURE Left heart catheterization, selective coronary and graft angiography, aortic root injection. PROCEDURE NOTE The patient was brought to the cardiac catheterization laboratory in a fasting state after having signed informed consent. The right groin was prepped and draped as per policy and anesthetized with 1% lidocaine. Arterial access was obtained via the right femoral artery and a 6-[place] sheath placed. Coronary arteriography was performed using 6-[place] Sen left 4.0 and right progressive catheters. The left internal mammary artery was engaged with the progressive right catheter. Aortic root injection was done with an angled pigtail catheter. The aortic valve was crossed briefly with the pigtail catheter. A DyeVert device was used to help minimize the contrast load. HEMODYNAMIC RESULTS Left ventricle 89 with an end-diastolic pressure of 20. Aorta 93/72 with a mean of 82. There was no significant transvalvular aortic gradient on pullback of the pigtail catheter. CORONARY ARTERIOGRAPHY The left main has 40% ostial stenosis and 10% distal disease. The left anterior descending is basically subtotally occluded within a previously placed proximal stent. There is very faint flow seen through this stent. The left circumflex is totally occluded proximally. There is filling of a fairly large obtuse marginal which extends to the apex. There is a fairly large ramus intermedius which has diffuse up to 25% proximal disease. The right coronary artery is totally occluded in its midportion. GRAFT ANGIOGRAPHY The left internal mammary artery to the LAD is widely patent. There is filling of two diagonals, the first of which is relatively large, the second of which is very small. Both diagonals have mild diffuse luminal irregularities. LAD to posterior descending artery collaterals are seen and are of fair to good caliber. No other patent bypass grafts were engaged. Aortic root injection confirms no other bypass grafts to be patent. LEFT VENTRICULOGRAPHY Not done due to the patient's elevated creatinine. CONCLUSION 1. Severe three-vessel [place] coronary artery disease. 2. Patent left internal mammary artery to the LAD, totally occluded vein graft to the right coronary artery, totally occluded vein graft to the obtuse marginal. DISCUSSION No disease appears amendable to percutaneous coronary intervention. As the patient has been clinically deteriorating will consider redo bypass surgery. MD DEWAYNE Bryant/ISI /4:55 PM /7:45 PM MTDD
[2017-07-25] MEDS: MORPHINE SULFATE 2 MG/ML INJ IV PUSH PRN (20:10)
[2017-07-25] MEDS: CARVEDILOL 3.125 MG TAB PO SCH (20:19)
[2017-07-25] MEDS: ATORVASTATIN 80 MG TAB PO SCH (20:19)
[2017-07-26] VITALS (14 sets, daily range): BP systolic 89–109; BP diastolic 68–80; PULSE 84–98; RESP 7–30; TEMP 97.6–98; O2SAT 97–100
[2017-07-26] MEDS: MORPHINE SULFATE 2 MG/ML INJ IV PUSH PRN ×6 (00:43→23:14)
[2017-07-26 04:57] LABS: BICARBONATE 28.8 MEQ/L (21.0-32.0)
[2017-07-26 05:00] LABS: POTASSIUM 2.9 MEQ/L (3.5-5.1)
[2017-07-26] MEDS ORDERED: POTASSIUM CHLOR 20 MEQ PREMIX 100 ML IV SCH (05:30)
[2017-07-26] MEDS ORDERED: POTASSIUM CHLORIDE 20 MEQ CONTROLLED RELEASE TAB PO ONE (05:30)
[2017-07-26] MEDS: INSULIN ASPART SUPPLEMENTAL SCALE SQ SCH ×4 (08:00→21:07)
--- NOTE | 2017-07-26 08:05 | HHI.PR ---
Objective Vitals Vital Signs Date Time Temp Pulse Resp B/P (MAP) Pulse Ox O2 Delivery O2 Flow Rate FiO2 07/26/17 06:00 92 07/26/17 04:00 98.0 89 17 96/73 (81) 99 07/26/17 04:00 89 07/26/17 02:00 90 07/26/17 01:00 93 30 92/69 (77) 97 07/26/17 00:00 97.7 98 23 101/80 (87) 98 07/26/17 00:00 98 07/25/17 23:00 96 16 100/75 (83) 99 07/25/17 22:00 96 16 100/71 (81) 100 07/25/17 22:00 96 07/25/17 21:00 101 23 101/78 (86) 100 07/25/17 20:46 100 Nasal Cannula 4.00 07/25/17 20:00 97.9 106 17 111/82 (92) 100 07/25/17 20:00 104 07/25/17 19:00 104 11 106/76 (86) 100 07/25/17 18:21 98.6 104 16 107/76 (86) 98 07/25/17 16:09 07/25/17 13:24 105 18 121/75 (90) 100 Room Air 07/25/17 11:33 103 18 108/74 (85) 99 Room Air 07/25/17 10:45 105 20 114/77 (89) 100 Room Air 07/25/17 09:16 106 18 100/75 (83) 99 Room Air 07/25/17 08:47 96 Room Air 07/25/17 08:46 96 Room Air I/O 07/25/17 07/25/17 07/25/17 07/26/17 07/26/17 07/26/17 07:00 15:00 23:00 07:00 15:00 23:00 Intake Total 1000 ml 487 ml Output Total 480 ml Balance 1000 ml 7 ml Intake Oral 480 ml IV Total 1000 ml 7 ml Output Urine Total 480 ml Result Diagram: 07/25/17 1236 07/26/17 0358 A/P Problem List: (1) Non-STEMI (non-ST elevated myocardial infarction) ICD Code: I21.4 - Non-ST elevation (NSTEMI) myocardial infarction Status: Acute Assessment and Plan A/P - NSTEMI with history of CAD/ stent and CABG s/p cardiac cath with : 1. Severe three-vessel [place] coronary artery disease. 2. Patent left internal mammary artery to the LAD, totally occluded vein graft to the right coronary artery, totally occluded vein graft to the obtuse marginal. continue aspirin, BB, lisinopril and statin- CT surgery was consulted- -diabetes mellitus; uncontrolled start on Levemir- continue accu-check with SSI and continue IV fluid- A1c 9.5 - hold metformin- -acute kidney injury; improved- continue IV fluid- monitor the renal function- hold lasix for now -hyponatremia- due to hyperglycemia; improved. -hypercalcemia; improved after IV fluid- -hypertension/ dyslipidemia/ ischemic cardiomyopathy; resumed home meds. -hypokalemia; will replace and monitor. -DVT prophylaxis; awaiting CT surgery evaluation. Jaspreet Hayward MD Jul 26, 2017 08:05
--- NOTE | 2017-07-26 08:29 | PD.CARD.PN ---
Subjective Subjective Remarks Able to sleep some after given morphine. Orthopnea persists. No further CP. No dyspnea this morning. No groin pain, dizziness. Objective Medications Item Value Date Time Lisinopril 2.5 mg 07/26/17899 (Prinivil) DAILY/PO Aspirin 81 mg 07/26/17899 (Aspirin Chew) DAILY/PO Potassium Chloride 100 ml @ 50 mls/hr 07/26/17529 Atorvastatin 80 mg 07/25/172099 Calcium HS/PO 07/25/172018 (Lipitor) Carvedilol 3.125 mg 07/25/172099 (Coreg) Q12HR/PO 07/25/172018 Vital Signs / I&O Vital Signs Date Time Temp Pulse Resp B/P (MAP) Pulse Ox O2 Delivery O2 Flow Rate FiO2 07/26/17 06:00 92 07/26/17 04:00 98.0 89 17 96/73 (81) 99 07/26/17 04:00 89 07/26/17 02:00 90 07/26/17 01:00 93 30 92/69 (77) 97 07/26/17 00:00 97.7 98 23 101/80 (87) 98 07/26/17 00:00 98 07/25/17 23:00 96 16 100/75 (83) 99 07/25/17 22:00 96 16 100/71 (81) 100 07/25/17 22:00 96 07/25/17 21:00 101 23 101/78 (86) 100 07/25/17 20:46 100 Nasal Cannula 4.00 07/25/17 20:00 97.9 106 17 111/82 (92) 100 07/25/17 20:00 104 07/25/17 19:00 104 11 106/76 (86) 100 07/25/17 18:21 98.6 104 16 107/76 (86) 98 07/25/17 16:09 07/25/17 13:24 105 18 121/75 (90) 100 Room Air 07/25/17 11:33 103 18 108/74 (85) 99 Room Air 07/25/17 10:45 105 20 114/77 (89) 100 Room Air 07/25/17 09:16 106 18 100/75 (83) 99 Room Air 07/25/17 08:47 96 Room Air 07/25/17 08:46 96 Room Air I/O 07/25/17 07/25/17 07/25/17 07/26/17 07/26/17 07/26/17 07:00 15:00 23:00 07:00 15:00 23:00 Intake Total 1000 ml 487 ml Output Total 480 ml Balance 1000 ml 7 ml Intake Oral 480 ml IV Total 1000 ml 7 ml Output Urine Total 480 ml Physical Exam GENERAL: Well developed, well nourished. No acute distress. HEENT: Jugular venous pressure is normal. CHEST: Diminished breath sounds left base. Unlabored respiratory effort. CARDIAC: Regular rate and rhythm without S3, S4. II/ early systolic murmur apex. ABDOMEN: Soft, nontender, no hepatosplenomegaly. Bowel sounds present. EXTREMITIES: No clubbing, cyanosis, or edema. Laboratory Laboratory Tests Test 07/25/17 11:12 07/25/17 12:36 07/25/17 17:15 07/26/17 03:58 Troponin I 2.93 NG/ML 2.88 NG/ML White Blood Count 14.1 TH/MM3 Red Blood Count 4.14 MIL/MM3 Hemoglobin 11.4 GM/DL Hematocrit 33.6 % Mean Corpuscular Volume 81.1 FL Mean Corpuscular Hemoglobin 27.5 PG Mean Corpuscular Hemoglobin Concent 33.9 % Red Cell Distribution Width 17.6 % Platelet Count 238 TH/MM3 Mean Platelet Volume 8.8 FL Hemoglobin A1c 9.5 % Nasal Screen MRSA (PCR) MRSA NOT DETECTED Blood Urea Nitrogen 26 MG/DL Creatinine 1.13 MG/DL Random Glucose 140 MG/DL Calcium Level 10.1 MG/DL Sodium Level 133 MEQ/L Potassium Level 2.9 MEQ/L Chloride Level 96 MEQ/L Carbon Dioxide Level 28.8 MEQ/L Anion Gap 8 MEQ/L Estimat Glomerular Filtration Rate 69 ML/MIN Assessment and Plan Problem List: (1) Coronary artery disease ICD Codes: I25.10 - Atherosclerotic heart disease of [place] coronary artery without angina pectoris Status: Acute Plan: Stable overnight. No further CP. Cardiac enzymes consistent with acute NSTEMI. Cath shows occluded 2 of 3 grafts. Echo pending, ? has developed significant MR as well. BP too low to increase medical therapy. REC await CV surgery consult for possible redo CABG continue current medication regimen will have coverage see patient PRN over the weekend (2) Ischemic cardiomyopathy ICD Codes: I25.5 - Ischemic cardiomyopathy Status: Chronic Plan: EF ~25-30% by echo about 3 months ago. Echo pending. No overt CHF by exam, CXR. REC continue beta yadira, KEISHA-I therapy Code Status full code Discussed Condition With patient Problem Qualifiers (1) Coronary artery disease: Qualified Codes: I25.110 - Atherosclerotic heart disease of [place] coronary artery with unstable angina pectoris August Goncalves MD Jul 26, 2017 08:29
[2017-07-26] MEDS: CARVEDILOL 3.125 MG TAB PO SCH ×2 (08:39→21:07)
[2017-07-26] MEDS: LISINOPRIL 5 MG TAB PO SCH (08:40)
[2017-07-26] MEDS: ASPIRIN 81 MG CHEW TAB PO SCH (08:40)
--- NOTE | 2017-07-26 10:56 | PD.CONS ---
History of Present Illness Service CT Surgery Consult Requested By Dr. Goncalves Reason for Consult NSTEMI, multivessel CAD, ischemic cardiomyopathy, s/p CABG x 3 Primary Care Physician Unknown Diagnoses: (1) Non-STEMI (non-ST elevated myocardial infarction) (2) Coronary artery disease (3) Ischemic cardiomyopathy (4) S/P CABG x 3 History of Present Illness 51 y/o male s/p CABG x 3 in January, following a STEMI noted to have an EF ~ 15% requiring IABP support now presents with dyspnea and chest pressure. He has had these symptoms for ~3 days prior to admission but the dyspnea became worse leading to his presentation. He ruled-in for NSTEMI and was found to have acute on chronic combined heart failure. He was managed medically and did well. He underwent LHC yesterday which was significant for 3 vessel CAD with occlusion of the SVG to the RCA and the SVG to the OM. The GUALLPA is patent to a small diffusely diseased LAD.. The EF is 20-25% on ECHO. Review of Systems Constitutional: COMPLAINS OF: Fatigue, DENIES: Diaphoretic episodes, Fever, Weight gain, Weight loss, Chills, Dizziness, Change in appetite, Night Sweats Endocrine: DENIES: Heat/cold intolerance, Polydipsia, Polyuria, Polyphagia Eyes: DENIES: Blurred vision, Diplopia, Eye inflammation, Eye pain, Vision loss , Photosensitivity, Double Vision Ears, nose, mouth, throat: DENIES: Tinnitus, Hearing loss, Vertigo, Nasal discharge, Oral lesions, Throat pain, Hoarseness, Ear Pain, Running Nose, Epistaxis, Sinus Pain, Toothache, Odynophagia Respiratory: COMPLAINS OF: Shortness of breath, DENIES: Apneas, Cough, Snoring , Wheezing, Hemoptysis, Sputum production Cardiovascular: COMPLAINS OF: Chest pain, Dyspnea on Exertion, Lower Extremity Edema, DENIES: Palpitations, Syncope, PND, Orthopnea, Claudication Gastrointestinal: DENIES: Abdominal pain, Black stools, Bloody stools, Constipation, Diarrhea, Nausea, Vomiting, Difficulty Swallowing, Anorexia Musculoskeletal: COMPLAINS OF: Muscle aches, Stiffness, DENIES: Joint pain, Joint Swelling, Back pain, Neck pain Integumentary: DENIES: Abnormal pigmentation, Nail changes, Pruritus, Rash Hematologic/lymphatic: DENIES: Bruising, Lymphadenopathy Immunologic/allergic: DENIES: Eczema, Urticaria Neurologic: DENIES: Abnormal gait, Headache, Localized weakness, Paresthesias, Seizures, Speech Problems, Tremor, Poor Balance Psychiatric: DENIES: Anxiety, Confusion, Mood changes, Depression, Hallucinations, Agitation, Suicidal Ideation, Homicidal Ideation, Delusions Past Family Social History Allergies: Coded Allergies: carbinoxamine (Unverified Allergy, Severe, UNKNOWN, 06/04/17) pseudoephedrine (Unverified Allergy, Severe, UNKNOWN, 06/04/17) *MDRO Multi-Drug Resistant Organism (Verified Adverse Reaction, Unknown, ) MRSA PCR Screen POSITIVE - 02/03/2017 Past Medical History CAD hypertension dyslipidemia diabetes mellitus Past Surgical History CABG stent placement Reported Medications Potassium Chloride Microencaps 20 Meq Tab 20 Meq PO DAILY Furosemide 40 Mg Tab 40 Mg PO DAILY Coreg (Carvedilol) 3.125 Mg Tab 3.125 Mg PO Q12HR Atorvastatin (Atorvastatin Calcium) 80 Mg Tab 80 Mg PO HS Metformin (Metformin HCl) 500 Mg Tab 500 Mg PO BIDPC With meals Lisinopril 5 Mg Tab 2.5 Mg PO DAILY Glucocom Test Strips (Blood Glucose Test Strips) 1 Marianne Marianne 1 Ea .ROUTE DIRECTED Lancets 1 Mis Mis 1 Ea .ROUTE DIRECTED Insulin Syringe/U-100/31G X 03/05" 1 ml 1 Mis Mis 1 Ea .ROUTE DIRECTED Glucocom Blood Glucose Mo W/Device (Device) 1 Kit Kit 1 Kit .ROUTE DIRECTED [Aspirin Chew] 81 MG Chew 81 Mg PO DAILY 90 Days Active Ordered Medications Current Medications Medications (Trade) Dose Ordered Sig/Leif Route Start Time Stop Time Status Last Admin (NS Flush) 2 ml UNSCH PRN IVF 07/25/17 08:00 (D50w (Vial) Inj) 50 ml UNSCH PRN IV PUSH 07/25/17 10:00 (Glucagon Inj) 1 mg UNSCH PRN OTHER 07/25/17 10:00 (NovoLOG SUPPLEMENTAL SCALE) 1 ACHS SLIDING SCALE SQ 07/25/17 12:00 07/26/17 08:00 (Lipitor) 80 mg HS PO 07/25/17 21:00 07/25/17 20:19 (Coreg) 3.125 mg Q12HR PO 07/25/17 21:00 07/26/17 08:39 (Prinivil) 2.5 mg DAILY PO 07/26/17 09:00 07/26/17 08:40 (Aspirin Chew) 81 mg DAILY PO 07/26/17 09:00 07/26/17 08:40 (Morphine Inj) 2 mg Q4H PRN IV PUSH 07/25/17 11:00 07/26/17 10:31 (Pill Splitter) 1 ea UNSCH PRN OTHER 07/25/17 11:00 Sodium Chloride 1,000 ml @ 30 mls/hr Q24H IV 07/25/17 13:29 07/30/17 13:28 (Aspirin) 325 mg DOG BOARDER PO 07/25/17 13:30 07/29/17 13:29 (Benadryl) 50 mg DOG BOARDER PO 07/25/17 13:30 07/29/17 13:29 (Valium) 10 mg DOG BOARDER PO 07/25/17 14:00 07/29/17 13:59 (Atropine Inj) 0.5 mg UNSCH PRN IV 07/25/17 17:15 Sodium Chloride 250 ml @ 0 mls/hr UNSCH X1 PRN IV 07/25/17 17:15 08/01/17 17:14 (Levemir Inj) 10 units HS SQ 07/26/17 21:00 Family History Strong FH of heart disease, diabetes, HTN, and hyperlipidemia Social History Quit smoking recently Admits to occasional ETOH Denies illicit drugs Physical Exam Vital Signs Vital Signs Date Time Temp Pulse Resp B/P (MAP) Pulse Ox O2 Delivery O2 Flow Rate FiO2 07/26/17 09:00 99 Nasal Cannula 2.00 07/26/17 08:00 97.7 96 24 109/77 (88) 100 07/26/17 08:00 96 07/26/17 06:00 92 07/26/17 04:00 98.0 89 17 96/73 (81) 99 07/26/17 04:00 89 07/26/17 02:00 90 07/26/17 01:00 93 30 92/69 (77) 97 07/26/17 00:00 97.7 98 23 101/80 (87) 98 07/26/17 00:00 98 07/25/17 23:00 96 16 100/75 (83) 99 07/25/17 22:00 96 16 100/71 (81) 100 07/25/17 22:00 96 07/25/17 21:00 101 23 101/78 (86) 100 07/25/17 20:46 100 Nasal Cannula 4.00 07/25/17 20:00 97.9 106 17 111/82 (92) 100 07/25/17 20:00 104 07/25/17 19:00 104 11 106/76 (86) 100 07/25/17 18:21 98.6 104 16 107/76 (86) 98 07/25/17 16:09 07/25/17 13:24 105 18 121/75 (90) 100 Room Air 07/25/17 11:33 103 18 108/74 (85) 99 Room Air 07/25/17 10:45 105 20 114/77 (89) 100 Room Air Physical Exam GENERAL: This is a well-nourished, well-developed patient, in no apparent distress. SKIN: No rashes, ecchymoses or lesions. Cool and dry. HEAD: Atraumatic. Normocephalic. No temporal or scalp tenderness. EYES: Pupils equal round and reactive. Extraocular motions intact. No scleral icterus. No injection or drainage. ENT: Nose without bleeding, purulent drainage or septal hematoma. Throat without erythema, tonsillar hypertrophy or exudate. Uvula midline. Airway patent. NECK: Trachea midline. No JVD or lymphadenopathy. Supple, nontender, no meningeal signs. CARDIOVASCULAR: Regular rate and rhythm without murmurs, gallops, or rubs. Well- healed sternotomy. RESPIRATORY: Clear to auscultation. Breath sounds equal bilaterally. No wheezes , rales, or rhonchi. GASTROINTESTINAL: Abdomen soft, non-tender, nondistended. No hepato-splenomegaly , or palpable masses. No guarding. MUSCULOSKELETAL: Extremities without clubbing, cyanosis, or edema. No joint tenderness, effusion, or edema noted. No calf tenderness. Negative Homans sign bilaterally. NEUROLOGICAL: Awake and alert. Cranial nerves II through XII intact. Motor and sensory grossly within normal limits. Five out of 5 muscle strength in all muscle groups. Normal speech. Laboratory Laboratory Tests Test 07/25/17 11:12 07/25/17 12:36 07/25/17 17:15 07/26/17 03:58 Troponin I 2.93 2.88 White Blood Count 14.1 Red Blood Count 4.14 Hemoglobin 11.4 Hematocrit 33.6 Mean Corpuscular Volume 81.1 Mean Corpuscular Hemoglobin 27.5 Mean Corpuscular Hemoglobin Concent 33.9 Red Cell Distribution Width 17.6 Platelet Count 238 Mean Platelet Volume 8.8 Hemoglobin A1c 9.5 Nasal Screen MRSA (PCR) MRSA NOT DETECTED Blood Urea Nitrogen 26 Creatinine 1.13 Random Glucose 140 Calcium Level 10.1 Sodium Level 133 Potassium Level 2.9 Chloride Level 96 Carbon Dioxide Level 28.8 Anion Gap 8 Estimat Glomerular Filtration Rate 69 Result Diagram: 07/25/17 1236 07/26/17 0358 Imaging Last Impressions Chest X-Ray 07/25/17 1705 Signed Impressions: Service Date/Time: , July 25, 2017 08:20 - CONCLUSION: Cardiomegaly and previous median sternotomy.. Todd Chand MD Course Patient is currently pain-free and denies dyspnea. He has responded well to medical management. Assessment and Plan Problem List: (1) Non-STEMI (non-ST elevated myocardial infarction) ICD Codes: I21.4 - Non-ST elevation (NSTEMI) myocardial infarction Status: Acute (2) S/P CABG x 3 ICD Codes: Z95.1 - Presence of aortocoronary bypass graft Status: Acute (3) Ischemic cardiomyopathy ICD Codes: I25.5 - Ischemic cardiomyopathy Status: Chronic (4) Coronary artery disease ICD Codes: I25.10 - Atherosclerotic heart disease of [place] coronary artery without angina pectoris Status: Acute Assessment and Plan Unfortunate 51 y/o male with uncontrolled diabetes mellitus and multiple risk factors for CAD presents with NSTEMI and acute CHF. He has been stabilized with medical therapy and has 2 occluded vein grafts to diffusely diseased, small distal target vessels. I discussed him with Dr. Goncalves and also spent ~20 minutes talking to the patient regarding his condition. REDO CABG at this time would be at significant risk with potential grafts to the OM and RCA territories to distal targets with questionable runoff. He may not benefit from REDO CABG, and the risk for perioperative mortality and morbidity is high. He will be discussed by Dr. Goncalves and his partners for revascularization options. RISK SCORES About the STS Risk Calculator Procedure: CAB Only Risk of Mortality: 11.004% Morbidity or Mortality: 58.692% Long Length of Stay: 23.967% Short Length of Stay: 12.336% Permanent Stroke: 0.738% Prolonged Ventilation: 47.941% DSW Infection: 1.783% Renal Failure: 20.36% Reoperation: 16.712% Problem Qualifiers (1) Coronary artery disease: Qualified Codes: I25.110 - Atherosclerotic heart disease of [place] coronary artery with unstable angina pectoris Lexy Quintero MD Jul 26, 2017 10:56
[2017-07-26] MEDS: ATORVASTATIN 80 MG TAB PO SCH (21:07)
[2017-07-26] MEDS: INSULIN DETEMIR 100 UNITS/ML VIAL SQ SCH (21:07)
[2017-07-27] VITALS (21 sets, daily range): BP systolic 80–95; BP diastolic 54–68; PULSE 81–90; RESP 7–26; TEMP 96.7–98; O2SAT 96–100
[2017-07-27] MEDS: MORPHINE SULFATE 2 MG/ML INJ IV PUSH PRN ×3 (03:59→17:28)
[2017-07-27 04:19] LABS: AUTOMATED NEUTROPHIL # 9.8 TH/MM3 (1.8-7.7); BASOPHIL # 0.1 TH/MM3 (0-0.2); BASOPHIL % 0.7 % (0.0-2.0); EOSINOPHIL # 0.2 TH/MM3 (0-0.4); HEMATOCRIT 33.5 % (39.0-51.0); HEMO FLAGS DIFF FINAL; LYMPH % 24.5 % (9.0-44.0); LYMPHOCYTE # 3.7 TH/MM3 (1.0-4.8); MEAN CELL VOLUME 83.9 FL (80.0-100.0); MEAN CORPUSCULAR HEMOGLOBIN 28.1 PG (27.0-34.0); MEAN CORPUSCULAR HGB CONC 33.5 % (32.0-36.0); MONO % 9.2 % (0.0-8.0); NEUT % 64.6 % (16.0-70.0); PLATELET COUNT 196 TH/MM3 (150-450); RED BLOOD COUNT 3.99 MIL/MM3 (4.50-5.90); RED CELL DISTRIBUTION WIDTH 18.2 % (11.6-17.2); WHITE BLOOD COUNT 15.2 TH/MM3 (4.0-11.0)
[2017-07-27 04:49] LABS: BICARBONATE 27.1 MEQ/L (21.0-32.0); POTASSIUM 4.1 MEQ/L (3.5-5.1)
--- NOTE | 2017-07-27 07:14 | HHI.PR ---
Subjective Remarks in no acute distress. says that had a good sleep last night. no chest pain or sob. Objective Vitals Vital Signs Date Time Temp Pulse Resp B/P (MAP) Pulse Ox O2 Delivery O2 Flow Rate FiO2 07/27/17 06:00 84 07/27/17 04:00 85 07/27/17 04:00 97.9 85 26 90/65 (73) 100 07/27/17 02:00 81 07/27/17 00:00 88 07/27/17 00:00 97.9 88 14 90/65 (73) 100 07/26/17 22:00 89 07/26/17 20:00 97.7 84 14 89/68 (75) 97 07/26/17 20:00 90 07/26/17 18:00 89 07/26/17 16:00 94 07/26/17 16:00 97.6 94 14 97/73 (81) 97 07/26/17 14:00 88 07/26/17 12:00 97.9 89 7 94/70 (78) 98 07/26/17 12:00 89 07/26/17 10:00 95 07/26/17 09:00 99 Nasal Cannula 2.00 07/26/17 08:00 97.7 96 24 109/77 (88) 100 07/26/17 08:00 96 I/O 07/26/17 07/26/17 07/26/17 07/27/17 07/27/17 07/27/17 07:00 15:00 23:00 07:00 15:00 23:00 Intake Total 487 ml 93 ml 800 ml 480 ml Output Total 480 ml 275 ml 500 ml Balance 7 ml 93 ml 525 ml -20 ml Intake Oral 480 ml 800 ml 480 ml IV Total 7 ml 93 ml Output Urine Total 480 ml 500 ml Emesis 275 ml # Voids 1 # Bowel Movements 0 Result Diagram: 07/27/1734907/27/17349 Imaging Last Impressions Chest X-Ray 07/25/17 0732 Signed Impressions: Service Date/Time: July 08:20 - CONCLUSION: Cardiomegaly and previous median sternotomy.. Todd Chand MD Objective Remarks GENERAL: This is a well-nourished, well-developed patient, in no apparent distress. CARDIOVASCULAR: Regular rate and regular rhythm without murmurs, gallops, or rubs. RESPIRATORY: Clear to auscultation. Breath sounds equal bilaterally. No wheezes , rales, or rhonchi. GASTROINTESTINAL: Abdomen soft, non-tender, nondistended. Normal, active bowel sounds MUSCULOSKELETAL: Extremities without clubbing, cyanosis, or edema. NEURO: Alert & Oriented x4 to person, place, time, situation. Moves all ext x4 Procedures cardiac cath Medications and IVs Current Medications Sodium Chloride (NS Flush) 2 ml UNSCH PRN IVF FLUSH AFTER USING IV ACCESS; Start 07/25/17 at 08:00 Heparin Sodium (Porcine) (Heparin Inj) 5,000 units ONCE ONCE IV Last administered on 07/25/17 09:14; Start 07/25/17 at 09:00; Stop 07/25/17 at 17:11 ; Status DC Heparin Sodium (Porcine) (Heparin Inj) 5,000 units UNSCH PRN IV APTT LESS THAN 25; Start 07/25/17 at 15:00; Status Cancel Heparin Sodium (Porcine) (Heparin Inj) 2,500 units UNSCH PRN IV APTT 25 TO 39; Start 07/25/17 at 15:00; Stop 07/25/17 at 17:11; Status DC Heparin Sodium/ Dextrose 250 ml @ 10 mls/hr TITRATE ONCE IV Last administered on 07/25/17 10:01; Start 07/25/17 at 09:00; Stop 07/25/17 at 17:10 ; Status DC Sodium Chloride 1,000 ml @ 999 mls/hr BOLUS ONCE IV Last administered on 07/25 09:14; Start 07/25/17 at 09:15; Stop 07/25/17 at 10:15; Status DC Insulin Human Regular (NovoLIN R INJ) 10 units ONCE ONCE SQ Last administered on 07/25/17 09:14; Start 07/25/17 at 09:15; Stop 07/25/17 at 09:16; Status DC Aspirin (Aspirin Chew) 324 mg ONCE ONCE CHEW Last administered on 07/25/17 09 :25; Start 07/25/17 at 09:15; Stop 07/25/17 at 09:16; Status DC Dextrose (D50w (Vial) Inj) 50 ml UNSCH PRN IV PUSH HYPOGLYCEMIA-SEE COMMENTS; Start 07/25/17 at 10:00 Glucagon (Glucagon Inj) 1 mg UNSCH PRN OTHER HYPOGLYCEMIA-SEE COMMENTS; Start 07/25/17 at 10:00 Insulin Aspart (NovoLOG SUPPLEMENTAL SCALE) 1 ACHS SLIDING SCALE SQ Last administered on 07/26/17 21:07; Start 07/25/17 at 12:00 Sodium Chloride 1,000 ml @ 70 mls/hr [id number] IV Last administered on 11:13; Start 07/25/17 at 10:00; Stop 07/25/17 at 17:13; Status DC Atorvastatin Calcium (Lipitor) 80 mg HS PO Last administered on 07/26/17 21:07 ; Start 07/25/17 at 21:00 Carvedilol (Coreg) 3.125 mg Q12HR PO Last administered on 07/26/17 21:07; Start 07/25/17 at 21:00 Lisinopril (Prinivil) 2.5 mg DAILY PO Last administered on 07/26/17 08:40; Start 07/26/17 at 09:00 Aspirin (Aspirin Chew) 81 mg DAILY PO Last administered on 07/26/17 08:40; Start 07/26/17 at 09:00 Morphine Sulfate (Morphine Inj) 2 mg Q4H PRN IV PUSH PAIN Last administered on 07/27/17 03:59; Start 07/25/17 at 11:00 Miscellaneous (Pill Splitter) 1 ea UNSCH PRN OTHER SEE LABEL COMMENTS; Start 07/25/17 at 11:00 Sodium Chloride 1,000 ml @ 30 mls/hr Q24H IV ; Start 07/25/17 at 13:29; Stop 07/30/17 at 13:28 Aspirin (Aspirin) 325 mg [employer]SHM[employer] MACHINE WORKER PO ; Start 07/25/17 at 13:30; Stop 07/29/17 at 13:29 Diphenhydramine HCl (Benadryl) 50 mg [employer] WORKER PO ; Start 07/25/17 at 13:30; Stop 07/29/17 at 13:29 Diazepam (Valium) 10 mg [employer] WORKER PO ; Start 07/25/17 at 14:00; Stop 07/29/17 at 13:59 Heparin Sodium/ Sodium Chloride 1,000 ml @ As Directed STK-MED ONCE .ROUTE ; Start 07/25/17 at 15:55; Stop 07/25/17 at 15:56; Status DC Midazolam HCl (Versed Inj) 2 mg STK-MED ONCE .ROUTE Last administered on 15:19; Start 07/25/17 at 15:55; Stop 07/25/17 at 15:56; Status DC Fentanyl Citrate (fentaNYL INJ) 100 mcg STK-MED ONCE .ROUTE ; Start 07/25/17 at 15:55; Stop 07/25/17 at 15:56; Status DC Sodium Chloride 1,000 ml @ 75 mls/hr [id number] IV Last administered on 17:01; Start 07/25/17 at 17:01; Stop 07/26/17 at 03:00; Status DC Miscellaneous Information 1 ONCE ONCE XX ; Start 07/25/17 at 17:15; Stop at 17:16; Status DC Atropine Sulfate (Atropine Inj) 0.5 mg UNSCH PRN IV VAGAL REPONSE; Start at 17:15 Sodium Chloride 250 ml @ 0 mls/hr UNSCH X1 PRN IV VAGAL REPONSE; Start at 17:15; Stop 08/01/17 at 17:14 Iohexol (OMNIPAQUE 350 INJ (Yolk Spray Drier)) 100 ml STK-MED ONCE OTHER ; Start at 17:28; Stop 07/25/17 at 17:29; Status DC Potassium Chloride (KCl) 40 meq ONCE ONCE PO Last administered on 07/26/17 05 :32; Start 07/26/17 at 05:30; Stop 07/26/17 at 05:31; Status DC Potassium Chloride 100 ml @ 50 mls/hr Q2H IV Last administered on 07/26/17 05 :32; Start 07/26/17 at 05:30; Stop 07/26/17 at 09:29; Status DC Insulin Detemir (Levemir Inj) 10 units HS SQ Last administered on 07/26/17 21: 07; Start 07/26/17 at 21:00 A/P Problem List: (1) Non-STEMI (non-ST elevated myocardial infarction) ICD Code: I21.4 - Non-ST elevation (NSTEMI) myocardial infarction Status: Acute Assessment and Plan A/P - NSTEMI with history of CAD/ stent and CABG s/p cardiac cath with : 1. Severe three-vessel [place] coronary artery disease. 2. Patent left internal mammary artery to the LAD, totally occluded vein graft to the right coronary artery, totally occluded vein graft to the obtuse marginal. continue aspirin, BB, lisinopril and statin- CT surgery consult appreciated ; high risk for redo CABG- awaiting cardiology recommendations. -diabetes mellitus; overall better controlled. started on Levemir- continue accu-check with SSI and continue gentle IV fluid - A1c 9.5- hold metformin- -acute kidney injury; - continue IV fluid- monitor the renal function- hold lasix for now -hyponatremia- due to hyperglycemia; improved. -hypercalcemia; improved after IV fluid- -hypertension/ dyslipidemia/ ischemic cardiomyopathy; resumed home meds. will monitor BP closely since his BP is on low side. -hypokalemia; replaced. -DVT prophylaxis; awaiting cardiology f/u. transfer to [facility] when ok with cardiology. Jaspreet Hayward MD Jul 27, 2017 07:14
[2017-07-27] MEDS: INSULIN ASPART SUPPLEMENTAL SCALE SQ SCH ×4 (08:00→21:00)
[2017-07-27] MEDS: ASPIRIN 81 MG CHEW TAB PO SCH (10:08)
[2017-07-27] MEDS: CARVEDILOL 3.125 MG TAB PO SCH ×2 (10:08→21:00)
[2017-07-27] MEDS: LISINOPRIL 5 MG TAB PO SCH (10:08)
[2017-07-27] MEDS ORDERED: ONDANSETRON HCL 4 MG/2 ML VIAL ONE (11:55)
[2017-07-27] MEDS: SODIUM CHLOR 0.9% 1000 ML INJ 1,000 ML IV SCH (13:29)
[2017-07-27] MEDS: ONDANSETRON HCL 4 MG/2 ML VIAL IV PUSH PRN (17:28)
[2017-07-27] MEDS: ATORVASTATIN 80 MG TAB PO SCH (21:18)
[2017-07-27] MEDS: INSULIN DETEMIR 100 UNITS/ML VIAL SQ SCH (21:21)
[2017-07-27] MEDS ORDERED: hydrOXYzine HCL 50 MG TAB PO ONE (21:45)
[2017-07-28] VITALS (26 sets, daily range): BP systolic 65–123; BP diastolic 46–80; PULSE 68–96; RESP 16–22; TEMP 97.2–99.3; O2SAT 87–98
[2017-07-28] MEDS: ONDANSETRON HCL 4 MG/2 ML VIAL IV PUSH PRN ×4 (03:56→19:23)
[2017-07-28 06:24] LABS: HEMATOCRIT 31.1 % (39.0-51.0); MEAN CELL VOLUME 81.8 FL (80.0-100.0); MEAN CORPUSCULAR HEMOGLOBIN 28.4 PG (27.0-34.0); MEAN CORPUSCULAR HGB CONC 34.7 % (32.0-36.0); PLATELET COUNT 177 TH/MM3 (150-450); RED CELL DISTRIBUTION WIDTH 18.2 % (11.6-17.2); REVIEW FLAG FINAL; WHITE BLOOD COUNT 17.7 TH/MM3 (4.0-11.0)
[2017-07-28 07:01] LABS: BICARBONATE 22.1 MEQ/L (21.0-32.0)
[2017-07-28] MEDS ORDERED: LORazepam 0.5 MG TAB PO PRN (07:30)
[2017-07-28] MEDS ORDERED: ACETAMINOPHEN/HYDROcodone 325 MG/5 MG TAB PO PRN (07:30)
--- NOTE | 2017-07-28 08:17 | HHI.PR ---
Subjective Remarks resting comfortably with no distress. no fever. no chest pain or sob. BP trend noted. at times anxious. d/w the RN. Objective Vitals Vital Signs Date Time Temp Pulse Resp B/P (MAP) Pulse Ox O2 Delivery O2 Flow Rate FiO2 07/28/17 06:00 68 07/28/17 05:00 79 07/28/17 04:00 90 07/28/17 04:00 98.1 90 18 88/54 (65) 97 07/28/17 04:00 Nasal Cannula 2.00 07/28/17 03:00 92 07/28/17 02:00 88 07/28/17 01:00 85 07/28/17 00:00 82 07/28/17 00:00 98.2 89 18 80/53 (62) 98 07/28/17 00:00 Nasal Cannula 2.00 07/27/17 23:00 85 07/27/17 22:00 88 07/27/17 21:00 87 07/27/17 20:00 Nasal Cannula 2.00 07/27/17 20:00 98.0 84 18 80/54 (63) 99 07/27/17 20:00 84 07/27/17 18:10 18 07/27/17 18:08 86 07/27/17 17:49 84 07/27/17 16:25 88 07/27/17 15:02 97.6 89 18 85/57 (66) 100 07/27/17 14:00 84 07/27/17 12:00 84 07/27/17 12:00 96.8 88 22 90/63 (72) 100 07/27/17 11:00 89 07/27/17 10:45 90 07/27/17 10:30 88 07/27/17 10:15 89 07/27/17 10:00 84 07/27/17 08:35 96 Nasal Cannula 2.00 07/27/17 08:00 96.7 84 7 95/68 (77) 98 07/27/17 08:00 84 07/27/17 08:00 84 I/O 07/27/17 07/27/17 07/27/17 07/28/17 07/28/17 07/28/17 07:00 15:00 23:00 07:00 15:00 23:00 Intake Total 480 ml 640 ml 480 ml Output Total 500 ml 600 ml Balance -20 ml 640 ml -120 ml Intake Oral 480 ml 640 ml 480 ml Output Urine Total 500 ml 600 ml # Voids 1 # Bowel Movements 0 0 Result Diagram: 07/28/17 0535 07/27/17 0350 Imaging Last Impressions Chest X-Ray 07/25/17 0754 Signed Impressions: Service Date/Time: July 08:20 - CONCLUSION: Cardiomegaly and previous median sternotomy.. Todd Chand MD Objective Remarks GENERAL: This is a well-nourished, well-developed patient, in no apparent distress. CARDIOVASCULAR: Regular rate and regular rhythm without murmurs, gallops, or rubs. RESPIRATORY: Clear to auscultation. Breath sounds equal bilaterally. No wheezes , rales, or rhonchi. GASTROINTESTINAL: Abdomen soft, non-tender, nondistended. Normal, active bowel sounds MUSCULOSKELETAL: Extremities without clubbing, cyanosis, or edema. NEURO: Alert & Oriented x4 to person, place, time, situation. Moves all ext x4 Procedures cardiac cath Medications and IVs Current Medications Sodium Chloride (NS Flush) 2 ml UNSCH PRN IVF FLUSH AFTER USING IV ACCESS; Start 07/25/17 at 08:00 Heparin Sodium (Porcine) (Heparin Inj) 5,000 units ONCE ONCE IV Last administered on 07/25/17 09:14; Start 07/25/17 at 09:00; Stop 07/25/17 at 17:11 ; Status DC Heparin Sodium (Porcine) (Heparin Inj) 5,000 units UNSCH PRN IV APTT LESS THAN 25; Start 07/25/17 at 15:00; Status Cancel Heparin Sodium (Porcine) (Heparin Inj) 2,500 units UNSCH PRN IV APTT 25 TO 39; Start 07/25/17 at 15:00; Stop 07/25/17 at 17:11; Status DC Heparin Sodium/ Dextrose 250 ml @ 10 mls/hr TITRATE ONCE IV Last administered on 07/25/17 10:01; Start 07/25/17 at 09:00; Stop 07/25/17 at 17:10 ; Status DC Sodium Chloride 1,000 ml @ 999 mls/hr BOLUS ONCE IV Last administered on 07/25 09:14; Start 07/25/17 at 09:15; Stop 07/25/17 at 10:15; Status DC Insulin Human Regular (NovoLIN R INJ) 10 units ONCE ONCE SQ Last administered on 07/25/17 09:14; Start 07/25/17 at 09:15; Stop 07/25/17 at 09:16; Status DC Aspirin (Aspirin Chew) 324 mg ONCE ONCE CHEW Last administered on 07/25/17 09 :25; Start 07/25/17 at 09:15; Stop 07/25/17 at 09:16; Status DC Dextrose (D50w (Vial) Inj) 50 ml UNSCH PRN IV PUSH HYPOGLYCEMIA-SEE COMMENTS; Start 07/25/17 at 10:00 Glucagon (Glucagon Inj) 1 mg UNSCH PRN OTHER HYPOGLYCEMIA-SEE COMMENTS; Start 07/25/17 at 10:00 Insulin Aspart (NovoLOG SUPPLEMENTAL SCALE) 1 ACHS SLIDING SCALE SQ Last administered on 07/27/17 18:12; Start 07/25/17 at 12:00 Sodium Chloride 1,000 ml @ 70 mls/hr [id number] IV Last administered on 11:13; Start 07/25/17 at 10:00; Stop 07/25/17 at 17:13; Status DC Atorvastatin Calcium (Lipitor) 80 mg HS PO Last administered on 07/27/17 21:18 ; Start 07/25/17 at 21:00 Carvedilol (Coreg) 3.125 mg Q12HR PO Last administered on 07/27/17 10:08; Start 07/25/17 at 21:00 Lisinopril (Prinivil) 2.5 mg DAILY PO Last administered on 07/27/17 10:08; Start 07/26/17 at 09:00 Aspirin (Aspirin Chew) 81 mg DAILY PO Last administered on 07/27/17 10:08; Start 07/26/17 at 09:00 Morphine Sulfate (Morphine Inj) 2 mg Q4H PRN IV PUSH PAIN Last administered on 07/27/17 17:28; Start 07/25/17 at 11:00 Miscellaneous (Pill Splitter) 1 ea UNSCH PRN OTHER SEE LABEL COMMENTS; Start 07/25/17 at 11:00 Sodium Chloride 1,000 ml @ 30 mls/hr Q24H IV ; Start 07/25/17 at 13:29; Stop 07/30/17 at 13:28 Aspirin (Aspirin) 325 mg TRACK REPAIR PERSON PO ; Start 07/25/17 at 13:30; Stop 07/29/17 at 13:29 Diphenhydramine HCl (Benadryl) 50 mg TRACK REPAIR PERSON PO ; Start 07/25/17 at 13:30; Stop 07/29/17 at 13:29 Diazepam (Valium) 10 mg TRACK REPAIR PERSON PO ; Start 07/25/17 at 14:00; Stop 07/29/17 at 13:59 Heparin Sodium/ Sodium Chloride 1,000 ml @ As Directed STK-MED ONCE .ROUTE ; Start 07/25/17 at 15:55; Stop 07/25/17 at 15:56; Status DC Midazolam HCl (Versed Inj) 2 mg STK-MED ONCE .ROUTE Last administered on 15:19; Start 07/25/17 at 15:55; Stop 07/25/17 at 15:56; Status DC Fentanyl Citrate (fentaNYL INJ) 100 mcg STK-MED ONCE .ROUTE ; Start 07/25/17 at 15:55; Stop 07/25/17 at 15:56; Status DC Sodium Chloride 1,000 ml @ 75 mls/hr [id number] IV Last administered on 17:01; Start 07/25/17 at 17:01; Stop 07/26/17 at 03:00; Status DC Miscellaneous Information 1 ONCE ONCE XX ; Start 07/25/17 at 17:15; Stop at 17:16; Status DC Atropine Sulfate (Atropine Inj) 0.5 mg UNSCH PRN IV VAGAL REPONSE; Start at 17:15 Sodium Chloride 250 ml @ 0 mls/hr UNSCH X1 PRN IV VAGAL REPONSE; Start at 17:15; Stop 08/01/17 at 17:14 Iohexol (OMNIPAQUE 350 INJ (Commercial Airplane Pilot)) 100 ml STK-MED ONCE OTHER ; Start at 17:28; Stop 07/25/17 at 17:29; Status DC Potassium Chloride (KCl) 40 meq ONCE ONCE PO Last administered on 07/26/17 05 :32; Start 07/26/17 at 05:30; Stop 07/26/17 at 05:31; Status DC Potassium Chloride 100 ml @ 50 mls/hr Q2H IV Last administered on 07/26/17 05 :32; Start 07/26/17 at 05:30; Stop 07/26/17 at 09:29; Status DC Insulin Detemir (Levemir Inj) 10 units HS SQ Last administered on 07/27/17 21: 21; Start 07/26/17 at 21:00 Ondansetron HCl (Zofran Inj) 4 mg STK-MED ONCE .ROUTE ; Start 07/27/17 at 11:55 ; Stop 07/27/17 at 11:56; Status DC Ondansetron HCl (Zofran Inj) 4 mg Q8HR PRN IV PUSH NAUSEA Last administered on 07/28/17 03:56; Start 07/27/17 at 12:00 Hydroxyzine HCl (Atarax) 50 mg ONCE ONCE PO Last administered on 07/27/17 22: 06; Start 07/27/17 at 21:45; Stop 07/27/17 at 21:47; Status DC A/P Problem List: (1) Non-STEMI (non-ST elevated myocardial infarction) ICD Code: I21.4 - Non-ST elevation (NSTEMI) myocardial infarction Status: Acute Assessment and Plan A/P - NSTEMI with history of CAD/ stent and CABG s/p cardiac cath with : 1. Severe three-vessel [place] coronary artery disease. 2. Patent left internal mammary artery to the LAD, totally occluded vein graft to the right coronary artery, totally occluded vein graft to the obtuse marginal. continue aspirin, BB, lisinopril and statin- CT surgery consult appreciated ; high risk for redo CABG- awaiting cardiology recommendations; previously d/w . -diabetes mellitus; overall better but not optimally controlled. increase Levemir- continue accu-check with SSI and continue gentle IV fluid- A1c 9.5- hold metformin- -acute kidney injury; - now with worsening renal function- likely due to the contrast - start gentle IV hydration- monitor the renal function closely- consult nephrology. -hyponatremia- now worse- start IV NS and continue to monitor- nephrology evaluation as noted above. -hypercalcemia; improved after IV fluid- -hypertension/ dyslipidemia/ ischemic cardiomyopathy; resumed home meds; will continue with BP meds with holding parameters and close monitoring of BP in light of his low-normal BP's. will monitor BP closely since his BP is on low side. -hypokalemia; replaced. -leukocytosis- chronic?- afebrile- CXR negative- will check UA and continue to monitor -DVT prophylaxis; awaiting cardiology f/u. transfer to [facility] when ok with cardiology. Jaspreet Hayward MD Jul 28, 2017 07:29
[2017-07-28] MEDS: INSULIN ASPART SUPPLEMENTAL SCALE SQ SCH ×4 (09:02→21:00)
[2017-07-28] MEDS ORDERED: SODIUM CHLOR 0.9% 1000 ML INJ 1,000 ML IV SCH (11:00)
[2017-07-28] MEDS: CARVEDILOL 3.125 MG TAB PO SCH ×2 (11:51→21:00)
[2017-07-28] MEDS: ASPIRIN 81 MG CHEW TAB PO SCH (11:52)
[2017-07-28] MEDS: SODIUM CHLOR 0.9% 1000 ML INJ 1,000 ML IV SCH (13:29)
[2017-07-28] MEDS ORDERED: SODIUM CHLOR 0.9% 250 ML INJ 250 ML IV ONE (14:00)
--- NOTE | 2017-07-28 14:14 | HHI.PR ---
Addendum To [facility] Progress Not Reason for addendum: Additonal documentation (was notified by the RN that the patient became hypotensive with some sob. patient will be transferred to ICU- order for IV fluid bolus was given. critical care consulted. d/w .) Jaspreet Hayward MD Jul 28, 2017 14:14
--- NOTE | 2017-07-28 15:01 | PD.CONS ---
[facility] Service Critical Care Medicine Consult Requested By Dr. Hayward Reason for Consult Shortness of breath, hypotension Primary Care Physician Unknown History of Present Illness This is a 51-year-old male. Date of admission 07/28/2017. Date of consultation 07/25/2017. Past medical history includes diabetes mellitus, hypertension, dyslipidemia and coronary artery disease status post stent [address] Dao, CABG 34/ by Dr. Quintero. GUALLPA to LAD SVG to OM/RCA. Noted that at that time patient EF 50% and was on an IABP post operation. ( Noted that both grafts are currently occluded.) He originally presented to [facility] 07/25 with a two-week history of malaise, shortness of breath accelerated within the past 2 days prior to admission. Denied chest discomfort , anginal type chest pain. Denied orthopnea claudication. EKG revealed ST depression in anterior lateral leads. Troponin was elevated 2.9. Creatinine was initially within normal limits. Patient heart catheterization placed by Dr. Goncalves 07/25 revealed left main 40% ostial lesion. LAD occluded proximal to stent. Left circumflex occluded. Ramus intermedius 35% stenosis. SVG graft to the OM/RCA occluded. GUALLPA to LAD patent. Guidance Consultant recommended consultation to cardiothoracic surgery surgery for intervention. Patient was evaluated by Dr. Quintero who believes he is at high risk for any intervention Echocardiogram revealed EF 20-25%. LVH/LAE. Moderate MR/TR. PPP 40.7 mmHg Noted Baseline systolic blood pressure this admission is between 80 and 100. Map consistently has been above 65%. Today, patient was noted to be in acute kidney injury possibly secondary to contrast nephropathy versus hypoperfusion. Systolic blood pressure dropped to 60 systolic patient became symptomatically short of breath confused.. Repeat EKG revealed normal sinus rhythm, ST depressions in inferior and lateral leads. Call placed to Dr. Vences. Bedside placement of IABP. CT surgery/Dr. Quintero notified. No current intervention planned from his standpoint In light of this, attempt to stabilize patient with possible transfer to tertiary facility for workup for transplant/VAD etc. Review of Systems Constitutional: COMPLAINS OF: Fatigue, DENIES: Fever, Weight gain Endocrine: DENIES: Polydipsia, Polyuria Eyes: DENIES: Blurred vision, Vision loss Ears, nose, mouth, throat: DENIES: Tinnitus, Hearing loss Respiratory: COMPLAINS OF: Cough, Shortness of breath, DENIES: Sputum production Cardiovascular: COMPLAINS OF: Dyspnea on Exertion, Orthopnea, DENIES: Chest pain, Palpitations, Claudication Gastrointestinal: DENIES: Abdominal pain Genitourinary: DENIES: Urgency, Hematuria Musculoskeletal: DENIES: Joint pain, Back pain, Neck pain Integumentary: DENIES: Abnormal pigmentation Hematologic/lymphatic: DENIES: Bruising Immunologic/allergic: DENIES: Eczema Neurologic: DENIES: Abnormal gait, Headache Psychiatric: COMPLAINS OF: Anxiety, DENIES: Confusion Past Family Social History Allergies: Coded Allergies: carbinoxamine (Unverified Allergy, Severe, UNKNOWN, 06/04/17) pseudoephedrine (Unverified Allergy, Severe, UNKNOWN, 06/04/17) *MDRO Multi-Drug Resistant Organism (Verified Adverse Reaction, Unknown, ) MRSA PCR Screen POSITIVE - 02/03/2017 Past Medical History Coronary artery disease Hypertension Dyslipidemia Diabetes mellitus Past Surgical History Coronary artery stents 2 to the LAD [address] Perea CABG 3 02/04 GUALLPA to LAD, SVG to OM/RCA Reported Medications Potassium Chloride Microencaps 20 Meq Tab 20 Meq PO DAILY Furosemide 40 Mg Tab 40 Mg PO DAILY Coreg (Carvedilol) 3.125 Mg Tab 3.125 Mg PO Q12HR Atorvastatin (Atorvastatin Calcium) 80 Mg Tab 80 Mg PO HS Metformin (Metformin HCl) 500 Mg Tab 500 Mg PO BIDPC With meals Lisinopril 5 Mg Tab 2.5 Mg PO DAILY Glucocom Test Strips (Blood Glucose Test Strips) 1 Marianne Marianne 1 Ea .ROUTE DIRECTED Lancets 1 Mis Mis 1 Ea .ROUTE DIRECTED Insulin Syringe/U-100/31G X /16" 1 ml 1 Mis Mis 1 Ea .ROUTE DIRECTED Glucocom Blood Glucose Mo W/Device (Device) 1 Kit Kit 1 Kit .ROUTE DIRECTED [Aspirin Chew] 81 MG Chew 81 Mg PO DAILY 90 Days Active Ordered Medications Reviewed in EMR Family History Heart disease and diabetes, hypertension dyslipidemia prominent in family history Social History Quit tobacco recently. 30 pack years. Occasional alcohol use. No illicit drug use. Physical Exam Vital Signs Vital Signs Date Time Temp Pulse Resp B/P (MAP) Pulse Ox O2 Delivery O2 Flow Rate FiO2 07/28/17 14:15 86 20 65/46 (52) 96 07/28/17 14:00 89 22 65/50 (55) 98 07/28/17 11:00 98.0 92 16 81/55 (64) 97 07/28/17 07:34 86 07/28/17 07:34 Nasal Cannula 2.00 07/28/17 07:00 97.2 86 20 80/54 (63) 97 07/28/17 06:00 68 07/28/17 05:00 79 07/28/17 04:00 90 07/28/17 04:00 98.1 90 18 88/54 (65) 97 07/28/17 04:00 Nasal Cannula 2.00 07/28/17 03:00 92 07/28/17 02:00 88 07/28/17 01:00 85 07/28/17 00:00 82 07/28/17 00:00 98.2 89 18 80/53 (62) 98 07/28/17 00:00 Nasal Cannula 2.00 07/27/17 23:00 85 07/27/17 22:00 88 07/27/17 21:00 87 07/27/17 20:00 Nasal Cannula 2.00 07/27/17 20:00 98.0 84 18 80/54 (63) 99 07/27/17 20:00 84 07/27/17 18:10 18 07/27/17 18:08 86 07/27/17 17:49 84 07/27/17 16:25 88 07/27/17 15:02 97.6 89 18 85/57 (66) 100 Physical Exam GENERAL: 51-year-old male, critically ill currently on nasal cannula SKIN: Cool and dry. No rash HEAD: Atraumatic. Normocephalic. EYES: Pupils equal and round around 3 mm bilaterally and reactive. No scleral icterus. No injection or drainage. ENT: No nasal bleeding or discharge. Mucous membranes pink and moist. NECK: Trachea midline. No JVD. CARDIOVASCULAR: Regular rate and rhythm. S1, S2. No S4. ?S3. 2/6 systolic murmur apex RESPIRATORY: Few fine crackles appreciated the bases bilaterally. No wheeze GASTROINTESTINAL: Abdomen soft, non-tender, slightly protuberant. Hypoactive bowel sounds are appreciated MUSCULOSKELETAL: Extremities without ignition peripheral edema. No obvious deformities. NEUROLOGICAL: Awake and alert. No obvious cranial nerve deficits. Motor grossly within normal limits. Five out of 5 muscle strength in the arms and legs. Normal speech. PSYCHIATRIC: Anxious Laboratory Laboratory Tests Test 07/28/17 05:35 White Blood Count 17.7 Red Blood Count 3.80 Hemoglobin 10.8 Hematocrit 31.1 Mean Corpuscular Volume 81.8 Mean Corpuscular Hemoglobin 28.4 Mean Corpuscular Hemoglobin Concent 34.7 Red Cell Distribution Width 18.2 Platelet Count 177 Mean Platelet Volume 9.2 Blood Urea Nitrogen 61 Creatinine 2.28 Random Glucose 208 Calcium Level 8.5 Sodium Level 123 Potassium Level 4.0 Chloride Level 89 Carbon Dioxide Level 22.1 Anion Gap 12 Estimat Glomerular Filtration Rate 31 Result Diagram: 07/28/17 0535 07/28/17 0535 Imaging Last Impressions Chest X-Ray 07/25/17 0747 Signed Impressions: Service Date/Time: , July 25, 2017 08:20 - CONCLUSION: Cardiomegaly and previous median sternotomy.. Todd Chand MD Assessment and Plan Assessment and Plan Neuro/Psych: Patient is currently receiving morphine as needed for pain management On lorazepam 0.5 mg twice a day when necessary anxiety CV: Chronic systolic heart failure NSTEMI Coronary disease status post stenting to LAD 2008 CABG 3 02/[address] Ingrid GUALLPA to LAD, SVG - OM/RCA Dyslipidemia Moderate MR/TR Mild pulmonary hypertension Cardiac catheterization by Dr. Goncalves revealed occlusion of the SVG to OM/RCA grafts. Patent GUALLPA to LAD graft. Echocardiogram revealed EF 20-25%. Moderate MR/TR Echocardiogram revealed EF 20-25%. LVH/LAE. Moderate MR/TR. PAP 41 mmHg Home medications included furosemide 40 mg daily, potassium chloride 20 mEq daily, carvedilol 3.2 mg twice a day and lisinopril 2.5 mg daily Home medications include atorvastatin 80 mg daily for dyslipidemia. This is been continued Currently on aspirin 81 mg by mouth daily Dr Vences - bedside placement of IABP Dr. Quintero - no plan for intervention at the present time Likely need transfer to an accepting tertiary facility when stabilized early next week Resp: Acute hypercapnic and hypoxemic respiratory failure Nasal cannula to maintain saturations greater than equal to 92% Incentive spirometry while awake Follow-up chest x-ray GI: ADA diet when clinically indicated Pantoprazole for GI prophylaxis Docusate sodium/senna for bowel regimen : Patel catheter placed secondary to current IABP Endo: Diabetes mellitus type 2 - metformin currently on hold Patient is currently insulin detemir 12 units at night along with sliding scale insulin Novulog before meals/at bedtime Renal: Acute kidney injury secondary to contrast nephropathy? Hypoperfusion? Evaluated by Dr. Wilson. Check urine electrolytes/eosinophils and renal ultrasound Normal saline at 50 cc an hour discontinued Heme: Leukocytosis Normocytic anemia Monitor CBC daily. Follow trends Leukocytosis is likely reactive ID: Monitor for infection Blood cultures 2, sputum and urine sample ordered MSK: PT evaluate and treat when appropriate FEN: Hyponatremia Likely dilutional/hypervolemic Will check urine/serum Osm, urine sodium, TSH, cortisol, uric acid to be defined source Recheck BMP currently Access - Utilize peripheral IV. Central line if indicated Prophylaxis - GI - pantoprazole - DVT - SCD/heparin subcutaneous Critical Care: The total critical care time was 35 minutes. Time to perform other separately billable procedures was not included in the critical care time. Code Status Full code Discussed Condition With Patient. Care plan discussed and all questions answered Michael Clancy MD Jul 28, 2017 15:01
--- NOTE | 2017-07-28 15:10 | RADRPT ---
EXAM DATE/TIME: 07/28/2017 14:50 [facility] COMPARISON: CHEST SINGLE AP, July 25, 2017, 8:20. INDICATIONS : Shortness of breath MEDICAL HISTORY : Diabetes mellitus type II. Gastroesophageal reflux disease. Myocardial nfarction. Hyperlipidemia. Cor onary artery disease. SURGICAL HISTORY : CABG. ENCOUNTER: Subsequent ACUITY: 2 weeks PAIN SCORE: 0/10 LOCATION: chest FINDINGS: The heart is enlarged. There are bibasilar effusions. There are consolidative changes and infiltrate in the lung bases. Considerations would include congestive failure versus pneumonia. The patient is post median sternotomy. The visualized bony structures are grossly intact. Exam represents significant interval worsening compared to previous dated 07/25/17. CONCLUSION: 1. Exam is significantly worsened since previous study dated 07/25/17. 2. There are bilateral effusions and consolidative changes in the lung bases. The heart is enlarged. Differential considerations include congestive failure versus bilateral pneumonia. Heath Garner MD on July 28, 2017 at 15:08 Board Certified Radiologist. This report was verified electronically.
[2017-07-28 18:04] LABS: INTERNATIONAL NORMALIZED RATIO 1.6 RATIO; URIC ACID 13.5 MG/DL (2.6-7.2)
[2017-07-28 18:11] LABS: APTT (PATIENT) 32.4 SEC (24.3-30.1); BICARBONATE 24.3 MEQ/L (21.0-32.0); POTASSIUM 3.9 MEQ/L (3.5-5.1)
[2017-07-28 18:25] LABS: BICARBONATE 23.2 MEQ/L (21.0-32.0); POTASSIUM 3.9 MEQ/L (3.5-5.1); TOTAL BILIRUBIN ADULT 1.8 MG/DL (0.2-1.0)
[2017-07-28] MEDS ORDERED: SODIUM CHLORIDE 0.9% FLUSH 10 ML FLUSH IV FLUSH PRN (18:30)
--- NOTE | 2017-07-28 18:32 | PD.PROCEDR ---
Central Line Procedure REASON FOR PROCEDURE Central venous access PROCEDURE PERFORMED Central line placement: L IJ CVL CONSENT Informed consent for procedure was obtained. The risks and benefits of the procedure were discussed to include but limited to bleeding, clot formation, infection, and even . ANESTHESIA Local injection of 1% Lidocaine DESCRIPTION OF THE PROCEDURE The patient was placed in supine, mild Trendelenburg position. The area was exposed and cleansed with ChloraPrep, times two. Large sterile drape was used to cover the patient, with the site exposed, under sterile conditions including cap, face mask, sterile gown, and sterile gloves. On single attempt, the introducer needle was inserted with negative pressure in syringe and venous flash was obtained. The guide wire was then advanced without any restriction and the needle was removed. The dilator was used without any complications. Using Seldinger technique the tlc catheter was advanced over the guide wire to a depth of 20 centimeters. The guide wire was removed. All ports were aspirated with dark venous blood return and flushed easily with sterile saline. All ports were capped. Antibiotic disc was placed around central line at puncture site. The central line was secured to the skin with two interrupted 2.0 silk sutures. The area was bandaged with sterile see-through central line bandage. RADIOLOGICAL DATA Ultrasound guidance was used to locate L IJ CVL. Doppler/color flow was used to confirm venous flow. COMPLICATIONS: No apparent complications ESTIMATED BLOOD LOSS: Less than 1 cc. Michael Clancy MD Jul 28, 2017 18:32
[2017-07-28] MEDS ORDERED: DOPamine INJ 1,600 MG in DEXTROSE 5% IN WATER INJ 210 ML IV PRN ×2 (19:00)
[2017-07-28] MEDS ORDERED: TERBUTALINE INJ 1 MG/ML AMP SQ PRN (19:00)
--- NOTE | 2017-07-28 19:01 | RADRPT ---
EXAM DATE/TIME: 07/28/2017 18:46 [facility] COMPARISON: CHEST SINGLE AP, July 28, 2017, 14:50. INDICATIONS : Central line placement. MEDICAL HISTORY : Diabetes mellitus type II. Gastroesophageal reflux disease. Myocardial nfarction.Coronary artery dise ase. SURGICAL HISTORY : CABG. ENCOUNTER: Initial ACUITY: 1 day PAIN SCORE: 4/10 LOCATION: Bilateral chest FINDINGS: Left neck central line is present crossing to the SVC. There is no evidence of pneumothorax or other complication of placement. Hazy bilateral pleural-parenchymal opacities persist without significant c hange, right worse than left. Cardiac contours are grossly stable. CONCLUSION: Satisfactory Central line positioning. No pneumothorax. Balaji Domingo MD on July 28, 2017 at 18:59 Board Certified Radiologist. This report was verified electronically.
[2017-07-28] MEDS ORDERED: MORPHINE SULFATE 2 MG/ML INJ IV PUSH PRN (19:45)
[2017-07-28 20:24] LABS: BLOOD GAS BASE EXCESS -1.9 mmol/L (-2-2); BLOOD GAS CARBOXYHEMOGLOBIN 2.4 % (0-4); BLOOD GAS HCO3 21 mmol/L (22-26); BLOOD GAS METHEMOGLOBIN 0.9 % (0-2); BLOOD GAS O2 HGB SATURATION 90 % (90-100); BLOOD GAS OXYGEN CONTENT 14.4 Vol % (12.0-20.0); BLOOD GAS PCO2 31 mmHg (38-42); BLOOD GAS PO2 69 mmHg (61-120); BLOOD GAS TOTAL HGB 11.3 G/DL (12.0-16.0); CRITICAL VALUE NO; DRAW SITE LT RADIAL; LITER FLOW 15 L/M; NUMBER OF ARTERIAL PUNCTURES 1; STAT YES; TEMP CORR TO 98.6
[2017-07-28] MEDS: INSULIN DETEMIR 100 UNITS/ML VIAL SQ SCH (21:00)
[2017-07-28] MEDS ORDERED: MIDAZOLAM HCL 5 MG/ML VIAL (1 ML) ONE (21:17)
--- NOTE | 2017-07-28 21:22 | MB ---
cc: KEHINDE OLMSTEAD MD DATE OF CONSULTATION 07/28/2017 REASON FOR CONSULTATION Elevated BUN and creatinine with acute kidney injury. HISTORY OF PRESENT ILLNESS This is a 51-year-old male with past medical history of ischemic heart disease, congestive heart failure, ejection fraction of 20-25% with moderate mitral and tricuspid regurgitation was admitted because of shortness of breath and chest pain. I was called to see the patient because of elevated BUN and creatinine. The patient does not have any known history of renal disease but his creatinine on presentation was 1.6 and it has gone up to around 2.2 - 2.3. The patient was diagnosed with ischemic heart disease and abnormal troponins and seen by cardiology. He had cardiac catheterization done on July 25 and creatinine started to increase from July 27 it went up to 1.3 and now it is 2.2. The patient was seen by me afternoon and then he was hypotensive at that time and now he is going to the cardiovascular intensive care unit. The patient had some dizziness at that time and has nausea but there was no vomiting. His chest pain was improved and he has no palpitation or shortness of breath. He denies any dysuria, hematuria or difficulty passing urine. Did not notice any decrease in the urine output. PAST MEDICAL HISTORY 1. Hypertension. 2. Hyperlipidemia. 3. Diabetes mellitus. 4. Ischemic heart disease. 5. Congestive heart failure. PAST SURGICAL HISTORY 1. History of cardiac catheterization and stent placement in 2007. 2. History of coronary artery bypass grafting in January 2017. 3. Just had a cardiac catheterization done three days ago. REVIEW OF SYSTEMS Denies any headache. He has dizziness and occasional nausea. There is no vomiting. He came with shortness of breath and also had some chest pain, but now the chest pain is gone and breathing is improved. He does not have any vomiting. There is no history of diarrhea. No dysuria, hematuria or difficulty in passing urine. There is no history of taking any nonsteroidal anti-inflammatory drugs. SOCIAL HISTORY The patient stopped smoking recently. He has been smoking for almost 30 years. There is no history of heavy alcoholism. FAMILY HISTORY Positive for heart disease, hypertension and diabetes mellitus. ALLERGIES HE IS ALLERGIC TO CARBINOXAMINE, PSEUDOEPHEDRINE. MEDICATIONS Currently he is on following medications: 1. Normal saline at 30 ml an hour. 2. Aspirin 325 milligrams and now he is on aspirin 81 milligrams once a day. 3. Levemir 12 units subcutaneous bedtime. 4. Carvedilol 3.125 milligrams q.12h. 5. Insulin aspart sliding scale. 6. Zofran as needed. 7. Ativan as needed. 8. he has started on 3 micrograms 9. PHYSICAL EXAMINATION GENERAL: The patient is awake, alert, not in acute distress. VITAL SIGNS: His last blood pressure recorded now is 82/53, temperature is 97.2, oxygen saturation is 97%. HEENT: Pupils are mid constricted. Nonicteric sclera, conjunctiva pale. NECK: Supple. JVD is not elevated. LUNGS: The patient has bilateral decreased air entry with occasional wheezing. HEART: S1-S2. Regular rhythm. ABDOMEN: Distended, soft, lax. There is no tenderness. Bowel sounds positive. EXTREMITIES: He has no pedal edema. LABORATORY DATA Investigations, WBC count is 17.7, hemoglobin 10.8 with platelet count of 177. Sodium 124, potassium 3.9, chloride 88, bicarb 23.2, BUN 64, creatinine 2.2, glucose 137. Lactic acid is 2.1. Total bilirubin is 1.8, AST is 571, ALT is 783. Creatinine kinase 55. Troponin I is 1.35. Total protein is 6.1 with an albumin of 3.0. Lipase 76. Cortisone 36.1. INR 1.6. Urinalysis showing a protein of 30 but this was done in January. IMAGING STUDIES The patient has chest x-ray done which shows cardiomegaly and previous sternotomy. ASSESSMENT AND PLAN 1. Acute kidney injury 2. Hyponatremia. 3. Cardiogenic shock. 4. Congestive heart failure. 5. Ischemic heart disease. 6. Diabetes mellitus. 7. Elevated liver enzymes. 8. Mild anemia. The patient has congestive heart failure with 25-30% ejection fraction. The hyponatremia is possibly related to the congestive heart failure. The patient is hypotensive and possibly in cardiogenic shock and he started on dopamine. He was given IV fluid normal saline bolus. The etiology of acute kidney injury is either ATN from the hypotension or decreased cardiac output or the possibility of contrast related renal damage. At present the patient is non oliguric. ____ stabilize the patient hemodynamically and follow the urine output and the BUN and creatinine. I will check the ultrasound of the kidneys. Thank you for the consultation. I will follow the patient while he is in the hospital. MD MAYA Oliver/MARIVEL /8:35 PM /8:50 PM
--- NOTE | 2017-07-28 22:05 | RADRPT ---
EXAM DATE/TIME: 07/28/2017 21:43 [facility] COMPARISON: No previous studies available for comparison. INDICATIONS : Cardiac balloon placement and advancement. MEDICAL HISTORY : Myocardial infarction. Diabetes mellitus type II. Gastroesophageal reflux disease.Coronary mike ry disease. SURGICAL HISTORY : CABG. ENCOUNTER: Initial ACUITY: 1 day PAIN SCORE: Non-responsive. LOCATION: Bilateral chest FINDINGS: There is cardiomegaly, bilateral effusions and airspace disease. Left jugular line tip overlies the S VC. Aortic calcification is noted. EKG leads overlie the chest. 3 portable supine chest radiographs d emonstrate interval advancement of an intra-aortic balloon pump. On the final image the radiopaque ma rker tip projects 8 mm below the superior margin of the aortic arch. This is at the level of T5-6. CONCLUSION: Intra-aortic balloon pump placement as above. Jani Carmona MD on July 28, 2017 at 22:02 Board Certified Radiologist. This report was verified electronically.
--- NOTE | 2017-07-28 22:51 | RADRPT ---
EXAM DATE/TIME: 07/28/2017 22:01 [facility] COMPARISON: CHEST SINGLE AP, July 28, 2017, 21:43. INDICATIONS : Placement of intra-arterial balloon pump. MEDICAL HISTORY : Myocardial infarction. Diabetes mellitus type II. Gastroesophageal reflux disease. SURGICAL HISTORY : CABG. ENCOUNTER: Subsequent ACUITY: 1 day PAIN SCORE: 0/10 LOCATION: Bilateral chest FINDINGS: Balloon pump tip projects at the T5 level. Supine and central line is stable. There is persistent haz y pleuroparenchymal opacity bilaterally, unchanged. Cardiac contours are stable. CONCLUSION: Satisfactory balloon pump positioning Balaji Domingo MD on July 28, 2017 at 22:48 Board Certified Radiologist. This report was verified electronically.
--- NOTE | 2017-07-28 23:21 | RADRPT ---
EXAM DATE/TIME: 07/28/2017 20:10 [facility] COMPARISON: No previous studies available for comparison. INDICATIONS : Increased labs. MEDICAL HISTORY : Gastroesophageal reflux disease. Myocardial infarction. Arthritis. Diabetes. Anxiety. Migrain e. SURGICAL HISTORY : CABG. Cardiac catheterization. ENCOUNTER: Initial ACUITY: 1 day PAIN SCORE: 0/10 LOCATION: Abdomen. MEASUREMENTS: LIVER: 18.3 cm length COMMON DUCT: 7 mm RIGHT KIDNEY: 13.5 x 5.3 x 6.1 cm LEFT KIDNEY: 13.9 x 6.1 x 6.0 cm SPLEEN: 10.7 cm length AORTA: 1.9cm maximal FINDINGS: Minimal peritoneal fluid. Bladder is dilated. LIVER: Normal echotexture without focal lesion or ductal dilatation. COMMON DUCT: No intraluminal mass or stone visualized. GALLBLADDER: Mild diffuse wall thickening. No definite mobile stones PANCREAS: The visualized portions are within normal limits. RIGHT KIDNEY: Several small cysts. No hydronephrosis LEFT KIDNEY: No hydronephrosis, stone or mass. SPLEEN: No focal lesion. AORTA: Non aneurysmal. IVC: Within normal limits. CONCLUSION: Mild gallbladder wall thickening. Small right renal cysts. Dilated urinary bladder Balaji Domingo MD on July 28, 2017 at 23:16 Board Certified Radiologist. This report was verified electronically.
[2017-07-29] VITALS (8 sets, daily range): BP systolic 101–122; BP diastolic 60–72; PULSE 88–113; RESP 18–22; TEMP 97.7–99.9; O2SAT 91–98
[2017-07-29] MEDS: HEPARIN 25,000 UNITS-D5W 250 ML - PREMIX IV SCH ×2 (01:41→20:18)
[2017-07-29] MEDS: ONDANSETRON HCL 4 MG/2 ML VIAL IV PUSH PRN ×3 (03:32→17:20)
[2017-07-29 03:44] LABS: MEAN CELL VOLUME 81.4 FL (80.0-100.0); MEAN CORPUSCULAR HEMOGLOBIN 28.1 PG (27.0-34.0); MEAN CORPUSCULAR HGB CONC 34.6 % (32.0-36.0); PLATELET COUNT 197 TH/MM3 (150-450); RED BLOOD COUNT 4.05 MIL/MM3 (4.50-5.90); RED CELL DISTRIBUTION WIDTH 18.5 % (11.6-17.2); REVIEW FLAG FINAL
[2017-07-29 03:48] LABS: APTT (PATIENT) 39.2 SEC (24.3-30.1)
[2017-07-29 03:59] LABS: BICARBONATE 26.2 MEQ/L (21.0-32.0); POTASSIUM 3.3 MEQ/L (3.5-5.1)
[2017-07-29 04:01] LABS: INDIRECT BILIRUBIN 1.4 MG/DL (0.0-0.8); TOTAL BILIRUBIN ADULT 2.1 MG/DL (0.2-1.0)
[2017-07-29] MEDS ORDERED: POTASSIUM CHLOR 40 MEQ PREMIX 100 ML IV PRN ×2 (05:00)
[2017-07-29] MEDS ORDERED: MAGNESIUM SULFATE INJ 4 GM in SODIUM CHLORIDE 0.9% INJ 92 ML IV PRN (05:00)
[2017-07-29] MEDS ORDERED: MAGNESIUM SULFATE INJ 2 GM in SODIUM CHLORIDE 0.9% INJ 96 ML IV PRN (05:00)
[2017-07-29] MEDS ORDERED: POTASSIUM PHOSPHATE MONOBASIC 500 MG TAB PO/TUBE PRN (05:00)
[2017-07-29] MEDS ORDERED: POTASSIUM CHLORIDE 25 MEQ EFFERVESCENT TAB PO PRN (05:00)
[2017-07-29] MEDS ORDERED: POTASSIUM PHOSPHATE MONOBASIC 500 MG TAB PO PRN (05:00)
[2017-07-29] MEDS ORDERED: MAGNESIUM OXIDE 400 MG TAB PO PRN (05:00)
[2017-07-29] MEDS ORDERED: SODIUM PHOSPHATE INJ 30 MMOL in SODIUM CHLOR 0.9% 250 ML INJ 240 ML IV PRN (05:00)
[2017-07-29] MEDS ORDERED: POTASSIUM PHOSPHATE INJ 30 MMOL in SODIUM CHLOR 0.9% 250 ML INJ 250 ML IV PRN (05:00)
[2017-07-29] MEDS ORDERED: POTASSIUM CHLOR 20 MEQ PREMIX 100 ML IV PRN ×2 (05:00)
--- NOTE | 2017-07-29 05:11 | MR ---
cc: DA MONSALVE DATE OF 1965 DATE OF PROCEDURE July 28, 2017 PROCEDURE PERFORMED Intraaortic balloon pump insertion at bedside. INDICATIONS Cardiogenic shock. PROCEDURE DESCRIPTION Consent signed. The patient was prepped and draped in sterile fashion. Using 1 % lidocaine for local anesthesia and a micropuncture kit, an 8-Latvian sheath was inserted into the left common femoral artery. Heparin was given for anticoagulation. Then an 0.018mm wire was advanced to the aortic arch, followed by insertion of the intraaortic balloon pump over the wire. The balloon pump was hooked into pressures and then restarted in one-to-one synchronization. The position of the intraaortic balloon pump was checked with a portable chest x- ray at bedside which showed adequate position at the level of the laurel. The patient tolerated the procedure well without complications. Estimated blood loss 10 cc. CONCLUSIONS Successful placement of an intraaortic balloon pump. RECOMMENDATIONS Continue aggressive medical management for cardiogenic shock. The patient will be followed with Dr. August Goncalves and CT surgery in the morning. MD CASSY Maldonado/SSB /10:27 PM /5:00 AM GEOVANNA
--- NOTE | 2017-07-29 07:54 | HHI.CCPN ---
Subjective Remarks/Hospital Course This is a 51-year-old male. Date of admission 07/25/2017. Date of consultation 07/28/2017. Past medical history includes diabetes mellitus, hypertension, dyslipidemia and coronary artery disease status post stent [address] L[address] Dao, CABG by Dr. Quintero. GUALLPA to LAD SVG to OM/RCA. Noted that at that time patient EF 50% and was on an IABP post operation. ( Noted that both grafts are currently occluded.) He originally presented to [facility] 07/25 with a two-week history of malaise, shortness of breath accelerated within the past 2 days prior to admission. Denied chest discomfort , anginal type chest pain. Denied orthopnea claudication. EKG revealed ST depression in anterior lateral leads. Troponin was elevated 2.9. Creatinine was initially within normal limits. Patient heart catheterization placed by Dr. Goncalves 07/25 revealed left main 40% ostial lesion. LAD occluded proximal to stent. Left circumflex occluded. Ramus intermedius 35% stenosis. SVG graft to the OM/RCA occluded. GUALLPA to LAD patent. Senior Data Quality Analyst recommended consultation to cardiothoracic surgery surgery for intervention. Patient was evaluated by Dr. Quintero who believes he is at high risk for any intervention Echocardiogram revealed EF 20-25%. LVH/LAE. Moderate MR/TR. PPP 40.7 mmHg. Noted Baseline systolic blood pressure this admission is between 80 and 100. Map consistently has been above 65%. Today, patient was noted to be in acute kidney injury possibly secondary to contrast nephropathy versus hypoperfusion. Systolic blood pressure dropped to 60 systolic patient became symptomatically short of breath confused.. Repeat EKG revealed normal sinus rhythm, ST depressions in inferior and lateral leads. Call placed to Dr. Vences. Bedside placement of IABP. CT surgery/Dr. Quintero notified. No current intervention planned from his standpoint. In light of this, attempt to stabilize patient with possible transfer to tertiary facility for workup for transplant/VAD etc. SUBJ 07/29: Lying in bed. IABP in place. Remains on dopamine at 5 g per KG per minute. IABP placed yesterday evening with significant improvement in urine output now. MAP remains >70. Creatinine has improved from 2.3-1.9. Liver enzymes elevated yesterday and now trending down. This is most likely secondary to shock rather than IABP Objective Vital Signs Date Time Temp Pulse Resp B/P (MAP) Pulse Ox O2 Delivery O2 Flow Rate FiO2 07/29/17 06:00 83/54 (77) 07/29/17 03:00 93 Nasal Cannula 5.00 Humidified 07/29/17 03:00 88 07/29/17 03:00 99.1 20 Intake and Output 07/29/17 07/29/17 07/30/17 08:00 16:00 00:00 Intake Total 354 ml Output Total 1700 ml Balance -1346 ml Result Diagram: 07/29/17 0300 07/29/17 0300 Other Results Laboratory Tests Test 07/28/17 20:08 Blood Gas Puncture Site LT RADIAL Blood Gas Patient Temperature 98.6 Blood Gas HCO3 21 mmol/L (22-26) Blood Gas Base Excess -1.9 mmol/L (-2-2) Blood Gas Oxygen Saturation 90 % (90-100) Arterial Blood pH 7.45 (7.380-7.420) Arterial Blood Partial Pressure CO2 31 mmHg (38-42) Arterial Blood Partial Pressure O2 69 mmHg (61-120) Arterial Blood Oxygen Content 14.4 Vol % (12.0-20.0) Arterial Blood Carboxyhemoglobin 2.4 % (0-4) Arterial Blood Methemoglobin 0.9 % (0-2) Blood Gas Hemoglobin 11.3 G/DL (12.0-16.0) Oxygen Delivery Device Non-Rebreathing Mask Blood Gas Liter Flow 15 L/M Imaging Last Impressions Chest X-Ray 07/25/17 [id number] Signed Impressions: Service Date/Time: July 08:20 - CONCLUSION: Cardiomegaly and previous median sternotomy.. Todd Chand MD Objective Remarks GENERAL: 51-year-old male, critically ill currently on nasal cannula SKIN: Cool and dry. No rash HEAD: Atraumatic. Normocephalic. EYES: Pupils equal and round around 3 mm bilaterally and reactive. ENT: No nasal bleeding or discharge. Mucous membranes pink and moist. NECK: Trachea midline. No JVD. CARDIOVASCULAR: Regular rate and rhythm. S1, S2. No S4. Conducted IABP sounds RESPIRATORY: Few fine crackles appreciated the bases bilaterally. No wheeze GASTROINTESTINAL: Abdomen soft, non-tender, slightly protuberant. Hypoactive bowel sounds are appreciated MUSCULOSKELETAL: Extremities without ignition peripheral edema. No obvious deformities. Peripheral pulses are palpable NEUROLOGICAL: Awake and alert. No obvious cranial nerve deficits. Motor grossly within normal limits. Five out of 5 muscle strength in the arms and legs. Normal speech. Procedures cardiac cath A/P Assessment and Plan Neuro/Psych: Patient is currently receiving morphine as needed for pain management On lorazepam 0.5 mg twice a day when necessary anxiety CV: NSTEMI Cardiogenic shock Acute on Chronic systolic heart failure Severe ischemic cardiomyopathy Coronary disease status post stenting to LAD 2007 CABG 3 02/[address] Quintero GUALLPA to LAD, SVG - OM/RCA Moderate MR/TR Mild pulmonary hypertension Dyslipidemia s/p IABP placement 07/28 with improved perfusion as indicated by improving urine output and renal function Remains on dopamine at 5 g per KG per minute Cardiac catheterization by Dr. Goncalves revealed occlusion of the SVG to OM/RCA grafts. Patent GUALLPA to LAD graft. Echocardiogram revealed EF 20-25%. LVH/LAE. Moderate MR/TR. PAP 41 mmHg Home medications included furosemide 40 mg daily, potassium chloride 20 mEq daily, carvedilol 3.2 mg twice a day and lisinopril 2.5 mg daily Home medications include atorvastatin 80 mg daily for dyslipidemia. This is been continued Currently on aspirin 81 mg by mouth daily Dr Vences - bedside placement of IABP Dr. Quintero - no plan for intervention at the present time Add Plavix, discussed with Dr. Goncalves. Also plan for repeat cath with attempt occlusion of the SVG to OM/RCA grafts May need transfer to an accepting tertiary facility when stabilized early next week, again will braden/wDr. Goncalves Resp: Acute hypercapnic and hypoxemic respiratory failure Nasal cannula to maintain saturations greater than equal to 92% Incentive spirometry while awake Follow-up chest x-ray GI: Heart healthy, ADA diet when clinically indicated Pantoprazole for GI prophylaxis Docusate sodium/senna for bowel regimen : Patel catheter placed secondary to current IABP Endo: Diabetes mellitus type 2 - metformin currently on hold Patient is currently insulin detemir 12 units at night along with sliding scale insulin Novulog before meals/at bedtime Renal: Acute kidney injury secondary to contrast nephropathy? Hypoperfusion? Evaluated by Dr. Wilson. Check urine electrolytes/eosinophils and renal ultrasound Normal saline at 50 cc an hour discontinued Improved UO after IABP placement and Dopamine Heme: Leukocytosis Normocytic anemia Monitor CBC daily. Follow trends Leukocytosis is likely reactive ID: Monitor for infection Blood cultures 2, sputum and urine sample ordered Leukocytosis most likely stress related MSK: PT evaluate and treat when appropriate FEN: Hyponatremia Likely secondary to CHF F/u urine/serum Osm, urine sodium, TSH, cortisol, uric acid to be defined source Recheck BMP currently Access - L IJ CVL 07/28/17 Prophylaxis - GI - pantoprazole - DVT - SCD/heparin subcutaneous Critical Care: The total critical care time was 35 minutes. Time to perform other separately billable procedures was not included in the critical care time. Zafar Carpio MD Jul 29, 2017 07:54
--- NOTE | 2017-07-29 08:13 | PD.CARD.PN ---
Subjective Subjective Remarks Denies CP, dyspnea, dizziness, nausea, groin pain. Objective Medications Item Value Date Time Dextrose 50 ml 07/25/17 1000 (D50w (Vial) Inj) UNSCH PRN/IV PUSH Clopidogrel 75 mg 07/29/17 0900 Bisulfate DAILY/PO (Plavix) Heparin Sodium/ 250 ml @ 10 mls/hr 07/29/17 0115 Dextrose TITRATE/IV 07/29/17 0141 Dopamine HCl 1600 250 ml @ 2.44 mls/hr 07/28/17 1900 mg/Dextrose TITRATE PRN/IV 07/28/17 1926 Aspirin 81 mg 07/26/17 0900 (Aspirin Chew) DAILY/PO 07/28/17 1152 Carvedilol 3.125 mg 07/25/17 2100 (Coreg) Q12HR/PO Vital Signs / I&O Vital Signs Date Time Temp Pulse Resp B/P (MAP) Pulse Ox O2 Delivery O2 Flow Rate FiO2 07/29/17 06:00 83/54 (77) 07/29/17 05:00 81/52 (75) 07/29/17 04:00 85/56 (79) 07/29/17 03:00 93 Nasal Cannula 5.00 Humidified 07/29/17 03:00 80/50 (74) 07/29/17 03:00 88 07/29/17 03:00 99.1 88 20 106/67 (80) 93 07/29/17 02:00 93/58 (87) 07/29/17 02:00 94 Simple Mask 6.00 07/29/17 01:00 87/58 (83) 07/29/17 01:00 94 Simple Mask 8.00 07/29/17 00:00 97 Non-Rebreather 10.00 07/29/17 00:00 95/60 (86) 07/28/17 23:00 99.3 91 20 123/80 (94) 94 07/28/17 23:00 91 Non-Rebreather 15.00 07/28/17 23:00 91 07/28/17 23:00 92/59 (81) 07/28/17 20:00 91 Non-Rebreather 15.00 07/28/17 19:45 87 Simple Mask 10.00 07/28/17 19:15 88 Nasal Cannula 5.00 07/28/17 19:00 99.1 90 20 80/58 (65) 92 07/28/17 19:00 92 Nasal Cannula 3.00 07/28/17 19:00 90 07/28/17 16:35 86 07/28/17 16:00 90 07/28/17 15:19 97.2 87 20 82/53 (63) 97 07/28/17 15:00 89 07/28/17 14:15 86 20 65/46 (52) 96 07/28/17 14:00 89 22 65/50 (55) 98 07/28/17 14:00 90 07/28/17 13:00 88 07/28/17 12:00 82 07/28/17 11:00 98.0 92 16 81/55 (64) 97 07/28/17 11:00 92 07/28/17 10:00 88 07/28/17 09:00 96 I/O 07/28/17 07/28/17 07/28/17 07/29/17 07/29/17 07/29/17 07:00 15:00 23:00 07:00 15:00 23:00 Intake Total 480 ml 730 ml 354 ml Output Total 600 ml 100 ml 1700 ml Balance -120 ml 630 ml -1346 ml Intake Oral 480 ml 480 ml 240 ml IV Total 250 ml 114 ml Output Urine Total 600 ml 100 ml 1700 ml # Voids 1 2 # Bowel Movements 0 0 Physical Exam GENERAL: Well developed, well nourished. No acute distress. CHEST: Clear lungs anteriorly. CARDIAC: Regular rate and rhythm without S3, S4. II/ early systolic murmur apex. ABDOMEN: Soft, nontender, no hepatosplenomegaly. Bowel sounds present. EXTREMITIES: No clubbing, cyanosis, or edema. Bilateral groins nontender, no hematoma. Laboratory Laboratory Tests Test 07/28/17 17:33 07/28/17 20:08 07/29/17 03:00 Prothrombin Time 18.0 SEC Prothromb Time International Ratio 1.6 RATIO Activated Partial Thromboplast Time 32.4 SEC 39.2 SEC Fibrinogen 431 mg/dL Blood Urea Nitrogen 64 MG/DL 58 MG/DL Creatinine 2.28 MG/DL 1.86 MG/DL Random Glucose 137 MG/DL 157 MG/DL Total Protein 6.1 GM/DL 5.9 GM/DL Albumin 3.0 GM/DL 2.6 GM/DL Calcium Level 9.1 MG/DL 8.2 MG/DL Alkaline Phosphatase 223 U/L 213 U/L Aspartate Amino Transf (AST/SGOT) 571 U/L 352 U/L Alanine Aminotransferase (ALT/SGPT) 783 U/L 671 U/L Total Bilirubin 1.8 MG/DL 2.1 MG/DL Direct Bilirubin 0.8 MG/DL 0.7 MG/DL Sodium Level 124 MEQ/L 128 MEQ/L Potassium Level 3.9 MEQ/L 3.3 MEQ/L Chloride Level 88 MEQ/L 91 MEQ/L Carbon Dioxide Level 23.2 MEQ/L 26.2 MEQ/L Anion Gap 13 MEQ/L 11 MEQ/L Estimat Glomerular Filtration Rate 31 ML/MIN 39 ML/MIN Serum Osmolality 262 MOSM/KG Lactic Acid Level 2.1 mmol/L 1.5 mmol/L Uric Acid 13.5 MG/DL Indirect Bilirubin 1.0 MG/DL 1.4 MG/DL Ammonia 23 MCMOL/L Total Creatine Kinase 55 U/L Troponin I 1.35 NG/ML Amylase Level 30 U/L Lipase 76 U/L Thyroid Stimulating Hormone 3rd Gen 2.360 uIU/ML Random Cortisol 36.1 MCG/DL Blood Gas Puncture Site LT RADIAL Blood Gas Patient Temperature 98.6 Blood Gas HCO3 21 mmol/L Blood Gas Base Excess -1.9 mmol/L Blood Gas Oxygen Saturation 90 % Arterial Blood pH 7.45 Arterial Blood Partial Pressure CO2 31 mmHg Arterial Blood Partial Pressure O2 69 mmHg Arterial Blood Oxygen Content 14.4 Vol % Arterial Blood Carboxyhemoglobin 2.4 % Arterial Blood Methemoglobin 0.9 % Blood Gas Hemoglobin 11.3 G/DL Oxygen Delivery Device Non-Rebreathing Mask Blood Gas Liter Flow 15 L/M White Blood Count 20.0 TH/MM3 Red Blood Count 4.05 MIL/MM3 Hemoglobin 11.4 GM/DL Hematocrit 33.0 % Mean Corpuscular Volume 81.4 FL Mean Corpuscular Hemoglobin 28.1 PG Mean Corpuscular Hemoglobin Concent 34.6 % Red Cell Distribution Width 18.5 % Platelet Count 197 TH/MM3 Mean Platelet Volume 8.2 FL Phosphorus Level 3.6 MG/DL Magnesium Level 2.0 MG/DL Assessment and Plan Problem List: (1) Coronary artery disease ICD Codes: I25.10 - Atherosclerotic heart disease of [place] coronary artery without angina pectoris Status: Acute Plan: IABP placed yesterday due to shock, hypotension. Cardiac enzymes consistent with acute NSTEMI. Cath shows occluded 2 of 3 grafts. Remains on pressor support. Urine output good, and creatinine improved. Dr. Ramirez consult noted, appreciated. REC continue current therapy, agree with adding Plavix Dr. Ward to consider attempt to percutaneously revascularize one of the totally occluded vessels later this week, continue to monitor renal function (2) Ischemic cardiomyopathy ICD Codes: I25.5 - Ischemic cardiomyopathy Status: Chronic Plan: EF 20-25% by echo this admission with moderate MR. Possibly mild CHF by CXR. REC continue to hold beta yadira with low BP's; no KEISHA-I with renal dysfunction Code Status full code Discussed Condition With patient Problem Qualifiers (1) Coronary artery disease: Qualified Codes: I25.110 - Atherosclerotic heart disease of [place] coronary artery with unstable angina pectoris August Goncalves MD Jul 29, 2017 08:13
[2017-07-29] MEDS ORDERED: CLOPIDOGREL 75 MG TAB PO SCH (09:00)
[2017-07-29] MEDS: INSULIN ASPART SUPPLEMENTAL SCALE SQ SCH ×4 (09:16→21:49)
[2017-07-29] MEDS: SODIUM CHLORIDE 0.9% FLUSH 10 ML FLUSH IV FLUSH SCH (09:16)
[2017-07-29] MEDS: CARVEDILOL 3.125 MG TAB PO SCH ×2 (09:17→21:00)
[2017-07-29] MEDS: ASPIRIN 81 MG CHEW TAB PO SCH (09:18)
--- NOTE | 2017-07-29 11:16 | RADRPT ---
EXAM DATE/TIME: 07/29/2017 08:01 [facility] COMPARISON: CHEST SINGLE AP, July 28, 2017, 22:01. INDICATIONS : Confirm intra-aortic balloon pump position. MEDICAL HISTORY : Hypertension. SURGICAL HISTORY : CABG. ENCOUNTER: Initial ACUITY: 4 - 6 days PAIN SCORE: 0/10 LOCATION: chest FINDINGS: Central venous catheter in good position. Moderate bibasilar parenchymal changes are noted, improvin g in the interval. Aortic balloon pump is in good position. There is no pneumothorax. CONCLUSION: Improvement with less bibasilar parenchymal changes. Cardiomegaly without overt failure. Balloon pump in good position. Brandon Garner MD FACR on July 29, 2017 at 10:58 Board Certified Radiologist. This report was verified electronically.
[2017-07-29 11:37] LABS: APTT (PATIENT) 41.1 SEC (24.3-30.1)
--- NOTE | 2017-07-29 12:08 | HHI.NPPN ---
Subjective History of Present Illness 51-year-old male with past medical history of ischemic heart disease, congestive heart failure, ejection fraction of 20-25% with moderate mitral and tricuspid regurgitation was admitted because of shortness of breath and chest pain. I was called to see the patient because of elevated BUN and creatinine. The patient does not have any known history of renal disease but his creatinine on presentation was 1.6 and it has gone up to around 2.2 - 2.3. Additional Remarks Patient is alert, no chest pain, mild SOB. Review of Systems General Constitutional: Fatigue Respiratory Lungs: SOB Cardiovascular Cardiac: Edema, CANELA Objective Data Data 07/29/17 07/30/17 19:00 07:00 Intake Total 100 ml Balance 100 ml IV Total 100 ml Vital Signs Date Time Temp Pulse Resp B/P (MAP) Pulse Ox O2 Delivery O2 Flow Rate FiO2 07/29/17 08:00 97 Nasal Cannula 4.00 07/29/17 06:00 83/54 (77) 07/29/17 05:00 81/52 (75) 07/29/17 04:00 85/56 (79) 07/29/17 03:00 93 Nasal Cannula 5.00 Humidified 07/29/17 03:00 80/50 (74) 07/29/17 03:00 88 07/29/17 03:00 99.1 88 20 106/67 (80) 93 07/29/17 02:00 93/58 (87) 07/29/17 02:00 94 Simple Mask 6.00 07/29/17 01:00 87/58 (83) 07/29/17 01:00 94 Simple Mask 8.00 07/29/17 00:00 97 Non-Rebreather 10.00 07/29/17 00:00 95/60 (86) 07/28/17 23:00 99.3 91 20 123/80 (94) 94 07/28/17 23:00 91 Non-Rebreather 15.00 07/28/17 23:00 91 07/28/17 23:00 92/59 (81) 07/28/17 20:00 91 Non-Rebreather 15.00 07/28/17 20:00 91 Non-Rebreather 15.00 07/28/17 19:45 87 Simple Mask 10.00 07/28/17 19:45 87 Simple Mask 10.00 07/28/17 19:15 88 Nasal Cannula 5.00 07/28/17 19:15 88 Nasal Cannula 5.00 07/28/17 19:00 99.1 90 20 80/58 (65) 92 07/28/17 19:00 92 Nasal Cannula 3.00 07/28/17 19:00 90 07/28/17 16:35 86 07/28/17 16:00 90 07/28/17 15:19 97.2 87 20 82/53 (63) 97 07/28/17 15:00 89 07/28/17 14:15 86 20 65/46 (52) 96 07/28/17 14:00 89 22 65/50 (55) 98 07/28/17 14:00 90 07/28/17 13:00 88 -: 07/29/17 0300 07/29/17 0300 Physical Exam General Appearance: No Acute Distress, Comfortable Eyes Eye Exam: Pupils Equal Throat Throat Exam: Oral Mucosa [place] & Moist Pulmonary Resp Exam: No Distress, Rhonchi, Decreased Bases, Diminished Breath Sounds Cardiology CV Exam: Regular, Normal Sinus Rhythm Gastrointestinal/Abdomen GI Exam: Soft, Non-Tender, Bowel Sounds Present Extremeties Extremities Exam: Trace Edema Neurologic Neuro Exam: Alert, Awake, Oriented Psychiatric Psych Exam: Appropriate Responses Assessment/Plan Assessment Summary: JAMES/Acute Renal Failure, Fluid/Volume Overload, CHF, Hypotension Problem List: (1) Acute kidney injury ICD Codes: N17.9 - Acute kidney failure, unspecified (2) SOB (shortness of breath) ICD Codes: R06.02 - Shortness of breath Status: Acute (3) Anemia ICD Codes: D64.9 - Anemia, unspecified Status: Acute (4) Hyponatremia ICD Codes: E87.1 - Hypo-osmolality and hyponatremia Status: Acute (5) Hyperlipidemia ICD Codes: E78.5 - Hyperlipidemia, unspecified Status: Acute (6) Diabetes mellitus ICD Codes: E11.9 - Type 2 diabetes mellitus without complications Status: Acute (7) CHF (congestive heart failure) ICD Codes: I50.9 - Heart failure, unspecified Status: Acute Plan Has Acute kidney injury, most likely due to ATN from Hypotension, or contrast. Patient has good urine out put. Creatinine is better. Patient to go to [facility], for possible CABG. Jasvir Wilson MD Jul 29, 2017 12:08
--- NOTE | 2017-07-29 12:52 | EKG ---
Date Performed: 07/28/2017 Time Performed: 14:41:34 PTAGE: 51 years EKG: Sinus rhythm . Right axis deviation IV conduction defect Possible anteroseptal infarct - age undetermined Inferior /lateral ST-T changes may be due to myocardial ischemia Abnormal ECG Compared to prior tracing no sig nificant change PREVIOUS TRACING : 07/25/2017 07.34 DOCTOR: Ty Daniels Interpretating Date/Time 07/29/2017 12:51:19
--- NOTE | 2017-07-29 15:44 | PD.CAR.PN ---
CVT Progress Note Subjective/Hospital Course: 51-year-old male.admit 07/25/2017 admitted with chest pain , + troponin NSEMI, underwent cardiac cath by Dr Goncalves .revealed left main 40% ostial lesion. LAD occluded proximal to stent. Left circumflex occluded. Ramus intermedius 35% stenosis. SVG graft to the OM/RCA occluded. GUALLPA to LAD patent. 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 Dr Quintero spoke with Dr Goncalves and it was felt that pt could be evaluated for high risk PCI, Baseline systolic blood pressure this admission is between 80 and 100. JAMES, creatinine 2.3 PMH: diabetes mellitus, hypertension, dyslipidemia and coronary artery disease status post stent [address] to L[address] Dao, CABG by Dr. Quintero. GUALLPA to LAD SVG to OM/RCA. BP dropped over the weekend , Systolic blood pressure dropped to 60 systolic patient became symptomatically short of breath confused.. Repeat EKG revealed normal sinus rhythm, ST depressions in inferior and lateral leads. Dr Vences notified , IABP inserted into right groin / and stabilized also with Dopamine at 5 mcq plan was eval for possible transfer to tertiary facility for workup for transplant/VAD 07/29: . IABP in place 1:1 Remains on dopamine at 5 g per KG per minute. MAP remains >70. Creatinine has improved from 2.3-1.9. Liver enzymes elevated yesterday and now trending down. most likely secondary to shock pt is pain free , report called to [facility], plan is to transport pt via helicopter To cardiac ICU Objective: GENERAL: SKIN: Warm and dry. HEAD: Normocephalic. EYES: No scleral icterus. No injection or drainage. NECK: Supple, trachea midline. No JVD or lymphadenopathy. CARDIOVASCULAR: Regular rate and rhythm without murmurs, gallops, or rubs. IABP right groin + distal pulses RESPIRATORY: Breath sounds equal bilaterally. No accessory muscle use. GASTROINTESTINAL: Abdomen soft, non-tender, nondistended. MUSCULOSKELETAL: No cyanosis, or edema. BACK: Nontender without obvious deformity. No CVA tenderness. Vital Signs Date Time Temp Pulse Resp B/P (MAP) Pulse Ox O2 Delivery O2 Flow Rate FiO2 07/29/17 13:00 70/45 (65) 10/9/17 12:00 78/52 (72) 07/29/17 11:00 63/41 (60) 07/29/17 11:00 93 07/29/17 11:00 97 Nasal Cannula 4.00 Humidified 07/29/17 11:00 98.1 93 18 105/60 (75) 97 07/29/17 10:00 68/45 (65) 07/29/17 09:00 87/60 (80) 07/29/17 08:00 97 Nasal Cannula 4.00 07/29/17 08:00 85/54 (78) 07/29/17 07:00 97.7 88 20 101/65 (77) 98 07/29/17 07:00 77/49 (68) 07/29/17 07:00 98 Nasal Cannula 4.00 Humidified 07/29/17 07:00 88 07/29/17 06:00 83/54 (77) 07/29/17 05:00 81/52 (75) 07/29/17 04:00 85/56 (79) 07/29/17 03:00 93 Nasal Cannula 5.00 Humidified 07/29/17 03:00 80/50 (74) 07/29/17 03:00 88 07/29/17 03:00 99.1 88 20 106/67 (80) 93 07/29/17 02:00 93/58 (87) 07/29/17 02:00 94 Simple Mask 6.00 07/29/17 01:00 87/58 (83) 07/29/17 01:00 94 Simple Mask 8.00 07/29/17 00:00 97 Non-Rebreather 10.00 07/29/17 00:00 95/60 (86) 07/28/17 23:00 99.3 91 20 123/80 (94) 94 07/28/17 23:00 91 Non-Rebreather 15.00 07/28/17 23:00 91 07/28/17 23:00 92/59 (81) 07/28/17 20:00 91 Non-Rebreather 15.00 07/28/17 20:00 91 Non-Rebreather 15.00 07/28/17 19:45 87 Simple Mask 10.00 07/28/17 19:45 87 Simple Mask 10.00 07/28/17 19:15 88 Nasal Cannula 5.00 07/28/17 19:15 88 Nasal Cannula 5.00 07/28/17 19:00 99.1 90 20 80/58 (65) 92 07/28/17 19:00 92 Nasal Cannula 3.00 07/28/17 19:00 90 07/28/17 16:35 86 07/28/17 16:00 90 07/28/17 15:19 97.2 87 20 82/53 (63) 97 Labs: Laboratory Tests Test 07/29/17 10:51 Activated Partial Thromboplast Time 41.1 SEC (24.3-30.1) Result Diagram: 07/29/17 0300 07/29/17 0300 (1) Coronary artery disease Plan: IABP placed yesterday due to shock, hypotension. Cardiac enzymes consistent with acute NSTEMI. Cath shows occluded 2 of 3 grafts. Remains on pressor support. Urine output good, and creatinine improved. Dr. Ramirez consult noted, appreciated. REC continue current therapy, agree with adding Plavix pt for transfer to [facility] / cardiac ICU (2) Ischemic cardiomyopathy Plan: EF 20-25% by echo this admission with moderate MR. Possibly mild CHF by CXR. REC continue to hold beta yadira with low BP's; no KEISHA-I with renal dysfunction Problem Qualifiers (1) Coronary artery disease: Qualified Codes: I25.110 - Atherosclerotic heart disease of koi coronary artery with unstable angina pectoris Clemencia Rizo Jul 29, 2017 15:44
[2017-07-29 19:05] LABS: APTT (PATIENT) 39.6 SEC (24.3-30.1)
[2017-07-29] MEDS: MORPHINE SULFATE 2 MG/ML INJ IV PUSH PRN (20:23)
[2017-07-29] MEDS: INSULIN DETEMIR 100 UNITS/ML VIAL SQ SCH (21:49)
[2017-07-29] MEDS ORDERED: POTASSIUM CHLORIDE 30 MEQ/NS 100 ML IV-CENTRAL ONE ×2 (22:00)
[2017-07-29] MEDS ORDERED: POTASSIUM CHLORIDE INJ 30 MEQ in SODIUM CHLORIDE 0.9% INJ 100 ML IV-CENTRAL ONE (22:00)
[2017-07-30] MEDS: ONDANSETRON HCL 4 MG/2 ML VIAL IV PUSH PRN (00:39)
[2017-07-30] MEDS ORDERED: CALCIUM CARBONATE 500 MG CHEWABLE TAB CHEW ONE (01:00)
[2017-07-30] MEDS: FAMOTIDINE 20 MG TAB PO SCH ×2 (01:05→09:58)
[2017-07-30] MEDS: MORPHINE SULFATE 2 MG/ML INJ IV PUSH PRN ×2 (02:55→05:57)
[2017-07-30 03:00] VITALS: BP 116/70; PULSE 94; PULSE 95; RESP 18; TEMP 98.4; O2SAT 97
[2017-07-30 03:35] LABS: AUTOMATED NEUTROPHIL # 11.3 TH/MM3 (1.8-7.7); BASOPHIL # 0.1 TH/MM3 (0-0.2); BASOPHIL % 0.4 % (0.0-2.0); EOSINOPHIL # 0.1 TH/MM3 (0-0.4); EOSINOPHIL % 0.6 % (0.0-4.0); HEMATOCRIT 31.2 % (39.0-51.0); HEMO FLAGS DIFF FINAL; LYMPH % 10.6 % (9.0-44.0); LYMPHOCYTE # 1.5 TH/MM3 (1.0-4.8); MEAN CELL VOLUME 82.4 FL (80.0-100.0); MEAN CORPUSCULAR HEMOGLOBIN 27.8 PG (27.0-34.0); MEAN CORPUSCULAR HGB CONC 33.7 % (32.0-36.0); MONO % 8.8 % (0.0-8.0); NEUT % 79.6 % (16.0-70.0); PLATELET COUNT 167 TH/MM3 (150-450); RED BLOOD COUNT 3.79 MIL/MM3 (4.50-5.90); WHITE BLOOD COUNT 14.2 TH/MM3 (4.0-11.0)
[2017-07-30 04:03] LABS: APTT (PATIENT) 40.5 SEC (24.3-30.1)
[2017-07-30 04:05] LABS: ALKALINE PHOSPHATASE 171 U/L (45-117); ALT (GPT) 527 U/L (12-78); ANION GAP 7 MEQ/L (5-15); AST (GOT) 183 U/L (15-37); BICARBONATE 27.6 MEQ/L (21.0-32.0); BLOOD UREA NITROGEN 38 MG/DL (7-18); CHLORIDE 93 MEQ/L (98-107); GLOMERULAR FILTRATION RATE 54 ML/MIN (>89); MAGNESIUM 2.3 MG/DL (1.5-2.5); POTASSIUM 3.8 MEQ/L (3.5-5.1); SODIUM (NA) 128 MEQ/L (136-145); TOTAL BILIRUBIN ADULT 1.3 MG/DL (0.2-1.0)
[2017-07-30] MEDS ORDERED: POTASSIUM CHLOR 40 MEQ PREMIX 100 ML IV ONE (06:45)
[2017-07-30 07:00] VITALS: BP 125/75; PULSE 97; RESP 24; TEMP 97.1; O2SAT 96
--- NOTE | 2017-07-30 07:44 | HHI.CCPN ---
Subjective Remarks/Hospital Course This is a 51-year-old male. Date of admission 07/25/2017. Date of consultation 07/28/2017. Past medical history includes diabetes mellitus, hypertension, dyslipidemia and coronary artery disease status post stent [address] to LAD [address] Dao, CABG by Dr. Quintero. GUALLPA to LAD SVG to OM/RCA. Noted that at that time patient EF 50% and was on an IABP post operation. ( Noted that both grafts are currently occluded.) He originally presented to [facility] 07/25 with a two-week history of malaise, shortness of breath accelerated within the past 2 days prior to admission. Denied chest discomfort , anginal type chest pain. Denied orthopnea claudication. EKG revealed ST depression in anterior lateral leads. Troponin was elevated 2.9. Creatinine was initially within normal limits. Patient heart catheterization placed by Dr. Goncalves 07/25 revealed left main 40% ostial lesion. LAD occluded proximal to stent. Left circumflex occluded. Ramus intermedius 35% stenosis. SVG graft to the OM/RCA occluded. GUALLPA to LAD patent. 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 Patient was evaluated by Dr. Quintero who believes he is at high risk for any intervention Echocardiogram revealed EF 20-25%. LVH/LAE. Moderate MR/TR. PPP 40.7 mmHg. Noted Baseline systolic blood pressure this admission is between 80 and 100. Map consistently has been above 65%. Today, patient was noted to be in acute kidney injury possibly secondary to contrast nephropathy versus hypoperfusion. Systolic blood pressure dropped to 60 systolic patient became symptomatically short of breath confused.. Repeat EKG revealed normal sinus rhythm, ST depressions in inferior and lateral leads. Call placed to Dr. Vences. Bedside placement of IABP. CT surgery/Dr. Quintero notified. No current intervention planned from his standpoint. In light of this, attempt to stabilize patient with possible transfer to tertiary facility for workup for transplant/VAD etc. SUBJ 07/29: Lying in bed. IABP in place. Remains on dopamine at 5 g per KG per minute. IABP placed yesterday evening with significant improvement in urine output now. MAP remains >70. Creatinine has improved from 2.3-1.9. Liver enzymes elevated yesterday and now trending down. This is most likely secondary to shock rather than IABP 07/30: Remains on IABP. Remains on 6 g per KG per minute of dopamine. Accepted for transfer to [facility], for redo CABG versus transplant/LVAD evaluation. UO adequate, creatinine improved to 1.36. Denies chest pain Objective Vital Signs Date Time Temp Pulse Resp B/P (MAP) Pulse Ox O2 Delivery O2 Flow Rate FiO2 07/30/17 06:17 18 07/30/17 06:00 88/64 (84) 07/30/17 03:00 98.4 94 97 07/30/17 03:00 Nasal Cannula 4.00 Humidified Intake and Output 07/30/17 07/30/17 07/30/17 07:59 15:59 23:59 Intake Total 821 ml Output Total 1250 ml Balance -429 ml Result Diagram: 07/30/17 0300 07/30/17 0300 Imaging Last Impressions Chest X-Ray 07/25/17 0751 Signed Impressions: Service Date/Time: July 08:20 - CONCLUSION: Cardiomegaly and previous median sternotomy.. Todd Chand MD Objective Remarks GENERAL: 51-year-old male, critically ill currently on nasal cannula SKIN: Cool and dry. No rash HEAD: Atraumatic. Normocephalic. EYES: Pupils equal and round around 3 mm bilaterally and reactive. ENT: No nasal bleeding or discharge. Mucous membranes pink and moist. NECK: Trachea midline. No JVD. CARDIOVASCULAR: Regular rate and rhythm. S1, S2. No S4. Conducted IABP sounds RESPIRATORY: Few fine crackles appreciated the bases bilaterally. GASTROINTESTINAL: Abdomen soft, non-tender, slightly protuberant. MUSCULOSKELETAL: Extremities without ignition peripheral edema. No obvious deformities. DP pulses are dopplerable NEUROLOGICAL: Awake and alert. No obvious cranial nerve deficits. Motor grossly within normal limits. Five out of 5 muscle strength in the arms and legs. Normal speech. Procedures cardiac cath A/P Assessment and Plan Neuro/Psych: Patient is currently receiving morphine as needed for pain management On lorazepam 0.5 mg twice a day when necessary anxiety CV: NSTEMI Cardiogenic shock Acute on Chronic systolic heart failure Severe ischemic cardiomyopathy EF 20-25% Coronary disease status post stenting to LAD 2007 CABG 3 02/[address] Quintero GUALLPA to LAD, SVG - OM/RCA Moderate MR/TR Mild pulmonary hypertension Dyslipidemia s/p IABP placement 07/28 with improved perfusion as indicated by improving urine output and renal function Remains on dopamine at 6 g per KG per minute Cardiac catheterization by Dr. Goncalves revealed occlusion of the SVG to OM/RCA grafts. Patent GUALLPA to LAD graft. Echocardiogram revealed EF 20-25%. LVH/LAE. Moderate MR/TR. PAP 41 mmHg Home meds included furosemide 40 mg daily, potassium chloride 20 mEq daily, carvedilol 3.2 mg twice a day and lisinopril 2.5 mg daily Home medications include atorvastatin 80 mg daily for dyslipidemia. This is been continued Currently on aspirin 81 mg by mouth daily Dr. Quintero has arranged for transfer to Dr. Dejesus, [facility]. For redo CABG versus transplant/LVAD evaluation Plavix, not added due to Cabg re do evaluation Resp: Acute hypercapnic and hypoxemic respiratory failure Nasal cannula to maintain saturations greater than equal to 92% Incentive spirometry while awake Follow-up chest x-ray GI: Heart healthy, ADA diet when clinically indicated Pantoprazole for GI prophylaxis Docusate sodium/senna for bowel regimen : Monitor urine output closely Endo: Diabetes mellitus type 2 - metformin currently on hold Patient is currently insulin detemir 12 units at night along with sliding scale insulin Novulog before meals/at bedtime Renal: Acute kidney injury secondary to contrast nephropathy? Hypoperfusion? Evaluated by Dr. Wilson. Urine creatinine is steadily improving, 1.36 today Normal saline at 50 cc an hour discontinued Improved UO after IABP placement and Dopamine Heme: Leukocytosis Normocytic anemia Monitor CBC daily. Follow trends Leukocytosis is likely reactive ID: Monitor for infection Blood cultures 2, sputum and urine sample ordered Leukocytosis most likely stress related MSK: PT evaluate and treat when appropriate FEN: Hyponatremia Likely secondary to CHF F/u urine/serum Osm, urine sodium, TSH, cortisol, uric acid to be defined source Recheck BMP in am Access - L IJ CVL 07/28/17 Prophylaxis - GI - pantoprazole - DVT - SCD/heparin subcutaneous Critical Care: The total critical care time was 35 minutes. Time to perform other separately billable procedures was not included in the critical care time. [facility]
[2017-07-30] MEDS ORDERED: DOPAMINE IV PRN (08:30)
[2017-07-30] MEDS ORDERED: SODIUM CHLOR 0.9% IV PRN (08:30)
[2017-07-30] MEDS: CARVEDILOL 3.125 MG TAB PO SCH (08:49)
[2017-07-30] MEDS: INSULIN ASPART SUPPLEMENTAL SCALE SQ SCH ×2 (09:13→12:43)
[2017-07-30] MEDS: ASPIRIN 81 MG CHEW TAB PO SCH (09:57)
[2017-07-30] MEDS: SODIUM CHLORIDE 0.9% FLUSH 10 ML FLUSH IV FLUSH SCH (09:58)
[2017-07-30 10:00] VITALS: O2SAT 95
[2017-07-30 10:46] LABS: APTT (PATIENT) 43.7 SEC (24.3-30.1)
[2017-07-30 11:00] VITALS: BP 131/80; PULSE 95; PULSE 96; RESP 22; TEMP 97.3; O2SAT 92
--- NOTE | 2017-07-30 12:26 | HHI.DS ---
Discharge Summary Admission Date Jul 25, 2017 at 09:38 Admitting Diagnosis non-STEMI, hyperglycemia, renal insufficiency (1) Cardiogenic shock ICD Code: R57.0 - Cardiogenic shock Diagnosis: Principal (2) Non-STEMI (non-ST elevated myocardial infarction) ICD Code: I21.4 - Non-ST elevation (NSTEMI) myocardial infarction Diagnosis: Principal Status: Acute (3) Congestive heart failure (CHF) ICD Code: I50.9 - Heart failure, unspecified Diagnosis: Principal Status: Acute (4) Ischemic cardiomyopathy ICD Code: I25.5 - Ischemic cardiomyopathy Diagnosis: Principal Status: Chronic (5) Combined systolic and diastolic heart failure, acute ICD Code: I50.41 - Acute combined systolic (congestive) and diastolic ( congestive) heart failure Diagnosis: Principal Status: Acute (6) Hyponatremia ICD Code: E87.1 - Hypo-osmolality and hyponatremia Diagnosis: Principal Status: Acute (7) Acute kidney injury ICD Code: N17.9 - Acute kidney failure, unspecified Diagnosis: Principal (8) Diabetes mellitus ICD Code: E11.9 - Type 2 diabetes mellitus without complications Diagnosis: Secondary Status: Acute (9) Coronary artery disease ICD Code: I25.10 - Atherosclerotic heart disease of [place] coronary artery without angina pectoris Diagnosis: Secondary Status: Acute (10) Moderate MR/TR Diagnosis: Secondary Procedures cardiac cath 07/25 IABP placement 07/28 Brief History This is a 51-year-old male. Date of admission 07/25/2017. Date of CCM consultation 07/28/2017. Past medical history includes diabetes mellitus, hypertension, dyslipidemia and coronary artery disease status post stent 2 to L[address] Dao, CABG by Dr. Quintero. GUALLPA to LAD SVG to OM/RCA. Noted that at that time patient EF 50% and was on an IABP post operation. ( Noted that both grafts are currently occluded.) He originally presented to [facility] 07/25 with a two-week history of malaise, shortness of breath accelerated within the past 2 days prior to admission. Denied chest discomfort , anginal type chest pain. Denied orthopnea claudication. EKG revealed ST depression in anterior lateral leads. Troponin was elevated 2.9. Creatinine was initially within normal limits. Patient heart catheterization placed by Dr. Goncalves 07/25 revealed left main 40% ostial lesion. LAD occluded proximal to stent. Left circumflex occluded. Ramus intermedius 35% stenosis. SVG graft to the OM/RCA occluded. GUALLPA to LAD patent. Scientific Laboratory Supervisor recommended consultation to cardiothoracic surgery surgery for intervention. Patient was evaluated by Dr. Quintero who believes he is at high risk for any intervention, Echocardiogram revealed EF 20-25%. LVH/LAE. Moderate MR/TR. PPP 40.7 mmHg. Noted Baseline systolic blood pressure this admission is between 80 and 100. Map consistently has been above 65%. 07/28 patient was noted to be in acute kidney injury possibly secondary to contrast nephropathy versus hypoperfusion. Systolic blood pressure dropped to 60 systolic patient became symptomatically short of breath confused. Repeat EKG revealed normal sinus rhythm, ST depressions in inferior and lateral leads. CBC/BMP: 07/30/17 0300 07/30/17 0300 Significant Findings Laboratory Tests Test 07/28/17 05:35 07/28/17 17:33 07/28/17 20:08 07/29/17 03:00 White Blood Count 17.7 TH/MM3 (4.0-11.0) 20.0 TH/MM3 (4.0-11.0) Red Blood Count 3.80 MIL/MM3 (4.50-5.90) 4.05 MIL/MM3 (4.50-5.90) Hemoglobin 10.8 GM/DL (13.0-17.0) 11.4 GM/DL (13.0-17.0) Hematocrit 31.1 % (39.0-51.0) 33.0 % (39.0-51.0) Red Cell Distribution Width 18.2 % (11.6-17.2) 18.5 % (11.6-17.2) Blood Urea Nitrogen 61 MG/DL (7-18) 64 MG/DL (7-18) 58 MG/DL (7-18) Creatinine 2.28 MG/DL (0.60-1.30) 2.28 MG/DL (0.60-1.30) 1.86 MG/DL (0.60-1.30) Random Glucose 208 MG/DL (74-106) 137 MG/DL (74-106) 157 MG/DL (74-106) Sodium Level 123 MEQ/L (136-145) 124 MEQ/L (136-145) 128 MEQ/L (136-145) Chloride Level 89 MEQ/L (98-107) 88 MEQ/L (98-107) 91 MEQ/L (98-107) Estimat Glomerular Filtration Rate 31 ML/MIN (>89) 31 ML/MIN (>89) 39 ML/MIN (>89) Prothrombin Time 18.0 SEC (9.8-11.6) Activated Partial Thromboplast Time 32.4 SEC (24.3-30.1) 39.2 SEC (24.3-30.1) Fibrinogen 431 mg/dL (227-377) Total Protein 6.1 GM/DL (6.4-8.2) 5.9 GM/DL (6.4-8.2) Albumin 3.0 GM/DL (3.4-5.0) 2.6 GM/DL (3.4-5.0) Alkaline Phosphatase 223 U/L (45-117) 213 U/L (45-117) Aspartate Amino Transf (AST/SGOT) 571 U/L (15-37) 352 U/L (15-37) Alanine Aminotransferase (ALT/SGPT) 783 U/L (12-78) 671 U/L (12-78) Total Bilirubin 1.8 MG/DL (0.2-1.0) 2.1 MG/DL (0.2-1.0) Direct Bilirubin 0.8 MG/DL (0.0-0.2) 0.7 MG/DL (0.0-0.2) Serum Osmolality 262 MOSM/KG (275-295) Lactic Acid Level 2.1 mmol/L (0.4-2.0) Uric Acid 13.5 MG/DL (2.6-7.2) Indirect Bilirubin 1.0 MG/DL (0.0-0.8) 1.4 MG/DL (0.0-0.8) Troponin I 1.35 NG/ML (0.02-0.05) Blood Gas HCO3 21 mmol/L (22-26) Arterial Blood pH 7.45 (7.380-7.420) Arterial Blood Partial Pressure CO2 31 mmHg (38-42) Blood Gas Hemoglobin 11.3 G/DL (12.0-16.0) Calcium Level 8.2 MG/DL (8.5-10.1) Potassium Level 3.3 MEQ/L (3.5-5.1) Test 07/29/17 10:51 07/29/17 14:50 07/29/17 17:45 07/30/17 03:00 Activated Partial Thromboplast Time 41.1 SEC (24.3-30.1) 39.6 SEC (24.3-30.1) 40.5 SEC (24.3-30.1) White Blood Count 14.2 TH/MM3 (4.0-11.0) Red Blood Count 3.79 MIL/MM3 (4.50-5.90) Hemoglobin 10.5 GM/DL (13.0-17.0) Hematocrit 31.2 % (39.0-51.0) Red Cell Distribution Width 19.0 % (11.6-17.2) Neutrophils (%) (Auto) 79.6 % (16.0-70.0) Monocytes (%) (Auto) 8.8 % (0.0-8.0) Neutrophils # (Auto) 11.3 TH/MM3 (1.8-7.7) Monocytes # (Auto) 1.3 TH/MM3 (0-0.9) Blood Urea Nitrogen 38 MG/DL (7-18) Creatinine 1.39 MG/DL (0.60-1.30) Random Glucose 192 MG/DL (74-106) Total Protein 5.9 GM/DL (6.4-8.2) Albumin 2.4 GM/DL (3.4-5.0) Calcium Level 7.9 MG/DL (8.5-10.1) Alkaline Phosphatase 171 U/L (45-117) Aspartate Amino Transf (AST/SGOT) 183 U/L (15-37) Alanine Aminotransferase (ALT/SGPT) 527 U/L (12-78) Total Bilirubin 1.3 MG/DL (0.2-1.0) Sodium Level 128 MEQ/L (136-145) Chloride Level 93 MEQ/L (98-107) Estimat Glomerular Filtration Rate 54 ML/MIN (>89) Test 07/30/17 10:00 Activated Partial Thromboplast Time 43.7 SEC (24.3-30.1) PE at Discharge GENERAL: This is a well-nourished, well-developed patient, in no apparent distress. CARDIOVASCULAR: Regular rate and regular rhythm without murmurs, gallops, or rubs. RESPIRATORY: Clear to auscultation. Breath sounds equal bilaterally. No wheezes , rales, or rhonchi. GASTROINTESTINAL: Abdomen soft, non-tender, nondistended. Normal, active bowel sounds MUSCULOSKELETAL: Extremities without clubbing, cyanosis, or edema. NEURO: Alert & Oriented x4 to person, place, time, situation. Moves all ext x4 Transfer Summary See hospital course Hospital Course This is a 51-year-old male. Date of admission 07/25/2017. Date of CCM consultation 07/28/2017. Past medical history includes diabetes mellitus, hypertension, dyslipidemia and coronary artery disease status post stent 2 to LAD [address] Dao, CABG by Dr. Quintero. GUALLPA to LAD SVG to OM/RCA. Noted that at that time patient EF 50% and was on an IABP post operation. ( Noted that both grafts are currently occluded.) He originally presented to [facility] 07/25 with a two-week history of malaise, shortness of breath accelerated within the past 2 days prior to admission. Denied chest discomfort , anginal type chest pain. Denied orthopnea claudication. EKG revealed ST depression in anterior lateral leads. Troponin was elevated 2.9. Creatinine was initially within normal limits. Patient heart catheterization placed by Dr. Goncalves 07/25 revealed left main 40% ostial lesion. LAD occluded proximal to stent. Left circumflex occluded. Ramus intermedius 35% stenosis. SVG graft to the OM/RCA occluded. GUALLPA to LAD patent. Scientific Laboratory Supervisor recommended consultation to cardiothoracic surgery surgery for intervention. Patient was evaluated by Dr. Quintero who believes he is at high risk for any intervention, Echocardiogram revealed EF 20-25%. LVH/LAE. Moderate MR/TR. PPP 40.7 mmHg. Noted Baseline systolic blood pressure this admission is between 80 and 100. Map consistently has been above 65%. 07/28 patient was noted to be in acute kidney injury possibly secondary to contrast nephropathy versus hypoperfusion. Systolic blood pressure dropped to 60 systolic patient became symptomatically short of breath confused. Repeat EKG revealed normal sinus rhythm, ST depressions in inferior and lateral leads. Call placed to Dr. Vences, interventional cardiology. Bedside placement of IABP. CT surgery/Dr. Quintero notified. No current intervention planned from his standpoint. In light of this , attempt to stabilize patient with possible transfer to tertiary facility for workup for transplant/VAD etc. IABP in place. Remains on dopamine at 5 g per KG per minute. IABP placed 07/28 evening with significant improvement in urine output now. MAP remains >70. Creatinine has improved from 2.3-1.9. Liver enzymes elevated yesterday and now trending down. This is most likely secondary to shock rather than IABP 07/30: Remains on IABP. Remains on 6 g per KG per minute of dopamine. Accepted for transfer to [facility], for redo CABG versus transplant/LVAD evaluation. UO adequate, creatinine improved to 1.39. Denies chest pain. D/w Dr. Phillips at [facility]. Will accept patient today. CTS Dr. Dejesus. Will be transported on IABP and Dopamine. Pt Condition on Discharge: Guarded Discharge Disposition: Disch to Another Hospital Discharge Instructions DIET: Follow Instructions for: Nothing By Mouth Activities you can perform: Continue Bedrest Continued Medications: Potassium Chloride Microencaps (Potassium Chloride Microencaps) 20 Meq Tab 20 MEQ PO DAILY for Hypokalemia, #10 TAB [Aspirin Chew] () 81 MG CHEW 81 MG PO DAILY for z for 90 Days, TAB.CHEW Discontinued Medications: Atorvastatin (Atorvastatin) 80 Mg Tab 80 MG PO HS for Cholesterol Management, #30 TAB Carvedilol (Coreg) 3.125 Mg Tab 3.125 MG PO Q12HR for z, #30 TAB Furosemide (Furosemide) 40 Mg Tab 40 MG PO DAILY for CHF, #10 TAB Lisinopril (Lisinopril) 5 Mg Tab 2.5 MG PO DAILY for BP, #30 TAB Metformin (Metformin) 500 Mg Tab 500 MG PO BIDPC for Blood Sugar Management, #60 TAB 0 Refills With meals Additional Information Please add KEISHA-I and spironolactone once renal function is improved Please re start STATINS once transaminitis resolved Please restart Coreg once shock resolves Zafar Carpio MD Jul 30, 2017 12:26
--- NOTE | 2017-07-30 15:20 | HHI.NPPN ---
Subjective History of Present Illness 51-year-old male with past medical history of ischemic heart disease, congestive heart failure, ejection fraction of 20-25% with moderate mitral and tricuspid regurgitation was admitted because of shortness of breath and chest pain. I was called to see the patient because of elevated BUN and creatinine. The patient does not have any known history of renal disease but his creatinine on presentation was 1.6 and it has gone up to around 2.2 - 2.3. Additional Remarks Patient is alert, no chest pain, mild SOB, clinically same. Review of Systems General Constitutional: Fatigue Respiratory Lungs: SOB Cardiovascular Cardiac: Edema, CANELA Objective Data Data 07/30/17 07/31/17 19:00 07:00 Intake Total 100 ml Balance 100 ml IV Total 100 ml Vital Signs Date Time Temp Pulse Resp B/P (MAP) Pulse Ox O2 Delivery O2 Flow Rate FiO2 07/30/17 11:00 97.3 96 22 131/80 (97) 92 07/30/17 11:00 96 Nasal Cannula 3.00 Humidified 07/30/17 11:00 95 07/30/17 11:00 82/62 (79) 07/30/17 10:00 80/83 (83) 07/30/17 09:00 78/59 (80) 07/30/17 08:00 80/61 (81) 07/30/17 07:00 97.1 97 24 125/75 (92) 96 07/30/17 07:00 96 Nasal Cannula 3.00 Humidified 07/30/17 07:00 97 07/30/17 07:00 74/57 (76) 07/30/17 06:17 18 07/30/17 06:00 88/64 (84) 07/30/17 05:00 79/62 (84) 07/30/17 04:00 82/60 (78) 07/30/17 03:00 98.4 94 18 116/70 (85) 97 07/30/17 03:00 75/55 (75) 07/30/17 03:00 95 07/30/17 03:00 97 Nasal Cannula 4.00 Humidified 07/30/17 02:00 80/56 (80) 07/30/17 01:00 77/54 (78) 07/30/17 00:00 73/49 (72) 07/29/17 23:00 99.3 109 18 121/71 (88) 94 07/29/17 23:00 107 07/29/17 23:00 94 Nasal Cannula 4.00 Humidified 07/29/17 23:00 71/51 (69) 07/29/17 22:08 94 Nasal Cannula 4.00 07/29/17 22:00 76/53 (76) 07/29/17 21:00 78/54 (77) 07/29/17 20:00 79/51 (74) 07/29/17 19:00 94 Nasal Cannula 4.00 Humidified 07/29/17 19:00 113 07/29/17 19:00 73/52 (76) 07/29/17 19:00 99.9 111 18 122/72 (89) 94 07/29/17 18:00 72/47 (63) 07/29/17 17:00 78/55 (75) 07/29/17 16:00 70/47 (79) -: 07/30/17 0300 07/30/17 0300 Physical Exam General Appearance: No Acute Distress, Comfortable Eyes Eye Exam: Pupils Equal Throat Throat Exam: Oral Mucosa [place] & Moist Pulmonary Resp Exam: No Distress, Rhonchi, Decreased Bases, Diminished Breath Sounds Cardiology CV Exam: Regular, Normal Sinus Rhythm Gastrointestinal/Abdomen GI Exam: Soft, Non-Tender, Bowel Sounds Present Extremeties Extremities Exam: Trace Edema Neurologic Neuro Exam: Alert, Awake, Oriented Psychiatric Psych Exam: Appropriate Responses Assessment/Plan Assessment Summary: JAMES/Acute Renal Failure, Fluid/Volume Overload, CHF, Hypotension Problem List: (1) Acute kidney injury ICD Codes: N17.9 - Acute kidney failure, unspecified (2) SOB (shortness of breath) ICD Codes: R06.02 - Shortness of breath Status: Acute (3) Anemia ICD Codes: D64.9 - Anemia, unspecified Status: Acute (4) Hyponatremia ICD Codes: E87.1 - Hypo-osmolality and hyponatremia Status: Acute (5) Hyperlipidemia ICD Codes: E78.5 - Hyperlipidemia, unspecified Status: Acute (6) Diabetes mellitus ICD Codes: E11.9 - Type 2 diabetes mellitus without complications Status: Acute (7) CHF (congestive heart failure) ICD Codes: I50.9 - Heart failure, unspecified Status: Acute Plan Has Acute kidney injury, most likely due to ATN from Hypotension, or contrast. Patient has good urine out put. Creatinine continue to improve, urine out put is better. Liver enzymes improving. Patient to go to [facility], for possible CABG. Jasvir Wilson MD Jul 30, 2017 15:20
== END 2017-07-30 15:15 | disposition short-term general hospital (02) | DRG 270 ==
LOC: NEPC 07:10 → NEDA 09:38 → HIME 15:25 → HCIS 07-27 15:20 → HCVI 07-28 15:44
PROVIDERS: ADMIT Internal Medicine Critical Care Medicine; ATTEND Internal Medicine Critical Care Medicine
PROC: 4A023N7 Measurement of Cardiac Sampling and Pressure, Left Heart, Percutaneous Approach (ICD-10-PCS; 2017-07-25)
PROC: B2111ZZ Fluoroscopy of Multiple Coronary Arteries using Low Osmolar Contrast (ICD-10-PCS; 2017-07-25)
PROC: B2131ZZ Fluoroscopy of Multiple Coronary Artery Bypass Grafts using Low Osmolar Contrast (ICD-10-PCS; 2017-07-25)
PROC: 5A02210 Assistance with Cardiac Output using Balloon Pump, Continuous (ICD-10-PCS; principal; 2017-07-28)
PROC: 05HN33Z Insertion of Infusion Device into Left Internal Jugular Vein, Percutaneous Approach (ICD-10-PCS; 2017-07-28)
DX: I21.4 Non-ST elevation (NSTEMI) myocardial infarction (principal); R57.0 Cardiogenic shock; N17.0 Acute kidney failure with tubular necrosis; J96.01 Acute respiratory failure with hypoxia; J96.02 Acute respiratory failure with hypercapnia; I11.0 Hypertensive heart disease with heart failure; I50.41 Acute combined systolic (congestive) and diastolic (congestive) heart failure; E83.52 Hypercalcemia; I27.20 Pulmonary hypertension, unspecified; E87.1 Hypo-osmolality and hyponatremia; I25.810 Atherosclerosis of coronary artery bypass graft(s) without angina pectoris; E11.65 Type 2 diabetes mellitus with hyperglycemia; E86.0 Dehydration; K21.9 Gastro-esophageal reflux disease without esophagitis; M19.90 Unspecified osteoarthritis, unspecified site; E78.5 Hyperlipidemia, unspecified; I25.5 Ischemic cardiomyopathy; D64.9 Anemia, unspecified; E87.6 Hypokalemia; I08.1 Rheumatic disorders of both mitral and tricuspid valves; Z95.5 Presence of coronary angioplasty implant and graft; Z79.4 Long term (current) use of insulin; Z79.82 Long term (current) use of aspirin; Z95.1 Presence of aortocoronary bypass graft; Z87.891 Personal history of nicotine dependence; I25.2 Old myocardial infarction
CPT/HCPCS: 33967; 36556; 36600; 71010; 76700; 80048; 80053; 80074; 80076; 82140; 82150; 82533; 82550; 82805; 82948; 83036; 83605; 83690; 83735; 83880; 83930; 84100; 84132; 84443; 84484; 84550; 85014; 85025; 85027; 85384; 85610; 85730; 87641; 93005; 93306; 93454; 93567; 96372; 96374; J1265; C1769; C1893; J1644; J1815; J2250; J2270; J2405; J3010; J3480; J7030; J7050; J7060; L1830; Q9967